=== PATIENT | male | born 1940 | race Caucasian/White ===

== ENCOUNTER → 2016-10-21 | Outpatient (CLI) | payer BC ==
--- NOTE | 2016-10-21 08:42 | DIAGNOSTIC IMAGING REPORT ---
THYROID ULTRASOUND CLINICAL HISTORY: Thyroid nodule. COMPARISON STUDY: Low dose screening chest CT April 16, 2016. TECHNIQUE: Sonography of the thyroid gland was performed. FINDINGS: The right thyroid lobe measures 4.6 x 1.8 x 2 cm and the left lobe measures 3.7 x 1.3 x 1.8 cm. There are multiple small hypoechoic nodules within the thyroid gland that measure up to 0.3 cm. 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 None of these nodules meet criteria for biopsy. 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 Note of these nodules meet criteria for biopsy. Electronically signed by: Ildefonso Ng M.D. 10/21/2016 8:41 AM Dictated Date/Time: 10/21/2016 8:38 AM
== END | disposition home or self-care (01) ==
LOC: C.ULTR 08:12
PROVIDERS: ATTEND Family Medicine
DX: E04.1 Nontoxic single thyroid nodule (principal)

== ENCOUNTER → 2017-02-11 | Outpatient (CLI) | payer BC ==
[2017-02-11 12:16] LABS: BASO % 0.3 %; BASO ABS # 0.03 K/uL (0-0.2); COMPLETE YES; EOS % 2.5 %; HEMATOCRIT 41.4 % (42-52); IG% 0.2 %; LYMPH % 13.2 %; LYMPH ABS # 1.22 K/uL (1.2-3.4); MEAN CELL VOLUME 89.8 fL (80-100); MEAN CORPUSCULAR HEMOGLOBIN 31.7 pg (25-34); MEAN CORPUSCULAR HGB CONC 35.3 g/dl (32-36); MEAN PLATELET VOLUME 9.9 fL (7.4-10.4); MONO % 7.5 %; NEUT % 76.3 %; PLATELET COUNT 266 K/uL (130-400); RED BLOOD COUNT 4.61 M/uL (4.7-6.1); WHITE BLOOD COUNT 9.21 K/uL (4.8-10.8)
[2017-02-11 12:36] LABS: URINE APPEARANCE CLEAR (CLEAR); URINE BILIRUBIN NEG (NEG); URINE COLOR YELLOW; URINE NITRITE NEG (NEG); URINE PH 7.5 (4.5-7.5); URINE SPECIFIC GRAVITY 1.015 (1.000-1.030); UROBILINOGEN NEG (NEG); ZZUR CULT IF INDIC CLEAN CATCH NO
[2017-02-11 12:37] LABS: BLOOD UREA NITROGEN 23 mg/dl (7-18); BUN/CREATININE RATIO 14.6 (10-20); CALCIUM 8.9 mg/dl (8.5-10.1); CARBON DIOXIDE 29 mmol/L (21-32); CHLORIDE 102 mmol/L (98-107); GLUCOSE 126 mg/dl (70-99); MAGNESIUM 2.5 mg/dl (1.8-2.4); POTASSIUM 3.2 mmol/L (3.5-5.1); SODIUM 139 mmol/L (136-145)
[2017-02-11 12:38] LABS: PHOSPHORUS 2.8 mg/dl (2.5-4.9)
[2017-02-11 12:39] LABS: URINE PROTIEN/CREAT RATIO 0.2 (0-0.2); URINE TOTAL PROTEIN 17.1 mg/dl (0-11.9)
[2017-02-11 12:44] LABS: MANUAL MICROSCOPIC REQUIRED? NO; REVIEW REQ? NO
== END | disposition home or self-care (01) ==
LOC: C.LABBFT 09:13
PROVIDERS: ATTEND Internal Medicine Nephrology
DX: N18.3 Chronic kidney disease, stage 3 (moderate) (principal)

== ENCOUNTER → 2017-08-13 | Outpatient (CLI) | payer BC ==
[2017-08-13 12:31] LABS: BASO % 0.2 %; BASO ABS # 0.02 K/uL (0-0.2); COMPLETE YES; EOS % 1.8 %; HEMATOCRIT 41.5 % (42-52); IG% 0.3 %; LYMPH % 10.8 %; LYMPH ABS # 1.39 K/uL (1.2-3.4); MEAN CELL VOLUME 90.2 fL (80-100); MEAN CORPUSCULAR HGB CONC 35.4 g/dl (32-36); MEAN PLATELET VOLUME 10.1 fL (7.4-10.4); MONO % 8.1 %; NEUT % 78.8 %; PLATELET COUNT 249 K/uL (130-400); WHITE BLOOD COUNT 12.88 K/uL (4.8-10.8)
[2017-08-13 12:46] LABS: ALT/SGPT 18 U/L (12-78); BLOOD UREA NITROGEN 18 mg/dl (7-18); BUN/CREATININE RATIO 12.5 (10-20); CARBON DIOXIDE 30 mmol/L (21-32); CHLORIDE 100 mmol/L (98-107); CHOLESTEROL 98 mg/dl (0-200); CREATININE 1.44 mg/dl (0.60-1.40); GLUCOSE 127 mg/dl (70-99); POTASSIUM 2.8 mmol/L (3.5-5.1); SODIUM 137 mmol/L (136-145); TRIGLYCERIDES 86 mg/dl (0-150); VERY LOW DENSITY LIPOPROT CALC 17 mg/dl
[2017-08-13 12:46] LABS: MAGNESIUM 2.1 mg/dl (1.8-2.4); PHOSPHORUS 2.3 mg/dl (2.5-4.9)
[2017-08-13 12:50] LABS: ALKALINE PHOSPHATASE 83 U/L (45-117); AST/SGOT 10 U/L (15-37); CHOLESTEROL/HDL RATIO 2.7; HDL CHOLESTEROL 36 mg/dl; LDL CHOLESTEROL CALCULATED 45 mg/dl
[2017-08-13 13:22] LABS: URINE PROTIEN/CREAT RATIO 0.2 (0-0.2); URINE TOTAL PROTEIN 33.9 mg/dl (0-11.9)
== END | disposition home or self-care (01) ==
LOC: C.LABBFT 08:39
PROVIDERS: ATTEND Internal Medicine Cardiovascular Disease
DX: N18.3 Chronic kidney disease, stage 3 (moderate) (principal); I25.10 Atherosclerotic heart disease of native coronary artery without angina pectoris; I25.2 Old myocardial infarction

== ENCOUNTER 2022-10-27 01:51 | Inpatient (IN) ==
[2022-10-27] MEDS ORDERED: SODIUM CHLORIDE 0.9% 500 ML IV STA (01:54)
[2022-10-27] MEDS ORDERED: dilTIAZem HCl 5 MG/ML 5 ML VIAL IV STA (01:55)
[2022-10-27] MEDS ORDERED: dilTIAZem HCl 5 MG/ML 5 ML VIAL IV ONE (01:55)
[2022-10-27] MEDS ORDERED: STAT IV Infusion **Titration per Protocol STA (01:55)
--- NOTE | 2022-10-27 01:57 | Emergency Department Note ---
Impression & Plan Atrial fibrillation with rapid ventricular response ADMIT ED Provider Note HPI: The patient is an 82-year-old gentleman with history of coronary artery disease, hypertension, presents to the emergency department with a chief complaint of chest discomfort and atrial fibrillation with RVR. Patient states about an hour prior to arrival to the ED he developed a sensation of substernal chest discomfort that radiated somewhat to his left upper extremity. EMS was contac nelda and on their arrival patient was noted to be in what appeared to be atrial fibrillation with RVR with a heart rate of 160. Patient was given a bolus of diltiazem in the field, on arrival here to the ED his heart rate is improved in the 120s, he is hemodynamically stable otherwise, saturating well on room air. Patient states his chest pain from earlier is still present but much improved in severity. ROS: - Per HPI *Outpatient medications and allergy history reviewed. *Pertinent external medical records reviewed. PE: General: Alert HEENT: Normocephalic, trachea midline Eyes: Extraocular eye movement is intact, no scleral erythema Pulmonary: Clear to auscultation bilaterally, no wheezing Cardio: Tachycardic rate with irregular rhythm GI: Abdomen is soft, nontender : No suprapubic tenderness MSK: No evidence of trauma or malformation of the extremities, no edema Skin: No evidence of rash Neuro: Alert, no focal deficits Psychiatric: Cooperative pvc monitor: (As interpreted by myself): - An order was placed for continuous cardiac monitoring - Patient was noted to be in atrial fibrillation with RVR with a heart rate of 126 EKG: (As interpreted by myself): Rate: 113 Rhythm: Atrial fibrillation Intervals: Within normal limits ST changes: No ST elevation Time: 0205 Interventions provided in ED: -IV diltiazem bolus, diltiazem drip, IV fluid bolus, IV metoprolol (patient was given aspirin and a single diltiazem bolus in the field via EMS) Medical Decision Making: Patient presented to the emergency department with chest discomfort and tachycardia. EKG is consistent with atrial fibrillation with RVR. This is new onset for this patient. Patient was given a diltiazem bolus and drip here in the ED as he was initially hypertensive on arrival, this did result in improvement in his heart rate into the low 100s but still with some tachycardia. Patient was therefore ordered a single dose of IV metoprolol as well. High- sensitivity troponin level is mildly elevated at 24, EKG does not show any acute ischemic changes. Blood work shows a mild nonspecific leukocytosis, hemoglobin is stable, potassium is slightly low at 3.2. This was ordered for oral repletion. On my reassessment the patient is resting comfortably in bed, saturating well on room air, chest pain is improved. Given his new onset arrhythmia he will be admitted to the hospitalist service for further management. [facility] hospitalist service was consulted for admission. Patient and his family members at the bedside are in agreement for admission and the patient was placed for admission in improved condition Consultants: Hospitalist service Disposition discussion held by myself with: Patient * CRITICAL CARE TIME: (44) minutes -Stabilization of tachyarrhythmia/atrial fibrillation with RVR requiring IV medications for rate control, time spent at the bedside, interpretation of diagnostic studies and EKG, arrangement of admission Diagnosis: 1. New onset atrial fibrillation with RVR 2. Chest pain, acute 3. Hypokalemia, mild 4. Leukocytosis, nonspecific 5. Elevated high-sensitivity troponin Disposition: Admission Lauri Pulliam DO Emergency Medicine Past Med/Surg History Medical History CKD (chronic kidney disease), stage III Follow[address] Morley Heart valve regurgitation unsure which valve Hypertension Myocardial infarct 1997 - heavy chest, left arm pain - Went to [facility] - flown to [facility] - blockage of "back of heart" - heart cath - no stent placement - Follows Dr. Puente Surgical History History of colonoscopy Hx of cardiac cath 1997 d/t to [place] - no stents placed - Follows Dr. Puente Hx of cataract extraction Rt. Hx of inguinal hernia repair Hx of repair of left rotator cuff x2 Family History Father Family history of diabetes mellitus Mother Family history of diabetes mellitus Social History Smoking Status: Current every day smoker Cigarettes Per Day: 2-3/week; Second Hand Exposure: No; Hx Alcohol Use: Yes Alcohol type: beer Hx Substance Use: No Preferred Language: Chadian Communication Ability: Effective Board Layer Required: No Beliefs That Will Affect Care: None Current Living Situation: Alone current occupational status: employed Feels Safe at Home: Yes Assistive Devices: Glasses Allergies Allergies Allergy/AdvReac Type Severity Reaction Status Date / Time No Known Allergies Allergy Verified 10/27/22 02:17 Home Meds Home Medications Medication Instructions Recorded Confirmed cholecalciferol (vitamin D3) 50 2,000 units PO QPM 04/08/19 10/27/22 mcg (2,000 unit) capsule lisinopril 20 1 tab PO QAM 04/08/19 10/27/22 mg-hydrochlorothiazide 25 mg tablet metoprolol succinate 50 mg 50 mg PO QAM 04/08/19 10/27/22 tablet,extended release 24 hr nitroglycerin 0.4 mg sublingual 0.4 mg sublingual .COMPLEX PRN 04/08/19 10/27/22 tablet Chest Pain omeprazole 40 mg capsule,delayed 40 mg PO QAM 04/08/19 10/27/22 release simvastatin 40 mg tablet 40 mg PO QPM 04/08/19 10/27/22 spironolactone 25 mg tablet 25 mg PO QAM 04/08/19 10/27/22 cilostazol 100 mg tablet 100 mg PO BID 01/25/20 10/27/22 nifedipine 30 mg tablet,extended 30 mg PO BID 01/25/20 10/27/22 release aspirin 325 mg tablet 325 mg PO QPM 02/13/22 10/27/22 fish, borage, flaxseed oils-omega 1 cap PO QAM 02/13/22 10/27/22 3,6,9 comb no.1 1,200 mg capsule ([place] 3-6-9) Previous Rx's Medication Instructions Recorded potassium chloride 20 mEq 40 meq PO BID #360 tabs 06/11/22 tablet,extended release Results & Data (ED) Vital Signs Vital Signs - 24 hr 10/27/22 01:36 10/27/22 01:54 10/27/22 01:55 Temperature 36.4 C L Temperature Source Oral Pulse Rate 130 H 138 H 121 H Pulse Rate from SpO2 Sensor Pulse Rhythm Irregular Respiratory Rate 20 24 Respiratory Effort / Characteristics Non-Labored Spontaneous Respiratory Depth Normal Respiratory Pattern Regular Blood Pressure 144/103 H Blood Pressure Mean 116 Pulse Oximetry 95 94 Oxygen Delivery Method Room Air Room Air Sepsis Recent Fever Within 48 Hours No Sepsis New/Unexplained Change in Mental Status No Sepsis Action Taken by Nursing No Action Required 10/27/22 01:55 10/27/22 02:00 10/27/22 02:08 Temperature Temperature Source Pulse Rate 121 H 135 H 117 H Pulse Rate from SpO2 Sensor 127 H 128 H 91 H Pulse Rhythm Respiratory Rate 26 H 19 26 H Respiratory Effort / Characteristics Respiratory Depth Respiratory Pattern Blood Pressure 136/76 Blood Pressure Mean 96 Pulse Oximetry 96 95 96 Oxygen Delivery Method Sepsis Recent Fever Within 48 Hours Sepsis New/Unexplained Change in Mental Status Sepsis Action Taken by Nursing 10/27/22 02:15 10/27/22 02:30 10/27/22 02:45 Temperature Temperature Source Pulse Rate 114 H 111 H 121 H Pulse Rate from SpO2 Sensor 108 H 103 H 113 H Pulse Rhythm Respiratory Rate 21 20 22 Respiratory Effort / Characteristics Respiratory Depth Respiratory Pattern Blood Pressure 126/86 Blood Pressure Mean 99 Pulse Oximetry 96 94 93 Oxygen Delivery Method Sepsis Recent Fever Within 48 Hours Sepsis New/Unexplained Change in Mental Status Sepsis Action Taken by Nursing 10/27/22 03:00 Temperature Temperature Source Pulse Rate 118 H Pulse Rate from SpO2 Sensor 112 H Pulse Rhythm Respiratory Rate 16 Respiratory Effort / Characteristics Respiratory Depth Respiratory Pattern Blood Pressure 128/81 Blood Pressure Mean 96 Pulse Oximetry 93 Oxygen Delivery Method Sepsis Recent Fever Within 48 Hours Sepsis New/Unexplained Change in Mental Status Sepsis Action Taken by Nursing Laboratory Data 10/27/22 02:02 10/27/22 02:02 Lab Results 10/27/22 10/27/22 10/27/22 Range/Units 02:02 02:02 02:02 WBC 12.63 H (4.8-10.8) K/ul RBC 4.92 (4.70-6.10) M/uL Hgb 15.9 (14.0-18.0) g/dl Hct 44.3 (42.0-52.0) % MCV 90.0 (80.0-100.0) fL MCH 32.3 (25.0-34.0) pg MCHC 35.9 (32.0-36.0) g/dL RDW Std Deviation 43.6 (36.4-46.3) fL RDW Coeff of Jolene 13.3 (11.5-14.5) % Plt Count 276 (130-400) K/uL MPV 9.4 (9.4-12.4) fL Immature Gran % (Auto) 0.6 % Neut % (Auto) 80.5 % Lymph % (Auto) 10.5 % Rogers % (Auto) 6.7 % Eos % (Auto) 1.2 % Baso % (Auto) 0.5 % Neut # (Auto) 10.18 H (1.40-6.50) K/uL Lymph # (Auto) 1.33 (1.2-3.4) K/uL Rogers # (Auto) 0.84 H (0.11-0.59) K/uL Eos # (Auto) 0.15 (0-0.50) K/uL Baso # (Auto) 0.06 (0-0.2) K/uL Immature Gran # (Auto) 0.07 (0.01-0.20) K/uL PT 10.3 (9.0-12.0) Seconds INR 1.0 (0.9-1.1) APTT 30.0 (21.0-31.0) Seconds PTT Ratio 1.1 Sodium 135 L (136-145) mmol/L Potassium 3.2 L (3.5-5.1) mmol/L Chloride 99 (98-107) mmol/L Carbon Dioxide 30 (21-32) mmol/L Anion Gap 6 (3-11) BUN 21 (6-23) mg/dl Creatinine 1.22 (0.6-1.4) mg/dl Est Cr Clr Drug Dosing 47.5 ml/min Est GFR ( Amer) 64.0 ml/min Est GFR (Non-Af Amer) 55.3 ml/min BUN/Creatinine Ratio 17.2 (10-20) Glucose 169 H (70-99(Fasting)) mg/dl Calcium 9.4 (8.5-10.1) mg/dl Magnesium 1.8 (1.7-2.4) mg/dl Total Bilirubin 0.7 (0.2-1.0) mg/dl AST 12 L (13-39) U/L ALT 15 (7-52) U/L Alkaline Phosphatase 84 (34-104) U/L Troponin I High Sens 24.7 H (0-20) pg/ml Total Protein 7.7 (6.0-8.3) gm/dl Albumin 4.6 (3.4-5.0) gm/dl Globulin 3.1 (2.5-4.0) gm/dl Albumin/Globulin Ratio 1.5 (0.9-2) Lipase 35 (11-82) U/L TSH (0.300-4.500) uIu/ml SARS-CoV-2, RNA, NAAT (NEGATIVE) 10/27/22 10/27/22 Range/Units 02:02 02:07 WBC (4.8-10.8) K/ul RBC (4.70-6.10) M/uL Hgb (14.0-18.0) g/dl Hct (42.0-52.0) % MCV (80.0-100.0) fL MCH (25.0-34.0) pg MCHC (32.0-36.0) g/dL RDW Std Deviation (36.4-46.3) fL RDW Coeff of Jolene (11.5-14.5) % Plt Count (130-400) K/uL MPV (9.4-12.4) fL Immature Gran % (Auto) % Neut % (Auto) % Lymph % (Auto) % Rogers % (Auto) % Eos % (Auto) % Baso % (Auto) % Neut # (Auto) (1.40-6.50) K/uL Lymph # (Auto) (1.2-3.4) K/uL Rogers # (Auto) (0.11-0.59) K/uL Eos # (Auto) (0-0.50) K/uL Baso # (Auto) (0-0.2) K/uL Immature Gran # (Auto) (0.01-0.20) K/uL PT (9.0-12.0) Seconds INR (0.9-1.1) APTT (21.0-31.0) Seconds PTT Ratio Sodium (136-145) mmol/L Potassium (3.5-5.1) mmol/L Chloride (98-107) mmol/L Carbon Dioxide (21-32) mmol/L Anion Gap (3-11) BUN (6-23) mg/dl Creatinine (0.6-1.4) mg/dl Est Cr Clr Drug Dosing ml/min Est GFR ( Amer) ml/min Est GFR (Non-Af Amer) ml/min BUN/Creatinine Ratio (10-20) Glucose (70-99(Fasting)) mg/dl Calcium (8.5-10.1) mg/dl Magnesium (1.7-2.4) mg/dl Total Bilirubin (0.2-1.0) mg/dl AST (13-39) U/L ALT (7-52) U/L Alkaline Phosphatase (34-104) U/L Troponin I High Sens (0-20) pg/ml Total Protein (6.0-8.3) gm/dl Albumin (3.4-5.0) gm/dl Globulin (2.5-4.0) gm/dl Albumin/Globulin Ratio (0.9-2) Lipase (11-82) U/L TSH 1.691 (0.300-4.500) uIu/ml SARS-CoV-2, RNA, NAAT NEGATIVE (NEGATIVE) Administered Medications Diltiazem HCl 125 mg/ Dextrose 125 mls @ 5 mls/hr IV .Q24H [facility]; Protocol Stop: 11/26/22 01:59 Last Titration: 10/27/22 02:53 Dose: 10 mg/hr, 10 mls/hr Documented By: KIKO Co-signed By: HILARY Admin: 10/27/22 02:03 Dose: 5 mg/hr, 5 mls/hr Documented By: KIKO Co-signed By: ADOLFO Discontinued Medications Diltiazem HCl (Diltiazem Hcl 5 Mg/Ml 5 Ml Vial) 10 mg IV NOW STA Stop: 10/27/22 01:56 Last Admin: 10/27/22 02:02 Dose: 10 mg Documented By: KIKO Co-signed By: ADOLFO Diltiazem HCl (Diltiazem Hcl 5 Mg/Ml 5 Ml Vial) Confirm Administered Dose 25 mg IV .STK-MED ONE Stop: 10/27/22 01:56 Last Admin: 10/27/22 02:03 Dose: Not Given Documented By: KIKO Sodium Chloride (Nss) 500 mls @ 999 mls/hr IV .Q31M STA Stop: 10/27/22 02:24 Last Infusion: 10/27/22 02:30 Dose: 0 mls/hr Documented By: Admin: 10/27/22 02:05 Dose: 999 mls/hr Documented By: MJJ Miscellaneous (Stat Iv Infusion Titration Per Protocol) 1 each N/A NOW STA Stop: 10/27/22 01:56 Last Admin: 10/27/22 03:13 Dose: 1 each Documented By: KIKO Discharge Plan Visit Data Chief Complaint: Cardiac Assessment ED Provider: Lauri Pulliam Discharge Problem: Atrial fibrillation with rapid ventricular response Patient Disposition: Admitted As Inpatient Forms Stand Alone Forms: [facility] Prescriptions Prescriptions: No Action potassium chloride 20 mEq tablet extended release 40 meq PO BID Qty: 360 3RF simvastatin 40 mg tablet 40 mg PO QPM lisinopril-hydrochlorothiazide 20-25 mg tablet 1 tab PO QAM metoprolol succinate 50 mg tablet extended release 24 hr 50 mg PO QAM nitroglycerin 0.4 mg tablet, sublingual 0.4 mg SL .COMPLEX PRN (Reason: Chest Pain) Patient Comments: 0.[address] 1 tablet under the tongue every 5 minures for up to 3 doses as needed for chest pain call 911 if pain persists PRN; Rx Instructions: 0.[address] 1 tablet under the tongue every 5 minures for up to 3 doses as needed for chest pain call 911 if pain persists PRN; spironolactone 25 mg tablet 25 mg PO QAM cholecalciferol (vitamin D3) 2,000 unit capsule 2,000 units PO QPM omeprazole 40 mg capsule,delayed release(DR/EC) 40 mg PO QAM nifedipine 30 mg tablet extended release 30 mg PO BID cilostazol 100 mg tablet 100 mg PO BID aspirin 325 mg Tablet 325 mg PO QPM [place] 3-6-9 1,200 mg Capsule 1 cap PO QAM Referrals Referrals: Giancarlo Bettencourt DO [Primary Care Provider] -
[2022-10-27] MEDS ORDERED: dilTIAZem HCL 125 MG in DEXTROSE 5% 100 ML IV SCH (02:00)
[2022-10-27 02:34] LABS: Basophils # (auto) 0.06 K/uL (0-0.2); Basophils % (auto) 0.5 %; Eosinophils # (auto) 0.15 K/uL (0-0.50); Eosinophils % (auto) 1.2 %; Hematocrit (blood only) 44.3 % (42.0-52.0); Hemoglobin 15.9 g/dl (14.0-18.0); Immature Granulocytes # (auto) 0.07 K/uL (0.01-0.20); Immature Granulocytes % (auto) 0.6 %; Lymphocytes # (auto) 1.33 K/uL (1.2-3.4); Lymphocytes % (auto) 10.5 %; Mean Corpuscular Hemoglobin 32.3 pg (25.0-34.0); Mean Corpuscular Hgb Conc 35.9 g/dL (32.0-36.0); Mean Platelet Volume 9.4 fL (9.4-12.4); Monocytes # (auto) 0.84 K/uL (0.11-0.59); Monocytes % (auto) 6.7 %; Neutrophils # (auto) 10.18 K/uL (1.40-6.50); Neutrophils % (auto) 80.5 %; Platelet Count 276 K/uL (130-400); RDW Coefficient of Variation 13.3 % (11.5-14.5); RDW Standard Deviation 43.6 fL (36.4-46.3); Red Blood Count 4.92 M/uL (4.70-6.10); White Blood Count 12.63 K/ul (4.8-10.8)
[2022-10-27 02:48] LABS: Albumin Globulin Ratio 1.5 (0.9-2); Albumin Level 4.6 gm/dl (3.4-5.0); BUN Creatinine Ratio 17.2 (10-20); Bilirubin,Total 0.7 mg/dl (0.2-1.0); Calcium 9.4 mg/dl (8.5-10.1); Creatinine Clr Calc Pharmacy 47.5 ml/min; Est GFR (Non-African American) 55.3 ml/min; Globulin 3.1 gm/dl (2.5-4.0); Magnesium 1.8 mg/dl (1.7-2.4); Potassium 3.2 mmol/L (3.5-5.1); Total Protein 7.7 gm/dl (6.0-8.3)
[2022-10-27 02:53] LABS: Partial Thromboplastin Ratio 1.1; Prothrombin Time 10.3 Seconds (9.0-12.0)
[2022-10-27 02:54] LABS: Troponin I High Sensitivity 24.7 pg/ml (0-20)
[2022-10-27] MEDS ORDERED: METOPROLOL TARTRATE 1 MG/ML VIAL IV STA (03:14)
[2022-10-27] MEDS ORDERED: POTASSIUM CHLORIDE CRTAB 20 MEQ TABCR PO STA ×2 (03:17→03:46)
--- NOTE | 2022-10-27 03:40 | History & Physical Report ---
Date of Service October 27, 2022 Assessment & Plan (1) Atrial fibrillation with rapid ventricular response: Plan: 82yo Male with PMH [place] 1997 treated medically, HTN, CAD, CKDIII here for afib RVR. Afib RVR -in ED received metoprolol 5mg, diltiazem 10mg, NSS 500ml bolus, diltiazem drip -CXR wnl -ordered echo TTE -ordered metoprolol succinate 25mg, will stop diltiazem drip in 1 hour to see how patient tolerates -ordered 40meq KCl -ordered Mg 1g -consulted cardiology -started on eliquis 2.5mg BID -continue metoprolol succinate 50mg daily -hold HCTZ, nifedipine while on cardizem drip -recheck BMP, mag HTN -lisinopril HCTZ on hold given hypokalemia, resume once corrected -continue spironolactone -nifedipine on hold given diltiazem drip, may resume once drip discontinued -continue metoprolol succinate 50mg daily Elevated Trop -24.7 -trend Hypokalemia -ordered 40meq KCl -recheck Hypomagnesia -ordered Mg 1g recheck GERD -continue protonix Hx. MS -continue simvastatin PAD -hold cilostozol until stop diltiazem drip FENa: heart healthy Code Status: full DVT PPX: eliquis 2.5mg BID Dispo: PCU/Latosha Pemberton D.O. PGY 2, FCM (2) Hypertension: (3) CKD (chronic kidney disease), stage III: (4) CAD (coronary artery disease): History of Present Illness Chief Complaint: Afib RVR Primary Care Provider: Giancarlo Bettencourt, 82yo Male with PMH [place] 1997 treated medically, HTN, CAD, CKDIII here for afib RVR. Patient states at 12:30 this morning he developed left chest pain pressure with pain radiating down his left arm, was concerned for a heart attack so came to ED. 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 Otherwise patient denies any fever chills nausea vomiting SOB D/C swelling in legs. Patient received diltiazem 10mg started on drip, [id number], NSS 500mls bolus, states his chest pain/pressure has resolved. states he has a chronic productive cough over the last few months that has slowly improved by now. Patient is in charge of his own medication, takes them regularly. He smoked 2-3 packs daily from ages [age] until his heart attack, now smokes 1 pack a month. Patient denies drinking. Allergies Allergy/AdvReac Type Severity Reaction Status Date / Time No Known Allergies Allergy Verified 10/27/22 02:17 Home Medications Medication Instructions Recorded Confirmed Type cholecalciferol (vitamin D3) 50 2,000 units PO QPM 04/08/19 10/27/22 History mcg (2,000 unit) capsule lisinopril 20 1 tab PO QAM 04/08/19 10/27/22 History mg-hydrochlorothiazide 25 mg tablet metoprolol succinate 50 mg 50 mg PO QAM 04/08/19 10/27/22 History tablet,extended release 24 hr nitroglycerin 0.4 mg sublingual 0.4 mg sublingual .COMPLEX PRN 04/08/19 10/27/22 History tablet Chest Pain omeprazole 40 mg capsule,delayed 40 mg PO QAM 04/08/19 10/27/22 History release simvastatin 40 mg tablet 40 mg PO QPM 04/08/19 10/27/22 History spironolactone 25 mg tablet 25 mg PO QAM 04/08/19 10/27/22 History cilostazol 100 mg tablet 100 mg PO BID 01/25/20 10/27/22 History nifedipine 30 mg tablet,extended 30 mg PO BID 01/25/20 10/27/22 History release aspirin 325 mg tablet 325 mg PO QPM 02/13/22 10/27/22 History fish, borage, flaxseed oils-omega 1 cap PO QAM 02/13/22 10/27/22 History 3,6,9 comb no.1 1,200 mg capsule ([place] 3-6-9) potassium chloride 20 mEq 40 meq PO BID #360 tabs 06/11/22 10/27/22 Rx tablet,extended release Past Med/Surg History Medical History CKD (chronic kidney disease), stage [address] Morley Heart valve regurgitation unsure which valve Hypertension Myocardial infarct 1997 - heavy chest, left arm pain - Went to [facility] - flown to [facility] - blockage of "back of heart" - heart cath - no stent placement - Follows Dr. Puente Surgical History History of colonoscopy Hx of cardiac cath 1997 d/t to [place] - no stents placed - Follows Dr. Puente Hx of cataract extraction Rt. Hx of inguinal hernia repair Hx of repair of left rotator cuff x2 Family History Father Family history of diabetes mellitus Mother Family history of diabetes mellitus Social History Smoking Status: Current some day smoker Cigarettes Per Day: 2-3/week; Second Hand Exposure: No; Do You Dip or Chew Tobacco: No; Tobacco Cessation Education Requested by Patient: Yes Hx Alcohol Use: Yes Alcohol type: beer Hx Substance Use: No Preferred Language: Mongolian Communication Ability: Effective Stock Pitcher Required: No Beliefs That Will Affect Care: None Current Living Situation: Spouse Current Living Situation Comment: From home with current occupational status: employed Other Information That Helps Us Care for You: No Feels Safe at Home: Yes Safety Concerns: Feels Safe At This Time Assistive Devices: Glasses Review of Systems Review of Systems: see hpi Physical Exam Constitutional: WD/WN, vitals as above Eyes: PERRL, conjunctivae normal, anicteric sclerae ENMT: external ear and nose normal, oropharynx normal Neck: trachea midline, no thyromegaly Respiratory: normal respiratory effort, lungs clear to auscultation Cardiovascular: Rate/Rhythm: + irregularly irregular Extremities: no edema Gastrointestinal (Abdomen): Inspection/Auscultation: abdomen normal to inspection; abdomen not distended Percussion/Palpation: abdomen soft; abdomen nontender Skin: no rashes, warm and dry Results & Data Results & Data ([facility]) Vital Signs (Past 12 Hours) Vital Signs Temp Pulse Resp BP Pulse Ox O2 Del Method 10/27/22 03:23 128 H 10/27/22 03:00 118 H 16 128/81 93 10/27/22 02:45 121 H 22 93 10/27/22 02:30 111 H 20 126/86 94 10/27/22 02:15 114 H 21 96 10/27/22 02:08 117 H 26 H 136/76 96 10/27/22 02:00 135 H 19 95 10/27/22 01:55 121 H 26 H 96 10/27/22 01:55 121 H 10/27/22 01:54 138 H 24 94 Room Air 10/27/22 01:36 36.4 C L 130 H 20 144/103 H 95 Room Air Supervising Physician Co-Signing Physician Notes Atrial fibrillation with RVR, new onset/CAD/hypertension/history of MR- The patient will be admitted to telemetry for serial cardiac enzymes, serial EKG's, cardiac rhythm monitoring and a 2-D echocardiogram with Dopplers. From the ED the patient received the following: Diltiazem bolus then drip titrated to 10 mg/h We will give Lopressor 5 mg IV now, and metoprolol succinate 25 mg p.o. now, and discontinue diltiazem drip 1 hour later We will hold nifedipine 30 mg p.o. twice daily and lisinopril/HCTZ to allow blood pressure to go up to compensate for need to increase metoprolol Patient would likely need metoprolol succinate 50 mg p.o. twice daily, this can be titrated as symptoms determine Potassium 3.2 and magnesium 1.8. Replace with IV and oral supplementation to maintain potassium 4.0 and magnesium 2.0 Electrolyte abnormalities likely secondary to HCTZ GERD- Continue at omeprazole/pantoprazole 40 mg daily Hyperlipidemia- Continue simvastatin 40 mg daily PAD- Cilostazol Resident Activity Tracking Resident Involvement: Resident Care Provided Care Provided: Adult Hospital Medicine
[2022-10-27] MEDS ORDERED: MAGNESIUM SULFATE / D5W 1 GM/100 ML BAG IV ONE (03:46)
[2022-10-27] MEDS ORDERED: METOPROLOL SUCC 25MG EXT REL TAB PO STA (03:46)
[2022-10-27] MEDS ORDERED: ACETAMINOPHEN 325 MG TAB PO PRN (05:01)
[2022-10-27] MEDS ORDERED: POLYETHYLENE (MIRALAX) 17 GM PACK PO PRN (05:01)
[2022-10-27 06:22] LABS: BUN Creatinine Ratio 17.7 (10-20); Calcium 9.4 mg/dl (8.5-10.1); Creatinine Clr Calc Pharmacy 51.3 ml/min; Est GFR (African American) 70.3 ml/min; Est GFR (Non-African American) 60.6 ml/min; Magnesium 2.3 mg/dl (1.7-2.4); Potassium 3.8 mmol/L (3.5-5.1)
[2022-10-27 06:24] LABS: Hematocrit (blood only) 40.9 % (42.0-52.0); Hemoglobin 14.4 g/dl (14.0-18.0); Mean Corpuscular Hemoglobin 31.7 pg (25.0-34.0); Mean Corpuscular Hgb Conc 35.2 g/dL (32.0-36.0); Mean Corpuscular Volume 90.1 fL (80.0-100.0); Mean Platelet Volume 9.2 fL (9.4-12.4); Platelet Count 254 K/uL (130-400); RDW Coefficient of Variation 13.1 % (11.5-14.5); Red Blood Count 4.54 M/uL (4.70-6.10); White Blood Count 12.86 K/ul (4.8-10.8)
--- NOTE | 2022-10-27 07:33 | XRay Report ---
SINGLE VIEW CHEST CLINICAL HISTORY: Atypical chest pain. FINDINGS: 2 AP, portable, upright chest radiographs are correlated with chest CT dated 04/16/2016. The heart is enlarged noting atherosclerotic calcification of the thoracic aorta. The pulmonary vasculatu re is noncongested. Emphysema and chronic interstitial thickening is similar to previous. There is bi basilar scarring/atelectasis. No airspace consolidation or large pleural effusion is identified. No p neumothorax is seen. The skeletal structures are osteopenic. The bony thorax is grossly intact. IMPRESSION: Cardiomegaly and emphysema with no acute cardiopulmonary abnormality identified. ACT 112: Negative or not required by law. Electronically signed by: Petros Christensen M.D. 10/27/2022 7:32 AM
[2022-10-27] MEDS ORDERED: Heparin IV Adult Wt-Based Standard WITH Bolus Protocol IV SCH (08:00)
[2022-10-27] MEDS: PANTOprazole 40 MG TAB PO SCH (08:24)
[2022-10-27] MEDS: OMEGA-3 (PURIFIED FISH OIL) 1 GM CAP PO SCH (08:25)
[2022-10-27] MEDS ORDERED: HEPARIN SOD (PORCINE) 1000 UNIT/ML IV ONE (08:30)
[2022-10-27] MEDS ORDERED: HEPARIN SODIUM/DEXTROSE 25,000 UNITS/500 ML BAG IV SCH (08:30)
[2022-10-27] MEDS ORDERED: APIXABAN 2.5 MG TAB PO SCH (09:00)
[2022-10-27] MEDS ORDERED: SPIRONOLACTONE 25 MG TAB PO SCH (09:00)
[2022-10-27] MEDS ORDERED: METOPROLOL SUCC 50MG EXT REL TAB PO SCH (09:00)
--- NOTE | 2022-10-27 09:17 | Hospitalist Progress Note ---
Date of Service October 27, 2022 Assessment & Plan (1) NSTEMI (non-ST elevated myocardial infarction): Plan: Presented with chest pain, AFib RVR as described below. No ST elevations on EKG. Troponin 24 -> 858 -> 2347 but now without chest pain, trend q6h. Heparin gtt initiated this morning -> transitioned to 5mg BID. Echo without new wall motion abnormalities. A1c and lipid panel pending. Transitioned from simvastatin to rosuvastatin 20mg daily (high-intensity statin for plaque stabilization). Cardiology consulted and appreciate recommendations, no indication for catheterization at this time given suspect troponin leak was due to demand ischemia from AFib RVR rather than ACS. Continue aspirin. Metoprolol succinate increased to 100mg daily, continue. If BP tolerates into tomorrow, can resume lisinopril (without spironolactone) Resume lisinopril when able (held for hypotension). (2) Atrial fibrillation with rapid ventricular response: Plan: Presented with HR 130s; decreased to 90s on dilt gtt/bolus, as well as extra PO dose metoprolol succinate. Continue metoprolol succinate 100mg daily. Cardiology and Echo as above. (3) CAD (coronary artery disease): Plan: see above (4) Hypertension: Plan: Holding lisinopril, spironolactone, and HCTZ for hypotension, may resume lisinopril when BP allows. Continue increased dose metoprolol succinate 100mg daily. (5) CKD (chronic kidney disease), stage III: Plan: Creatinine 1.22 on admission with GFR 55, near baseline. Avoid nephrotoxins when able, and trend BMP. Admission and Anticipated Discharge Date Admission Date: October 27, 2022 Subjective Overnight troponin increased to 800s, Cardiology consulted and Heparin gtt initiated this morning in the event of ACS. Patient on my interview late this morning denies chest pain, SOB now that HR in 70s. Called to beside for BP in 80s on diltiazem around 11am. Medication stopped and patient given oxygen briefly for O2<92%, since returned to room air. Review of Systems Review of Systems: All systems reviewed & are unremarkable except as noted in Subjective Physical Exam Constitutional: WD/WN, vitals as above Respiratory: normal respiratory effort, lungs clear to auscultation Cardiovascular: HR irregularly irregular, non-tachycardic, no murmurs Gastrointestinal (Abdomen): normal bowel sounds, soft, nontender, no hepatosplenomegaly Skin: no rashes, warm and dry Psychiatric: A+Ox3, euthymic affect Results & Data Results & Data ([facility]) Vital Signs (Past 12 Hours) Vital Signs Temp Pulse Pulse Resp BP BP BP 10/27/22 07:44 36.3 C L 94 H 18 113/66 10/27/22 05:03 36.5 C 112 H 20 142/79 H 10/27/22 05:01 10/27/22 05:03 36.5 C 112 H 20 142/79 H 10/27/22 04:00 97 H 24 118/90 10/27/22 03:45 96 H 19 10/27/22 03:30 107 H 27 H 129/83 10/27/22 03:15 127 H 18 10/27/22 03:23 128 H 10/27/22 03:00 118 H 16 128/81 10/27/22 02:45 121 H 22 10/27/22 02:30 111 H 20 126/86 10/27/22 02:15 114 H 21 10/27/22 02:08 117 H 26 H 136/76 10/27/22 02:00 135 H 19 10/27/22 01:55 121 H 26 H 10/27/22 01:55 121 H 10/27/22 01:54 138 H 24 10/27/22 01:36 36.4 C L 130 H 20 144/103 H Pulse Ox Pulse Ox O2 Del Method O2 Del Method 10/27/22 07:44 94 Room Air 10/27/22 05:03 94 Room Air 10/27/22 05:01 94 Room Air 10/27/22 05:03 94 Room Air 10/27/22 04:00 94 10/27/22 03:45 93 10/27/22 03:30 92 10/27/22 03:15 96 10/27/22 03:23 10/27/22 03:00 93 10/27/22 02:45 93 10/27/22 02:30 94 10/27/22 02:15 96 10/27/22 02:08 96 10/27/22 02:00 95 10/27/22 01:55 96 10/27/22 01:55 10/27/22 01:54 94 Room Air 10/27/22 01:36 95 Room Air PG Care Time/CCT Total # of Minutes Spent Total Time Spent with Patient: Total time spent is greater than 50% in coordination of care (as documented) at patient's floor/unit and/or counseling patient: Coding Level of Care Code None Diagnoses NSTEMI (non-ST elevated myocardial infarction) I21.4 Atrial fibrillation with rapid ventricular response I48.91 CAD (coronary artery disease) I25.10 Hypertension I10 CKD (chronic kidney disease), stage III N18.3
[2022-10-27 10:04] LABS: Chol HDL Ratio 2.5 (0-5)
[2022-10-27 11:25] LABS: Troponin I High Sensitivity 2347.3 pg/ml (0-20)
--- NOTE | 2022-10-27 13:47 | Cardiology Consultation ---
Date of Consultation October 27, 2022 History of Present Illness Reason for Consultation: A-fib with RVR Attending Physician: Padmini Munoz, History of Present Illness Patient came to the hospital with chest pain and chest pressure and arm discomfort that woke him at night he was current concerned he was having a heart attack. He was found to be in atrial fibrillation with rapid ventricular response. His rates have improved and with that his anginal symptoms have resolved. He was unaware of any palpitations or fluttering at home he does note that his symptoms were also similar to his previous reflux symptoms. I do wonder if he was not having A-fib at home and that his reflux might of been related to atrial fibrillation with a rapid ventricular response. The only thing that is different is he notes this episode his his reflux medicine did not relieve his symptoms where in the past episodes it did. He denies any lightheadedness or dizziness. He has had no bleeding or bruising. He denies any need for upcoming surgery or tooth extraction. He is feeling well otherwise. He has had some hypotension and some hypoxemia which was likely related to being on a diltiazem drip. Off the drip he is feeling better and his vitals have normalized. The rest of number systems otherwise negative Allergies Allergy/AdvReac Type Severity Reaction Status Date / Time No Known Allergies Allergy Verified 10/27/22 02:17 Home Medications Medication Instructions Recorded Confirmed Type cholecalciferol (vitamin D3) 50 2,000 units PO QPM 04/08/19 10/27/22 History mcg (2,000 unit) capsule lisinopril 20 1 tab PO QAM 04/08/19 10/27/22 History mg-hydrochlorothiazide 25 mg tablet metoprolol succinate 50 mg 50 mg PO QAM 04/08/19 10/27/22 History tablet,extended release 24 hr nitroglycerin 0.4 mg sublingual 0.4 mg sublingual .COMPLEX PRN 04/08/19 10/27/22 History tablet Chest Pain omeprazole 40 mg capsule,delayed 40 mg PO QAM 04/08/19 10/27/22 History release simvastatin 40 mg tablet 40 mg PO QPM 04/08/19 10/27/22 History spironolactone 25 mg tablet 25 mg PO QAM 04/08/19 10/27/22 History cilostazol 100 mg tablet 100 mg PO BID 01/25/20 10/27/22 History nifedipine 30 mg tablet,extended 30 mg PO BID 01/25/20 10/27/22 History release aspirin 325 mg tablet 325 mg PO QPM 02/13/22 10/27/22 History fish, borage, flaxseed oils-omega 1 cap PO QAM 02/13/22 10/27/22 History 3,6,9 comb no.1 1,200 mg capsule ([place] 3-6-9) potassium chloride 20 mEq 40 meq PO BID #360 tabs 06/11/22 10/27/22 Rx tablet,extended release Patient History Medical History CKD (chronic kidney disease), stage III [address] Morley Heart valve regurgitation unsure which valve Hypertension Myocardial infarct 1997 - heavy chest, left arm pain - Went to [facility] - flown to [facility] - blockage of "back of heart" - heart cath - no stent placement - Follows Dr. Puente Surgical History History of colonoscopy Hx of cardiac cath 1997 d/t to [place] - no stents placed - Follows Dr. Puente Hx of cataract extraction Rt. 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: No Beliefs That Will Affect Care: None Current Living Situation: Spouse Current Living Situation Comment: From home with current occupational status: employed Other Information That Helps Us Care for You: No Feels Safe at Home: Yes Safety Concerns: Feels Safe At This Time Assistive Devices: Glasses Results & Data ([facility]) Vital Signs (Past 12 Hours) Vital Signs Temp Pulse Pulse Resp BP BP BP 10/27/22 11:20 82/48 L 10/27/22 11:19 36.3 C L 69 18 78/47 L 10/27/22 11:54 66 20 107/58 L 10/27/22 11:50 76 28 H 104/63 10/27/22 11:47 10/27/22 11:46 10/27/22 11:43 10/27/22 11:40 70 92/58 L 10/27/22 09:00 72 10/27/22 07:44 36.3 C L 94 H 18 113/66 10/27/22 05:03 36.5 C 112 H 20 142/79 H 10/27/22 05:01 10/27/22 05:03 36.5 C 112 H 20 142/79 H 10/27/22 04:00 97 H 24 118/90 10/27/22 03:45 96 H 19 10/27/22 03:30 107 H 27 H 129/83 10/27/22 03:15 127 H 18 10/27/22 03:23 128 H 10/27/22 03:00 118 H 16 128/81 10/27/22 02:45 121 H 22 10/27/22 02:30 111 H 20 126/86 10/27/22 02:15 114 H 21 10/27/22 02:08 117 H 26 H 136/76 10/27/22 02:00 135 H 19 10/27/22 01:55 121 H 26 H 10/27/22 01:55 121 H 10/27/22 01:54 138 H 24 Pulse Ox Pulse Ox O2 Del Method O2 Del Method O2 Flow Rate 10/27/22 11:20 Room Air 10/27/22 11:19 91 Room Air 10/27/22 11:54 91 Nasal Cannula 3 10/27/22 11:50 92 Nasal Cannula 3 10/27/22 11:47 94 Nasal Cannula 3 10/27/22 11:46 91 Nasal Cannula 3 10/27/22 11:43 90 Nasal Cannula 2 10/27/22 11:40 85 L Room Air 10/27/22 09:00 10/27/22 07:44 94 Room Air 10/27/22 05:03 94 Room Air 10/27/22 05:01 94 Room Air 10/27/22 05:03 94 Room Air 10/27/22 04:00 94 02/19/23 03:45 93 10/27/22 03:30 92 10/27/22 03:15 96 10/27/22 03:23 10/27/22 03:00 93 10/27/22 02:45 93 10/27/22 02:30 94 10/27/22 02:15 96 10/27/22 02:08 96 10/27/22 02:00 95 10/27/22 01:55 96 10/27/22 01:55 10/27/22 01:54 94 Room Air He is awake alert and orient x3 is in no acute distress he does not appear short of breath talking in sentences HEENT: 2+ crepitations or carotid bruits Lungs: Clear to auscultation bilaterally no rales rhonchi or wheezing Heart: Irregular rate and rhythm he has a holosystolic murmur 2 out of 6 at the apex Abdomen: Soft nontender nondistended positive bowel sounds Extremities: No clubbing cyanosis or edema Psychiatric: His affect appeared appropriate IMPRESSIONS: 1 atrial fibrillation with a rapid ventricular response leading to angina 2. Coronary disease status post inferior and inferior lateral myocardial infarction in 1997 3. EKG with chronic ST-T changes in the anterior lateral leads 4. Outpatient echocardiogram and inpatient echocardiogram with basal to mid inferior and basal to mid inferolateral wall hypokinesis 5. 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 Symptoms of claudication on Pletal as an outpatient 7. History of chronic kidney disease 8. Ongoing tobacco use approximately a pack and 1/2/week 9. Hypertension with a history of hypokalemia 10. Hyperlipidemia His rates are well controlled today while in atrial fibrillation and he has had no further chest discomfort and arm discomfort consistent with his angina that brought him to the hospital. He was unaware of any palpitations or fluttering at home. For now we will continue with rate control and anticoagulation. With his renal function normalizing he should be on 5 mg of Eliquis twice a day as he is more than 60 kg and his creatinine now is less than 1.5. We discussed signs and symptoms of bleeding as an outpatient. We discussed avoiding ladders and the roof and juggling chainsaws. If you were to have worsening shortness of breath or worsening anginal symptoms while in A-fib while rate controlled at that point we would need to consider cardioversion and druze of sinus rhythm to improve his symptoms. He did have a small troponin spill which based on the old troponin date is approximately a troponin between 2 and 3 which would make it very small. He has had anterior lateral ST changes on his EKG for a period of time there are no new wall motion abnormalities on his echocardiogram this admission. As discussed with nursing I would walk him in the hallway once he is off oxygen and see how he feels in A-fib to confirm he is not having any angina or worsening dyspnea. His outpatient medical regimen will have to be adjusted. I would continue with the 100 mg of Toprol-XL while holding the rest of his medications. I will stop his spironolactone tomorrow and consider restarting straight lisinopril given his history of cardiovascular disease and wall motion abnormalities. All this was discussed with the family and the patient at the bedside. We also discussed smoking cessation again. He notes he started smoking again due to the stress of his being diagnosed with breast cancer.
--- NOTE | 2022-10-27 14:09 | Electrocardiogram Report ---
Test Reason : Blood Pressure : / mmHG Vent. Rate : 113 BPM Atrial Rate : 125 BPM P-R Int : 000 ms QRS Dur : 088 ms QT Int : 348 ms P-R-T Axes : 000 -25 -01 degrees QTc Int : 477 ms Poor data quality, interpretation may be adversely affected Atrial fibrillation with rapid ventricular response Minimal voltage criteria for LVH, may be normal variant Inferior infarct , age undetermined ST/T changes consider anterolateral ischemia Abnormal ECG When compared with ECG of 29-JAN-2007 09:22, Afib has replaced NSR Confirmed by Byron Puente ([id number] on 10/27/2022 2:08:40 PM Referred By: REFERRED SELF Confirmed By:Byron Puente
[2022-10-27] MEDS: APIXABAN 5 MG TABLET PO SCH ×2 (15:49→23:34)
[2022-10-27] MEDS: CHOLECALCIFEROL 1,000 UNITS 25 MCG TAB PO SCH (20:31)
[2022-10-27] MEDS: ROSUVASTATIN CALCIUM 20 MG TAB PO SCH (20:31)
[2022-10-27] MEDS: ASPIRIN 325 MG ECTAB PO SCH (20:31)
[2022-10-27] MEDS ORDERED: SIMVASTATIN 40 MG TAB PO SCH (21:00)
[2022-10-27] MEDS ORDERED: METOPROLOL TARTRATE 1 MG/ML VIAL IV ONE ×2 (23:03→23:05)
[2022-10-27] MEDS ORDERED: POTASSIUM CHLORIDE CRTAB 20 MEQ TABCR PO ONE (23:19)
[2022-10-28] MEDS: METOPROLOL TARTRATE 1 MG/ML VIAL IV PRN ×2 (01:45→04:16)
--- NOTE | 2022-10-28 04:34 | Billing Data ---
Date of Service October 28, 2022 Coding Level of Care Code 37948 INT INP/OBS CARE
[2022-10-28] MEDS ORDERED: METOPROLOL SUCC 50MG EXT REL TAB PO ONE (04:55)
[2022-10-28] MEDS ORDERED: LACTATED RINGER'S 500 ML IV ONE (06:06)
[2022-10-28 07:28] LABS: Hematocrit (blood only) 45.5 % (42.0-52.0); Hemoglobin 15.6 g/dl (14.0-18.0); Mean Corpuscular Hemoglobin 31.9 pg (25.0-34.0); Mean Corpuscular Hgb Conc 34.3 g/dL (32.0-36.0); Mean Platelet Volume 9.3 fL (9.4-12.4); Platelet Count 268 K/uL (130-400); RDW Coefficient of Variation 13.8 % (11.5-14.5); RDW Standard Deviation 46.6 fL (36.4-46.3); Red Blood Count 4.89 M/uL (4.70-6.10); White Blood Count 10.87 K/ul (4.8-10.8)
[2022-10-28 07:47] LABS: BUN Creatinine Ratio 14.6 (10-20); Calcium 9.3 mg/dl (8.5-10.1); Creatinine Clr Calc Pharmacy 36.7 ml/min; Est GFR (African American) 46.8 ml/min; Est GFR (Non-African American) 40.4 ml/min; Potassium 4.7 mmol/L (3.5-5.1)
[2022-10-28 07:55] LABS: Troponin I High Sensitivity 1831.6 pg/ml (0-20)
[2022-10-28] MEDS: APIXABAN 5 MG TABLET PO SCH (08:02)
[2022-10-28] MEDS: PANTOprazole 40 MG TAB PO SCH (08:02)
[2022-10-28] MEDS: OMEGA-3 (PURIFIED FISH OIL) 1 GM CAP PO SCH (08:02)
[2022-10-28] MEDS: METOPROLOL SUCC 50MG EXT REL TAB PO SCH (08:03)
[2022-10-28 08:09] LABS: Estimated Average Glucose 134 mg/dl; Hemoglobin A1C 6.3 % (4.5-5.6)
[2022-10-28] MEDS ORDERED: METOPROLOL TARTRATE 1 MG/ML VIAL IV STA ×2 (08:22→09:00)
[2022-10-28] MEDS ORDERED: METOPROLOL TARTRATE 1 MG/ML VIAL IV ONE (08:26)
[2022-10-28] MEDS ORDERED: AMIODARONE / D5W 150 MG/100 ML BAG IV STA (08:35)
[2022-10-28] MEDS ORDERED: STAT IV Infusion **Titration per Protocol STA (08:35)
[2022-10-28] MEDS ORDERED: 0.2 MICRON FILTER SET 1 EACH IV STA (08:35)
[2022-10-28] MEDS ORDERED: AMIODARONE IV BOLUS & DRIP IV STA (08:35)
--- NOTE | 2022-10-28 08:36 | Hospitalist Progress Note ---
Date of Service October 28, 2022 Assessment & Plan (1) NSTEMI (non-ST elevated myocardial infarction): Plan: Presented with chest pain, AFib RVR No ST elevations on EKG but did have lateral ST depressions. Troponin peaked at 3174 Heparin gtt initiated and then converted to Eliquis for atrial fibrillation Echo without new wall motion abnormalities. Echo with EF 55-60%, sigmoid septum, basal to mid inferior and inferolateral akinesis, left atrium moderately dilated, mild to moderate AK, moderate MR, mildly reduced RV function, PA pressure 40 mmHg, grade 2 diastolic dysfunction A1c prediabetes range at 6.3%, and lipid panel controlled Transitioned from simvastatin to rosuvastatin 20mg daily (high-intensity statin for plaque stabilization). Cardiology consulted and appreciate recommendations Continue aspirin. Metoprolol succinate increased to 100mg daily Resume lisinopril when able (held for hypotension) and now also with acute kidney injury with creatinine up to 1.58 -Had recurrence of angina with rapid A-fib in the morning of 10/28 that resolved with rate control -We will likely need cardiac catheterization given ongoing angina with rapid A-fib-we will discuss with cardiology (2) Atrial fibrillation with rapid ventricular response: Plan: Presented with HR 130s; decreased to 90s on dilt gtt/bolus, as well as extra PO dose metoprolol succinate. Had recurrence of rapid A-fib in the morning of 10/28-resolved with IV Lopressor and starting bolus and drip with amiodarone -Continue metoprolol succinate 100mg daily. -Continue amiodarone load/drip -Continue telemetry monitoring -Follow BMP and magnesium and replace electrolytes as needed to keep optimized (3) CAD (coronary artery disease): Plan: With a history of previous CO in 1997 -We will likely need repeat cardiac catheterization this admission as discussed with cardiology (4) Hypertension: Plan: Holding lisinopril, spironolactone, and HCTZ for hypotension, may resume lisinopril when BP allows. Continue increased dose metoprolol succinate 100mg daily. (5) CKD (chronic kidney disease), stage III: Plan: Creatinine 1.22 on admission with GFR 55, near baseline. Avoid nephrotoxins when able -Creatinine up slightly 1.5 today -Reduce Eliquis dose back to 2.5 Mg p.o. twice daily (6) Current smoker: Plan: Continue to encourage smoking cessation Can use nicotine replacement therapy as needed Plan DVT prophylaxis-Eliquis Disposition-continued stay in PCU Discussed care with cardiology on 10/28 Admission and Anticipated Discharge Date Admission Date: October 27, 2022 Subjective Patient was having 8/10 in severity substernal chest pain radiating down the left upper extremity this morning with rapid A-fib with heart rates in the 150s through the night. He was given several doses of IV Lopressor through the night without much improvement. I gave him another dose of IV Lopressor and started him on amiodarone bolus and drip. Heart rates improved and chest pain resolved. ECG did not show any ischemic changes. Review of Systems Review of Systems: All systems reviewed & are unremarkable except as noted in HPI & below Physical Exam Constitutional: WD/WN, vitals as above Respiratory: normal respiratory effort, lungs clear to auscultation Cardiovascular: Rate/Rhythm: + tachycardic and + irregularly irregular Gastrointestinal (Abdomen): normal bowel sounds, soft, nontender, no hepatosplenomegaly Skin: no rashes, warm and dry Neurologic: PERRL, EOMI, accommodation nl, no face palsy, no dysarthria Psychiatric: Orientation: alert, oriented x 3 and cooperative Results & Data Results & Data ([facility]) Vital Signs (Past 12 Hours) Vital Signs Temp Pulse Pulse Resp BP BP BP 10/28/22 08:30 147 H 20 139/102 H 10/28/22 07:23 36.3 C L 111 H 18 121/92 10/27/22 22:22 106 H 10/28/22 05:01 10/28/22 04:16 149 H 127/72 10/27/22 23:35 112 H 10/28/22 04:15 36.6 C 149 H 19 127/72 10/28/22 01:45 169 H 126/85 10/27/22 23:05 36.4 C L 155 H 20 132/91 10/27/22 23:05 155 H 132/91 10/27/22 22:00 36.4 C L 114 H 19 119/90 Pulse Ox Pulse Ox O2 Del Method O2 Del Method 10/28/22 08:30 10/28/22 07:23 93 Room Air 10/27/22 22:22 10/28/22 05:01 94 Room Air 10/28/22 04:16 10/27/22 23:35 10/28/22 04:15 95 Room Air 10/28/22 01:45 10/27/22 23:05 92 Room Air 10/27/22 23:05 10/27/22 22:00 93 Room Air Laboratory Results CBC PG Care Time/CCT Total # of Minutes Spent Total Time Spent with Patient: Total time spent is greater than 50% in coordination of care (as documented) at patient's floor/unit and/or counseling patient: Coding Level of Care Code 21421 SUB INP/OBS CARE 3/50MIN Diagnoses NSTEMI (non-ST elevated myocardial infarction) I21.4 Atrial fibrillation with rapid ventricular response I48.91 CAD (coronary artery disease) I25.10 Hypertension I10 CKD (chronic kidney disease), stage III N18.3 Current smoker F17.200
[2022-10-28] MEDS ORDERED: AMIODARONE / D5W 360 MG/200 ML BAG IV ONE (08:45)
--- NOTE | 2022-10-28 08:59 | Cardiology Progress Note ---
Date of Service October 28, 2022 Assessment & Plan (1) Atrial fibrillation with rapid ventricular response: Plan IMPRESSIONS: 1 Atrial fibrillation with a rapid ventricular response leading to angina 2. NSTEMI 3. Coronary disease status post inferior and inferior lateral myocardial infarction in 1997 4. EKG with chronic ST-T changes in the anterior lateral leads 5. Outpatient echocardiogram and inpatient echocardiogram with basal to mid inferior and basal to mid inferolateral wall hypokinesis 6. 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 Symptoms of claudication on Pletal as an outpatient 8. History of chronic kidney disease 9. Ongoing tobacco use approximately a pack and 1/2/week 10. Hypertension with a history of hypokalemia 11. Hyperlipidemia Mr. Perez's rate is not controlled this morning. He will be bolused with amiodarone and then placed on a drip with the hopes of cardioverting him. Fortunately, his vital signs are otherwise staying stable. His creatinine aniyah today and we may need to dial back his apixaban to renal dosing given his age. His troponin peaked at 3174 like due to demand ischemia. He has had anterior lateral ST changes on his EKG for a period of time. There are no new wall motion abnormalities on his echocardiogram this admission. Given his long history of smoking and history of ND, he likely has significant coronary disease. His blood pressure is elevated at present but he is in pain. We may need to adjust his outpatient medical regimen.Continue with the 100 mg of Toprol-XL for now.Spironolactone was stopped. Recommend that he prioritize resuming lisinopril once his rate regimen has been established. Encourage tobacco cessation. His case was discussed with Dr. Puente and Dr. Davis Admission and Anticipated Discharge Date Admission Date: October 27, 2022 Subjective Mr. Perez is having rapid afib this morning with chest pain that radiates into his left arm. No sob or palpitations. His rates are ranging 120s-150s on the monitor. Overnight he required IV metoprolol and received a dose at 0830. Review of Systems Review of Systems: All systems reviewed & are unremarkable except as noted in HPI & below Physical Exam Constitutional: + uncomfortable Respiratory: normal respiratory effort, lungs clear to auscultation Cardiovascular: Rate/Rhythm: + abnormal rate and + abnormal rhythm Heart Sounds: normal S1 and normal S2 Extremities: no edema Musculoskeletal: no cyanosis or clubbing, extremities motor strength 5/5 Skin: no rashes, warm and dry Neurologic: moves all extremities and awake Psychiatric: A+Ox3, euthymic affect Results & Data ([facility]) Vital Signs (Past 12 Hours) Vital Signs Temp Pulse Pulse Resp BP BP BP 10/28/22 08:40 155 H 159/103 H 10/28/22 08:35 144 H 32 H 159/103 H 10/28/22 08:30 147 H 20 139/102 H 10/28/22 07:23 36.3 C L 111 H 18 121/92 10/27/22 22:22 106 H 10/28/22 05:01 10/28/22 04:16 149 H 127/72 10/27/22 23:35 112 H 10/28/22 04:15 36.6 C 149 H 19 127/72 10/28/22 01:45 169 H 126/85 10/27/22 23:05 36.4 C L 155 H 20 132/91 10/27/22 23:05 155 H 132/91 10/27/22 22:00 36.4 C L 114 H 19 119/90 Pulse Ox Pulse Ox O2 Del Method O2 Del Method O2 Flow Rate 10/28/22 08:40 10/28/22 08:35 92 Nasal Cannula 2 10/28/22 08:30 10/28/22 07:23 93 Room Air 10/27/22 22:22 10/28/22 05:01 94 Room Air 10/28/22 04:16 10/27/22 23:35 10/28/22 04:15 95 Room Air 10/28/22 01:45 10/27/22 23:05 92 Room Air 10/27/22 23:05 10/27/22 22:00 93 Room Air
[2022-10-28] MEDS: AMIODARONE / D5W 360 MG/200 ML BAG IV SCH (15:08)
[2022-10-28] MEDS ORDERED: ONDANSETRON INJ 2 MG/ML 2 ML VIAL IV PRN (15:55)
[2022-10-28] MEDS ORDERED: FAMOTIDINE 20 MG in SYRINGE 3 ML IV ONE (15:55)
--- NOTE | 2022-10-28 17:11 | Electrocardiogram Report ---
Test Reason : Blood Pressure : / mmHG Vent. Rate : 131 BPM Atrial Rate : 156 BPM P-R Int : 000 ms QRS Dur : 090 ms QT Int : 332 ms P-R-T Axes : 000 -19 -59 degrees QTc Int : 490 ms Atrial fibrillation with rapid ventricular response Inferior infarct (cited on or before 27-OCT-2022) Abnormal ECG When compared with ECG of 27-OCT-2022 02:05, No significant change was found Confirmed by Robert Jimenez ([id number] on 10/28/2022 5:11:12 PM Referred By: REFERRED SELF Confirmed By:Norm Jimenez
[2022-10-28] MEDS: APIXABAN 2.5 MG TAB PO SCH (20:16)
[2022-10-28] MEDS: ASPIRIN 325 MG ECTAB PO SCH (20:16)
[2022-10-28] MEDS: CHOLECALCIFEROL 1,000 UNITS 25 MCG TAB PO SCH (20:16)
[2022-10-28] MEDS: METOPROLOL SUCC 25MG EXT REL TAB PO SCH (20:17)
[2022-10-28] MEDS: ROSUVASTATIN CALCIUM 20 MG TAB PO SCH (20:17)
[2022-10-29] MEDS: AMIODARONE / D5W 360 MG/200 ML BAG IV SCH ×2 (02:45→14:27)
[2022-10-29 06:54] LABS: BUN Creatinine Ratio 16.2 (10-20); Calcium 8.9 mg/dl (8.5-10.1); Creatinine Clr Calc Pharmacy 29.3 ml/min; Est GFR (African American) 35.7 ml/min; Est GFR (Non-African American) 30.8 ml/min; Magnesium 2.2 mg/dl (1.7-2.4); Potassium 4.3 mmol/L (3.5-5.1)
[2022-10-29] MEDS: OMEGA-3 (PURIFIED FISH OIL) 1 GM CAP PO SCH (08:58)
[2022-10-29] MEDS: PANTOprazole 40 MG TAB PO SCH (08:58)
[2022-10-29] MEDS: METOPROLOL SUCC 50MG EXT REL TAB PO SCH (08:58)
[2022-10-29] MEDS: APIXABAN 2.5 MG TAB PO SCH ×2 (08:59→19:45)
--- NOTE | 2022-10-29 09:00 | Cardiology Progress Note ---
Date of Service October 29, 2022 Assessment & Plan (1) Atrial fibrillation with rapid ventricular response: Plan IMPRESSIONS: 1 Atrial fibrillation with a rapid ventricular response leading to angina 2. NSTEMI 3. Coronary disease status post inferior and inferior lateral myocardial infarction in [address] with chronic [address]-T changes in the anterior lateral leads 5. Outpatient echocardiogram and inpatient echocardiogram with basal to mid inferior and basal to mid inferolateral wall hypokinesis 6. 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 Symptoms of claudication on Pletal as an outpatient 8. History of chronic kidney disease 9. Ongoing tobacco use approximately a pack and 1/2/week 10. Hypertension with a history of hypokalemia 11. Hyperlipidemia 12. Acute kidney injury Mr. Perez's rate continues to be on the fast side. He is ranging 90s-120s. He is on amiodarone and 125 mg of metoprolol daily. At this point, electrical cardioversion is the best next step. I did discuss the risks with him including , stroke, hypotension, hypertension, bradyarrhythmia and tachyarrhythmia. He is agreeable to proceed. Dr. Jimenez will either cardiovert today or . He is NPO for now. Continue amiodarone drip His troponin peaked at 3174 likely due to demand ischemia. He has had anterior lateral ST changes on his EKG for a period of time, now with T wave inversions in his inferior leads. He has a known occluded RCA. There are no new wall motion abnormalities on his echocardiogram this admission. Given his long history of smoking and history of [place], he likely has significant coronary disease. He is angina free at this point so we can treat him medically. His blood pressure is elevated. His lisinopril will need to be held for his acute kidney injury. Spironolactone was stopped. Encourage tobacco cessation. His case was discussed with Dr. Puente and Dr. Davis Admission and Anticipated Discharge Date Admission Date: October 27, 2022 Subjective Mr. Perez is much more comfortable this morning. No chest pain. No sob. No palpitations. His heart rate is ranging 90s-120s on the monitor this morning. Review of Systems Review of Systems: All systems reviewed & are unremarkable except as noted in HPI & below Physical Exam Constitutional: well developed and comfortable Respiratory: normal respiratory effort, lungs clear to auscultation Cardiovascular: Rate/Rhythm: + abnormal rate and + abnormal rhythm Heart Sounds: + murmur (3/6 apex holosystolic murmur) Extremities: no edema Musculoskeletal: no cyanosis or clubbing, extremities motor strength 5/5 Skin: no rashes, warm and dry Neurologic: moves all extremities and awake Psychiatric: A+Ox3, euthymic affect [facility] & [facility] ([facility]) Vital Signs (Past 12 Hours) Vital Signs Temp Pulse Pulse Resp BP BP Pulse Ox 10/29/22 06:21 88 10/29/22 07:37 36.6 C 100 H 20 148/80 H 91 10/29/22 05:00 10/29/22 04:03 37.0 C 96 H 19 122/80 90 10/28/22 22:56 93 H 10/28/22 22:00 36.4 C L 94 H 19 129/80 90 O2 Del Method O2 Del Method 10/29/22 06:21 10/29/22 07:37 Room Air 10/29/22 05:00 Room Air 10/29/22 04:03 Room Air 10/28/22 22:56 10/28/22 22:00 Room Air
[2022-10-29] MEDS ORDERED: SODIUM CHLORIDE 0.9% 1000ML 1,000 ML IV SCH (09:15)
--- NOTE | 2022-10-29 10:38 | Electrocardiogram Report ---
Test Reason : Blood Pressure : / mmHG Vent. Rate : 139 BPM Atrial Rate : 166 BPM P-R Int : 000 ms QRS Dur : 096 ms QT Int : 310 ms P-R-T Axes : 000 -06 -47 degrees QTc Int : 471 ms Atrial fibrillation with rapid ventricular response Inferior infarct (cited on or before 27-OCT-2022) Abnormal ECG When compared with ECG of 27-OCT-2022 23:14, Inverted T waves have replaced nonspecific T wave abnormality in Inferior leads Confirmed by Robert Jimenez ([id number]) on 10/29/2022 10:38:02 AM Referred By: REFERRED SELF Confirmed By:Norm Jimenez
--- NOTE | 2022-10-29 10:41 | Hospitalist Progress Note ---
Date of Service October 29, 2022 Assessment & Plan (1) NSTEMI (non-ST elevated myocardial infarction): Plan: Presented with chest pain, AFib RVR No ST elevations on EKG but did have lateral ST depressions and now with TWI inferior leads, known RCA occlusion Troponin peaked at 3174 Heparin gtt initiated and then converted to Eliquis for atrial fibrillation Echo without new wall motion abnormalities. Echo with EF 55-60%, sigmoid septum, basal to mid inferior and inferolateral akinesis, left atrium moderately dilated, mild to moderate TX, moderate MR, mildly reduced RV function, PA pressure 40 mmHg, grade 2 diastolic dysfunction A1c prediabetes range at 6.3%, and lipid panel controlled Transitioned from simvastatin to rosuvastatin 20mg daily (high-intensity statin for plaque stabilization). Cardiology consulted and appreciate recommendations Continue aspirin. Metoprolol succinate increased to 100mg qAM and 25mg po qPM added on Resume lisinopril when able (held for hypotension) and now also with acute kidney injury -Had recurrence of angina with rapid A-fib in the morning of 10/28 that resolved with rate control -Cardiology now says as long as angina free, no need for cardiac catheterization. Will medically manage, cardiovert Afib (2) Atrial fibrillation with rapid ventricular response: Plan: Presented with HR 130s; decreased to 90s on dilt gtt/bolus, as well as extra PO dose metoprolol succinate. Had recurrence of rapid A-fib in the morning of 10/28-resolved with IV Lopressor and starting bolus and drip with amiodarone Now with ongoing Afib with rates 90-100s at rest -Continue metoprolol succinate 100mg/25mg bid -Continue amiodarone load/drip and then convert to po amiodarone -plan for cardioversion electrically today, keep NPO -Continue telemetry monitoring -Follow BMP and magnesium and replace electrolytes as needed to keep optimized- none needed today (3) CAD (coronary artery disease): Plan: With a history of previous [place] in 1997 and known occluded RCA as above (4) Hypertension: Plan: Holding lisinopril, spironolactone, and HCTZ for hypotension,TILA may resume lisinopril when renal function improves Continue increased dose metoprolol succinate 100/25mg bid (5) CKD (chronic kidney disease), stage III: Plan: WIth TILA on CKD stage 3 Creatinine 1.22 on admission with GFR 55, near baseline. Avoid nephrotoxins when able -Creatinine up again today to 1.9 today -will do PVR bladder scan -could be from previous aldactone and lisinopril plus rapid Afib and previous hypotension -Reduced Eliquis dose back to 2.5 Mg p.o. twice daily -follow BMP (6) Current smoker: Plan: Continue to encourage smoking cessation Can use nicotine replacement therapy as needed Plan DVT prophylaxis-Eliquis Disposition-continued stay in PCU Discussed care with cardiology on 10/28 and agai on 10/29 Admission and Anticipated Discharge Date Admission Date: October 27, 2022 Subjective Pt feeling much better today. No CP, SOB, no palpitations. IV site infiltrated overnight in right arm but no longer causing pain. Tele with Afib, rates 90s-100s Physical Exam Constitutional: WD/WN, vitals as above Respiratory: normal respiratory effort, lungs clear to auscultation Cardiovascular: Rate/Rhythm: regular rate (and borderline tachy) and + irregularly irregular Extremities: no edema Gastrointestinal (Abdomen): normal bowel sounds, soft, nontender, no hepatosplenomegaly Skin: no rashes, warm and dry Neurologic: PERRL, EOMI, accommodation nl, no face palsy, no dysarthria Psychiatric: Orientation: alert, oriented x 3 and cooperative Results & Data Results & Data ([facility]) Vital Signs (Past 12 Hours) Vital Signs Temp Pulse Pulse Resp BP Pulse Ox O2 Del Method 10/29/22 06:21 88 10/29/22 07:37 36.6 C 100 H 20 148/80 H 91 Room Air 10/29/22 05:00 10/29/22 04:03 37.0 C 96 H 19 122/80 90 Room Air 10/28/22 22:56 93 H O2 Del Method 10/29/22 06:21 10/29/22 07:37 10/29/22 05:00 Room Air 10/29/22 04:03 10/28/22 22:56 Laboratory Results BMP and magnesium level reviewed PG Care Time/CCT Total # of Minutes Spent Total Time Spent with Patient: Total time spent is greater than 50% in coordination of care (as documented) at patient's floor/unit and/or counseling patient: Coding Level of Care Code 64860 SUB INP/OBS CARE 3/50MIN Diagnoses NSTEMI (non-ST elevated myocardial infarction) I21.4 Atrial fibrillation with rapid ventricular response I48.91 CAD (coronary artery disease) I25.10 Hypertension I10 CKD (chronic kidney disease), stage III N18.3 Current smoker F17.200
[2022-10-29] MEDS ORDERED: AMIODARONE 200 MG TAB PO SCH (17:00)
[2022-10-29] MEDS: AMIODARONE 200 MG TAB PO SCH (18:10)
[2022-10-29] MEDS: CHOLECALCIFEROL 1,000 UNITS 25 MCG TAB PO SCH (19:45)
[2022-10-29] MEDS: METOPROLOL SUCC 25MG EXT REL TAB PO SCH (19:45)
[2022-10-29] MEDS: ROSUVASTATIN CALCIUM 20 MG TAB PO SCH (19:45)
[2022-10-29] MEDS: ASPIRIN 325 MG ECTAB PO SCH (19:45)
[2022-10-30] MEDS: AMIODARONE / D5W 360 MG/200 ML BAG IV SCH (02:34)
[2022-10-30 07:58] LABS: Basophils # (auto) 0.02 K/uL (0-0.2); Basophils % (auto) 0.1 %; Hematocrit (blood only) 40.4 % (42.0-52.0); Hemoglobin 14.3 g/dl (14.0-18.0); Immature Granulocytes # (auto) 0.09 K/uL (0.01-0.20); Immature Granulocytes % (auto) 0.6 %; Lymphocytes # (auto) 0.83 K/uL (1.2-3.4); Lymphocytes % (auto) 5.2 %; Mean Corpuscular Hemoglobin 32.6 pg (25.0-34.0); Mean Corpuscular Hgb Conc 35.4 g/dL (32.0-36.0); Mean Corpuscular Volume 92.2 fL (80.0-100.0); Mean Platelet Volume 9.6 fL (9.4-12.4); Monocytes # (auto) 1.16 K/uL (0.11-0.59); Monocytes % (auto) 7.3 %; Neutrophils # (auto) 13.89 K/uL (1.40-6.50); Neutrophils % (auto) 86.8 %; Platelet Count 227 K/uL (130-400); RDW Coefficient of Variation 13.5 % (11.5-14.5); RDW Standard Deviation 45.3 fL (36.4-46.3); Red Blood Count 4.38 M/uL (4.70-6.10); White Blood Count 15.99 K/ul (4.8-10.8)
[2022-10-30 08:12] LABS: BUN Creatinine Ratio 19.7 (10-20); Calcium 9.2 mg/dl (8.5-10.1); Creatinine Clr Calc Pharmacy 33.5 ml/min; Est GFR (Non-African American) 36.2 ml/min; Magnesium 2.2 mg/dl (1.7-2.4); Potassium 4.4 mmol/L (3.5-5.1)
[2022-10-30] MEDS: APIXABAN 2.5 MG TAB PO SCH ×2 (08:32→19:34)
[2022-10-30] MEDS: PANTOprazole 40 MG TAB PO SCH (08:33)
[2022-10-30] MEDS: OMEGA-3 (PURIFIED FISH OIL) 1 GM CAP PO SCH (08:33)
[2022-10-30] MEDS: AMIODARONE 200 MG TAB PO SCH ×2 (08:33→16:43)
--- NOTE | 2022-10-30 08:59 | Cardiology Progress Note ---
Date of Service October 30, 2022 Assessment & Plan Admission and Anticipated Discharge Date Admission Date: October 27, 2022 Subjective He is frustrated that he still in the hospital. Unfortunately anesthesia could not provide sedation for him yesterday because he had breakfast. He denies any chest pain chest pressure chest heaviness currently he notes in the middle the night he had some chest discomfort and shortness of breath and felt like his heart rate was faster. He denies any lightheadedness or dizziness. He denies any lower extremity edema. He has not had the very fast heart rates he has had since Friday. Results & Data ([facility]) Vital Signs (Past 12 Hours) Vital Signs Temp Pulse Pulse Resp BP BP Pulse Ox 10/30/22 07:24 110 H 10/30/22 07:10 36.6 C 109 H 19 145/90 H 93 10/30/22 05:00 10/30/22 03:16 36.7 C 112 H 18 130/87 10/30/22 03:05 108 H 24 144/104 H 90 10/29/22 22:53 36.7 C 112 H 20 126/87 90 Pulse Ox O2 Del Method O2 Del Method O2 Flow Rate O2 Flow Rate 10/30/22 07:24 10/30/22 07:10 Nasal Cannula 5 10/30/22 05:00 96 Nasal Cannula 5 10/30/22 03:16 Nasal Cannula 5 10/30/22 03:05 Nasal Cannula 5 10/29/22 22:53 Room Air He is awake alert and orient x3 is in no acute distress he does not appear short of breath talking in sentences HEENT: 2+ carotid upstrokes or carotid bruits Lungs: Clear to auscultation bilaterally no rales rhonchi or wheezing Heart: Irregular rate and rhythm he has a holosystolic murmur 2 out of 6 at the apex Abdomen: Soft nontender nondistended positive bowel sounds Extremities: No clubbing cyanosis or edema Psychiatric: His affect appeared appropriate IMPRESSIONS: 1 atrial fibrillation with a rapid ventricular response leading to angina 1B. NSTEMI secondary to #1 2. Coronary disease status post inferior and inferior lateral myocardial infarction in 1997 3. EKG with chronic ST-T changes in the anterior lateral leads 4. Outpatient echocardiogram and inpatient echocardiogram with basal to mid inferior and basal to mid inferolateral wall hypokinesis 5. 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 Symptoms of claudication on Pletal as an outpatient 7. History of chronic kidney disease 8. Ongoing tobacco use approximately a pack and 1/2/week 9. Hypertension with a history of hypokalemia 10. Hyperlipidemia 11. Acute kidney injury likely secondary to the loss of his atrial kick from A- fib In discussion with Dr. Jimenez this morning, we will plan to cardiovert him this afternoon as he is n.p.o. this a.m. He was on anticoagulation within 24 hours of the onset of atrial fibrillation. His anticoagulation has been reduced to 2 and half milligrams of Eliquis twice a day due to his acute kidney injury. The reason for his acute kidney injury is likely on the basis of the loss of his atrial kick and reduced stroke-volume. Once his creatinine normalizes we will need to increase his Eliquis back to 5 mg twice a day My hope is with confucianism of sinus rhythm and maintenance of sinus rhythm with amiodarone his renal function will improve and he will not have any further angina. At this point I believe his angina has been related to the fact that he has had atrial fibrillation with a rapid ventricular response. As an outpatient when his heart rate is well controlled and slow he is not having any angina. If after the cardioversion and while maintaining sinus rhythm he still having angina then at that point we would need to consider cardiac catheterization. The timing of that would be determined based on the need for anticoagulation post cardioversion. We will have to adjust his antihypertensive regiment as well as his AV brandyn blockers post cardioversion based on his heart rate and blood pressure. He is on IV amiodarone which can be discontinued this morning as he has also been bridged oral amiodarone. He should remain on oral amiodarone 400 mg twice daily for a total of 5 days (today is day 3) and then adjusted to 200 mg twice daily f or a month and then 200 mg thereafter. In addition he is on beta-blockers and Eliquis.
[2022-10-30] MEDS ORDERED: METOPROLOL SUCC 50MG EXT REL TAB PO SCH (09:00)
[2022-10-30] MEDS ORDERED: LIDOCAINE 2% MPF LOCAL 5 ML VIAL INFIL ONE (09:30)
[2022-10-30] MEDS ORDERED: PROPOFOL IV EMULSION 10 MG/ML 20 ML VIAL IV ONE (09:30)
--- NOTE | 2022-10-30 09:33 | Anesthesiology Consultation ---
Date of Service October 30, 2022 Assessment & Plan (1) Encounter for pre-operative examination: Chart Review Chart Review: Acceptable Risk for Surgery History Surgery Operation Date: 10/30/22 09:30 Proposed Procedures p Cardioversion - Robert Jimenez MD Height/Weight Height: 5 ft 9 in Weight: 77.7 kg Allergies Allergy/AdvReac Type Severity Reaction Status Date / Time No Known Allergies Allergy Verified 10/27/22 02:17 Medications Home Medications Medication Instructions Recorded Confirmed Last Taken cholecalciferol (vitamin D3) 50 2,000 units PO QPM 04/08/19 10/27/22 02/25/22 mcg (2,000 unit) capsule lisinopril 20 1 tab PO QAM 04/08/19 10/27/22 03/11/22 mg-hydrochlorothiazide 25 mg tablet metoprolol succinate 50 mg 50 mg PO QAM 04/08/19 10/27/22 03/11/22 tablet,extended release 24 hr nitroglycerin 0.4 mg sublingual 0.4 mg sublingual .COMPLEX PRN 04/08/19 10/27/22 Unknown tablet Chest Pain omeprazole 40 mg capsule,delayed 40 mg PO QAM 04/08/19 10/27/22 03/11/22 release simvastatin 40 mg tablet 40 mg PO QPM 04/08/19 10/27/22 02/25/22 spironolactone 25 mg tablet 25 mg PO QAM 04/08/19 10/27/22 03/11/22 cilostazol 100 mg tablet 100 mg PO BID 01/25/20 10/27/22 03/11/22 nifedipine 30 mg tablet,extended 30 mg PO BID 01/25/20 10/27/22 03/11/22 release aspirin 325 mg tablet 325 mg PO QPM 02/13/22 10/27/22 03/11/22 fish, borage, flaxseed oils-omega 1 cap PO QAM 02/13/22 10/27/22 03/11/22 3,6,9 comb no.1 1,200 mg capsule ([place] 3-6-9) potassium chloride 20 mEq 40 meq PO BID #360 tabs 06/11/22 10/27/22 Unknown tablet,extended release Active Medications Generic Name Dose Route Start Last Admin Trade Name Freq PRN Reason Stop Dose Admin Amiodarone HCl 400 mg 10/29/22 17:45 10/30/22 08:33 Amiodarone 200 Mg Tab PO 11/28/22 17:44 400 mg BIDM AMRIT Administration Apixaban 2.5 mg 10/28/22 21:00 10/30/22 08:32 Apixaban 2.5 Mg Tab PO 11/27/22 20:59 2.5 mg BID AMRIT Administration Aspirin 325 mg 10/27/22 21:00 10/29/22 19:45 Aspirin 325 Mg Ectab PO 11/26/22 20:59 325 mg QPM AMRIT Administration Fish Oil 1 gm 10/27/22 09:00 10/30/22 08:33 [place]-3 (Purified Fish Oil) 1 Gm Cap PO 11/26/22 08:59 1 gm QAM AMRIT Administration Metoprolol Succinate 25 mg 10/28/22 21:00 10/29/22 19:45 Metoprolol Succ 25mg Ext Rel Tab PO 11/27/22 20:59 25 mg HS AMRIT Administration Metoprolol Succinate 50 mg 10/30/22 09:00 10/30/22 08:32 Metoprolol Succ 50mg Ext Rel Tab PO 11/29/22 08:59 50 mg QAM AMRIT Administration Ondansetron HCl 4 mg 10/28/22 15:55 10/28/22 17:01 Ondansetron Inj 2 Mg/Ml 2 Ml Vial IV 11/27/22 15:54 4 mg Q6H PRN Administration Nausea And Vomiting Pantoprazole Sodium 40 mg 10/27/22 09:00 10/30/22 08:33 Pantoprazole 40 Mg Tab PO 11/26/22 08:59 40 mg QAM AMRIT Administration Rosuvastatin Calcium 20 mg 10/27/22 21:00 10/29/22 19:45 Rosuvastatin Calcium 20 Mg Tab PO 11/26/22 20:59 20 mg HS AMRIT Administration Vitamin D 2,000 units 10/27/22 21:00 10/29/22 19:45 Cholecalciferol 1,000 Units 25 Mcg Tab PO 11/26/22 20:59 2,000 units QPM AMRIT Administration Past Medical History Medical History CKD (chronic kidney disease), stage III [address] Morley Current smoker Heart valve regurgitation unsure which valve Hypertension Myocardial infarct 1997 - heavy chest, left arm pain - Went to [facility] - flown to [facility] - blockage of "back of heart" - heart cath - no stent placement - Follows Dr. Puente Past Family History Family History Father Family history of diabetes mellitus Mother Family history of diabetes mellitus Past Surgical History Surgical History History of colonoscopy Hx of cardiac cath 1997 d/t to [place] - no stents placed - Follows Dr. Puente Hx of cataract extraction Rt. Hx of inguinal hernia repair Hx of repair of left rotator cuff x2 Social History Smoking Status: Current some day smoker tobacco type: cigarettes Smoking cigarettes per day: 2-3/week Do You Dip or Chew Tobacco: No Hx Alcohol Use: Yes Alcohol type: beer alcohol intake frequency: holidays/special occasions only Hx Substance Use: No substance use type: does not use Physical Exam Vital Signs Last Vital Signs Temp 36.6 C 10/30/22 07:10 Pulse 110 H 10/30/22 07:24 Resp 19 10/30/22 07:10 BP 145/90 H 10/30/22 07:10 Pulse Ox 93 10/30/22 07:10 O2 Del Method Nasal Cannula 10/30/22 07:10 O2 Flow Rate 5 10/30/22 07:10 Testing Laboratory Results 10/30/22 07:14 10/30/22 07:14 PT 10.3 Seconds (9.0-12.0) 10/27/22 02:02 INR 1.0 (0.9-1.1) 10/27/22 02:02 APTT 30.0 Seconds (21.0-31.0) 10/27/22 02:02 Hemoglobin A1c 6.3 % (4.5-5.6) H 10/27/22 09:35 Electrocardiogram Date: 10/29/22 Findings: + AFIB @ (139) Echocardiogram Date: 10/27/22 EF: 55-60% Valvular Disease: + MR (moderate )
--- NOTE | 2022-10-30 09:59 | Cardioversion ---
Date of Service October 30, 2022 PG Electrical Cardioversion Rp Electrical Cardioversion Report Procedure performed: Cardioversion Indication: Atrial fibrillation Staff supervisor carton and can supply: Robert Jimenez MD Procedure in detail: The patient was informed of the risks benefits and alternatives to the intended procedure. He understood such which proceed. He was taken to the cardiac catheterization suite holding area. A general anesthetic was administered by the Anesthesiology Service. Once appropriately anesthetized, the patient was cardioverted using 200 joules delivered in a biphasic fashion. This returned the patient to sinus rhythm. The patient tolerated procedure well, there were no immediate complications. Patient was neurologically intact subsequent to the procedure. Impression: Successful cardioversion from atrial fibrillation to normal sinus rhythm Coding Level of Care Code Cardioversion, elective Additional Codes Electrical Cardioversion Report ([id number])
--- NOTE | 2022-10-30 10:22 | Electrocardiogram Report ---
Test Reason : Blood Pressure : / mmHG Vent. Rate : 068 BPM Atrial Rate : 068 BPM P-R Int : 178 ms QRS Dur : 100 ms QT Int : 396 ms P-R-T Axes : 093 -12 056 degrees QTc Int : 421 ms Normal sinus rhythm Nonspecific ST abnormality Abnormal ECG When compared with ECG of 28-OCT-2022 08:14, Sinus rhythm has replaced Atrial fibrillation Vent. rate has decreased BY 71 BPM T wave inversion no longer evident in Inferior leads Confirmed by Robert Jimenez ([id number]) on 10/30/2022 10:21:55 AM Referred By: REFERRED SELF Confirmed By:Norm Jimenez
--- NOTE | 2022-10-30 10:33 | Anesthesiology Progress Note ---
Date of Service October 30, 2022 Anesthesia Post Procedure Vital Signs Vital Signs: Temp Pulse Pulse Resp BP BP Pulse Ox 10/30/22 10:13 68 20 134/84 95 10/30/22 09:58 66 20 145/83 H 95 10/30/22 07:24 110 H 10/30/22 07:10 36.6 C 109 H 19 145/90 H 93 10/30/22 05:00 10/30/22 03:16 36.7 C 112 H 18 130/87 10/30/22 03:05 108 H 24 144/104 H 90 10/29/22 22:53 36.7 C 112 H 20 126/87 90 10/29/22 19:57 10/29/22 19:00 37.0 C 20 151/90 H 92 10/29/22 15:57 36.4 C L 111 H 19 144/83 H 90 10/29/22 15:13 101 H 10/29/22 10:57 36.6 C 96 H 20 122/81 91 Pulse Ox O2 Del Method O2 Del Method O2 Flow Rate O2 Flow Rate 10/30/22 10:13 Oxymask 6 10/30/22 09:58 Oxymask 6 10/30/22 07:24 10/30/22 07:10 Nasal Cannula 5 10/30/22 05:00 96 Nasal Cannula 5 10/30/22 03:16 Nasal Cannula 5 10/30/22 03:05 Nasal Cannula 5 10/29/22 22:53 Room Air 10/29/22 19:57 Room Air 10/29/22 19:00 Room Air 10/29/22 15:57 Room Air 10/29/22 15:13 10/29/22 10:57 Room Air Pain Intensity Medial Chest: Pain Intensity: 0 Transfer of Care Handoff Completed per policy Notes Mental Status: alert / awake / arousable Patient Amnestic to Procedure: Yes Nausea / Vomiting: adequately controlled Pain: adequately controlled Airway Patency, RR, SpO2: stable & adequate BP & HR: stable & adequate Hydration State: stable & adequate Anesthetic Complications: no major complications apparent
--- NOTE | 2022-10-30 17:45 | Hospitalist Progress Note ---
Date of Service October 30, 2022 Assessment & Plan (1) NSTEMI (non-ST elevated myocardial infarction): Plan: Presented with chest pain, AFib RVR No ST elevations on EKG but did have lateral ST depressions and now with TWI inferior leads, known RCA occlusion Troponin peaked at 3174 Heparin gtt initiated and then converted to Eliquis for atrial fibrillation Echo without new wall motion abnormalities. Echo with EF 55-60%, sigmoid septum, basal to mid inferior and inferolateral akinesis, left atrium moderately dilated, mild to moderate [place], moderate MR, mildly reduced RV function, PA pressure 40 mmHg, grade 2 diastolic dysfunction A1c prediabetes range at 6.3%, and lipid panel controlled Transitioned from simvastatin to rosuvastatin 20mg daily (high-intensity statin for plaque stabilization). Cardiology consulted and appreciate recommendations Continue aspirin. Metoprolol succinate increased to 100mg qAM and 25mg po qPM added on but then resumed lower dose of 25mg daily after cardioversion to sinus rhythm Resume lisinopril when able (held for hypotension) and now also with acute kidney injury -Had recurrence of angina with rapid A-fib in the morning of 10/28 that resolved with rate control -Cardiology now says as long as angina free, no need for cardiac catheterization. Will medically manage, cardiovert Afib (2) Atrial fibrillation with rapid ventricular response: Plan: Presented with HR 130s; decreased to 90s on dilt gtt/bolus, as well as extra PO dose metoprolol succinate. Had recurrence of rapid A-fib in the morning of 10/28-resolved with IV Lopressor and starting bolus and drip with amiodarone Continued with ongoing Afib with rates 90-100s at rest Now s/p cardioversion on 10/30-remains in NSR with normal rates -Continue metoprolol succinate but lowered dose to 25mg qAM as per Cardiology since cardioversion -Continue amiodarone -loaded with drip and now on po amiodarone 400mg po bid x 5 days total, then 200mg po bid x 1 month then go to 200mg once daily -Continue telemetry monitoring -Follow BMP and magnesium and replace electrolytes as needed to keep optimized- none needed today (3) Acute respiratory failure with hypoxia: Plan: has needed 2LNC O2 since last evening, now with tachypnea Does have a h/o smoking but has not been tachypneic or hypoxic until the last 24 hrs Is quite volume overloaded as per I/Os has been off his spironolactone for hypotension and for TILA -give lasix 20mg IV x 1 now -follow BMP -check CXR -wean O2 as able to (4) CAD (coronary artery disease): Plan: With a history of previous IN in 1997 and known occluded RCA as above (5) Hypertension: Plan: Holding lisinopril, spironolactone, and HCTZ for hypotension,TILA may resume lisinopril when renal function improves Continue metoprolol succinate BPs mildly high -giving IV lasix as above (6) CKD (chronic kidney disease), stage III: Plan: WIth TILA on CKD stage 3 Creatinine 1.22 on admission with GFR 55, near baseline. Avoid nephrotoxins when able -Creatinine up to 1.9 and now improving down to 1.7 -could be from previous aldactone and lisinopril plus rapid Afib and previous hypotension -Reduced Eliquis dose back to 2.5 Mg p.o. twice daily -follow BMP (7) Current smoker: Plan: Continue to encourage smoking cessation Can use nicotine replacement therapy as needed Plan DVT prophylaxis-Eliquis Disposition-continued stay in PCU, possible dc to home tomorrow if hypoxia and TILA improved, and if remains in sinus rhythm Discussed care with cardiology on 10/28 and 10/29 Admission and Anticipated Discharge Date Admission Date: October 27, 2022 Subjective Pt had cardioversion this AM. Was sleeping most of the day but I saw him in the evening and he was quite tachypneic at rest despite being in sinus rhythm. Denied any chest pain. Is also c/o constipation with no BM x 2-3 days. Tele with NSR since cardioversion Physical Exam Constitutional: WD/WN, vitals as above Respiratory: + tachypneic Auscultation: + diminished lung sounds and + rales (mild at left base); no wheezes Cardiovascular: Rate/Rhythm: regular rate and regular rhythm Extremities: + edema (trace ankle edema) Gastrointestinal (Abdomen): normal bowel sounds, soft, nontender, no hepatosplenomegaly Skin: no rashes, warm and dry Neurologic: PERRL, EOMI, accommodation nl, no face palsy, no dysarthria Psychiatric: Orientation: alert, oriented x 3 and cooperative Results & Data Results & Data ([facility]) Vital Signs (Past 12 Hours) Vital Signs Temp Pulse Pulse Resp BP BP Pulse Ox 10/30/22 17:30 62 10/30/22 15:52 36.5 C 71 20 154/84 H 10/30/22 12:16 10/30/22 12:02 36.3 C L 66 20 133/75 91 10/30/22 11:30 71 22 137/87 92 10/30/22 10:13 68 20 134/84 95 10/30/22 09:58 66 20 145/83 H 95 10/30/22 10:32 36.5 C 68 20 132/80 92 10/30/22 07:24 110 H 10/30/22 07:10 36.6 C 109 H 19 145/90 H 93 O2 Del Method O2 Flow Rate 10/30/22 17:30 10/30/22 15:52 10/30/22 12:16 Nasal Cannula 10/30/22 12:02 Room Air 10/30/22 11:30 Nasal Cannula 2 10/30/22 10:13 Oxymask 6 10/30/22 09:58 Oxymask 6 10/30/22 10:32 Nasal Cannula 2 10/30/22 07:24 10/30/22 07:10 Nasal Cannula 5 Laboratory Results CBC and BMP, magnesium level reviewed PG Care Time/CCT Total # of Minutes Spent Total Time Spent with Patient: Total time spent is greater than 50% in coordination of care (as documented) at patient's floor/unit and/or counseling patient: Coding Level of Care Code 55930 SUB INP/OBS CARE 3/50MIN Diagnoses NSTEMI (non-ST elevated myocardial infarction) I21.4 Atrial fibrillation with rapid ventricular response I48.91 Acute respiratory failure with hypoxia J96.01 CAD (coronary artery disease) I25.10 Hypertension I10 CKD (chronic kidney disease), stage III N18.3 Current smoker F17.200
[2022-10-30] MEDS ORDERED: FUROSEMIDE INJ 20 MG/2 ML VIAL IV ONE ×2 (17:50→17:51)
--- NOTE | 2022-10-30 18:29 | XRay Report ---
SINGLE VIEW CHEST CLINICAL HISTORY: Dyspnea. Hypoxia. FINDINGS: 2 AP, portable, upright chest radiographs are compared to study dated 10/27/2022 and correla nelda with chest CT dated 04/16/2016. The examination is degraded by portable technique and apical lordot ic positioning. The heart is enlarged noting atherosclerotic calcification of the thoracic aorta. The re is pulmonary vascular congestion. Emphysema and chronic interstitial thickening is similar to prev ious. There is bibasilar scarring/atelectasis. Airspace consolidation is seen in the right mid to low er lung. No large pleural effusion is identified. No pneumothorax is seen. The skeletal structures ar e osteopenic. The bony thorax is grossly intact. IMPRESSION: 1. Cardiomegaly and emphysema with pulmonary vascular congestion. 2. Airspace consolidation in the right mid to lower lung is new from previous and typical for pneumon ia/aspiration pneumonitis. Clinical correlation will be required and radiographic follow-up to resolu tion is recommended. ACT 112: Negative or not required by law. Electronically signed by: Petros Christensen M.D. 10/30/2022 6:28 PM
[2022-10-30] MEDS: ASPIRIN 325 MG ECTAB PO SCH (19:34)
[2022-10-30] MEDS: CHOLECALCIFEROL 1,000 UNITS 25 MCG TAB PO SCH (19:34)
[2022-10-30] MEDS: ROSUVASTATIN CALCIUM 20 MG TAB PO SCH (19:34)
[2022-10-31 07:28] LABS: Basophils # (auto) 0.03 K/uL (0-0.2); Basophils % (auto) 0.2 %; Eosinophils # (auto) 0.02 K/uL (0-0.50); Eosinophils % (auto) 0.1 %; Hematocrit (blood only) 38.6 % (42.0-52.0); Hemoglobin 13.7 g/dl (14.0-18.0); Immature Granulocytes # (auto) 0.05 K/uL (0.01-0.20); Immature Granulocytes % (auto) 0.3 %; Lymphocytes # (auto) 0.97 K/uL (1.2-3.4); Lymphocytes % (auto) 6.7 %; Mean Corpuscular Hemoglobin 32.1 pg (25.0-34.0); Mean Corpuscular Hgb Conc 35.5 g/dL (32.0-36.0); Mean Corpuscular Volume 90.4 fL (80.0-100.0); Mean Platelet Volume 10.1 fL (9.4-12.4); Monocytes # (auto) 1.33 K/uL (0.11-0.59); Monocytes % (auto) 9.1 %; Neutrophils # (auto) 12.15 K/uL (1.40-6.50); Neutrophils % (auto) 83.6 %; Platelet Count 216 K/uL (130-400); RDW Coefficient of Variation 13.4 % (11.5-14.5); RDW Standard Deviation 44.3 fL (36.4-46.3); Red Blood Count 4.27 M/uL (4.70-6.10); White Blood Count 14.55 K/ul (4.8-10.8)
[2022-10-31 07:46] LABS: BUN Creatinine Ratio 18.7 (10-20); Calcium 8.9 mg/dl (8.5-10.1); Creatinine Clr Calc Pharmacy 33.9 ml/min; Est GFR (African American) 42.6 ml/min; Est GFR (Non-African American) 36.7 ml/min; Magnesium 2.1 mg/dl (1.7-2.4); Potassium 3.6 mmol/L (3.5-5.1)
[2022-10-31] MEDS ORDERED: POTASSIUM CHLORIDE CRTAB 20 MEQ TABCR PO STA (07:53)
[2022-10-31] MEDS ORDERED: FUROSEMIDE 40 MG/4 ML VIAL IV ONE (07:53)
[2022-10-31] MEDS: APIXABAN 2.5 MG TAB PO SCH ×2 (08:25→20:16)
[2022-10-31] MEDS: METOPROLOL SUCC 25MG EXT REL TAB PO SCH (08:26)
[2022-10-31] MEDS: OMEGA-3 (PURIFIED FISH OIL) 1 GM CAP PO SCH (08:26)
[2022-10-31] MEDS: PANTOprazole 40 MG TAB PO SCH (08:26)
[2022-10-31] MEDS: AMIODARONE 200 MG TAB PO SCH ×2 (08:26→16:26)
[2022-10-31] MEDS: cefTRIAXone SODIUM 1,000 MG in DEXTROSE 5% AD-VAN 50 ML IV SCH (09:16)
[2022-10-31] MEDS: DOXYCYCLINE HYCLATE 100 MG in DEXTROSE 5% 100 ML IV SCH ×2 (09:16→20:15)
--- NOTE | 2022-10-31 10:08 | Hospitalist Progress Note ---
Date of Service October 31, 2022 Assessment & Plan (1) NSTEMI (non-ST elevated myocardial infarction): Plan: Presented with chest pain, AFib RVR No ST elevations on EKG but did have lateral ST depressions and now with TWI inferior leads, known RCA occlusion Troponin peaked at 3174 Heparin gtt initiated and then converted to Eliquis for atrial fibrillation Echo without new wall motion abnormalities. Echo with EF 55-60%, sigmoid septum, basal to mid inferior and inferolateral akinesis, left atrium moderately dilated, mild to moderate [place], moderate MR, mildly reduced RV function, PA pressure 40 mmHg, grade 2 diastolic dysfunction A1c prediabetes range at 6.3%, and lipid panel controlled Transitioned from simvastatin to rosuvastatin 20mg daily (high-intensity statin for plaque stabilization). Cardiology consulted and appreciate recommendations Continue aspirin. Metoprolol succinate increased to 100mg qAM and 25mg po qPM added on but then resumed lower dose of 25mg daily after cardioversion to sinus rhythm Resume lisinopril when able (held for hypotension) and now also with acute kidney injury -Had recurrence of angina with rapid A-fib in the morning of 10/28 that resolved with rate control and then cardioversion -Cardiology now says as long as angina free, no need for cardiac catheterization. Medically manage (2) Atrial fibrillation with rapid ventricular response: Plan: Presented with HR 130s; decreased to 90s on dilt gtt/bolus, as well as extra PO dose metoprolol succinate. Had recurrence of rapid A-fib in the morning of 10/28-resolved with IV Lopressor and starting bolus and drip with amiodarone Continued with ongoing Afib with rates 90-100s at rest Now s/p cardioversion on 10/30-remains in NSR with normal rates since that time -Continue metoprolol succinate at a lower dose of 25mg qAM as per Cardiology -Continue amiodarone -loaded with drip and now on po amiodarone 400mg po bid x 5 days total, then 200mg po bid x 1 month starting 11/02, then go to 200mg once daily 1 month from now -Continue telemetry monitoring -Follow BMP and magnesium and replace electrolytes as needed to keep optimized- gave potassium chloride 40 mill equivalents p.o. x1 (3) Chronic diastolic CHF (congestive heart failure): Plan: Acute on chronic HFpEF On 10/30 developed tachypnea and worsening hypoxia-had Rales on examination, leukocytosis but no fever, and chest x-ray with diffuse pulmonary edema as well as development of bilateral likely aspiration pneumonia CHF exacerbation likely secondary to previous rapid atrial fibrillation as well as fluids given and previous spironolactone and lisinopril use Improving but remains on 2 L nasal cannula Repeat chest x-ray 10/31 also shows improvement in pulmonary edema -Diuresing with IV Lasix on 10/30 and give another 40 Mg IV x1 in 10/31 -Follow renal function and potentially give another dose of IV Lasix on the morning of 11/01 if renal function stable -Follow urine output -Plan to restart home spironolactone when renal function improves (4) Pneumonia: Plan: Developed leukocytosis on 10/30 and again on 10/31 Chest x-ray shows pneumonia, possibly aspiration? He did not have any vomiting but may have silent reflux? Had some small amount of hemoptysis on 10/31 likely secondary to pneumonia and CHF with cough-okay to continue Eliquis for now Check sputum cx started ceftriaxone/azithro -Follow CBC -Follow chest x-ray to resolution -Continue supplemental O2 to keep pulse ox greater than 90% (5) CKD (chronic kidney disease), stage III: Plan: WIth TILA on CKD stage 3 Creatinine 1.22 on admission with GFR 55, near baseline. Avoid nephrotoxins when able -Creatinine up to 1.9 and now improving down to 1.7 and stable again today at 1.7 -could be from previous aldactone and lisinopril plus rapid Afib and previous hypotension -Reduced Eliquis dose back to 2.5 Mg p.o. twice daily. If creatinine goes below 1.5, can increase Eliquis back to 5 Mg -follow BMP again in the morning with giving IV Lasix -Continue holding home lisinopril and spironolactone (6) Acute respiratory failure with hypoxia: Plan: Secondary to acute on chronic HFpEF and pneumonia as above Improving with diuresis Continue supplemental O2 as needed (7) CAD (coronary artery disease): Plan: With a history of previous CT in 1997 and known occluded RCA as above (8) Hypertension: Plan: Holding lisinopril, spironolactone, and nifedipine for previous hypotension and TILA may resume lisinopril and spironolactone when renal function improves Continue metoprolol succinate BPs mildly high -giving IV lasix as above (9) Current smoker: Plan: Continue to encourage smoking cessation Can use nicotine replacement therapy as needed Plan DVT prophylaxis-Eliquis Disposition-continued stay in PCU, patient very anxious for discharge. Possible dc to home tomorrow if hypoxia/CHF and TILA improved, and if remains in sinus rhythm. Could go home potentially with home O2 and oral antibiotics Discussed care with patient's at the bedside Admission and Anticipated Discharge Date Admission Date: October 27, 2022 Subjective Patient remains hypoxic and requiring oxygen but does feel less short of breath this morning. He is now coughing up yellow sputum but no fevers. Later in the day he did cough up some bright red blood that covered the bottom of the sputum culture cup. Denies any chest pains. Telemetry with normal sinus rhythm with PACs. He is making plenty of urine with the Lasix and also moved his bowels. Review of Systems Review of Systems: All systems reviewed & are unremarkable except as noted in HPI & below Physical Exam Constitutional: WD/WN, vitals as above Respiratory: normal respiratory effort, lungs clear to auscultation + tachypneic (With speaking full sentences) Auscultation: + diminished lung sounds and + rales (mild at left base); no wheezes Cardiovascular: Rate/Rhythm: regular rate and regular rhythm Extremities: + edema (trace ankle edema) Gastrointestinal (Abdomen): normal bowel sounds, soft, nontender, no hepatosplenomegaly Skin: no rashes, warm and dry Neurologic: PERRL, EOMI, accommodation nl, no face palsy, no dysarthria Psychiatric: Orientation: alert, oriented x 3 and cooperative Results & Data Results & Data ([facility]) Vital Signs (Past 12 Hours) Vital Signs Temp Pulse Resp BP Pulse Ox Pulse Ox O2 Del Method 10/31/22 08:03 93 10/31/22 07:58 Nasal Cannula 10/31/22 06:58 36.8 C 72 19 156/88 H 92 Nasal Cannula 10/31/22 03:38 37.1 C 74 18 154/83 H 90 Nasal Cannula 10/30/22 22:58 36.6 C 70 18 132/69 92 Room Air O2 Del Method O2 Flow Rate O2 Flow Rate 10/31/22 08:03 Nasal Cannula 2 10/31/22 07:58 2 10/31/22 06:58 2 10/31/22 03:38 2 10/30/22 22:58 PG Care Time/CCT Total # of Minutes Spent Total Time Spent with Patient: Total time spent is greater than 50% in coordination of care (as documented) at patient's floor/unit and/or counseling patient: Coding Level of Care Code 22659 SUB INP/OBS CARE 3/50MIN Diagnoses NSTEMI (non-ST elevated myocardial infarction) I21.4 Atrial fibrillation with rapid ventricular response I48.91 Chronic diastolic CHF (congestive heart failure) I50.32 Pneumonia J18.9 CKD (chronic kidney disease), stage III N18.3 Acute respiratory failure with hypoxia J96.01 CAD (coronary artery disease) I25.10 Hypertension I10 Current smoker F17.200
--- NOTE | 2022-10-31 10:51 | Cardiology Progress Note ---
Date of Service October 31, 2022 Assessment & Plan (1) Atrial fibrillation with rapid ventricular response: Plan IMPRESSIONS: 1 Atrial fibrillation with a rapid ventricular response leading to angina 1B. NSTEMI secondary to #1 2. Coronary disease status post inferior and inferior lateral myocardial infarction in 1997 3. EKG with chronic ST-T changes in the anterior lateral leads 4. Outpatient echocardiogram and inpatient echocardiogram with basal to mid inferior and basal to mid inferolateral wall hypokinesis 5. 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 Symptoms of claudication on Pletal as an outpatient 7. History of chronic kidney disease 8. Ongoing tobacco use approximately a pack and 1/2/week 9. Hypertension with a history of hypokalemia 10. Hyperlipidemia 11. Acute kidney injury likely secondary to the loss of his atrial kick from A- fib 12. Diastolic heart failure 13. Pneumonia Mr. Perez has been maintaining an normal sinus rhythm for 24 hours. He does have frequent PACs on the monitor. He should remain on oral amiodarone 400 mg twice daily for a total of 5 days (today is day 4), and then decrease to 200 mg twice daily for a month, and then 200 mg thereafter.He should continue beta-blockers and Eliquis. His acute kidney injury is likely secondary to loss of atrial kick and reduced stroke volume. Eliquis is renally dosed until the TILA resolves. His troponin peaked at 3174 likely due to demand ischemia in the setting of rapid ventricular response. He has had anterior lateral ST changes on his EKG for a period of time, the T wave inversions in his inferior leads have resolved after his cardioversion. He has a known occluded RCA. There are no new wall motion abnormalities on his echocardiogram this admission. Given his long history of smoking and history of AL, he likely has significant coronary disease. He is angina free at this point so we can treat him medically. His blood pressure is elevated. His lisinopril will need to be held for his acute kidney injury. Spironolactone was stopped. These can be resumed when his kidney function improves. Unfortunately, he was found to have pneumonia and is in diastolic heart failure. Hopefully the return of sinus rhythm will help to resolve his fluid overload. He also received IV furosemide yesterday and this morning. Encourage tobacco cessation. Admission and Anticipated Discharge Date Admission Date: October 27, 2022 Subjective Mr. Perez was cardioverted yesterday. He has maintained SR with PACs on the monitor since then. No angina since CV. Unfortunately he was diagnosed with pneumonia and appears fluid overloaded. He is requiring 2L NC Review of Systems Review of Systems: All systems reviewed & are unremarkable except as noted in HPI & below Physical Exam Constitutional: well developed and comfortable Respiratory: normal respiratory effort, lungs clear to auscultation Cardiovascular: Rate/Rhythm: + abnormal rate and + abnormal rhythm Heart Sounds: + murmur (3/6 apex holosystolic murmur) Extremities: + edema (trace LE) Musculoskeletal: no cyanosis or clubbing, extremities motor strength 5/5 Skin: no rashes, warm and dry Neurologic: moves all extremities and awake Psychiatric: A+Ox3, euthymic affect Results & Data ([facility]) Vital Signs (Past 12 Hours) Vital Signs Temp Pulse Resp BP Pulse Ox Pulse Ox O2 Del Method 10/31/22 08:03 93 10/31/22 07:58 Nasal Cannula 10/31/22 06:58 36.8 C 72 19 156/88 H 92 Nasal Cannula 10/31/22 03:38 37.1 C 74 18 154/83 H 90 Nasal Cannula 10/30/22 22:58 36.6 C 70 18 132/69 92 Room Air O2 Del Method O2 Flow Rate O2 Flow Rate 10/31/22 08:03 Nasal Cannula 2 10/31/22 07:58 2 10/31/22 06:58 2 10/31/22 03:38 2 10/30/22 22:58
--- NOTE | 2022-10-31 15:22 | XRay Report ---
XR chest 2V PA/lateral CLINICAL HISTORY: hemoptysis,CHF,pneumonia COMPARISON STUDY: Chest radiograph October 30, 2022. FINDINGS: There is no pneumothorax. Small right pleural effusion is noted. Cardiomediastinal silhouet te is stable. There has been moderate improvement in interstitial thickening and airspace opacities, greater within the right lung. IMPRESSION: 1. Moderate interval improvement in interstitial thickening and airspace opacities, greater within th e right lung. The findings favor improving pulmonary edema however superimposed pneumonia could appea r similar. 2. Small right pleural effusion. ACT 112: Negative or not required by law. Electronically signed by: Ildefonso Ng M.D. 10/31/2022 3:20 PM
[2022-10-31] MEDS: ROSUVASTATIN CALCIUM 20 MG TAB PO SCH (20:15)
[2022-10-31] MEDS: ASPIRIN 325 MG ECTAB PO SCH (20:16)
[2022-10-31] MEDS: CHOLECALCIFEROL 1,000 UNITS 25 MCG TAB PO SCH (20:16)
[2022-11-01 06:03] LABS: Basophils # (auto) 0.04 K/uL (0-0.2); Basophils % (auto) 0.3 %; Eosinophils # (auto) 0.14 K/uL (0-0.50); Eosinophils % (auto) 1.2 %; Hematocrit (blood only) 36.3 % (42.0-52.0); Hemoglobin 12.7 g/dl (14.0-18.0); Immature Granulocytes # (auto) 0.05 K/uL (0.01-0.20); Immature Granulocytes % (auto) 0.4 %; Lymphocytes # (auto) 0.99 K/uL (1.2-3.4); Lymphocytes % (auto) 8.5 %; Mean Corpuscular Hemoglobin 31.8 pg (25.0-34.0); Mean Corpuscular Volume 90.8 fL (80.0-100.0); Mean Platelet Volume 9.8 fL (9.4-12.4); Monocytes # (auto) 1.31 K/uL (0.11-0.59); Monocytes % (auto) 11.2 %; Neutrophils # (auto) 9.16 K/uL (1.40-6.50); Neutrophils % (auto) 78.4 %; Platelet Count 198 K/uL (130-400); RDW Coefficient of Variation 13.2 % (11.5-14.5); White Blood Count 11.69 K/ul (4.8-10.8)
[2022-11-01 06:18] LABS: Calcium 8.4 mg/dl (8.5-10.1); Creatinine Clr Calc Pharmacy 36.2 ml/min; Est GFR (African American) 46.1 ml/min; Est GFR (Non-African American) 39.8 ml/min; Potassium 3.4 mmol/L (3.5-5.1)
[2022-11-01] MEDS: PANTOprazole 40 MG TAB PO SCH (07:56)
[2022-11-01] MEDS: OMEGA-3 (PURIFIED FISH OIL) 1 GM CAP PO SCH (07:56)
[2022-11-01] MEDS: AMIODARONE 200 MG TAB PO SCH ×2 (07:56→16:42)
[2022-11-01] MEDS: METOPROLOL SUCC 25MG EXT REL TAB PO SCH (07:57)
--- NOTE | 2022-11-01 07:57 | Cardiology Progress Note ---
Date of Service November 01, 2022 Assessment & Plan Admission and Anticipated Discharge Date Admission Date: October 27, 2022 Subjective Feeling better. No palpitations or fluttering. He denies any anginal symptoms. Denies any lightheadedness or dizziness. He is frustrated he is still in the hospital. He again this morning had hemoptysis. Denies any fevers or chills. He denies any dark stools or black stools or easy bruising on anticoagulation. Results & Data ([facility]) Vital Signs (Past 12 Hours) Vital Signs Temp Pulse Pulse Resp BP Pulse Ox O2 Del Method 11/01/22 02:47 37.0 C 81 18 140/74 96 Nasal Cannula 10/31/22 22:49 79 10/31/22 22:47 37.0 C 75 19 138/89 93 Nasal Cannula 10/31/22 20:00 Nasal Cannula O2 Flow Rate 11/01/22 02:47 2 10/31/22 22:49 10/31/22 22:47 2 10/31/22 20:00 2 He is awake alert and orient x3 is in no acute distress he does not appear short of breath talking in sentences HEENT: 2+ carotid upstrokes or carotid bruits Lungs: Clear to auscultation bilaterally with coarse BS in the base R>L Heart: Regular rate and rhythm he has a holosystolic murmur 2 out of 6 at the apex Abdomen: Soft nontender nondistended positive bowel sounds Extremities: No clubbing cyanosis or edema Psychiatric: His affect appeared appropriate IMPRESSIONS: 1 atrial fibrillation with a rapid ventricular response leading to angina -- s/p Amio load and CV 10/30 -- maintaining NSR 1B. NSTEMI secondary to #1 2. Coronary disease status post inferior and inferior lateral myocardial infarction in 1997 3. EKG with chronic ST-T changes in the anterior lateral leads 4. Outpatient echocardiogram and inpatient echocardiogram with basal to mid inferior and basal to mid inferolateral wall hypokinesis 5. 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 Symptoms of claudication on Pletal as an outpatient 7. History of chronic kidney disease 8. Ongoing tobacco use approximately a pack and 1/2/week 9. Hypertension with a history of hypokalemia 10. Hyperlipidemia 11. Acute kidney injury likely secondary to the loss of his atrial kick from A- fib, SANTHOSH/ARB 12. Pneumonia/Hemoptysis Tomorrow last day of AMio 400 BID then drop to 200mg BID x 1 month then 200mg daily Stay on low dose apixaban with [employer] > 1.5 and Age > 80 We cannot stop his anticoagulation status post cardioversion for a month unless he is having significant hemoptysis given the risk of stroke off anticoagulation in the first month post cardioversion Toprol 25 Mg BID No further angina Does not examine like he is in CHF On antibiotics for possible aspiration; was sick over the last 6 weeks With longstanding smoking HX and Hemoptysis do we need to consider CT chest to r/o something more sinister
[2022-11-01] MEDS: APIXABAN 2.5 MG TAB PO SCH ×2 (07:58→20:10)
[2022-11-01] MEDS: cefTRIAXone SODIUM 1,000 MG in DEXTROSE 5% AD-VAN 50 ML IV SCH (08:03)
[2022-11-01] MEDS: DOXYCYCLINE HYCLATE 100 MG in DEXTROSE 5% 100 ML IV SCH ×2 (08:05→20:07)
[2022-11-01] MEDS ORDERED: POTASSIUM CHLORIDE CRTAB 20 MEQ TABCR PO STA (13:35)
[2022-11-01] MEDS ORDERED: FUROSEMIDE 40 MG/4 ML VIAL IV ONE (13:45)
--- NOTE | 2022-11-01 15:24 | Hospitalist Progress Note ---
Date of Service November 01, 2022 Assessment & Plan (1) NSTEMI (non-ST elevated myocardial infarction): Plan: Now Prange free. Appreciate cardiology consultation and recommendations. He was treated with a heparin drip initially and now is on Eliquis. Cardiac echo r eveals preserved ejection fraction with no regional wall motion abnormalities. Simvastatin switch to rosuvastatin. Medically manage (2) Atrial fibrillation with rapid ventricular response: Plan: He was cardioverted normal sinus rhythm on October 30. He remains in normal sinus rhythm. Continue current medical management. Telemetry. (3) Chronic diastolic CHF (congestive heart failure): Plan: Acute on chronic HFpEF. Lasix diuresis ordered. Monitor intake and output. Repeat portable chest x-ray tomorrow, November 02. Wean oxygen off as tolerated. He apparently takes spironolactone for persistent hypokalemia. This will be restarted. (4) Pneumonia: Plan: Developed leukocytosis on 10/30 and again on 10/31. Chest x-ray findings may be due to CHF alone. No sputum for culture. Continue antibiotic therapy for now. Transient small amount of hemoptysis probably due to anticoagulation and infection. (5) CKD (chronic kidney disease), stage III: Plan: TILA on CKD stage 3. Monitor intake and output. Serial labs. Continue reduced dose of Eliquis for now. Lisinopril on hold. Spironolactone has been restarted (6) Acute respiratory failure with hypoxia: Plan: Secondary to acute on chronic HFpEF and possible underlying infection. Continue Lasix diuresis. Wean oxygen off as tolerated. Repeat chest x-ray tomorrowNovember 02 (7) CAD (coronary artery disease): Plan: With a history of previous NV in 1997 and known occluded RCA. Medical management (8) Hypertension: Plan: Holding lisinopril, spironolactone, and nifedipine for previous hypotension and TILA. Spironolactone will be restarted today, November 01. (9) Current smoker: Plan: encouraged smoking cessation. Can use nicotine replacement therapy as needed Plan DVT prophylaxis-Eliquis Disposition-hopeful discharge to home on room air tomorrowNovember 02 Admission and Anticipated Discharge Date Admission Date: October 27, 2022 Subjective Alert and oriented. Asymptomatic except for exertional dyspnea. He remains on low-flow oxygen probably due to underlying congestive heart failure from fluid overload. Ejection fraction is normal with no regional wall motion abnormalit ies. He has no recurrent chest discomfort. Parenteral Lasix ordered along with oral potassium supplementation. We will repeat chest x-ray tomorrow. Hopefully he can be weaned off his oxygen quickly. Anticipate discharge to home tomorrow, November 02 Review of Systems Review of Systems: Constitutional-no fever or chills ENT-no blurred vision, no double vision, no epistaxis, no sore throat Respiratory-dyspnea on exertion . No cough, no wheezing Cardiac-no palpitations, no chest pain, no syncope GI-no nausea, vomiting, diarrhea, melena, hematochezia -no urinary retention, no urinary incontinence, no dysuria, no hematuria Musculoskeletal-no joint pain, no muscle tenderness Skin-no bruising, no rashes, no pruritus Neuro-no isolated weakness, no paresthesia, no weakness Psych-no depression, no anxiety Physical Exam Physical Exam: General-alert and oriented x3, no fevers, no chills HEENT-head atraumatic and normocephalic, pupils equal and reactive to light, extraocular muscles intact Neck-no lymphadenopathy or thyromegaly, trachea midline Chest-bibasilar inspiratory rales. No wheezing. No dullness i Cardiac-regular rate and rhythm, normal S1 and S2 Abdomen-normal bowel sounds, nontender, no hepatosplenomegaly Extremities-no cyanosis, clubbing, or edema Neuro-cranial nerves II through XII intact, motor and sensory function within normal limits, strength symmetrical , no focal deficits Psych-normal affect, normal mood Results & Data Results & Data ([facility]) Vital Signs (Past 12 Hours) Vital Signs Temp Pulse Pulse Resp BP Pulse Ox O2 Del Method 11/01/22 14:22 72 11/01/22 12:02 36.4 C L 81 20 167/99 H 96 Nasal Cannula 11/01/22 09:03 Nasal Cannula 11/01/22 08:59 Nasal Cannula 11/01/22 07:52 36.7 C 74 16 169/95 H 93 Nasal Cannula O2 Flow Rate 11/01/22 14:22 11/01/22 12:02 2.0 11/01/22 09:03 2 11/01/22 08:59 2 11/01/22 07:52 2 Laboratory Results 11/01/22 05:31 11/01/22 05:31 PG Care Time/CCT Total # of Minutes Spent Total Time Spent with Patient: Total time spent is greater than 50% in coordination of care (as documented) at patient's floor/unit and/or counseling patient: Coding Level of Care Code 46442 SUB INP/OBS CARE 3/50MIN Diagnoses NSTEMI (non-ST elevated myocardial infarction) I21.4 Atrial fibrillation with rapid ventricular response I48.91 Chronic diastolic CHF (congestive heart failure) I50.32 Pneumonia J18.9 CKD (chronic kidney disease), stage III N18.3 Acute respiratory failure with hypoxia J96.01 CAD (coronary artery disease) I25.10 Hypertension I10 Current smoker F17.200
[2022-11-01] MEDS: SPIRONOLACTONE 25 MG TAB PO SCH (16:42)
[2022-11-01] MEDS: ASPIRIN 325 MG ECTAB PO SCH (20:10)
[2022-11-01] MEDS: CHOLECALCIFEROL 1,000 UNITS 25 MCG TAB PO SCH (20:10)
[2022-11-01] MEDS: ROSUVASTATIN CALCIUM 20 MG TAB PO SCH (20:10)
[2022-11-01] MEDS: FUROSEMIDE 40 MG/4 ML VIAL IV SCH (20:11)
[2022-11-01] MEDS: POTASSIUM CHLORIDE CRTAB 20 MEQ TABCR PO SCH (20:11)
--- NOTE | 2022-11-02 07:45 | XRay Report ---
XR chest 1V portable CLINICAL HISTORY: CHF COMPARISON STUDY: Chest radiograph October 31, 2022. FINDINGS: There is no pneumothorax. There is a trace left pleural effusion. Mild left basilar opacity has increased. Interstitial thickening and right lung airspace opacities have improved. Cardiomedias tinal silhouette is stable. IMPRESSION: 1. Mild pulmonary edema, improved since prior examination. 2. Increase in patchy left basilar opacity. ACT 112: Negative or not required by law. Electronically signed by: Ildefonso Ng M.D. 11/02/2022 7:44 AM
[2022-11-02] MEDS: cefTRIAXone SODIUM 1,000 MG in DEXTROSE 5% AD-VAN 50 ML IV SCH (08:23)
[2022-11-02] MEDS: POTASSIUM CHLORIDE CRTAB 20 MEQ TABCR PO SCH (08:24)
[2022-11-02] MEDS: PANTOprazole 40 MG TAB PO SCH (08:24)
[2022-11-02] MEDS: APIXABAN 2.5 MG TAB PO SCH (08:24)
[2022-11-02] MEDS: AMIODARONE 200 MG TAB PO SCH (08:24)
[2022-11-02] MEDS: OMEGA-3 (PURIFIED FISH OIL) 1 GM CAP PO SCH (08:24)
[2022-11-02] MEDS: FUROSEMIDE 40 MG/4 ML VIAL IV SCH (08:24)
[2022-11-02] MEDS: SPIRONOLACTONE 25 MG TAB PO SCH (08:24)
[2022-11-02] MEDS: METOPROLOL SUCC 25MG EXT REL TAB PO SCH (08:25)
[2022-11-02] MEDS: DOXYCYCLINE HYCLATE 100 MG in DEXTROSE 5% 100 ML IV SCH (08:27)
--- NOTE | 2022-11-02 11:36 | Discharge Summary ---
Date of Service November 02, 2022 Admission HPI Per Admitting Provider 82yo Male with PMH FL 1997 treated medically, HTN, CAD, CKDIII here for afib RVR. Patient states at 12:30 this morning he developed left chest pain pressure with pain radiating down his left arm, was concerned for a heart attack so came to ED. Patient states he had a heart attack in 1997 was treated medically only, has a staff physician Dr. 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 Otherwise patient denies any fever chills nausea vomiting SOB D/C swelling in legs. Patient received diltiazem 10mg started on drip, [id number], NSS 500mls bolus, states his chest pain/pressure has resolved. states he has a chronic productive cough over the last few months that has slowly improved by now. Patient is in charge of his own medication, takes them regularly. He smoked 2-3 packs daily from ages [age] until his heart attack, now smokes 1 pack a month. Patient denies drinking. Principal Diagnosis Non-ST elevation FL, acute on chronic diastolic CHF, acute hypoxic respiratory failure, atrial fibrillation with rapid ventricular rate, hypokalemia Discharge Exam General-alert and oriented x3, no fevers, no chills HEENT-head atraumatic and normocephalic, pupils equal and reactive to light, extraocular muscles intact Neck-no lymphadenopathy or thyromegaly, trachea midline Chest-bibasilar inspiratory rales. No wheezing. No dullness i Cardiac-regular rate and rhythm, normal S1 and S2 Abdomen-normal bowel sounds, nontender, no hepatosplenomegaly Extremities-no cyanosis, clubbing, or edema Neuro-cranial nerves II through XII intact, motor and sensory function within normal limits, strength symmetrical , no focal deficits Psych-normal affect, normal mood Discharge Data Allergies Allergy/AdvReac Type Severity Reaction Status Date / Time No Known Allergies Allergy Verified 10/27/22 02:17 Consultations 10/27/22 03:15 ED Decision to Admit Stat 10/27/22 04:08 Consult Cardiology Routine 10/29/22 09:32 Consult Cardiology Routine Procedures Performed Operation Date: 10/30/22 09:30 Actual Procedures p Cardioversion - Robert Jimenez MD Hospital Course (1) NSTEMI (non-ST elevated myocardial infarction): Now pain free. Appreciate cardiology consultation and recommendations. He was treated with a heparin drip initially and now is on Eliquis. Cardiac echo reveals preserved ejection fraction with no regional wall motion abnormalities. Simvastatin switched to rosuvastatin. Medically manage (2) Atrial fibrillation with rapid ventricular response: He was cardioverted normal sinus rhythm on October 30. He remains in normal s inus rhythm. Continue current medical management. Telemetry. He is now on Eliquis (3) Chronic diastolic CHF (congestive heart failure): Acute on chronic HFpEF. Lasix diuresis has helped. Brisk diuresis ensued with IV Lasix. Monitor intake and output. Repeat portable chest x-ray done today November 02, looks better. He is now off supplemental oxygen. He apparently takes spironolactone for persistent hypokalemia. This has been restarted. (4) Pneumonia: Left lower lobe infiltrate seen on x-ray. We will continue azithromycin orally at discharge. Transient small amount of hemoptysis probably due to anticoagulation and infection. Resolved (5) CKD (chronic kidney disease), stage III: TILA on CKD stage 3. Monitor intake and output. Serial labs. Lisinopril held and will be restarted at discharge. Spironolactone has been restarted (6) Acute respiratory failure with hypoxia: Secondary to acute on chronic HFpEF and possible underlying infection. Treated with Lasix diuresis. Oxygen has been weaned off. Repeat chest x-ray done today, November 02, looks better (7) CAD (coronary artery disease): With a history of previous [place] in 1997 and known occluded RCA. Medical management (8) Hypertension: Stable with current medication management. (9) Current smoker: encouraged smoking cessation. Can use nicotine replacement therapy as needed Plan DVT prophylaxis-Eliquis Disposition-Home todayNovember 02 Total Time Total Time Spent Total Time Spent (In Minutes): 40 minutes Discharge Plan Discharge Items Patient Disposition: Home - Self-Care Reason For Visit: AFIB RVR Discharge Diagnosis: Non-ST elevation FL, acute on chronic diastolic CHF, acute hypoxic respiratory failure, atrial fibrillation with rapid ventricular rate, hypokalemia Activity: Resume your previous activity Non-emergency contact: Primary Care Provider Call non-emergency contact if: you have any medication questions Follow-up/Referrals: Giancarlo Bettencourt DO [Primary Care Provider] - Diet: Heart Healthy Addtl Attending Provider Instructions: Eliquis is a new blood thinner. Aspirin dosage decreased to 81 mg daily. Amiodarone is new. Simvastatin has been changed to rosuvastatin. Metoprolol dosage has been decreased Pending Studies at Discharge: No Stand-Alone Forms: My [facility], Smoking Cessation Medications and DC Order Prescriptions: New amiodarone 200 mg Tablet 400 mg PO BIDM Qty: 60 0RF metoprolol succinate 25 mg Tablet Extended Release 24 Hr 25 mg PO QAM Qty: 30 0RF rosuvastatin [Crestor] 20 mg Tablet 20 mg PO HS Qty: 30 0RF Eliquis 5 mg Tablet 5 mg PO BID Qty: 60 0RF aspirin 81 mg Tablet,Delayed Release (Dr/Ec) 81 mg PO QPM Qty: 0 0RF Continued potassium chloride 20 mEq tablet extended release 40 meq PO BID Qty: 360 3RF lisinopril-hydrochlorothiazide 20-25 mg tablet 1 tab PO QAM nitroglycerin 0.4 mg tablet, sublingual 0.4 mg SL .COMPLEX PRN (Reason: Chest Pain) Patient Comments: 0.[address] 1 tablet under the tongue every 5 minures for up to 3 doses as needed for chest pain call 911 if pain persists PRN; Rx Instructions: 0.[address] 1 tablet under the tongue every 5 minures for up to 3 doses as needed for chest pain call 911 if pain persists PRN; spironolactone 25 mg tablet 25 mg PO QAM cholecalciferol (vitamin D3) 2,000 unit capsule 2,000 units PO QPM omeprazole 40 mg capsule,delayed release(DR/EC) 40 mg PO QAM nifedipine 30 mg tablet extended release 30 mg PO BID cilostazol 100 mg tablet 100 mg PO BID [place] 3-6-9 1,200 mg Capsule 1 cap PO QAM Discontinued simvastatin 40 mg tablet 40 mg PO QPM metoprolol succinate 50 mg tablet extended release 24 hr 50 mg PO QAM aspirin 325 mg Tablet 325 mg PO QPM Discharge Orders: Discharge Order (Routine); Ordered 11/02/22 Ordered By: Serge Burt/Other Patient Handouts: Prediabetes Admission Data Admit Date/Time: 10/27/22 03:46 Attending Provider: Serge Velasquez Admit Provider: Latosha Veloz Primary Care Provider: Giancarlo Bettencourt. Other Providers: Corona Hurt ; Byron Puente ; Robert Jimenez Coding Level of Care Code HOSP INP/OBS DISCH >30 MIN Diagnoses NSTEMI (non-ST elevated myocardial infarction) I21.4 Atrial fibrillation with rapid ventricular response I48.91 Chronic diastolic CHF (congestive heart failure) I50.32 Pneumonia J18.9 CKD (chronic kidney disease), stage III N18.3 Acute respiratory failure with hypoxia J96.01 CAD (coronary artery disease) I25.10 Hypertension I10 Current smoker F17.200
[2022-11-02] MEDS ORDERED: APIXABAN 5 MG TABLET PO SCH (21:00)
[2022-11-02] MEDS ORDERED: ASPIRIN 81 MG ECTAB PO SCH (21:00)
== END 2022-11-02 14:02 | disposition home or self-care (01) | DRG 280 ==
LOC: ED 01:51 → SUATTDRO 03:46 → 2S 03:46

== ENCOUNTER 2023-04-24 07:19 | Inpatient (IN) ==
[2023-04-24] MEDS ORDERED: ALBUT/IPRATROP 3MG/0.5MG NEB 3 ML VIAL NEB STA (07:45)
[2023-04-24 08:03] LABS: Basophils # (auto) 0.03 K/uL (0-0.2); Basophils % (auto) 0.2 %; Eosinophils # (auto) 0.08 K/uL (0-0.50); Eosinophils % (auto) 0.6 %; Hematocrit (blood only) 36.1 % (42.0-52.0); Hemoglobin 11.8 g/dl (14.0-18.0); Immature Granulocytes # (auto) 0.07 K/uL (0.01-0.20); Immature Granulocytes % (auto) 0.5 %; Lymphocytes # (auto) 1.05 K/uL (1.2-3.4); Lymphocytes % (auto) 7.6 %; Mean Corpuscular Hemoglobin 30.5 pg (25.0-34.0); Mean Corpuscular Hgb Conc 32.7 g/dL (32.0-36.0); Mean Corpuscular Volume 93.3 fL (80.0-100.0); Mean Platelet Volume 9.3 fL (9.4-12.4); Monocytes # (auto) 0.91 K/uL (0.11-0.59); Monocytes % (auto) 6.6 %; Neutrophils % (auto) 84.5 %; Platelet Count 244 K/uL (130-400); RDW Coefficient of Variation 15.9 % (11.5-14.5); RDW Standard Deviation 54.2 fL (36.4-46.3); Red Blood Count 3.87 M/uL (4.70-6.10); White Blood Count 13.84 K/ul (4.8-10.8)
[2023-04-24] MEDS ORDERED: methylPREDNISolone 125 MG/2 ML VIAL IV STA (08:07)
--- NOTE | 2023-04-24 08:21 | XRay Report ---
XR chest 1V portable CLINICAL HISTORY: Dyspnea TECHNIQUE: Single frontal radiograph of the chest was obtained. Comparison: Comparison is made to chest radiograph 04/15/2023 FINDINGS: Median sternotomy wires are unchanged. Loop recorder is seen. Cardiomegaly is noted. The aortic arch is calcified. Left retrocardiac opacity and right perihilar airspace opacities are seen. Left pleural effusion is slightly increased in size from prior. IMPRESSION: 1. Bilateral airspace opacities are increased from prior exam and may represent atelectasis, pneumon ia, and/or aspiration. 2. Cardiomegaly and mild pulmonary edema. 3. Small left pleural effusion, increased in size from prior. ACT 112: Negative or not required by law. Electronically signed by: Jerry Nicolas M.D. 04/24/2023 8:18 AM
[2023-04-24 08:23] LABS: Albumin Globulin Ratio 1.2 (0.9-2); Albumin Level 3.8 gm/dl (3.4-5.0); BUN Creatinine Ratio 13.5 (10-20); Bilirubin,Total 1.7 mg/dl (0.2-1.0); Calcium 9.2 mg/dl (8.6-10.3); Creatinine Clr Calc Pharmacy 38.5 ml/min; Est GFR (African American) 50.3 ml/min; Est GFR (Non-African American) 43.4 ml/min; Globulin 3.3 gm/dl (2.5-4.0); Magnesium 2.2 mg/dl (1.7-2.4); Potassium 3.1 mmol/L (3.5-5.1); Total Protein 7.1 gm/dl (6.0-8.3)
[2023-04-24 08:30] LABS: Troponin I High Sensitivity 64.1 pg/ml (0-20)
[2023-04-24] MEDS ORDERED: FUROSEMIDE 40 MG/4 ML VIAL IV ONE (08:32)
[2023-04-24] MEDS ORDERED: ASPIRIN CHEW 324 MG PO STA (08:32)
[2023-04-24] MEDS ORDERED: NITROGLYCERIN 2% OINTMENT 30GM TUBE EXT STA (08:32)
[2023-04-24 08:46] LABS: Influenza A virus by PCR Negative (Neg); Influenza B virus by PCR Negative (Neg); RSV by PCR Negative (Neg); SARS CoV2 RNA(COVID-19) Ceph NEGATIVE (Negative)
[2023-04-24] MEDS ORDERED: POTASSIUM CHLORIDE CRTAB 20 MEQ TABCR PO STA (09:21)
[2023-04-24] MEDS ORDERED: METOPROLOL TARTRATE 50 MG TAB PO STA (09:34)
--- NOTE | 2023-04-24 09:36 | History & Physical Report ---
Date of Service April 24, 2023 Assessment & Plan (1) Acute respiratory failure with hypoxia: Plan: Multifactorial - acute/chronic CHF, possible pneumonia, and COPD exacerbation. Diurese. Add antibiotics. IV steroids, nebs, etc. NC O2 as needed to maintain sats >90%. (2) Right heart failure with reduced right ventricular function: Plan: On 04/11/23 he underwent outpatient echo by Dr Puente's office - [facility] - with the following findings: * EF 55% * RCA territory akinesis * grade 2 diastolic dysfunction * dilated RV with reduced RV function * dilated aortic root (4.3cm) * moderate MR, moderate TR * severe pulmonary HTN He appears to have some element of decompensated CHF today despite his daily weights having been stable over the last 7-10 days. He received 40mg of IV lasix in the ER. Will follow response to such. Needs better BP control. (3) Pneumonia: Plan: CXR with possible pneumonia. Check sed rate, crp, and procalcitonin. Check CTA chest - r/o PE; confirm presence of pneumonia; etc. If indeed there is pneumonia he would need gram negative coverage as well as atypical coverage. Check MRSA screen. (4) Acute exacerbation of chronic obstructive pulmonary disease: Plan: s/p nebs + IV steroids in the ER. Will continue both. Plan - solumedrol 40mg IV BID. Pulmonary toilet. Some of his wheezing could be from pulmonary edema. (5) S/P CABG (coronary artery bypass graft): Plan: 3-vessel at [facility] 02/2023. CHEEK-LAD, SVG-PDA, SVG-OM. Cont metoprolol, asa, plavix, crestor, Entresto. HS troponin at presentation is in the 60s - this is most c/w myocardial demand ischemia rather than ACS. (6) PAF (paroxysmal atrial fibrillation): Plan: History of PAF 10/2022. Was on eliquis earlier this year - now stopped. Remains on amiodarone + metoprolol. s/p MAZE procedure [facility] 02/2023. Place on telemetry. (7) Ex-smoker: Plan: 100+ pack years by report. Now quit. (8) Pleural effusion: Plan: Left-sided - small on x-ray. CT chest will provide more information. (9) CAD (coronary artery disease): Plan: Triple-Vessel disease. S/p CABG 02/2023 at [facility]. (10) CKD (chronic kidney disease), stage III: Plan: Baseline Creatinine is about 1.4 to 1.5. Stable creatinine at presentation today. Repeat BMP am. (11) Weakness: Plan: Multifactorial, but suspect severe deconditioning in the context of his CABG two months ago. (12) DVT prophylaxis: Plan: lovenox 40mg once daily (13) Hypertension: Plan: Uncontrolled. Metoprolol, entresto, amlodipine, etc. (14) Pulmonary hypertension: Plan: As seen on echo earlier this month via the [facility] office. severe. O2. Plan Edema of legs - check dopplers, r/o DVT Pt's family updated at bedside today History of Present Illness Chief Complaint: shortness of breath Primary Care Provider: DO Ashlyn Max 83yo male with history of 3-vessel CABG at [facility] on 02/24/23 with post-op course complicated by shock requiring pressors (severe CAD as confirmed by heart cath at [facility] earlier this year), PAF s/p MAZE procedure on 02/24/23, COPD, chronic systolic CHF, HTN, and CKD stage 3 who presents from home due to worsening shortness of breath. The patient reports the dyspnea came on rather suddenly yesterday afternoon and overnight he had significant PND and orthopnea. [facility] and during that office visit he was asked to take lasix on a daily basis for 1 week due to evidence of volume overload. Despite doing such his weight has been 165 pounds on his home scale for well over 10 days (+/- 1-2 pounds). His personal flowsheets from home do show elevated SBPs in the 150s and 160s since late March. He has had off/on edema of both legs since his open heart surgery. He has noted that his clothes are tighter fitting around his waist. Upon ER presentation O2 was applied due to O2 sats in the upper 80s along with tachypnea. He was administered IV lasix 40mg x 1, solumedrol 60mg IV x 1, and a duoneb. With these measures he has felt better with less distress. Oddly he has yet to void despite the lasix IV. Since his CABG he has had considerable fatigue and weakness. He never attended any form of rehab post-discharge from [place]. The patient has a history of a.fib in 10/2022 and at that time was placed on amiodarone & Eliquis. He is still taking amiodarone but is no longer on anticoagulation. Patient denies any sick contacts, fevers or chills. He has had a cough for a couple of days with some yellow sputum production. Allergies Allergy/AdvReac Type Severity Reaction Status Date / Time No Known Allergies Allergy Verified 04/15/23 13:19 Home Medications Medication Instructions Recorded Confirmed Type cholecalciferol (vitamin D3) 50 2,000 units PO QPM 04/08/19 04/24/23 History mcg (2,000 unit) capsule fish, borage, flaxseed oils-omega 1 cap PO QAM 02/13/22 04/24/23 History 3,6,9 comb no.1 1,200 mg capsule ([place] 3-6-9) aspirin 81 mg tablet,delayed 81 mg PO QPM #0 tabs 11/02/22 04/24/23 Rx release clopidogrel 75 mg tablet 75 mg PO DAILY 03/09/23 04/24/23 History acetaminophen 500 mg capsule 1,000 mg PO Q8 PRN Pain 03/20/23 04/24/23 History rosuvastatin 20 mg tablet 20 mg PO DAILY 03/20/23 04/24/23 History amiodarone 200 mg tablet 100 mg PO DAILY 04/15/23 04/24/23 History furosemide 20 mg tablet (Lasix) 20 mg PO Q OTHER DAY 04/15/23 04/24/23 History tiotropium bromide 2.5 2 puff inhalation DAILY #4 grams 04/16/23 04/24/23 Rx mcg/actuation mist for inhalation (Spiriva Respimat) metoprolol succinate 50 mg 50 mg PO DAILY 04/24/23 04/24/23 History tablet,extended release 24 hr potassium chloride 20 mEq See Rx Instructions .Route .COMPLEX 04/24/23 04/24/23 History tablet,extended release(part/cryst) (Klor-Con M) sacubitril 97 mg-valsartan 103 mg 1 tab PO BID 08/17/23 08/17/23 History tablet (Entresto) Past Med/Surg History Medical History (Updated 04/24/23 @ 23:57 by Khanh Elizondo MD) Atrial fibrillation with rapid ventricular response 10/2022 CAD (coronary artery disease) Chronic diastolic CHF (congestive heart failure) CKD (chronic kidney disease), stage III Follow[address] Dr[address] Morley COPD with emphysema Current smoker Hypertension Myocardial infarct 1997 - heavy chest, left arm pain - Went to [facility] - flown to [facility] - blockage of "back of heart" - heart cath - no stent placement - Follows Dr. Puente Pulmonary hypertension Right heart failure with reduced right ventricular function Surgical History History of colonoscopy Hx of cardiac cath 1997 d/t to [place] - no stents placed - Follows Dr. Puente Hx of cataract extraction Rt. Hx of inguinal hernia repair Hx of repair of left rotator cuff x2 S/P CABG (coronary artery bypass graft) 3 vessel - [facility], 02/2023. S/P Maze operation for atrial fibrillation [facility] - 02/2023. Family History Father Family history of diabetes mellitus CHF (congestive heart failure) Black lung disease Mother , had CABG Family history of diabetes mellitus Coronary heart disease Myocardial infarction Dementia Social History Smoking Status: Former smoker Smoking End Date: 10/2022; 100+ pack years; Second Hand Exposure: No; Do You Dip or Chew Tobacco: No; Hx Alcohol Use: No Hx Substance Use: No Preferred Language: Vietnamese Communication Ability: Effective Cane Cutter Required: No Beliefs That Will Affect Care: None marital status: Current Living Situation: Spouse Current Living Situation Comment: From home with current occupational status: retired How many Children do You have: 2 Other Information That Helps Us Care for You: No other: 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; 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 Feels Safe at Home: Yes Safety Concerns: Feels Safe At This Time Assistive Devices: Cane, Glasses and Hearing Aid - Bilateral Review of Systems Review of Systems: gen - no fevers or chills; appetite has been fair; no weight change; fatigue/weakness eyes - no change in vision HENT - no sore throat or nasal congestion CV - no chest pain; +orthopnea, PND, and peripheral edema pulm - cough/congestion/wheezing/dyspnea/dyspnea on exertion all present GI - no nausea/emesis or BRBPR or abd pain - no LUTS musculo - denies joint swelling skin - no rash neuro - no headache, but weakness of legs since his open heart surgery endo - no diabetes psych - no depression Physical Exam Physical Exam: gen - sitting upright on gurney due to orthopnea; tachypnea noted but able to speak in full sentences; awake/alert eyes - PERRL HENT - TMs clear b/l, mouth severely dry MM neck - JVD present; no lymphadenopathy; no thyroid mass heart - RRR, s1 s2, 2/6 systolic murmur LSB lungs - diffuse wheezes b/l, tachypnea, mild retractions, decreased BS left base, mild crackles b/l abd - soft, NT, ND, BS+, no HSM ext - 2+ edema b/l ankles/feet; pulses 2+ b/l neuro - strength 5/5 x 4 exts; DTRs 2+ b/l skin - no rash lymph - no cervical lymph nodes b/l psych - a/o x 3 Results & Data Results & Data Vital Signs (Past 12 Hours) Vital Signs Temp Pulse Resp BP Pulse Ox O2 Del Method O2 Flow Rate 04/24/23 09:01 77 30 H 161/79 H 95 Oxymask 4 04/24/23 09:00 77 26 H 161/79 H 94 Oxymask 3 04/24/23 08:30 75 22 161/79 H 99 Nebulizer 8 04/24/23 08:00 79 26 H 171/119 H 94 Oxymask 3 04/24/23 07:35 83 26 H 180/98 H 95 Oxymask 5 04/24/23 07:30 83 30 H 184/106 H 95 Oxymask 5 04/24/23 07:50 79 04/24/23 07:38 82 30 H 95 Oxymask 5 04/24/23 07:24 85 L Oxymask 0 04/24/23 07:24 36.9 C 81 30 H 184/106 H 85 L Room Air 04/24/23 07:24 Room Air Laboratory Results Laboratory Results - last 24 hr 04/24/23 04/24/23 04/24/23 07:39 07:39 07:39 WBC 13.84 H RBC 3.87 L Hgb 11.8 L Hct 36.1 L MCV 93.3 MCH 30.5 MCHC 32.7 RDW Std Deviation 54.2 H RDW Coeff of Jolene 15.9 H Plt Count 244 MPV 9.3 L Immature Gran % (Auto) 0.5 Neut % (Auto) 84.5 Lymph % (Auto) 7.6 [place] % (Auto) 6.6 Eos % (Auto) 0.6 Baso % (Auto) 0.2 Neut # (Auto) 11.70 H Lymph # (Auto) 1.05 L [place] # (Auto) 0.91 H Eos # (Auto) 0.08 Baso # (Auto) 0.03 Immature Gran # (Auto) 0.07 Sodium 139 Potassium 3.1 L Chloride 98 Carbon Dioxide 36 H Anion Gap 5 BUN 20 Creatinine 1.48 H Est Cr Clr Drug Dosing 38.5 Est GFR ( Amer) 50.3 Est GFR (Non-Af Amer) 43.4 BUN/Creatinine Ratio 13.5 Glucose 144 H Calcium 9.2 Magnesium 2.2 Total Bilirubin 1.7 H AST 15 ALT 19 Alkaline Phosphatase 89 Troponin I High Sens 64.1 H* Total Protein 7.1 Albumin 3.8 Globulin 3.3 Albumin/Globulin Ratio 1.2 SARS-CoV-2 (PCR) NEGATIVE Influenza Type A (PCR) Negative Influenza Type B (PCR) Negative RSV (RT-PCR) Negative Diagnostic Findings Chest X-Ray 04/24/23 07:31 XR chest 1V portable CLINICAL HISTORY: Dyspnea TECHNIQUE: Single frontal radiograph of the chest was obtained. Comparison: Comparison is made to chest radiograph 04/15/2023 FINDINGS: Median sternotomy wires are unchanged. Loop recorder is seen. Cardiomegaly is noted. The aortic arch is calcified. Left retrocardiac opacity and right perihilar airspace opacities are seen. Left pleural effusion is slightly increased in size from prior. IMPRESSION: 1. Bilateral airspace opacities are increased from prior exam and may represent atelectasis, pneumonia, and/or aspiration. 2. Cardiomegaly and mild pulmonary edema. 3. Small left pleural effusion, increased in size from prior. ACT 112: Negative or not required by law. Electronically signed by: Jerry Nicolas M.D. 04/24/2023 8:18 AM Code Status & VTE Plan Code Status full PG Care Time/CCT Total # of Minutes Spent Total Time Spent with Patient: Total time spent is greater than 50% in coordination of care (as documented) at patient's floor/unit and/or counseling patient: Coding Level of Care Code 74327 INT INP/OBS CARE 3/75MIN Diagnoses Acute respiratory failure with hypoxia J96.01 Right heart failure with reduced right ventricular function I50.810 Pneumonia J18.9 Acute exacerbation of chronic obstructive pulmonary disease J44.1 S/P CABG (coronary artery bypass graft) Z95.1 PAF (paroxysmal atrial fibrillation) I48.0 Ex-smoker Z87.891 Pleural effusion J90 CAD (coronary artery disease) I25.10 CKD (chronic kidney disease), stage III N18.3 Weakness R53.1 DVT prophylaxis Z29.9 Hypertension I10 Pulmonary hypertension I27.20
[2023-04-24 11:32] LABS: C Reactive Protein 2.73 mg/dl (0-0.5)
[2023-04-24 11:42] LABS: Troponin I High Sensitivity 61.7 pg/ml (0-20)
[2023-04-24] MEDS ORDERED: ONDANSETRON INJ 2 MG/ML 2 ML VIAL IV PRN (11:47)
[2023-04-24] MEDS ORDERED: MoRPHine SULFATE 2 MG/ML CARP IV PRN (11:47)
[2023-04-24] MEDS ORDERED: NITROGLYCERIN SL 0.4 MG/TAB TAB SL PRN (11:47)
[2023-04-24 11:50] LABS: D Dimer 1040 ug/L FEU (0-500)
--- NOTE | 2023-04-24 11:58 | Ultrasound Report ---
US venous doppler LE BI CLINICAL HISTORY: edema, recent CABG/immobility; eval DVT TECHNIQUE: Bilateral lower extremity real-time compression venous ultrasound with Color Doppler imagi ng. Utilizing real-time ultrasonic imaging multiple real time high-resolution ultrasonic images with compression and noncompression maneuvers of the deep venous system in addition to color doppler imagi ng were performed from the common femoral vein through the proximal calf veins. COMPARISON: None available at the time of this dictation. FINDINGS/IMPRESSION: Currently there is normal compressibility of the deep venous system from the common femoral vein thro ugh the proximal calf veins. Soft tissue edema is seen, left greater than right. ACT 112: Negative or not required by law. Electronically signed by: Jerry Nicolas M.D. 04/24/2023 11:56 AM
[2023-04-24] MEDS ORDERED: ACETAMINOPHEN 500 MG TAB PO PRN (12:01)
[2023-04-24 12:11] LABS: Appearance Urine Clear (Clear); Bacteria Urine Automated Negative (Negative); Bilirubin Urine Negative (Negative); Blood Urine Negative (Negative); Color Urine Yellow; Glucose Urine UA Negative (Negative); Ketones Urine Negative (Negative); Leukocyte Esterase Urine Negative (Negative); Nitrite Urine Negative (Negative); Protein Urine Trace (Negative); RBC Urine Automated 0-4 /hpf (0-4); Urobilinogen Urine Negative (Negative)
[2023-04-24] MEDS: ALBUT/IPRATROP 3MG/0.5MG NEB 3 ML VIAL NEB SCH ×3 (12:15→19:28)
[2023-04-24] MEDS: guaiFENesin 600 MG TABCR PO SCH ×2 (13:01→21:09)
[2023-04-24] MEDS: ENOXAPARIN INJ 40 MG/0.4 ML SYR SQ SCH (13:02)
[2023-04-24 13:03] LABS: Prothrombin Time 11.4 Seconds (9.0-12.0)
[2023-04-24] MEDS ORDERED: IOVERSOL 350 MG 125mL Prefilled Syringe IV ONE (13:38)
--- NOTE | 2023-04-24 13:46 | Emergency Department Note ---
Impression & Plan Acute respiratory failure with hypoxia, Acute exacerbation of chronic obstructive pulmonary disease, Bronchitis, NSTEMI (non-ST elevated myocardial infarction) ED Provider Note CHIEF COMPLAINT: Shortness of breath HISTORY OF PRESENT ILLNESS: This 83-year-old male patient with past medical hi story of COPD, coronary artery disease status post CABG, paroxysmal atrial fibrillation, chronic pleural effusion, chronic kidney disease presents to the emergency department with complaints of worsening shortness of breath. The patient has been symptomatic since last evening. He denies any fevers but does have a slightly productive cough of yellow sputum. He states it is difficult for him to lie flat. He does take Lasix 20 mg daily and states he has been compliant. He denies any known fevers. He was recently seen by his PCP and started on Spiriva. No sick contacts at home. REVIEW OF SYSTEMS: A review of systems was performed with positives and pertinent negatives listed in the history of present illness. 10 systems were reviewed and are otherwise negative. ALLERGIES: see below MEDICATIONS: see below PMH: see below SOCIAL HISTORY: see below DDx: COPD exacerbation, CHF, pneumonia, bronchitis, viral etiology, metabolic abnormality, worsening pleural effusion among others. PHYSICAL EXAM: Vital signs reviewed. General: Chronically ill-appearing 83-year-old male, no significant distress. HEENT: No scleral icterus, PERRLA, neck supple. Atraumatic. Cardiovascular: Regular rate and rhythm, no extra sounds. Pulmonary: Coarse breath sounds with moist cough to auscultation bilaterally, slightly increased work of breathing on oxy mask. Abdomen: Soft, nontender, nondistended, positive bowel sounds. Musculoskeletal: Atraumatic, no peripheral edema. Neurologic: Patient awake alert and oriented x 3, speech is clear Skin: Warm, dry, no rash EMERGENCY DEPARTMENT COURSE/MDM: This patient was evaluated and appeared to be in no significant distress. IV access was obtained and laboratory work was drawn. The patient was placed on a hospital monitor and noted to be in a normal sinus rhythm. Chest x-ray was performed and is concerning for findings of congestion, underlying COPD and possibly pneumonia. Blood cultures were obtained. Patient did receive a DuoNeb treatment and IV Solu-Medrol. Respiratory swab is negative for RSV, COVID and influenza. On my reevaluation the patient, he is resting comfortably and thought that the nebulizer and Solu- Medrol may have been helpful. He did not want to take off the oxy mask however. He did desaturate to 85% during his stay in the ED on room air. Patient's laboratory work is notable for an elevated high-sensitivity troponin at 62. Given his multiple medical problems and continued hypoxia, the patient's case w as discussed with the hospitalist service for inpatient management. He is aware of the plan and agrees. MONITORING: An order for cardiac monitoring was placed and the patient is noted to be in a normal sinus rhythm 64 beats per minute. RADIOLOGY: Chest x-ray to my interpretation reveals evidence of a left pleural effusion, pulmonary vascular congestion, cardiomegaly. Interstitial change with concern for bronchitis, pneumonia. Otherwise defer to radiology. EKG: To my interpretation reveals a normal sinus rhythm, at 84 bpm. Left axis deviation right bundle branch block. Previous inferior infarct, prolonged QTc at 522. When compared to previous dated 03/09/2023, QTc is slightly longer. DISPOSITION: Admission I have personally spent 32 minutes of critical care time in the direct manag ement of this patient. This was a life/limb threatening event. This 32 minutes is in excess of all separately billable procedures. Past Med/Surg History Medical History Atrial fibrillation with rapid ventricular response 10/2022 CAD (coronary artery disease) Chronic diastolic CHF (congestive heart failure) CKD (chronic kidney disease), stage III Follow[address] Morley COPD with emphysema Current smoker Heart valve regurgitation unsure which valve Hypertension Myocardial infarct 1997 - heavy chest, left arm pain - Went to [facility] - flown to [facility] - blockage of "back of heart" - heart cath - no stent placement - Follows Dr. Puente Surgical History History of colonoscopy Hx of cardiac cath 1997 d/t to [place] - no stents placed - Follows Dr. Puente Hx of cataract extraction Rt. Hx of inguinal hernia repair Hx of repair of left rotator cuff x2 S/P CABG (coronary artery bypass graft) 3 vessel - [facility], 02/2023. S/P Maze operation for atrial fibrillation [facility] - 02/2023. Family History Father Family history of diabetes mellitus CHF (congestive heart failure) Black lung disease Mother , had CABG Family history of diabetes mellitus Coronary heart disease Myocardial infarction Dementia Social History Smoking Status: Former smoker Smoking End Date: 10/2022; 100+ pack years; Second Hand Exposure: No; Do You Dip or Chew Tobacco: No; Hx Alcohol Use: No Hx Substance Use: No Preferred Language: Croatian Communication Ability: Effective Application Developer Required: No Beliefs That Will Affect Care: None marital status: Current Living Situation: Spouse Current Living Situation Comment: From home with current occupational status: retired How many Children do You have: 2 Other Information That Helps Us Care for You: No other: 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; 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 Feels Safe at Home: Yes Safety Concerns: Feels Safe At This Time Assistive Devices: Cane, Glasses and Hearing Aid - Bilateral Allergies Allergies Allergy/AdvReac Type Severity Reaction Status Date / Time No Known Allergies Allergy Verified 04/15/23 13:19 Home Meds Home Medications Medication Instructions Recorded Confirmed cholecalciferol (vitamin D3) 50 2,000 units PO QPM 04/08/19 04/24/23 mcg (2,000 unit) capsule fish, borage, flaxseed oils-omega 1 cap PO QAM 02/13/22 04/24/23 3,6,9 comb no.1 1,200 mg capsule ([place]isman 3-6-9) clopidogrel 75 mg tablet 75 mg PO DAILY 03/09/23 04/24/23 acetaminophen 500 mg capsule 1,000 mg PO Q8 PRN Pain 03/20/23 04/24/23 rosuvastatin 20 mg tablet 20 mg PO DAILY 03/20/23 04/24/23 amiodarone 200 mg tablet 100 mg PO DAILY 04/15/23 04/24/23 furosemide 20 mg tablet (Lasix) 20 mg PO Q OTHER DAY 04/15/23 04/24/23 metoprolol succinate 50 mg 50 mg PO DAILY 04/24/23 04/24/23 tablet,extended release 24 hr potassium chloride 20 mEq See Rx Instructions .Route .COMPLEX 04/24/23 04/24/23 tablet,extended release(part/cryst) (Klor-Con M) sacubitril 97 mg-valsartan 103 mg 1 tab PO BID 04/24/23 04/24/23 tablet (Entresto) Previous Rx's Medication Instructions Recorded aspirin 81 mg tablet,delayed 81 mg PO QPM #0 tabs 11/02/22 release tiotropium bromide 2.5 2 puff inhalation DAILY #4 grams 04/16/23 mcg/actuation mist for inhalation (Spiriva Respimat) Results & Data (ED) Vital Signs Vital Signs - 24 hr 04/24/23 07:24 04/24/23 07:24 04/24/23 07:24 Temperature 36.9 C Temperature Source Oral Pulse Rate 81 Pulse Rate from SpO2 Sensor Pulse Rhythm Regular Pulse Strength Normal Respiratory Rate 30 H Respiratory Effort / Characteristics Non-Labored Spontaneous Short of Breath SOB on Exertion Non-Labored Spontaneous Short of Breath SOB on Exertion Respiratory Depth Normal Normal Respiratory Pattern Tachypnea Regular Tachypnea Blood Pressure 184/106 H Blood Pressure Mean 132 Blood Pressure Position Sitting Pulse Oximetry 85 L 85 L Oxygen Delivery Method Room Air Room Air Oxymask Oxygen Flow Rate 0 Sepsis Recent Fever Within 48 Hours No Sepsis New/Unexplained Change in Mental Status No Sepsis Action Taken by Nursing No Action Required Oxygen Flow Rate - Titration 5 Pulse Oximetry Post Tiitration 95 04/24/23 07:38 04/24/23 07:50 04/24/23 07:30 Temperature Temperature Source Pulse Rate 82 79 83 Pulse Rate from SpO2 Sensor 83 Pulse Rhythm Regular Pulse Strength Respiratory Rate 30 H 30 H Respiratory Effort / Characteristics Respiratory Depth Respiratory Pattern Blood Pressure 184/106 H Blood Pressure Mean 132 Blood Pressure Position Pulse Oximetry 95 95 Oxygen Delivery Method Oxymask Oxymask Oxygen Flow Rate 5 5 Sepsis Recent Fever Within 48 Hours Sepsis New/Unexplained Change in Mental Status Sepsis Action Taken by Nursing Oxygen Flow Rate - Titration Pulse Oximetry Post Tiitration 04/24/23 07:35 04/24/23 08:00 04/24/23 08:30 Temperature Temperature Source Pulse Rate 83 79 75 Pulse Rate from SpO2 Sensor 81 79 75 Pulse Rhythm Pulse Strength Respiratory Rate 26 H 26 H 22 Respiratory Effort / Characteristics Respiratory Depth Respiratory Pattern Blood Pressure 180/98 H 171/119 H 161/79 H Blood Pressure Mean 125 136 106 Blood Pressure Position Pulse Oximetry 95 94 99 Oxygen Delivery Method Oxymask Oxymask Nebulizer Oxygen Flow Rate 5 3 8 Sepsis Recent Fever Within 48 Hours Sepsis New/Unexplained Change in Mental Status Sepsis Action Taken by Nursing Oxygen Flow Rate - Titration Pulse Oximetry Post Tiitration 04/24/23 09:00 04/24/23 09:01 04/24/23 09:31 Temperature Temperature Source Pulse Rate 77 77 Pulse Rate from SpO2 Sensor 77 78 Pulse Rhythm Pulse Strength Respiratory Rate 26 H 30 H Respiratory Effort / Characteristics Respiratory Depth Respiratory Pattern Blood Pressure 161/79 H 161/79 H 175/76 H Blood Pressure Mean 106 106 129 Blood Pressure Position Pulse Oximetry 94 95 Oxygen Delivery Method Oxymask Oxymask Oxygen Flow Rate 3 4 Sepsis Recent Fever Within 48 Hours Sepsis New/Unexplained Change in Mental Status Sepsis Action Taken by Nursing Oxygen Flow Rate - Titration Pulse Oximetry Post Tiitration 04/24/23 09:31 04/24/23 09:40 04/24/23 09:40 Temperature Temperature Source Pulse Rate 79 74 Pulse Rate from SpO2 Sensor 79 74 Pulse Rhythm Pulse Strength Respiratory Rate 32 H 23 Respiratory Effort / Characteristics Respiratory Depth Respiratory Pattern Blood Pressure 149/81 H Blood Pressure Mean 108 Blood Pressure Position Pulse Oximetry 95 94 Oxygen Delivery Method Oxygen Flow Rate Sepsis Recent Fever Within 48 Hours Sepsis New/Unexplained Change in Mental Status Sepsis Action Taken by Nursing Oxygen Flow Rate - Titration Pulse Oximetry Post Tiitration 04/24/23 09:45 04/24/23 09:45 04/24/23 10:00 Temperature Temperature Source Pulse Rate 75 75 Pulse Rate from SpO2 Sensor 74 76 Pulse Rhythm Pulse Strength Respiratory Rate 21 22 Respiratory Effort / Characteristics Respiratory Depth Respiratory Pattern Blood Pressure 157/81 H Blood Pressure Mean 123 Blood Pressure Position Pulse Oximetry 95 95 Oxygen Delivery Method Oxygen Flow Rate Sepsis Recent Fever Within 48 Hours Sepsis New/Unexplained Change in Mental Status Sepsis Action Taken by Nursing Oxygen Flow Rate - Titration Pulse Oximetry Post Tiitration Home Medications Current Medication List: was personally reviewed by me Laboratory Data Attestation: I reviewed the patient's lab results. 04/24/23 07:39 04/24/23 07:39 Lab Results 04/24/23 04/24/23 04/24/23 Range/Units 07:39 07:39 07:39 WBC 13.84 H (4.8-10.8) K/ul RBC 3.87 L (4.70-6.10) M/uL Hgb 11.8 L (14.0-18.0) g/dl Hct 36.1 L (42.0-52.0) % MCV 93.3 (80.0-100.0) fL MCH 30.5 (25.0-34.0) pg MCHC 32.7 (32.0-36.0) g/dL RDW Std Deviation 54.2 H (36.4-46.3) fL RDW Coeff of Jolene 15.9 H (11.5-14.5) % Plt Count 244 (130-400) K/uL MPV 9.3 L (9.4-12.4) fL Immature Gran % (Auto) 0.5 % Neut % (Auto) 84.5 % Lymph % (Auto) 7.6 % [place] % (Auto) 6.6 % Eos % (Auto) 0.6 % Baso % (Auto) 0.2 % Neut # (Auto) 11.70 H (1.40-6.50) K/uL Lymph # (Auto) 1.05 L (1.2-3.4) K/uL [place] # (Auto) 0.91 H (0.11-0.59) K/uL Eos # (Auto) 0.08 (0-0.50) K/uL Baso # (Auto) 0.03 (0-0.2) K/uL Immature Gran # (Auto) 0.07 (0.01-0.20) K/uL Sodium 139 (136-145) mmol/L Potassium 3.1 L (3.5-5.1) mmol/L Chloride 98 (98-107) mmol/L Carbon Dioxide 36 H (21-32) mmol/L Anion Gap 5 (3-11) BUN 20 (6-23) mg/dl Creatinine 1.48 H (0.6-1.4) mg/dl Est Cr Clr Drug Dosing 38.5 ml/min Est GFR ( Amer) 50.3 ml/min Est GFR (Non-Af Amer) 43.4 ml/min BUN/Creatinine Ratio 13.5 (10-20) Glucose 144 H (70-99(Fasting)) mg/dl Calcium 9.2 (8.6-10.3) mg/dl Magnesium 2.2 (1.7-2.4) mg/dl Total Bilirubin 1.7 H (0.2-1.0) mg/dl AST 15 (13-39) U/L ALT 19 (7-52) U/L Alkaline Phosphatase 89 (34-104) U/L Troponin I High Sens 64.1 H* (0-20) pg/ml Total Protein 7.1 (6.0-8.3) gm/dl Albumin 3.8 (3.4-5.0) gm/dl Globulin 3.3 (2.5-4.0) gm/dl Albumin/Globulin Ratio 1.2 (0.9-2) SARS-CoV-2 (PCR) NEGATIVE (Negative) Influenza Type A (PCR) Negative (Neg) Influenza Type B (PCR) Negative (Neg) RSV (RT-PCR) Negative (Neg) Administered Medications Albuterol (Albut/Ipratrop 3mg/0.5mg Neb 3 Ml Vial) 3 ml NEB QIDR AMRIT; Protocol Stop: 05/24/23 11:46 Last Admin: 04/24/23 12:15 Dose: 3 ml Documented By: CONTRERAS Enoxaparin Sodium (Enoxaparin Inj 40 Mg/0.4 Ml Syr) 40 mg SQ Q24H AMRIT Stop: 05/24/23 12:14 Last Admin: 04/24/23 13:02 Dose: 40 mg Documented By: LUCIA Guaifenesin (Guaifenesin 600 Mg Tabcr) 600 mg PO Q12 AMRIT Stop: 05/24/23 11:46 Last Admin: 04/24/23 13:01 Dose: 600 mg Documented By: LUCIA Discontinued Medications Albuterol (Albut/Ipratrop 3mg/0.5mg Neb 3 Ml Vial) 3 ml NEB NOW STA; Protocol Stop: 04/24/23 07:46 Last Admin: 04/24/23 08:19 Dose: 3 ml Documented By: SHYANNE Aspirin (Aspirin Chew 324 Mg) 324 mg PO NOW STA Stop: 04/24/23 08:33 Last Admin: 04/24/23 09:03 Dose: 324 mg Documented By: SHYANNE Furosemide (Furosemide 40 Mg/4 Ml Vial) 40 mg IV ONE ONE Stop: 04/24/23 08:33 Last Admin: 04/24/23 09:03 Dose: 40 mg Documented By: SHYANNE Ioversol (Ioversol 350 Mg 125ml Prefilled Syringe) 120 ml IV ONCE ONE Stop: 04/24/23 13:39 Last Admin: 04/24/23 13:39 Dose: 120 ml Documented By: SEJ Methylprednisolone (Methylprednisolone 125 Mg/2 Ml Vial) 60 mg IV NOW STA Stop: 04/24/23 08:08 Last Admin: 04/24/23 08:19 Dose: 60 mg Documented By: SHYANNE Metoprolol Tartrate (Metoprolol Tartrate 50 Mg Tab) 50 mg PO NOW STA Stop: 04/24/23 09:35 Last Admin: 04/24/23 10:18 Dose: 50 mg Documented By: SHYANNE Nitroglycerin (Nitroglycerin 2% Ointment 30gm Tube) 1 inch EXT NOW STA Stop: 04/24/23 08:33 Last Admin: 04/24/23 09:03 Dose: 1 inch Documented By: SHYANNE Potassium Chloride (Potassium Chloride Crtab 20 Meq Tabcr) 40 meq PO NOW STA Stop: 04/24/23 09:22 Last Admin: 04/24/23 10:18 Dose: 40 meq Documented By: SHYANNE Imaging Data Radiologist's Impression: Chest X-Ray 04/24/23 07:31 XR chest 1V portable CLINICAL HISTORY: Dyspnea TECHNIQUE: Single frontal radiograph of the chest was obtained. Comparison: Comparison is made to chest radiograph 04/15/2023 FINDINGS: Median sternotomy wires are unchanged. Loop recorder is seen. Cardiomegaly is noted. The aortic arch is calcified. Left retrocardiac opacity and right perihilar airspace opacities are seen. Left pleural effusion is slightly increased in size from prior. IMPRESSION: 1. Bilateral airspace opacities are increased from prior exam and may represent atelectasis, pneumonia, and/or aspiration. 2. Cardiomegaly and mild pulmonary edema. 3. Small left pleural effusion, increased in size from prior. ACT 112: Negative or not required by law. Electronically signed by: Jerry Nicolas M.D. 04/24/2023 8:18 AM Venous Doppler Study 04/24/23 10:25 US venous doppler LE BI CLINICAL HISTORY: edema, recent CABG/immobility; eval DVT TECHNIQUE: Bilateral lower extremity real-time compression venous ultrasound with Color Doppler imaging. Utilizing real-time ultrasonic imaging multiple real time high-resolution ultrasonic images with compression and noncompression maneuvers of the deep venous system in addition to color doppler imaging were performed from the common femoral vein through the proximal calf veins. COMPARISON: None available at the time of this dictation. FINDINGS/IMPRESSION: Currently there is normal compressibility of the deep venous system from the common femoral vein through the proximal calf veins. Soft tissue edema is seen, left greater than right. ACT 112: Negative or not required by law. Electronically signed by: Jerry Nicolas M.D. 04/24/2023 11:56 AM Discharge Plan Visit Data Chief Complaint: Shortness of Breath/Dyspnea Stated Complaint: SHORTNESS OF BREATH ED Provider: Sarah Adame Discharge Problem: Acute respiratory failure with hypoxia, Acute exacerbation of chronic obstructive pulmonary disease, Bronchitis, NSTEMI (non-ST elevated myocardial infarction) Patient Disposition: Admitted As Inpatient Discharge Instructions Interventions: ED Discharge Assessment Last Done: 04/24/23 11:26
--- NOTE | 2023-04-24 14:25 | CT Scan Report ---
CHEST CTA for PULMONARY ARTERIES CT DOSE: 605.15 mGy.cm HISTORY: acute resp failure, elevated dimer, CHF, effusions TECHNIQUE: Multiaxial CT images of the chest were performed following the intravenous administration of contrast to evaluate the pulmonary arteries. 3D/Maximal intensity projection images were also obta ined. Sagittal and coronal reformations were also reviewed. A dose lowering technique was utilized a dhering to the principles of ALARA. COMPARISON STUDY: Chest CT 04/16/2016. FINDINGS: Calcified plaque within the normal caliber thoracic aorta. No evidence for an aortic dissec tion. The heart is enlarged. No pericardial effusion. There is a small left pleural effusion. Motion artifact results in suboptimal evaluation of the subsegmental pulmonary arteries. However, no definit e filling defects within the pulmonary arteries to suggest a pulmonary embolus. Mildly dilated main p ulmonary artery measures up to 3.2 cm in diameter. This is consistent with pulmonary arterial hyperte nsion. Limited views of the upper abdomen demonstrate a normal liver and spleen. There is a small hia tus hernia. Normal caliber esophagus. There is mild bilateral edema. There is borderline mediastinal and bilateral hilar lymphadenopathy which has slightly progressed. A dominant precarinal lymph node m easures 16 x 9 mm. This is nonspecific but could be reactive. Poststernotomy changes are noted. Mild healing of the sternal and is suggestive of the recent postoperative change. No pneumothorax. Emphyse ma. Small amount of mucoid, 2 within the trachea. Partial opacities in the bilateral lower lobe bronc hi. Mild interlobular septal thickening suggestive of mild pulmonary edema. There are patchy and irre gular airspace opacities within the right upper and right middle lobes. Additional areas of consolida tion within the base of the bilateral lower lobes. IMPRESSION: 1. No evidence for a pulmonary embolus. 2. Cardiomegaly with mild interstitial pulmonary edema and a small left pleural effusion. 3. Patchy airspace opacities within the right upper lobe and right middle lobe. This could be due to a pneumonia or a component of the pulmonary edema. 4. Consolidation within the bilateral lower lobes with associated partial opacification of the lower lobe bronchi. This could be due to an aspiration pneumonia. 5. Additional findings as described above. ACT 112: Negative or not required by law. Electronically signed by: James Cordova M.D. 04/24/2023 2:23 PM
[2023-04-24] MEDS ORDERED: DOXYCYCLINE HYCLATE 100 MG CAP PO STA (14:42)
[2023-04-24] MEDS ORDERED: PIPERACILLIN/TAZOBACTAM 4.5 GM/120 ML BAG IV STA (14:45)
[2023-04-24] MEDS: POTASSIUM CHLORIDE CRTAB 20 MEQ TABCR PO SCH ×2 (15:09→21:09)
--- NOTE | 2023-04-24 15:49 | Electrocardiogram Report ---
Test Reason : Blood Pressure : / mmHG Vent. Rate : 084 BPM Atrial Rate : 084 BPM P-R Int : 194 ms QRS Dur : 152 ms QT Int : 442 ms P-R-T Axes : 054 -44 019 degrees QTc Int : 522 ms Normal sinus rhythm Left axis deviation Right bundle branch block Inferior infarct (cited on or before 09-MAR-2023) Abnormal ECG When compared with ECG of 09-MAR-2023 10:01, Questionable change in QRS duration Confirmed by Giancarlo Lisa ([id number]) on 04/24/2023 3:49:36 PM Referred By: REFERRED SELF Confirmed By:Giancarlo Lisa
[2023-04-24] MEDS: PIPERACILLIN/TAZOBACTAM 4.5 GM in DEXTROSE 5% 100 ML IV SCH (21:07)
[2023-04-24] MEDS: VALSARTAN/SACUBITRIL 103/97MG TAB PO SCH (21:08)
[2023-04-24] MEDS: ASPIRIN 81 MG ECTAB PO SCH (21:08)
[2023-04-24] MEDS: DOXYCYCLINE HYCLATE 100 MG CAP PO SCH (21:08)
[2023-04-24] MEDS: CHOLECALCIFEROL 1,000 UNITS 25 MCG TAB PO SCH (21:09)
[2023-04-24] MEDS: methylPREDNISolone 40 MG in SYRINGE 0 ML IV SCH (21:42)
[2023-04-25] MEDS: PIPERACILLIN/TAZOBACTAM 4.5 GM in DEXTROSE 5% 100 ML IV SCH ×3 (04:36→19:41)
[2023-04-25] MEDS: ALBUT/IPRATROP 3MG/0.5MG NEB 3 ML VIAL NEB SCH ×4 (07:10→19:07)
[2023-04-25 07:21] LABS: Hematocrit (blood only) 34.9 % (42.0-52.0); Hemoglobin 11.5 g/dl (14.0-18.0); Mean Corpuscular Hemoglobin 31.1 pg (25.0-34.0); Mean Corpuscular Volume 94.3 fL (80.0-100.0); Mean Platelet Volume 9.2 fL (9.4-12.4); Platelet Count 224 K/uL (130-400); RDW Coefficient of Variation 15.9 % (11.5-14.5); RDW Standard Deviation 55.6 fL (36.4-46.3); White Blood Count 11.05 K/ul (4.8-10.8)
[2023-04-25 08:23] LABS: BUN Creatinine Ratio 17.4 (10-20); Calcium 9.5 mg/dl (8.6-10.3); Creatinine Clr Calc Pharmacy 35.1 ml/min; Est GFR (African American) 40.3 ml/min; Est GFR (Non-African American) 34.8 ml/min; Potassium 3.7 mmol/L (3.5-5.1)
[2023-04-25] MEDS: methylPREDNISolone 40 MG in SYRINGE 0 ML IV SCH ×2 (08:26→20:01)
[2023-04-25] MEDS: CLOPIDOGREL BISULFATE 75 MG TAB PO SCH (08:27)
[2023-04-25] MEDS: VALSARTAN/SACUBITRIL 103/97MG TAB PO SCH ×2 (08:27→20:00)
[2023-04-25] MEDS: UMECLIDINIUM BROMIDE 62.5MCG/BLISTER 7 PUFFS/INHALER INH SCH (08:27)
[2023-04-25] MEDS: guaiFENesin 600 MG TABCR PO SCH ×2 (08:27→20:00)
[2023-04-25] MEDS: DOXYCYCLINE HYCLATE 100 MG CAP PO SCH ×2 (08:27→20:00)
[2023-04-25] MEDS: METOPROLOL SUCC 25MG EXT REL TAB PO SCH (08:28)
[2023-04-25] MEDS: ROSUVASTATIN CALCIUM 20 MG TAB PO SCH (08:28)
[2023-04-25] MEDS: AMIODARONE 200 MG TAB PO SCH (08:28)
[2023-04-25] MEDS: PANTOprazole 40 MG TAB PO SCH (08:28)
[2023-04-25] MEDS: OMEGA-3 (PURIFIED FISH OIL) 1 GM CAP PO SCH (08:28)
[2023-04-25] MEDS: POTASSIUM CHLORIDE CRTAB 20 MEQ TABCR PO SCH ×3 (08:28→20:00)
[2023-04-25] MEDS ORDERED: METOPROLOL SUCC 50MG EXT REL TAB PO SCH (09:00)
[2023-04-25] MEDS: ENOXAPARIN INJ 40 MG/0.4 ML SYR SQ SCH (14:03)
[2023-04-25] MEDS ORDERED: FUROSEMIDE 40 MG/4 ML VIAL IV ONE (16:01)
[2023-04-25] MEDS: NYSTATIN SUSP 500,000 U/5 ML UDC PO SCH ×2 (17:13→20:01)
[2023-04-25] MEDS: CHOLECALCIFEROL 1,000 UNITS 25 MCG TAB PO SCH (20:00)
[2023-04-25] MEDS: ASPIRIN 81 MG ECTAB PO SCH (20:01)
[2023-04-25] MEDS ORDERED: MELATONIN 3 MG TAB PO PRN (20:09)
--- NOTE | 2023-04-25 20:25 | Hospitalist Progress Note ---
Date of Service April 25, 2023 Assessment & Plan (1) Acute respiratory failure with hypoxia: Plan: Multifactorial - acute/chronic CHF, possible pneumonia, and COPD exacerbation. MUCH improved. Treating each component. o2 sats normal in room air at rest; but per PT/OT sats dropped to upper 80s with walking. (2) Right heart failure with reduced right ventricular function: Plan: On 04/11/23 he underwent outpatient echo by Dr Byron Puente's office - [facility] - with the following findings: * EF 55% * RCA territory akinesis * grade 2 diastolic dysfunction * dilated RV with reduced RV function * dilated aortic root (4.3cm) * moderate MR, moderate TR * severe pulmonary HTN Decompensation improved. Dry weight 165 #. Weight today standing scale >170#. Give lasix 40mg IV x 1 and re-eval tomorrow. BMP am. RV failure - due to COPD? mitral valve disease? RCA territory akinesis? combo? (3) Pneumonia: Plan: CTA chest with b/l pneumonia. Due to recent hospital admissions started zosyn yesterday along with doxy 100mg BID. Day #2 of abx. He looks very good today Can likely change to PO abx tomorrow. Blood cx's negative. Speech eval to r/o dysphagia/aspiration. (4) Acute exacerbation of chronic obstructive pulmonary disease: Plan: MUCH improved with IV steroids. Stop IV, change to PO prednisone 40mg daily starting tomorrow. Cont nebs/inhalers. (5) S/P CABG (coronary artery bypass graft): Plan: 3-vessel at [facility] 02/2023. CHEEK-LAD, SVG-PDA, SVG-OM. Cont metoprolol, asa, plavix, crestor, Entresto. HS troponin at presentation is in the 60s - this was most c/w myocardial demand ischemia rather than ACS. (6) PAF (paroxysmal atrial fibrillation): Plan: History of PAF 10/2022. Was on eliquis earlier this year - now stopped. Remains on amiodarone + metoprolol. s/p MAZE procedure [facility] 02/2023. Cont tele. cont amiodarone. Metoprolol succ increased to 75mg daily due to uncontrolled HTN. (7) Ex-smoker: Plan: 100+ pack years by report. Now quit. (8) Pleural effusion: Plan: Left-sided - small on x-ray. Small on CT chest. No Rx needed. Effusion likely due to CABG. (9) CAD (coronary artery disease): Plan: Triple-Vessel disease. S/p CABG 02/2023 at [facility]. (10) CKD (chronic kidney disease), stage III: Plan: Baseline Creatinine is about 1.4 to 1.5. Cr modestly higher today likely due to diuresis. BMP am. (11) Weakness: Plan: Multifactorial, but suspect severe deconditioning in the context of his CABG two months ago. PT, OT evals appreciated. He actually did VERY WELL with evals and no rehab needed. (12) DVT prophylaxis: Plan: lovenox 40mg once daily (13) Hypertension: Plan: Uncontrolled. Increase Metoprolol succ to 75mg daily. Cont Entresto, amlodipine, etc. (14) Pulmonary hypertension: Plan: As seen on echo earlier this month via the [facility] office. severe. 2-step O2 test at d/c. (15) Insomnia: Plan: appears he was given mirtazapine earlier this summer he states it "didn't help my sleep" may need trazodone or similar (16) Dysphagia: Plan: dry mouth makes this worse but he also describes what sounds like esophageal dysmotility he also has a hiatal hernia change diet to mince/moist obtain formal speech eval CT chest with findings that could suggest aspiration again will consult speech Plan updated progressing nicely Admission and Anticipated Discharge Date Admission Date: April 24, 2023 Subjective tele overnight wnl pt sitting in chair during the visit o2 has been weaned off at bedside patient stated "I feel great today" only complaints are - 1. insomnia - only slept 2 hours, woke up, then could not fall asleep for remainder of night 2. swallowing - food gets stuck upper esophagus 3. ongoing dryness of mouth with poor taste to foods dyspnea and cough MUCH IMPROVED Review of Systems Review of Systems: gen - no fevers or chills cv - no chest pain, no orthopnea, no PND pulm - no dyspnea or BLANC musculo - patient states "my legs feel strong today"; worked with PT Physical Exam Physical Exam: gen - sitting in chair, looks much better today HENT - mouth severely dry MM; ? slight thrush buccal mucosa? neck - JVD present heart - RRR, s1 s2, 2/6 systolic murmur LSB lungs - wheezes resolved; tachypnea, mild retractions resolved; decreased BS both bases worse on left; mild crackles b/l abd - soft, NT, ND, BS+, no HSM ext - <1+ edema b/l ankles/feet; pulses 2+ b/l psych - a/o x 3 Results & Data Results & Data Vital Signs (Past 12 Hours) Vital Signs Temp Pulse Pulse Resp BP Pulse Ox Pulse Ox 04/25/23 19:00 36.5 C 76 17 160/73 H 95 04/25/23 17:00 76 04/25/23 15:32 36.4 C L 79 18 147/79 H 93 04/25/23 15:18 80 15 92 04/25/23 12:00 04/25/23 14:09 95 04/25/23 13:56 91 04/25/23 10:57 80 16 95 04/25/23 10:38 37 C 78 20 157/83 H 94 04/25/23 09:00 Pulse Ox Pulse Ox O2 Del Method O2 Del Method O2 Flow Rate O2 Flow Rate O2 Flow Rate 04/25/23 19:00 Room Air 04/25/23 17:00 04/25/23 15:32 Room Air 04/25/23 15:18 Room Air 04/25/23 12:00 94 Room Air 04/25/23 14:09 04/25/23 13:56 88 L 0 0 04/25/23 10:57 Nasal Cannula 2 04/25/23 10:38 Nasal Cannula 1 04/25/23 09:00 Nasal Cannula 2 Laboratory Results Laboratory Results - last 24 hr 04/25/23 04/25/23 07:02 07:02 WBC 11.05 H RBC 3.70 L Hgb 11.5 L Hct 34.9 L MCV 94.3 MCH 31.1 MCHC 33.0 RDW Std Deviation 55.6 H RDW Coeff of Jolene 15.9 H Plt Count 224 MPV 9.2 L Sodium 136 Potassium 3.7 Chloride 96 L Carbon Dioxide 31 Anion Gap 9 BUN 31 H Creatinine 1.78 H D Est Cr Clr Drug Dosing 35.1 Est GFR ( Amer) 40.3 Est GFR (Non-Af Amer) 34.8 BUN/Creatinine Ratio 17.4 Glucose 217 H Calcium 9.5 PG Care Time/CCT Total # of Minutes Spent Total Time Spent with Patient: Total time spent is greater than 50% in coordination of care (as documented) at patient's floor/unit and/or counseling patient: Coding Level of Care Code 30326 SUB INP/OBS CARE 3/50MIN Diagnoses Acute respiratory failure with hypoxia J96.01 Right heart failure with reduced right ventricular function I50.810 Pneumonia J18.9 Acute exacerbation of chronic obstructive pulmonary disease J44.1 S/P CABG (coronary artery bypass graft) Z95.1 PAF (paroxysmal atrial fibrillation) I48.0 Ex-smoker Z87.891 Pleural effusion J90 CAD (coronary artery disease) I25.10 CKD (chronic kidney disease), stage III N18.3 Weakness R53.1 DVT prophylaxis Z29.9 Hypertension I10 Pulmonary hypertension I27.20 Insomnia G47.00 Dysphagia R13.10
[2023-04-25] MEDS ORDERED: guaiFENesin SUGAR FREE 100 MG/5 ML UDC PO STA (20:41)
[2023-04-26] MEDS: PIPERACILLIN/TAZOBACTAM 4.5 GM in DEXTROSE 5% 100 ML IV SCH ×2 (04:27→12:25)
[2023-04-26] MEDS: ALBUT/IPRATROP 3MG/0.5MG NEB 3 ML VIAL NEB SCH ×4 (07:27→21:04)
[2023-04-26 07:53] LABS: BUN Creatinine Ratio 19.3 (10-20); Calcium 9.3 mg/dl (8.6-10.3); Creatinine Clr Calc Pharmacy 27.5 ml/min; Est GFR (African American) 33.6 ml/min; Potassium 4.3 mmol/L (3.5-5.1)
[2023-04-26] MEDS ORDERED: predniSONE 20 MG TAB PO SCH (09:00)
[2023-04-26] MEDS: DOXYCYCLINE HYCLATE 100 MG CAP PO SCH ×2 (09:08→20:02)
[2023-04-26] MEDS: guaiFENesin 600 MG TABCR PO SCH ×2 (09:08→20:01)
[2023-04-26] MEDS: CLOPIDOGREL BISULFATE 75 MG TAB PO SCH (09:08)
[2023-04-26] MEDS: OMEGA-3 (PURIFIED FISH OIL) 1 GM CAP PO SCH (09:08)
[2023-04-26] MEDS: ROSUVASTATIN CALCIUM 20 MG TAB PO SCH (09:08)
[2023-04-26] MEDS: PANTOprazole 40 MG TAB PO SCH (09:08)
[2023-04-26] MEDS: NYSTATIN SUSP 500,000 U/5 ML UDC PO SCH ×4 (09:08→20:01)
[2023-04-26] MEDS: AMIODARONE 200 MG TAB PO SCH (09:09)
[2023-04-26] MEDS: METOPROLOL SUCC 25MG EXT REL TAB PO SCH (09:09)
[2023-04-26] MEDS: UMECLIDINIUM BROMIDE 62.5MCG/BLISTER 7 PUFFS/INHALER INH SCH (09:09)
[2023-04-26] MEDS ORDERED: GLUCOSE 10 TAB/TUBE PO PRN (12:15)
[2023-04-26] MEDS ORDERED: GLUCOSE 40% GEL 15 GM TUBE PO PRN (12:15)
[2023-04-26] MEDS ORDERED: DEXTROSE 50% 50 ML SYRINGE IV PRN (12:15)
[2023-04-26] MEDS ORDERED: GLUCAGON FOR INJ 1 MG VIAL IM PRN (12:15)
[2023-04-26] MEDS ORDERED: CARBOHYDRATES FOR HYPOGLYCEMIA PO PRN (12:15)
[2023-04-26] MEDS ORDERED: ENOXAPARIN INJ 30 MG/0.3 ML SYR SQ SCH (13:00)
[2023-04-26] MEDS: ENOXAPARIN INJ 40 MG/0.4 ML SYR SQ SCH (13:58)
--- NOTE | 2023-04-26 16:23 | Hospitalist Progress Note ---
Date of Service April 26, 2023 Assessment & Plan (1) Acute respiratory failure with hypoxia: Plan: Multifactorial - acute/chronic CHF, pneumonia, and COPD exacerbation. Resolved. O2 sats wnl today at rest. yesterday with walking with PT - 88%. will need possible 2-step at d/c. (2) Right heart failure with reduced right ventricular function: Plan: On 04/11/23 he underwent outpatient echo by Dr Byron Puente's office - [facility] - with the following findings: * EF 55% * RCA territory akinesis * grade 2 diastolic dysfunction * dilated RV with reduced RV function * dilated aortic root (4.3cm) * moderate MR, moderate TR * severe pulmonary HTN Decompensation resolved. Dry weight 165 # but this is at home. Weight today standing scale >170#. Patient reports that every time he is hospitalized the weights here are always 8-10 pounds higher. His creatinine aniyah overnight -- this argues he is now compensated or slightly over-diuresed. No diuretics today. Repeat BMP am. RV failure - due to COPD? mitral valve disease? RCA territory akinesis? combo? f/u with Dr Puente [facility] post-discharge. (3) Pneumonia: Plan: CTA chest with b/l pneumonia. Day #3 of abx (zosyn, doxy). Stable, improved/resolving. Blood cx's negative. STOP IV zosyn. Change to po augmentin tomorrow. Finish course of doxy for atypical coverage. Speech eval appreciated; no concerns for aspiration. (4) Acute exacerbation of chronic obstructive pulmonary disease: Plan: MUCH improved. Wean prednisone again to 30mg in am. Cont nebs/inhalers. (5) S/P CABG (coronary artery bypass graft): Plan: 3-vessel at [facility] 02/2023. CHEEK-LAD, SVG-PDA, SVG-OM. Cont metoprolol, asa, plavix, crestor, Entresto. HS troponin at presentation is in the 60s - this was most c/w myocardial demand ischemia rather than ACS. (6) PAF (paroxysmal atrial fibrillation): Plan: History of PAF 10/2022. Was on eliquis earlier this year - now stopped. Remains on amiodarone + metoprolol. s/p MAZE procedure [facility] 02/2023. Cont tele. cont amiodarone. Metoprolol succ increased to 75mg daily due to uncontrolled HTN earlier in the stay. (7) Ex-smoker: Plan: 100+ pack years by report. Now quit. (8) Pleural effusion: Plan: Left-sided - small on x-ray. Small on CT chest. No Rx needed. Effusion likely due to CABG. (9) CAD (coronary artery disease): Plan: Triple-Vessel disease. S/p CABG 02/2023 at [facility]. (10) CKD (chronic kidney disease), stage III: Plan: Baseline Creatinine is about 1.4 to 1.5. Cr worse today suggesting over-diuresis. No diuretics today. Hold Entresto. BMP am. (11) Weakness: Plan: Multifactorial, but suspect severe deconditioning in the context of his CABG two months ago. PT, OT evals appreciated. He actually did VERY WELL with evals and no rehab needed. Achy legs - statin induced myopathy?? Check CPK in am. (12) DVT prophylaxis: Plan: lovenox 30mg once daily (13) Hypertension: Plan: Uncontrolled but after increasing Metoprolol succ to 75mg daily BPs now improved. Cont amlodipine. HOLD entresto due to TILA. No diuretics today. (14) Pulmonary hypertension: Plan: As seen on echo earlier this month via the [facility] office. severe. 2-step O2 test at d/c. (15) Insomnia: Plan: appears he was given mirtazapine earlier this summer he states it "didn't help my sleep" melatonin did not help last pm trazodone 25mg HS + 25mg HS prn for refractory insomania re-eval tomorrow (16) Dysphagia: Plan: dry mouth makes this worse but he also describes what sounds like esophageal dysmotility he also has a hiatal hernia CT chest with findings that could suggest aspiration speech therapy saw - no concern for aspiration or dysphagia (17) TILA (acute kidney injury): Plan: baseline Cr mid 1's now >2 2nd to over-diuresis can't rule out due to IV contrast hold diuretics today hold Entresto BMP am (18) Myalgia, lower leg: Plan: check B12 check CPK check Fe studies 25-OH vit D level a few months ago was normal no weakness despite the myalgias Plan updated progressing nicely home tomorrow IF renal function is stable Admission and Anticipated Discharge Date Admission Date: April 24, 2023 Subjective pt "Feels great" sitting in chair by window; at bedside minimal cough no dyspnea at rest no BLANC legs feel stronger and no longer achy (states ever since his CABG his legs were sore/achy, tired feeling, etc) eating well saw speech - cleared from their standpoint tele overnight - NSR Review of Systems Review of Systems: gen - no fevers or chills; good energy cv - no cp, no orthopnea pulm - all pulmonary symptoms resolved psych - could not sleep again last pm Physical Exam Physical Exam: gen - sitting in chair, looks great HENT - MM slightly more moist today neck - JVD present sitting upright heart - RRR, s1 s2, 2/6 systolic murmur LSB lungs - CTA b/l, no rales, no wheezes, no increased work of breathing abd - soft, NT, ND, BS+, no HSM ext - trace edema b/l ankles/feet; pulses 2+ b/l psych - a/o x 3 Results & Data Results & Data Vital Signs (Past 12 Hours) Vital Signs Temp Pulse Pulse Resp BP Pulse Ox Pulse Ox 04/26/23 15:40 73 04/26/23 15:30 36.7 C 60 18 125/74 94 04/26/23 14:03 75 16 96 04/26/23 12:00 97 04/26/23 11:58 36.6 C 77 18 133/85 97 04/26/23 10:39 75 16 91 04/26/23 07:00 72 04/26/23 07:27 68 18 91 04/26/23 07:15 36.5 C 80 18 164/84 H 94 O2 Del Method O2 Del Method 04/26/23 15:40 04/26/23 15:30 Room Air 04/26/23 14:03 Room Air 04/26/23 12:00 Room Air 04/26/23 11:58 Room Air 04/26/23 10:39 Room Air 04/26/23 07:00 04/26/23 07:27 04/26/23 07:15 Room Air Laboratory Results Laboratory Results - last 24 hr 08/19/23 08/19/23 08/19/23 06:55 11:28 16:11 Sodium 135 L Potassium 4.3 Chloride 97 L Carbon Dioxide 31 Anion Gap 7 BUN 40 H Creatinine 2.07 H Est Cr Clr Drug Dosing 27.5 Est GFR ( Amer) 33.6 Est GFR (Non-Af Amer) 29.0 BUN/Creatinine Ratio 19.3 Glucose 206 H POC Glucose 222 H 336 H* Calcium 9.3 04/26/23 16:12 Sodium Potassium Chloride Carbon Dioxide Anion Gap BUN Creatinine Est Cr Clr Drug Dosing Est GFR ( Amer) Est GFR (Non-Af Amer) BUN/Creatinine Ratio Glucose POC Glucose 267 H Calcium PG Care Time/CCT Total # of Minutes Spent Total Time Spent with Patient: Total time spent is greater than 50% in coordination of care (as documented) at patient's floor/unit and/or counseling patient: Coding Level of Care Code 72179 SUB INP/OBS CARE 3/50MIN Diagnoses Acute respiratory failure with hypoxia J96.01 Right heart failure with reduced right ventricular function I50.810 Pneumonia J18.9 Acute exacerbation of chronic obstructive pulmonary disease J44.1 S/P CABG (coronary artery bypass graft) Z95.1 PAF (paroxysmal atrial fibrillation) I48.0 Ex-smoker Z87.891 Pleural effusion J90 CAD (coronary artery disease) I25.10 CKD (chronic kidney disease), stage III N18.3 Weakness R53.1 DVT prophylaxis Z29.9 Hypertension I10 Pulmonary hypertension I27.20 Insomnia G47.00 Dysphagia R13.10 TILA (acute kidney injury) N17.9 Myalgia, lower leg M79.18
[2023-04-26] MEDS: INSULIN ASPART PER UNIT CHARGE SC SCH ×2 (17:09→21:17)
[2023-04-26] MEDS ORDERED: traZODone HCL 50 MG TAB PO PRN (19:58)
[2023-04-26] MEDS: CHOLECALCIFEROL 1,000 UNITS 25 MCG TAB PO SCH (20:02)
[2023-04-26] MEDS: ASPIRIN 81 MG ECTAB PO SCH (20:02)
[2023-04-26] MEDS ORDERED: LANTUS PER UNIT CHARGE SQ SCH (21:00)
[2023-04-26] MEDS ORDERED: traZODone HCL 50 MG TAB PO SCH (21:00)
[2023-04-26] MEDS ORDERED: ALBUT/IPRATROP 3MG/0.5MG NEB 3 ML VIAL NEB PRN (21:11)
[2023-04-27 07:58] LABS: BUN Creatinine Ratio 21.1 (10-20); Calcium 9.1 mg/dl (8.6-10.3); Creatinine Clr Calc Pharmacy 26.7 ml/min; Est GFR (African American) 32.4 ml/min; Potassium 4.2 mmol/L (3.5-5.1)
[2023-04-27] MEDS ORDERED: AMOXICILLIN/CLAVULANATE 500 MG TAB PO SCH (08:00)
[2023-04-27 08:15] LABS: Ferritin 179.9 ng/ml (8-388)
[2023-04-27] MEDS: INSULIN ASPART PER UNIT CHARGE SC SCH ×2 (08:24→11:38)
[2023-04-27] MEDS: guaiFENesin 600 MG TABCR PO SCH (08:25)
[2023-04-27] MEDS: UMECLIDINIUM BROMIDE 62.5MCG/BLISTER 7 PUFFS/INHALER INH SCH (08:25)
[2023-04-27] MEDS: DOXYCYCLINE HYCLATE 100 MG CAP PO SCH (08:25)
[2023-04-27] MEDS: CLOPIDOGREL BISULFATE 75 MG TAB PO SCH (08:26)
[2023-04-27] MEDS: METOPROLOL SUCC 25MG EXT REL TAB PO SCH (08:26)
[2023-04-27] MEDS: ROSUVASTATIN CALCIUM 20 MG TAB PO SCH (08:26)
[2023-04-27] MEDS: PANTOprazole 40 MG TAB PO SCH (08:26)
[2023-04-27] MEDS: AMIODARONE 200 MG TAB PO SCH (08:26)
[2023-04-27] MEDS: OMEGA-3 (PURIFIED FISH OIL) 1 GM CAP PO SCH (08:26)
[2023-04-27] MEDS: NYSTATIN SUSP 500,000 U/5 ML UDC PO SCH (08:26)
[2023-04-27] MEDS ORDERED: predniSONE 10 MG TABLET PO SCH (09:00)
--- NOTE | 2023-04-27 12:23 | Discharge Summary ---
Date of Service April 27, 2023 Admission HPI Per Admitting Provider Pleasant 83yo male with history of 3-vessel CABG at [facility] on 02/24/23 with post-op course complicated by shock requiring pressors (severe CAD as confirmed by heart cath at [facility] earlier this year), PAF s/p MAZE procedure on 02/24/23, COPD, chronic systolic CHF, HTN, and CKD stage 3 who presents from home due to worsening shortness of breath. The patient reports the dyspnea came on rather suddenly yesterday afternoon and overnight he had significant PND and orthopnea. He was seen by [facility] on 04/16/23 and during that office visit he was asked to take lasix on a daily basis for 1 week due to evidence of volume overload. Despite doing such his weight has been 165 pounds on his home scale for well over 10 days (+/- 1-2 pounds). His personal flowsheets from home do show elevated SBPs in the 150s and 160s since late March. He has had off/on edema of both legs since his open heart surgery. He has noted that his clothes are tighter fitting around his waist. Upon ER presentation O2 was applied due to O2 sats in the upper 80s along with tachypnea. He was administered IV lasix 40mg x 1, solumedrol 60mg IV x 1, and a duoneb. With these measures he has felt better with less distress. Oddly he has yet to void despite the lasix IV. Since his CABG he has had considerable fatigue and weakness. He never attended any form of rehab post-discharge from [place]. The patient has a history of a.fib in 10/2022 and at that time was placed on amiodarone & Eliquis. He is still taking amiodarone but is no longer on anticoagulation. Patient denies any sick contacts, fevers or chills. He has had a cough for a couple of days with some yellow sputum production. Discharge Exam gen - sitting in chair, looks great HENT - MM slightly more moist today neck - JVD present sitting upright heart - RRR, s1 s2, 2/6 systolic murmur LSB lungs - CTA b/l, no rales, no wheezes, no increased work of breathing abd - soft, NT, ND, BS+, no HSM ext - trace edema b/l ankles/feet; pulses 2+ b/l psych - a/o x 3 Discharge Data Allergies Allergy/AdvReac Type Severity Reaction Status Date / Time No Known Allergies Allergy Verified 04/15/23 13:19 Consultations 04/24/23 09:15 ED Decision to Admit Stat Ordered Studies 04/24/23 10:25 US venous doppler LE BI Stat 04/24/23 12:47 CT angio chest PE protocol Stat Hospital Course (1) Acute respiratory failure with hypoxia: Multifactorial - acute/chronic CHF, pneumonia, and COPD exacerbation. Resolved. O2 sats wnl today at rest. yesterday with walking with PT - 88%. will need possible 2-step at d/c. (2) Right heart failure with reduced right ventricular function: On 04/11/23 he underwent outpatient echo by Dr Byron Puente's office - [facility] - with the following findings: * EF 55% * RCA territory akinesis * grade 2 diastolic dysfunction * dilated RV with reduced RV function * dilated aortic root (4.3cm) * moderate MR, moderate TR * severe pulmonary HTN Decompensation resolved. Dry weight 165 # but this is at home. Weight today standing scale >170#. Patient reports that every time he is hospitalized the weights here are always 8-10 pounds higher. His creatinine aniyah overnight -- this argues he is now compensated or slightly over-diuresed. No diuretics today. Repeat BMP am. RV failure - due to COPD? mitral valve disease? RCA territory akinesis? combo? f/u with Dr Puente [facility] post-discharge. (3) Pneumonia: CTA chest with b/l pneumonia. Day #3 of abx (zosyn, doxy). Stable, improved/resolving. Blood cx's negative. STOP IV zosyn. Change to po augmentin tomorrow. Finish course of doxy for atypical coverage. Speech eval appreciated; no concerns for aspiration. (4) Acute exacerbation of chronic obstructive pulmonary disease: MUCH improved. Wean prednisone again to 30mg in am. Cont nebs/inhalers. (5) S/P CABG (coronary artery bypass graft): 3-vessel at [facility] 02/2023. CHEEK-LAD, SVG-PDA, SVG-OM. Cont metoprolol, asa, plavix, crestor, Entresto. HS troponin at presentation is in the 60s - this was most c/w myocardial demand ischemia rather than ACS. (6) PAF (paroxysmal atrial fibrillation): History of PAF 10/2022. Was on eliquis earlier this year - now stopped. Remains on amiodarone + metoprolol. s/p MAZE procedure [facility] 02/2023. Cont tele. cont amiodarone. Metoprolol succ increased to 75mg daily due to uncontrolled HTN earlier in the stay. (7) Ex-smoker: 100+ pack years by report. Now quit. (8) Pleural effusion: Left-sided - small on x-ray. Small on CT chest. No Rx needed. Effusion likely due to CABG. (9) CAD (coronary artery disease): Triple-Vessel disease. S/p CABG 02/2023 at [facility]. (10) CKD (chronic kidney disease), stage III: Baseline Creatinine is about 1.4 to 1.5. Cr worse today suggesting over-diuresis. No diuretics today. Hold Entresto. BMP am. (11) Weakness: Multifactorial, but suspect severe deconditioning in the context of his CABG two months ago. PT, OT evals appreciated. He actually did VERY WELL with evals and no rehab needed. Achy legs - statin induced myopathy?? Check CPK in am. (12) DVT prophylaxis: lovenox 30mg once daily (13) Hypertension: Uncontrolled but after increasing Metoprolol succ to 75mg daily BPs now improved. Cont amlodipine. HOLD entresto due to TILA. No diuretics today. (14) Pulmonary hypertension: As seen on echo earlier this month via the [facility] office. severe. 2-step O2 test at d/c. (15) Insomnia: appears he was given mirtazapine earlier this summer he states it "didn't help my sleep" melatonin did not help last pm trazodone 25mg HS + 25mg HS prn for refractory insomania re-eval tomorrow (16) Dysphagia: dry mouth makes this worse but he also describes what sounds like esophageal dysmotility he also has a hiatal hernia CT chest with findings that could suggest aspiration speech therapy saw - no concern for aspiration or dysphagia (17) TILA (acute kidney injury): baseline Cr mid 1's now >2 2nd to over-diuresis can't rule out due to IV contrast hold diuretics today hold Entresto BMP am (18) Myalgia, lower leg: check B12 check CPK check Fe studies 25-OH vit D level a few months ago was normal no weakness despite the myalgias Plan updated progressing nicely home tomorrow IF renal function is stable Discharge Plan Discharge Items Patient Disposition: Home - Self-Care Reason For Visit: ACUTE HYPOXIC RESPIRATORY FAILURE Discharge Diagnosis: 1. acute respiratory failure due to pneumonia, congestive heart failure and COPD exacerbation 2. bilateral pneumonia - improved 3. congestive heart failure - fluid retention improved 4. COPD exacerbation - resolved 5. recent open heart surgery (CABG) 6. small left-sided pleural effusion - nothing to do at this time 7. chronic kidney disease 8. insomnia 9. high blood pressure 10. pre-diabetes - last hemoglobin a1c was 6.3% 11. swallowing difficulty - seen by speech therapy - no changes recommended in diet/liquids Activity: As commented below Activity Comment: gradually increase activities over the next week as tolerated Non-emergency contact: Primary Care Provider, [employer] Technician and Substitute School Nurse Call non-emergency contact if: you have any medication questions, your symptoms worsen and you have a fever Follow-up/Referrals: Pj Morley DO [Physician] - 05/21/23 Byron Puente DO [Physician] - (5-[address] Puente or his nurse practitioner, Tamera Vieira ) Jess Montgomery DO [Primary Care Provider] - (1-2 weeks) Diet: Carb Consistent or DM2 and Low Sodium (2gm) Fluids: 1500ml (6 cups) Ambulatory Orders: Basic Metabolic Panel (Routine) Timeframe: [id number] Location: Determined by Patient Ordered By: Khanh Ansari Attending Provider Instructions: Mr Perez, Oumar presented to [facility] with difficulty breathing. CT scan of the chest showed that this was due to water build-up in the lungs (congestive heart failure), bilateral pneumonia, and COPD exacerbation. We did NOT see blood clots in the lungs. We did NOT find blood clots in your legs. You had no evidence of heart attack. She small fluid collection in the left lung that you had seen the lung doctor for did not require any treatment. You improved with steroids, antibiotics, breathing treatments, and diuretics. You did well with PT/OT while here. You passed your swallow evaluation by speech therapy. Of note - respiratory therapy did a walking test to see if you need oxygen at home. At this time you do not need to use any oxygen outside the hospital. In addition, there is suspicion that you have a form of sleep apnea. Recommendations - 1. HOLD your Entresto. 2. HOLD your potassium supplement for now. 3. RESUME your furosemide water pill on Friday, 04/28. 4. INCREASE your metoprolol succinate to 75mg (1.5 tablets) once daily starting 04/28/23. You were previously on 50mg/day (1 tablet daily). 5. For your pneumonia - * amoxicillin-clavulanate 500mg twice daily x 3 1/2 days, first dose tonight with your event meal. prescription for 7 tablets sent to [facility] for you. * doxycycline 100mg twice daily x 3 1/2 days, first dose tonight. prescription for 7 tablets sent to [facility] for you. * on occasion doxycycline can cause heartburn/reflux * rarely doxycycyline can cause a rash if you spend time in the sun while taking the medication; thus, over the next few days, if you go outside please cover up and use sunscreen 6. For your COPD - * prednisone x 2 days; start tomorrow, 04/28 * albuterol via spacer device - 2 puffs every 6 hours as needed for cough, wheeze or shortness of breath * [id number] mucinex up to 1200mg twice daily as needed for cough/chest congestion 7. Nystatin liquid - 5cc four times daily x 5 days, swish and spit. 8. As you were previously doing please check your weight every morning after using the toilet. Keep writing them down as previous. If you gain more than 2- 3 pounds over 1-[address] Puente know. 9. Unfortunately the sleep aid we used last night can affect your EKG. Although the risk is very low, given your recent heart history, I would recommend against a prescription of that medication (trazodone) for now. If after seeing Dr Puente your EKG is stable perhaps the trazodone medication can be restarted in the future. For now please use 5mg of melatonin at bedtime. Melatonin is found [id number]. 10. Have a blood draw on 04/30/23, at any [facility] lab. Return to [facility] if - * you are having worsening shortness of breath * you are having chest pains * you develop severe diarrhea * you have fever over 100 degrees * any other concerns It was our pleasure to care for you! -Dr Mikhail Ansari Vice President Of Customer Service Provider Instructions: Congestive Heart Failure Instructions - Call 911 and go to the Emergency Room if: * You have tightness or pain in your chest that does not go away with rest or Nitroglycerin * You are very short of breath even with rest Call your doctor if any of the following symptoms or problems start or get worse: * Shortness of breath or difficulty breathing * Wake up at night short of breath * Chest pain * Cough * Swelling of your hands, fee, or legs * More fatigued or tired with your normal activity * Palpitations - sudden fast heart beats WEIGHT * Weigh yourself every morning after using the bathroom. * Use the same scale. * Wear the same amount of clothing. * Write your weight down on your chart. * Call your doctor if you gain more than 2-3 pounds in 1-2 days. MEDICATIONS * Use this discharge instruction sheet for instructions. * Take your medications at the time your doctor ordered. * Do not skip a dose of your medicines. * If you miss a dose of medicine, take as soon as possible, but DO NOT DOUBLE A DOSE. * Read your medicine information when you get home. * Know all of the side effects of your medicine. * Call your doctor's office if you have any side effects. * Be sure all of your doctors know what medicine and herbs you take (including cold, flu, and herbal medicine). * Pain Medicine: If you do not get relief from your pain, please call your doctor for help. Take the following with you to your follow-up doctor appointments: * Weight Chart * Medication List * List of questions Do not drink excessive alcohol, beer or wine. Pending Studies at Discharge: No Stand-Alone Forms: My [facility] FlyData, Smoking Cessation Medications and DC Order Prescriptions: New nystatin 100,000 unit/mL Suspension 5 ml PO QID 5 Days Qty: 100 0RF Rx Instructions: swish/spit doxycycline hyclate 100 mg Capsule 100 mg PO BID Qty: 7 0RF Rx Instructions: first dose PM of 04/27/23. amoxicillin-pot clavulanate 500-125 mg Tablet 1 tab PO BIDM Qty: 7 0RF Rx Instructions: first dose with evening meal on 04/27/23 albuterol sulfate [Ventolin HFA] 90 mcg/actuation HFA aerosol inhaler 2 inh inhalation Q6H PRN (Reason: shortness of breath or wheezing or cough) Qty: 8.5 0RF Rx Instructions: use with spacer device prednisone 10 mg tablet 10 mg PO DIRECTED Qty: 3 0RF Rx Instructions: 2 tabs PO x 1 on 04/28; 1 tab PO x 1 on 04/29. Take with food. Continued cholecalciferol (vitamin D3) 2,000 unit capsule 2,000 units PO QPM acetaminophen 500 mg capsule 1,000 mg PO Q8 PRN (Reason: Pain) rosuvastatin 20 mg tablet 20 mg PO DAILY Spiriva Respimat 2.5 mcg/actuation mist 2 puff inhalation DAILY Qty: 4 6RF [place] 3-6-9 1,200 mg Capsule 1 cap PO QAM aspirin 81 mg Tablet,Delayed Release (Dr/Ec) 81 mg PO QPM Qty: 0 0RF amiodarone 200 mg tablet 100 mg PO DAILY clopidogrel 75 mg tablet 75 mg PO DAILY furosemide [Lasix] 20 mg tablet 20 mg PO Q OTHER DAY Qty: 30 0RF Rx Instructions: Friday, Friday, and Friday Changed metoprolol succinate 50 mg tablet extended release 24 hr 75 mg PO DAILY Qty: 45 0RF Rx Instructions: note the increased dose Held potassium chloride [Klor-Con M20] 20 mEq tablet,ER particles/crystals See Rx Instructions .ROUTE .COMPLEX Hold Instructions: Hold unless Dr Puente asks you to resume Rx Instructions: Not on current list that pt has with them, but shows filled for April 23, 2023 Entresto 97-103 mg tablet 1 tab PO BID Hold Instructions: hold unless Dr Puente or Tamera Vieira ask you to resume it Discharge Orders: Discharge Order (Routine); Ordered 04/27/23 Ordered By: Khanh Burt/Other Patient Handouts: Using an Inhaler with a Spacer Admission Data Admit Date/Time: 04/24/23 10:37 Attending Provider: Khanh Elizondo Admit Provider: Khanh Elizondo Primary Care Provider: Jess Montgomery Other Providers: Khanh Elizondo Coding Diagnoses Acute respiratory failure with hypoxia J96.01 Right heart failure with reduced right ventricular function I50.810 Pneumonia J18.9 Acute exacerbation of chronic obstructive pulmonary disease J44.1 S/P CABG (coronary artery bypass graft) Z95.1 PAF (paroxysmal atrial fibrillation) I48.0 Ex-smoker Z87.891 Pleural effusion J90 CAD (coronary artery disease) I25.10 CKD (chronic kidney disease), stage III N18.3 Weakness R53.1 DVT prophylaxis Z29.9 Hypertension I10 Pulmonary hypertension I27.20 Insomnia G47.00 Dysphagia R13.10 TILA (acute kidney injury) N17.9 Myalgia, lower leg M79.18
--- NOTE | 2023-04-28 10:01 | Electrocardiogram Report ---
Test Reason : Blood Pressure : / mmHG Vent. Rate : 077 BPM Atrial Rate : 077 BPM P-R Int : 212 ms QRS Dur : 150 ms QT Int : 478 ms P-R-T Axes : 076 -56 072 degrees QTc Int : 540 ms Sinus rhythm with 1st degree A-V block Left axis deviation Right bundle branch block Inferior infarct (cited on or before 09-MAR-2023) Abnormal ECG When compared with ECG of 24-APR-2023 07:27, Nonspecific T wave abnormality no longer evident in Inferior leads T wave inversion less evident in Anterior leads Confirmed by Angel May ([id number]) on 04/28/2023 10:01:00 AM Referred By: REFERRED SELF Confirmed By:Angel May
== END 2023-04-27 13:11 | disposition home or self-care (01) | DRG 291 ==
LOC: ED 07:19 → EDINP 10:37 → 2S 11:26

== ENCOUNTER 2023-10-30 14:52 | Inpatient (IN) ==
[2023-10-30 16:01] LABS: Basophils # (auto) 0.02 K/uL (0.00-0.20); Basophils % (auto) 0.2 %; Eosinophils # (auto) 0.09 K/uL (0.00-0.50); Eosinophils % (auto) 1.1 %; Hematocrit (blood only) 31.8 % (42.0-52.0); Hemoglobin 10.1 g/dl (14.0-18.0); Immature Granulocytes # (auto) 0.03 K/uL (0.01-0.20); Immature Granulocytes % (auto) 0.4 %; Lymphocytes # (auto) 0.72 K/uL (1.20-3.40); Lymphocytes % (auto) 8.8 %; Mean Corpuscular Hemoglobin 31.9 pg (25.0-34.0); Mean Corpuscular Hgb Conc 31.8 g/dL (32.0-36.0); Mean Corpuscular Volume 100.3 fL (80.0-100.0); Mean Platelet Volume 10.2 fL (9.4-12.4); Monocytes # (auto) 0.51 K/uL (0.11-0.59); Monocytes % (auto) 6.3 %; Neutrophils # (auto) 6.77 K/uL (1.40-6.50); Neutrophils % (auto) 83.2 %; Platelet Count 267 K/uL (130-400); RDW Coefficient of Variation 16.6 % (11.5-14.5); RDW Standard Deviation 61.1 fL (36.4-46.3); Red Blood Count 3.17 M/uL (4.70-6.10); White Blood Count 8.14 K/ul (4.8-10.8)
--- NOTE | 2023-10-30 16:11 | XRay Report ---
XR chest 1V not portable CLINICAL HISTORY: Chest pain, nonspecific COMPARISON STUDY: Chest radiograph October 16, 2023. Chest CT April 24, 2023. FINDINGS: There are median sternotomy wires and a left atrial appendage occluder device. There is no pneumothorax. A small left pleural effusion with left basilar opacity similar to prior exam. Right mi dlung densities have slightly decreased. Cardiomegaly is unchanged. There is no evidence for pulmonar y edema. Trace right pleural effusion. IMPRESSION: 1. No significant change in a small left pleural effusion with left basilar opacity which could refle ct pneumonia or atelectasis. 2. Slight decrease in right midlung opacities. The findings favor a resolving infectious process otero samantha continued imaging follow up to ensure complete resolution is recommended. ACT 112: Negative or not required by law. Electronically signed by: Ildefonso Ng M.D. 10/30/2023 4:09 PM
[2023-10-30 16:17] LABS: Alanine Aminotransferase 19 U/L (7-52); Albumin Globulin Ratio 1.1 (0.9-2); Albumin Level 3.7 gm/dl (3.4-5.0); Alkaline Phosphatase 96 U/L (34-104); Anion Gap 6 (3-11); BUN Creatinine Ratio 13.6 (10-20); Bilirubin,Total 1.4 mg/dl (0.2-1.0); Blood Urea Nitrogen 26 mg/dl (6-23); Calcium 9.1 mg/dl (8.6-10.3); Carbon Dioxide 30 mmol/L (21-32); Chloride 104 mmol/L (98-107); Creatinine Clr Calc Pharmacy 29.8 ml/min; Est GFR (Non-African American) 31.9 ml/min; Globulin 3.4 gm/dl (2.5-4.0); Glucose 131 mg/dl (70-99(Fasting)); Sodium 140 mmol/L (136-145); Total Protein 7.1 gm/dl (6.0-8.3)
[2023-10-30 16:20] LABS: Troponin I High Sensitivity 26.1 pg/ml (0-20)
[2023-10-30 16:28] LABS: INR 1.1 (0.9-1.1); Partial Thromboplastin Ratio 1.1; Partial Thromboplastin Time 31 Seconds (21-31); Prothrombin Time 12.1 Seconds (9.0-12.0)
--- NOTE | 2023-10-30 17:02 | Electrocardiogram Report ---
Test Reason : Blood Pressure : / mmHG Vent. Rate : 065 BPM Atrial Rate : 065 BPM P-R Int : 196 ms QRS Dur : 150 ms QT Int : 494 ms P-R-T Axes : 082 -32 074 degrees QTc Int : 513 ms Normal sinus rhythm Left axis deviation Right bundle branch block T wave abnormality, consider lateral ischemia Abnormal ECG When compared with ECG of 27-APR-2023 05:02, T wave inversion more evident in Anterolateral leads Confirmed by Robert Jimenez ([id number]) on 10/30/2023 5:02:38 PM Referred By: Confirmed By:Norm Jimenez
[2023-10-30 18:14] LABS: Potassium 3.9 mmol/L (3.5-5.1)
[2023-10-30 18:17] LABS: Troponin I High Sensitivity 21.9 pg/ml (0-20)
--- NOTE | 2023-10-30 18:30 | Emergency Department Note ---
Impression & Plan Hypoxia, SOB (shortness of breath), Pedal edema, CHF (congestive heart failure), Anemia, Elevated troponin ED Provider Note NAME: JOEL FONSECA AGE: 83 SEX: M : 1940 ARRIVES VIA: Walk-In INFORMANT: [Patient][family] ED PROVIDER(S): [Petros Morel MD] CHIEF COMPLAINT: Dr. Referred HISTORY OF PRESENT ILLNESS: The patient is an 83-year-old male who presents to the ER with increasing dyspnea and increasing pedal edema for a week. He has had a cough but that is more of a chronic issue. His doctors office ordered outpatient testing and he was told to report to the ED because of a high BNP. He was thought to be fluid overloaded. As per the nursing staff, patient's saturation did drop to the mid 80s while here in the ED. He does not typically wear oxygen. His O2 saturation increased with O2 supplementation. Patient did have recent COVID with pneumonia. He is no longer on antibiotics. He is on diuretics daily and has been using the medication as prescribed. There has been no no fever, no complaints of chest pain. His dyspnea is mostly noticed with any type of exertion, he does not feel too bad at rest. PMHx/PSHx/Social Hx: See Below PHYSICAL EXAM: GENERAL: Patient is in no acute distress. HEENT: No acute trauma, normocephalic atraumatic, mucous membranes moist, no nasal congestion. NECK: No stridor, no adenopathy, no meningismus, trachea is midline. LUNGS: Crackles bilaterally at the bases, worse on the left. Moist cough noted. No respiratory distress. HEART: Without murmurs gallops or rubs, regular rate and rhythm. ABDOMEN: Soft, nontender, no peritonitis. EXTREMITIES: No cyanosis, full range of motion of all the joints without pain or difficulty. Moderate bilateral pedal edema. NEUROLOGIC: Oriented x 3, no acute motor or sensory deficits, no focal weakness. SKIN: No jaundice, no diaphoresis. DIFFERENTIAL DIAGNOSIS: Fluid overload, CHF, electrolyte imbalance, renal failure, pneumonia, bronchitis, among others. EMERGENCY DEPARTMENT PROCEDURES: MEDICAL DECISION MAKING: There is no leukocytosis. The patient is anemic. The patient has a history of anemia but his hemoglobin is somewhat lower than recent testing. There was a normal platelet count. No concerning coagulopathy. Creatinine was elevated but relatively at his typical baseline. No electrolyte abnormality in need of emergent correction. No concerning liver enzyme elevation. ECG showed a sinus rhythm, no obvious acute ischemia. Cardiac enzyme testing x 1 was slightly elevated. This troponin elevation could be secondary to cardiac injury or potentially just mismatch given his dyspnea. BNP was quite elevated at over 4000. Chest x-ray does appear to show some pleural effusions and mild CHF. Chest CT shows pleural effusions and potential basilar pneumonia versus atelectasis. On exam, the patient did have crackles at his lower lung bases consistent with fluid overload. He did have moderate bilateral pedal edema. He was found to be hypoxic here in the ED and required O2 supplementation. The patient was maintained on nasal cannula O2. He was given IV Bumex, 1 mg. The patient presents with dyspnea, hypoxia. He was found to be fluid overloaded. He did have a troponin elevation. His BNP was quite high. I do think he requires a hospital stay. I did speak with the patient and case management, the on-call hospitalist was consulted. Prior/Outside records/notes reviewed: None ECG per my interpretation: Indication was shortness of breath. The ECG shows a normal sinus rhythm with a rate of 65. There is a right bundle branch block. There are inverted T waves in the anterior and lateral leads. There is a potential old inferior infarct. There is no acute ST elevation. No PVCs. The QTc is 413. Continuous Cardiac Monitoring per my interpretation: An order was placed for continuous cardiac monitoring. The monitor shows a rate of 60 with normal sinus rhythm. Imaging/x-ray results per my interpretation: Chest x-ray does show some pulmonary edema with a left lung effusion and a left lower lobe consolidation. Chronic Medical/Social conditions affecting care: Advanced age. Care/Management discussed with: Advanced age. Level of care consideration(s): After review of the information above and other included data: --I believe the patient requires escalation of care to admission Critical Care Note: I have personally spent 39 minutes of critical care time in the direct management of this patient. This includes bedside care, interpretation of diagnostic studies, and testing, discussion with consultants, patient, and family members, and other required patient management activities. This 39 minutes is in excess of all separately billable procedures. DISPOSITION: Admission Past Med/Surg History Medical History CKD (chronic kidney disease), stage III Follow[address]. Morley Hyperlipidemia Hypertension TILA (acute kidney injury) Dysphagia Insomnia Right heart failure with reduced right ventricular function Pulmonary hypertension Acute exacerbation of chronic obstructive pulmonary disease PAF (paroxysmal atrial fibrillation) Acute respiratory failure with hypoxia Ex-smoker COPD with emphysema Pleural effusion Pneumonia Chronic diastolic CHF (congestive heart failure) Current smoker CAD (coronary artery disease) Atrial fibrillation with rapid ventricular response 10/2022 Myocardial infarct 1997 - heavy chest, left arm pain - Went to [facility] - flown to [facility] - blockage of "back of heart" - heart cath - no stent placement - Follows Dr. Puente Hypertension Surgical History History of coronary artery bypass graft S/P Maze operation for atrial fibrillation [facility] - 02/2023. S/P CABG (coronary artery bypass graft) 3 vessel - [facility], 02/2023. Hx of cataract extraction Rt. Hx of cardiac cath 1997 d/t to [place] - no stents placed - Follows Dr. Puente History of colonoscopy Hx of inguinal hernia repair Hx of repair of left rotator cuff x2 Family History Father Family history of diabetes mellitus CHF (congestive heart failure) Black lung disease Mother Family history of diabetes mellitus Coronary heart disease Myocardial infarction Dementia Social History Smoking Status: Former smoker Cigarettes Per Day: 2 packs; Second Hand Exposure: No; Do You Dip or Chew Tobacco: No; Hx Alcohol Use: No Hx Substance Use: No Preferred Language: Yakut Communication Ability: Effective Visual Impairment: Limited Hearing Ability: Use of Hearing Aid Patient Services Rep Required: No Beliefs That Will Affect Care: None marital status: Current Living Situation: Spouse Current Living Situation Comment: From home with current occupational status: retired current occupation: Retired How many Children do You have: 2 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; 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 Feels Safe at Home: Yes Diet: regular caffeine: Yes (1 soda daily) Physical Activity Frequency: Does not Exercise Do you think of yourself as: straight/heterosexual Gender Identity: Male Assistive Devices: Cane, Glasses and Hearing Aid - Bilateral Allergies Allergies Allergy/AdvReac Type Severity Reaction Status Date / Time No Known Allergies Allergy Verified 09/29/23 13:50 Home Meds Home Medications Medication Instructions Recorded Confirmed acetaminophen 500 mg capsule 1,000 mg PO Q8 PRN Pain 03/20/23 10/30/23 rosuvastatin 20 mg tablet 20 mg PO DAILY 03/20/23 10/30/23 amiodarone 200 mg tablet 100 mg PO Q OTHER DAY 04/15/23 10/30/23 vitamin B complex (B 1 tab PO QAM 05/13/23 10/30/23 Complex-Vitamin B12 tablet) cholecalciferol (vitamin D3) 25 25 mcg PO DAILY 06/23/23 10/30/23 mcg (1,000 unit) capsule amlodipine 5 mg tablet 2.5 mg PO DAILY 09/29/23 10/30/23 apixaban 2.5 mg tablet (Eliquis) 2.5 mg PO AMPM 09/29/23 10/30/23 bumetanide 1 mg tablet 1 mg PO .COMPLEX 09/29/23 10/30/23 metoprolol succinate 100 mg 100 mg PO QAM 09/29/23 10/30/23 tablet,extended release 24 hr omeprazole 40 mg capsule,delayed 40 mg PO DAILY 09/29/23 10/30/23 release potassium chloride 20 mEq 20 meq PO AMPM 09/29/23 10/30/23 tablet,extended release(part/cryst) (Klor-Con M) sacubitril 24 mg-valsartan 26 mg 1 tab PO BID 09/29/23 10/30/23 tablet albuterol sulfate 2.5 mg/3 mL 2.5 mg continuous nebulization UD 10/30/23 10/30/23 (0.083 %) solution for nebulization PRN Shortness Of Breath Or Wheezing guaifenesin 600 mg tablet, 600 mg PO DAILY 10/30/23 10/30/23 extended release 12 hr (Mucinex) hydralazine 25 mg tablet 25 mg PO BID 10/30/23 10/30/23 Previous Rx's Medication Instructions Recorded aspirin 81 mg tablet,delayed 81 mg PO QPM #0 tabs 11/02/22 release tiotropium bromide 2.5 2 puff inhalation DAILY #4 grams 04/16/23 mcg/actuation mist for inhalation (Spiriva Respimat) albuterol sulfate 90 mcg/actuation 2 inh inhalation Q6H PRN shortness 04/27/23 aerosol inhaler (Ventolin HFA) of breath or wheezing or cough #8.5 grams Results & Data (ED) Vital Signs Vital Signs - 24 hr 10/30/23 15:15 10/30/23 18:00 10/30/23 18:01 Temperature 36.9 C Temperature Source Temporal Artery Scan Pulse Rate 64 60 Pulse Rate [Apical] Pulse Rhythm Regular Pulse Strength Normal Respiratory Rate 20 Respiratory Effort / Characteristics Non-Labored Spontaneous Respiratory Depth Normal Respiratory Pattern Blood Pressure 132/66 Blood Pressure [Right Arm] Blood Pressure Mean 88 Blood Pressure Mean [Right Arm] Blood Pressure Position [Right Arm] Pulse Oximetry 94 82 L Oxygen Delivery Method Room Air Room Air Oxygen Flow Rate Sepsis Recent Fever Within 48 Hours No Sepsis New/Unexplained Change in Mental Status N/A Sepsis Action Taken by Nursing No Action Required Oxygen Flow Rate - Titration Pulse Oximetry Post Tiitration 10/30/23 18:01 10/30/23 19:00 10/30/23 19:08 Temperature Temperature Source Pulse Rate Pulse Rate [Apical] 60 Pulse Rhythm Pulse Strength Respiratory Rate 29 H Respiratory Effort / Characteristics Non-Labored Spontaneous Respiratory Depth Normal Respiratory Pattern Regular Blood Pressure Blood Pressure [Right Arm] 155/79 H Blood Pressure Mean Blood Pressure Mean [Right Arm] 104 Blood Pressure Position [Right Arm] Semi-fowlers Pulse Oximetry 95 95 Oxygen Delivery Method Nasal Cannula Oxymask Nasal Cannula Oxygen Flow Rate 4 4 Sepsis Recent Fever Within 48 Hours Sepsis New/Unexplained Change in Mental Status Sepsis Action Taken by Nursing Oxygen Flow Rate - Titration 4 Pulse Oximetry Post Tiitration 95 Home Medications Current Medication List: was personally reviewed by me Laboratory Data Attestation: I reviewed the patient's lab results. 10/30/23 15:30 10/30/23 17:43 Lab Results 10/30/23 10/30/23 10/30/23 Range/Units 15:30 17:43 18:19 WBC 8.14 (4.8-10.8) K/ul RBC 3.17 L (4.70-6.10) M/uL Hgb 10.1 L (14.0-18.0) g/dl Hct 31.8 L (42.0-52.0) % MCV 100.3 H (80.0-100.0) fL MCH 31.9 (25.0-34.0) pg MCHC 31.8 L (32.0-36.0) g/dL RDW Std Deviation 61.1 H (36.4-46.3) fL RDW Coeff of Jolene 16.6 H (11.5-14.5) % Plt Count 267 (130-400) K/uL MPV 10.2 (9.4-12.4) fL Immature Gran % (Auto) 0.4 % Neut % (Auto) 83.2 % Lymph % (Auto) 8.8 % [place] % (Auto) 6.3 % Eos % (Auto) 1.1 % Baso % (Auto) 0.2 % Neut # (Auto) 6.77 H (1.40-6.50) K/uL Lymph # (Auto) 0.72 L (1.20-3.40) K/uL [place] # (Auto) 0.51 (0.11-0.59) K/uL Eos # (Auto) 0.09 (0.00-0.50) K/uL Baso # (Auto) 0.02 (0.00-0.20) K/uL Immature Gran # (Auto) 0.03 (0.01-0.20) K/uL PT 12.1 H (9.0-12.0) Seconds INR 1.1 (0.9-1.1) APTT 31 (21-31) Seconds PTT Ratio 1.1 Sodium 140 (136-145) mmol/L Potassium TNP 3.9 Chloride 104 (98-107) mmol/L Carbon Dioxide 30 (21-32) mmol/L Anion Gap 6 (3-11) BUN 26 H (6-23) mg/dl Creatinine 1.91 H (0.6-1.4) mg/dl Est Cr Clr Drug Dosing 29.8 ml/min Est GFR ( Amer) 37.0 ml/min Est GFR (Non-Af Amer) 31.9 ml/min BUN/Creatinine Ratio 13.6 (10-20) Glucose 131 H (70-99(Fasting)) mg/dl Calcium 9.1 (8.6-10.3) mg/dl Magnesium 2.2 (1.7-2.4) mg/dl Total Bilirubin 1.4 H (0.2-1.0) mg/dl AST TNP 13 ALT 19 (7-52) U/L Alkaline Phosphatase 96 (34-104) U/L Troponin I High Sens 26.1 H 21.9 H (0-20) pg/ml B-Natriuretic Peptide > 4700 H (0-100) pg/ml Total Protein 7.1 (6.0-8.3) gm/dl Albumin 3.7 (3.4-5.0) gm/dl Globulin 3.4 (2.5-4.0) gm/dl Albumin/Globulin Ratio 1.1 (0.9-2) Adenovirus (PCR) (NotDetected) B. pertussis DNA (PCR) (NotDetected) B.parapertussis DNA PCR (NotDetected) C. pneumoniae DNA (PCR) (NotDetected) Coronavirus OC43 (PCR) (NotDetected) Coronavirus HKU1 (PCR) (NotDetected) Coronavirus 229E (PCR) (NotDetected) SARS-CoV-2 (PCR) (NotDetected) Coronavirus NL63 (PCR) (NotDetected) Human Metapneumovir PCR (NotDetected) Influenza Type A (PCR) (NotDetected) Influenza Type B (PCR) (NotDetected) M. pneumoniae (PCR) (NotDetected) Parainfluenza 1 (PCR) (NotDetected) Parainfluenza 2 (PCR) (NotDetected) Parainfluenza 3 (PCR) (NotDetected) Parainfluenza 4 (PCR) (NotDetected) RSV (PCR) (NotDetected) Entero/Rhino (PCR) (NotDetected) 10/30/23 Range/Units 19:10 WBC (4.8-10.8) K/ul RBC (4.70-6.10) M/uL Hgb (14.0-18.0) g/dl Hct (42.0-52.0) % MCV (80.0-100.0) fL MCH (25.0-34.0) pg MCHC (32.0-36.0) g/dL RDW Std Deviation (36.4-46.3) fL RDW Coeff of Jolene (11.5-14.5) % Plt Count (130-400) K/uL MPV (9.4-12.4) fL Immature Gran % (Auto) % Neut % (Auto) % Lymph % (Auto) % [place] % (Auto) % Eos % (Auto) % Baso % (Auto) % Neut # (Auto) (1.40-6.50) K/uL Lymph # (Auto) (1.20-3.40) K/uL [place] # (Auto) (0.11-0.59) K/uL Eos # (Auto) (0.00-0.50) K/uL Baso # (Auto) (0.00-0.20) K/uL Immature Gran # (Auto) (0.01-0.20) K/uL PT (9.0-12.0) Seconds INR (0.9-1.1) APTT (21-31) Seconds PTT Ratio Sodium (136-145) mmol/L Potassium Chloride (98-107) mmol/L Carbon Dioxide (21-32) mmol/L Anion Gap (3-11) BUN (6-23) mg/dl Creatinine (0.6-1.4) mg/dl Est Cr Clr Drug Dosing ml/min Est GFR ( Amer) ml/min Est GFR (Non-Af Amer) ml/min BUN/Creatinine Ratio (10-20) Glucose (70-99(Fasting)) mg/dl Calcium (8.6-10.3) mg/dl Magnesium (1.7-2.4) mg/dl Total Bilirubin (0.2-1.0) mg/dl AST ALT (7-52) U/L Alkaline Phosphatase (34-104) U/L Troponin I High Sens (0-20) pg/ml B-Natriuretic Peptide (0-100) pg/ml Total Protein (6.0-8.3) gm/dl Albumin (3.4-5.0) gm/dl Globulin (2.5-4.0) gm/dl Albumin/Globulin Ratio (0.9-2) Adenovirus (PCR) Not Detected (NotDetected) B. pertussis DNA (PCR) Not Detected (NotDetected) B.parapertussis DNA PCR Not Detected (NotDetected) C. pneumoniae DNA (PCR) Not Detected (NotDetected) Coronavirus OC43 (PCR) Not Detected (NotDetected) Coronavirus HKU1 (PCR) Not Detected (NotDetected) Coronavirus 229E (PCR) Not Detected (NotDetected) SARS-CoV-2 (PCR) Not Detected (NotDetected) Coronavirus NL63 (PCR) Not Detected (NotDetected) Human Metapneumovir PCR Not Detected (NotDetected) Influenza Type A (PCR) Not Detected (NotDetected) Influenza Type B (PCR) Not Detected (NotDetected) M. pneumoniae (PCR) Not Detected (NotDetected) Parainfluenza 1 (PCR) Not Detected (NotDetected) Parainfluenza 2 (PCR) Not Detected (NotDetected) Parainfluenza 3 (PCR) Not Detected (NotDetected) Parainfluenza 4 (PCR) Not Detected (NotDetected) RSV (PCR) Not Detected (NotDetected) Entero/Rhino (PCR) Not Detected (NotDetected) Administered Medications Apixaban (Apixaban 2.5 Mg Tab) 2.5 mg PO BID [facility] Stop: 11/29/23 21:22 Last Admin: 10/30/23 23:06 Dose: 2.5 mg Documented By: NICHOLAS Aspirin (Aspirin 81 Mg Ectab) 81 mg PO QPM [facility] Stop: 11/29/23 21:22 Last Admin: 10/30/23 23:07 Dose: 81 mg Documented By: NICHOLAS Sacubitril/Valsartan (Valsartan/Sacubitril 26/24mg Tab) 1 tab PO BID [facility] Stop: 11/29/23 21:22 Last Admin: 10/30/23 23:07 Dose: 1 tab Documented By: NICHOLAS Discontinued Medications Bumetanide 1 mg/ Syringe 4 mls @ 4 mls/min IV NOW STA Stop: 10/30/23 18:19 Last Admin: 10/30/23 19:06 Dose: 4 mls/min Documented By: ANAI Bumetanide 1 mg/ Syringe 4 mls @ 4 mls/min IV ONE ONE Stop: 10/31/23 01:01 Last Admin: 10/31/23 00:50 Dose: 4 mls/min Documented By: NICHOLAS Imaging Data Radiologist's Impression: Chest X-Ray 10/30/23 15:18 XR chest 1V not portable CLINICAL HISTORY: Chest pain, nonspecific COMPARISON STUDY: Chest radiograph October 16, 2023. Chest CT April 24, 2023. FINDINGS: There are median sternotomy wires and a left atrial appendage occluder device. There is no pneumothorax. A small left pleural effusion with left basilar opacity similar to prior exam. Right midlung densities have slightly decreased. Cardiomegaly is unchanged. There is no evidence for pulmonary edema. Trace right pleural effusion. IMPRESSION: 1. No significant change in a small left pleural effusion with left basilar opacity which could reflect pneumonia or atelectasis. 2. Slight decrease in right midlung opacities. The findings favor a resolving infectious process however continued imaging follow up to ensure complete resolution is recommended. ACT 112: Negative or not required by law. Electronically signed by: Ildefonso Ng M.D. 10/30/2023 4:[address] 10/30/23 18:18 Exam(s): CT CHEST Without Contrast EXAM: CT Chest Without Intravenous Contrast CLINICAL HISTORY: Reason for exam: sob. TECHNIQUE: Axial computed tomography images of the chest without intravenous contrast. CTDI is 9.79 mGy and DLP is 316.01 mGy-cm. Automated exposure control was utilized for the study. A dose lowering technique was utilized adhering to the principles of ALARA. COMPARISON: No relevant prior studies available. FINDINGS: Lungs: Mild dependent airspace consolidations, correlate for mild pneumonia. Aspiration not excluded. No mass. Pleural space: Moderate bilateral pleural effusions. No pneumothorax. Heart: Cardiomegaly. Atrial appendage clip. No significant pericardial effusion. No significant coronary artery calcifications. Bones/joints: Sternotomy wires. No acute fracture. No dislocation. Soft tissues: Unremarkable. Vasculature: Unremarkable. No thoracic aortic aneurysm. Lymph nodes: Unremarkable. No enlarged lymph nodes. IMPRESSION: Mild dependent airspace consolidations, correlate for mild pneumonia. Aspiration not excluded. Moderate bilateral pleural effusions. Electronically signed by: Flash Carroll MD 10/30/23 20:31 PM Discharge Plan Visit Data Chief Complaint: Referred by Doctor Stated Complaint: FLUID ON HEART ED Provider: Petros Morel Discharge Problem: Hypoxia, SOB (shortness of breath), Pedal edema, CHF (congestive heart failure), Anemia, Elevated troponin Patient Disposition: Admitted As Inpatient Condition: Fair Discharge Instructions Interventions: ED Discharge Assessment Last Done: 10/30/23 20:26 Discharge Problem: CHF (congestive heart failure) Qualifiers: Heart failure type: unspecified Heart failure chronicity: acute Qualified Code(s): I50.9 - Heart failure, unspecified Anemia Qualifiers: Anemia type: unspecified type Qualified Code(s): D64.9 - Anemia, unspecified
[2023-10-30 18:44] LABS: Magnesium 2.2 mg/dl (1.7-2.4)
[2023-10-30] MEDS: BUMETANIDE 1 MG in SYRINGE 0 ML IV STA (19:06)
[2023-10-30 20:17] LABS: Adenovirus PCR Not Detected (NotDetected); Bordetella parapertussis PCR Not Detected (NotDetected); Bordetella pertussis PCR Not Detected (NotDetected); Chlamydia pneumoniae PCR Not Detected (NotDetected); Coronavirus 229E PCR Not Detected (NotDetected); Coronavirus CoV-2 (COVID19)PCR Not Detected (NotDetected); Coronavirus HKU1 PCR Not Detected (NotDetected); Coronavirus NL63 PCR Not Detected (NotDetected); Coronavirus OC43PCR Not Detected (NotDetected); Human Metapneumovirus PCR Not Detected (NotDetected); Influenza A PCR Not Detected (NotDetected); Influenza B PCR Not Detected (NotDetected); Mycoplasma pneumoniae PCR Not Detected (NotDetected); Parainfluenza Virus 1 PCR Not Detected (NotDetected); Parainfluenza Virus 2 PCR Not Detected (NotDetected); Parainfluenza Virus 3 PCR Not Detected (NotDetected); Parainfluenza Virus 4 PCR Not Detected (NotDetected); Respiratory Syncytial VirusPCR Not Detected (NotDetected); Rhinovirus/Enterovirus PCR Not Detected (NotDetected)
--- NOTE | 2023-10-30 20:28 | History & Physical Report ---
Date of Service October 30, 2023 Assessment & Plan (1) Acute respiratory failure with hypoxia: (2) S/P Maze operation for atrial fibrillation: (3) Atrial fibrillation with rapid ventricular response: (4) COPD with emphysema: Plan Congestive Heart Failure Exacerbation -Follows with [facility]/Dr. Puente -BNP >4700 on admission, known HFmEF -Last echo (11/2022): EF 60%, mild LVH, moderate mitral regurg, mild tricuspid regurg -Failed outpatient increase in diuretics after increase lower extremity edema over past two weeks -Received Bumex 1g IV in ED, additional 1g IV ordered for overnight -Will schedule BID Bumex 1g IV to begin tomorrow morning -Monitor BMP with response to diuresis, Cr elevated above baseline on admission -Monitor I's&O's, daily weights. Fluid restriction and heart healthy/low sodium diet ordered Acute Respiratory Failure with Hypoxia | COPD -O2 saturation dropped to 85% on room air while in ED -Currently on 4L NC, O2 saturation at 95% -BioFire pending, recent COVID infection 4 weeks ago -Patient denies any current shortness of breath at rest, does endorse frequent non-productive cough -Chest XR: no significant change in a small left pleural effusion with left basilar opacity which could reflect pneumonia or atelectasis -S/P left thoracentesis of 700cc (05/2023) -CT chest ordered, results pending -Continue home inhalers CKD Stage III -Baseline Cr 1.75, on admission Cr 1.91 -Will monitor BMP daily to assess response to increased diuretics Elevated Troponin | CAD | CABG x3 (02/2023) -Mild troponin elevation to 26.1 -> 21.9 on arrival, likely secondary to demand ischemia -EKG completed in ED: normal sinus rhythm, left axis deviation, right BBB, t wave abnormality could consider lateral ischemia -Continue statin, aspirin Anemia -Hgb 10.1 on arrival, last Hgb 12.5 (06/24/23) -No signs of active bleed, hemodynamically stable -Will order Hemoccult stool, monitor daily CBC Atrial Fibrillation | S/P Maze Procedure | Hypertension -Currently in sinus rhythm -Continue amiodarone, metoprolol succinate, Entresto, hydralazine -Anticoagulated with Eliquis -Monitor on telemetry Admit to telemetry VTE prophylaxis: Eliquis Diet: Fluid restriction, heart healthy and low sodium diet Code Status: DNR/DNI History of Present Illness Primary Care Provider: Jess Montgomery DO Serge Perez is a 83 year-old male with past medical history of COPD, atrial fibrillation (s/p Maze operation), CABG x3 (02/2023), CKD, HFmEF who presented to the hospital due to concern of fluid overload. He notes that he had COVID about 4 weeks ago and then developed pneumonia (completed course of Augmentin and doxycycline), states he has had ongoing cough with some shortness of breath ever since. He notes that for the past 2 weeks he has had increased leg swelling- he called his PCP last week and was instructed to increase his Bumex from three days per week to 4 days, however when this did not improve his symptoms he was then instructed to take the Bumex daily but still did not notice any improvements. He then called his ship propeller finisher yesterday and was ordered outpatient blood work which he completed today- he was then called by the office and told to come to the ER for diuresis. He denies any chest pain or productive cough, no fever, denies any changes in urine or bowel movements. He states that he lives with his who cooks all of his meals, although states they do eat out frequently. He states that he does try to avoid salt in his diet, but since his cardiac surgery last year he has not had a sense of taste and has subsequently had poor intake and lost weight. Allergies Allergy/AdvReac Type Severity Reaction Status Date / Time No Known Allergies Allergy Verified 09/29/23 13:50 Home Medications Medication Instructions Recorded Confirmed Type aspirin 81 mg tablet,delayed 81 mg PO QPM #0 tabs 11/02/22 10/30/23 Rx release acetaminophen 500 mg capsule 1,000 mg PO Q8 PRN Pain 03/20/23 10/30/23 History rosuvastatin 20 mg tablet 20 mg PO DAILY 03/20/23 10/30/23 History amiodarone 200 mg tablet 100 mg PO Q OTHER DAY 04/15/23 10/30/23 History tiotropium bromide 2.5 2 puff inhalation DAILY #4 grams 04/16/23 10/30/23 Rx mcg/actuation mist for inhalation (Spiriva Respimat) albuterol sulfate 90 mcg/actuation 2 inh inhalation Q6H PRN shortness 04/27/23 10/30/23 Rx aerosol inhaler (Ventolin HFA) of breath or wheezing or cough #8.5 grams vitamin B complex (B 1 tab PO QAM 05/13/23 10/30/23 History Complex-Vitamin B12 tablet) cholecalciferol (vitamin D3) 25 25 mcg PO DAILY 06/23/23 10/30/23 History mcg (1,000 unit) capsule amlodipine 5 mg tablet 2.5 mg PO DAILY 09/29/23 10/30/23 History apixaban 2.5 mg tablet (Eliquis) 2.5 mg PO AMPM 09/29/23 10/30/23 History bumetanide 1 mg tablet 1 mg PO .COMPLEX 09/29/23 10/30/23 History metoprolol succinate 100 mg 100 mg PO QAM 09/29/23 10/30/23 History tablet,extended release 24 hr omeprazole 40 mg capsule,delayed 40 mg PO DAILY 09/29/23 10/30/23 History release potassium chloride 20 mEq 20 meq PO AMPM 09/29/23 10/30/23 History tablet,extended release(part/cryst) (Klor-Con M) sacubitril 24 mg-valsartan 26 mg 1 tab PO BID 09/29/23 10/30/23 History tablet albuterol sulfate 2.5 mg/3 mL 2.5 mg continuous nebulization UD 10/30/23 10/30/23 History (0.083 %) solution for nebulization PRN Shortness Of Breath Or Wheezing guaifenesin 600 mg tablet, 600 mg PO DAILY 10/30/23 10/30/23 History extended release 12 hr (Mucinex) hydralazine 25 mg tablet 25 mg PO BID 10/30/23 10/30/23 History Past Med/Surg History Medical History (Updated 10/30/23 @ 19:58 by Mikayla Chaney DO) CKD (chronic kidney disease), stage III [address] Morley Hyperlipidemia Hypertension TILA (acute kidney injury) Dysphagia Insomnia Right heart failure with reduced right ventricular function Pulmonary hypertension Acute exacerbation of chronic obstructive pulmonary disease PAF (paroxysmal atrial fibrillation) Acute respiratory failure with hypoxia Ex-smoker COPD with emphysema Pleural effusion Pneumonia Chronic diastolic CHF (congestive heart failure) Current smoker CAD (coronary artery disease) Atrial fibrillation with rapid ventricular response 10/2022 Myocardial infarct 1997 - heavy chest, left arm pain - Went to [facility] - flown to [facility] - blockage of "back of heart" - heart cath - no stent placement - Follows Dr. Puente Hypertension Surgical History History of coronary artery bypass graft S/P Maze operation for atrial fibrillation [facility] - 02/2023. S/P CABG (coronary artery bypass graft) 3 vessel - [facility], 02/2023. Hx of cataract extraction Rt. Hx of cardiac cath 1997 d/t to [place] - no stents placed - Follows Dr. Puente History of colonoscopy Hx of inguinal hernia repair Hx of repair of left rotator cuff x2 Family History Father Family history of diabetes mellitus CHF (congestive heart failure) Black lung disease Mother Family history of diabetes mellitus Coronary heart disease Myocardial infarction Dementia Social History Smoking Status: Former smoker Cigarettes Per Day: 2 packs; Second Hand Exposure: No; Do You Dip or Chew Tobacco: No; Hx Alcohol Use: No Hx Substance Use: No Preferred Language: Mohawk Communication Ability: Effective Visual Impairment: Limited Hearing Ability: Use of Hearing Aid Import Manager Required: No Beliefs That Will Affect Care: None marital status: Current Living Situation: Spouse Current Living Situation Comment: From home with current occupational status: retired current occupation: Retired How many Children do You have: 2 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; 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 Feels Safe at Home: Yes Diet: regular caffeine: Yes (1 soda daily) Physical Activity Frequency: Does not Exercise Do you think of yourself as: straight/heterosexual Gender Identity: Male Assistive Devices: Cane, Glasses and Hearing Aid - Bilateral Review of Systems Review of Systems: As per above Physical Exam Constitutional: well developed and well nourished; no acute distress Eyes: + anicteric sclerae; no conjunctival abn ormality ENMT: Ears: no external ear abnormality Nose: no external nose abnormality Moist mucous membranes Respiratory: normal respiratory effort and + cough; no respiratory distress and does not use accessory muscles Auscultation: + crackles Cardiovascular: Rate/Rhythm: regular rate and regular rhythm +2 pitting edema of bilateral lower extr emities Gastrointestinal (Abdomen): Inspection/Auscultation: abdomen normal to inspection and normal bowel sounds Percussion/Palpation: abdomen soft; abdomen nontender Musculoskeletal: Moves all limbs independently Skin: no rashes, warm and dry Neurologic: no focal motor deficits Psychiatric: A+Ox3, euthymic affect Results & Data Results & Data Vital Signs (Past 12 Hours) Vital Signs Temp Pulse Pulse Resp BP BP Pulse Ox 10/30/23 19:08 10/30/23 19:00 60 29 H 155/79 H 95 10/30/23 18:01 95 10/30/23 18:01 82 L 10/30/23 18:00 60 10/30/23 15:15 36.9 C 64 20 132/66 94 O2 Del Method O2 Flow Rate 10/30/23 19:08 Nasal Cannula 10/30/23 19:00 Oxymask 4 10/30/23 18:01 Nasal Cannula 4 10/30/23 18:01 Room Air 10/30/23 18:00 10/30/23 15:15 Room Air Diagnostic Findings Chest X-Ray 10/30/23 15:18 XR chest 1V not portable CLINICAL HISTORY: Chest pain, nonspecific COMPARISON STUDY: Chest radiograph October 16, 2023. Chest CT April 24, 2023. FINDINGS: There are median sternotomy wires and a left atrial appendage occluder device. There is no pneumothorax. A small left pleural effusion with left basilar opacity similar to prior exam. Right midlung densities have slightly decreased. Cardiomegaly is unchanged. There is no evidence for pulmonary edema. Trace right pleural effusion. IMPRESSION: 1. No significant change in a small left pleural effusion with left basilar opacity which could reflect pneumonia or atelectasis. 2. Slight decrease in right midlung opacities. The findings favor a resolving infectious process however continued imaging follow up to ensure complete resolution is recommended. ACT 112: Negative or not required by law. Electronically signed by: Ildefonso Ng M.D. 10/30/2023 4:09 PM Supervising Physician Co-Signing Physician Notes I have personally seen, evaluated and examined the patient. I have also pers onally discussed the management of the patient with the resident physician and I agree with the exam findings documented in the history and physical examination and the documented assessment and plan unless otherwise stated below. Brief Exam: In general very pleasant 83-year-old white male who is alert and oriented x 3 at time my exam he interacts appropriately and pleasantly. He does not for some mildly increased shortness of breath over the last week but larger complaint is the significant increase in his lower extremity edema. He denies any PND. Or orthopnea. He does admit to worsening shortness of breath with exertion. HEENT is normocephalic atraumatic. Neck no rigidity no lymphadenopathy it is positive for JVD. Heart is regular rate and rhythm there is a no joel murmur or ectopy or rub Lungs are coarse with bilateral crackles. Extremities are intact there is no peripheral cyanosis or clubbing there is some changes of mild chronic venous stasis but there is 3+ pitting edema lower extremities bilaterally pretibial. Neurologically patient is alert and oriented x 3. Assessment/plan: As described above. Will recheck another troponin. Since the above dictation by the resident physician the CT scan has been resulted as bilateral pleural effusions with possible lower lobe infiltrates question aspiration. Will place him on aspiration precautions and have speech therapy evaluate him he was just treated for pneumonia here within the last several weeks. As well as recently treated for COVID in the same time period. IV diuresis the patient fluid restrict him I do anticipate at least a 2-day diuresis given the amount of edema he has. Resident Activity Tracking Resident Involvement: Resident Care Provided Care Provided: [facility]
--- NOTE | 2023-10-30 20:32 | CT Scan Report ---
Exam(s): CT CHEST Without Contrast EXAM: CT Chest Without Intravenous Contrast CLINICAL HISTORY: Reason for exam: sob. TECHNIQUE: Axial computed tomography images of the chest without intravenous contrast. CTDI is 9.79 mGy and DLP is 316.01 mGy-cm. Automated exposure control was utilized for the study. A dose lowering technique was utilized adhering to the principles of ALARA. COMPARISON: No relevant prior studies available. FINDINGS: Lungs: Mild dependent airspace consolidations, correlate for mild pneumonia. Aspiration not excluded. No mass. Pleural space: Moderate bilateral pleural effusions. No pneumothorax. Heart: Cardiomegaly. Atrial appendage clip. No significant pericardial effusion. No significant coronary artery calcifications. Bones/joints: Sternotomy wires. No acute fracture. No dislocation. Soft tissues: Unremarkable. Vasculature: Unremarkable. No thoracic aortic aneurysm. Lymph nodes: Unremarkable. No enlarged lymph nodes. IMPRESSION: Mild dependent airspace consolidations, correlate for mild pneumonia. Aspiration not excluded. Moderate bilateral pleural effusions. Electronically signed by: Flash Carroll MD 10/30/23 20:31 PM
--- NOTE | 2023-10-30 20:46 | Billing Data ---
Date of Service October 30, 2023 Coding Level of Care Code 44121 INT INP/OBS CARE
[2023-10-30] MEDS ORDERED: ALBUTEROL HFA 8 GM INHALER INH PRN (21:23)
[2023-10-30] MEDS ORDERED: ACETAMINOPHEN 500 MG TAB PO PRN (21:40)
[2023-10-30] MEDS: APIXABAN 2.5 MG TAB PO SCH (23:06)
[2023-10-30] MEDS: VALSARTAN/SACUBITRIL 26/24MG TAB PO SCH (23:07)
[2023-10-30] MEDS: ASPIRIN 81 MG ECTAB PO SCH (23:07)
[2023-10-31] MEDS: BUMETANIDE 1 MG in SYRINGE 0 ML IV ONE (00:50)
[2023-10-31 07:48] LABS: Basophils # (auto) 0.03 K/uL (0.00-0.20); Basophils % (auto) 0.3 %; Eosinophils # (auto) 0.13 K/uL (0.00-0.50); Eosinophils % (auto) 1.3 %; Hematocrit (blood only) 28.6 % (42.0-52.0); Hemoglobin 9.3 g/dl (14.0-18.0); Immature Granulocytes # (auto) 0.04 K/uL (0.01-0.20); Immature Granulocytes % (auto) 0.4 %; Lymphocytes # (auto) 0.51 K/uL (1.20-3.40); Lymphocytes % (auto) 5.2 %; Mean Corpuscular Hgb Conc 32.5 g/dL (32.0-36.0); Mean Corpuscular Volume 98.3 fL (80.0-100.0); Mean Platelet Volume 9.5 fL (9.4-12.4); Monocytes # (auto) 0.74 K/uL (0.11-0.59); Monocytes % (auto) 7.6 %; Neutrophils # (auto) 8.28 K/uL (1.40-6.50); Neutrophils % (auto) 85.2 %; Platelet Count 212 K/uL (130-400); RDW Coefficient of Variation 16.4 % (11.5-14.5); RDW Standard Deviation 59.4 fL (36.4-46.3); Red Blood Count 2.91 M/uL (4.70-6.10); White Blood Count 9.73 K/ul (4.8-10.8)
[2023-10-31 08:08] LABS: Albumin Globulin Ratio 1.2 (0.9-2); Albumin Level 3.4 gm/dl (3.4-5.0); BUN Creatinine Ratio 14.7 (10-20); Bilirubin,Total 1.9 mg/dl (0.2-1.0); Calcium 8.4 mg/dl (8.6-10.3); Creatinine Clr Calc Pharmacy 32.4 ml/min; Est GFR (African American) 42.6 ml/min; Est GFR (Non-African American) 36.7 ml/min; Globulin 2.8 gm/dl (2.5-4.0); Potassium 3.2 mmol/L (3.5-5.1); Total Protein 6.2 gm/dl (6.0-8.3)
[2023-10-31] MEDS ORDERED: AZITHROMYCIN 500 MG in DEXTROSE 5% 250 ML IV SCH (09:00)
[2023-10-31] MEDS: amLODIPine BESYLATE 5 MG TAB PO SCH (09:07)
[2023-10-31] MEDS: PANTOprazole 40 MG TAB PO SCH (09:08)
[2023-10-31] MEDS: ROSUVASTATIN CALCIUM 20 MG TAB PO SCH (09:08)
[2023-10-31] MEDS: AMIODARONE 200 MG TAB PO SCH (09:08)
[2023-10-31] MEDS: METOPROLOL SUCC 50MG EXT REL TAB PO SCH (09:10)
[2023-10-31] MEDS: BUMETANIDE 1 MG in SYRINGE 0 ML IV SCH (09:10)
[2023-10-31] MEDS: guaiFENesin 600 MG TABCR PO SCH (09:16)
[2023-10-31] MEDS: methylPREDNISolone 40 MG in SYRINGE 0 ML IV SCH (09:17)
[2023-10-31] MEDS: UMECLIDINIUM BROMIDE 62.5MCG/BLISTER 7 PUFFS/INHALER INH SCH (09:18)
[2023-10-31] MEDS: DOXYCYCLINE HYCLATE 100 MG in D5W MINI-B 100 ML (Q12H) IV SCH (09:29)
[2023-10-31] MEDS: POTASSIUM CHLORIDE CRTAB 20 MEQ TABCR PO STA (09:29)
[2023-10-31] MEDS: ALBUT/IPRATROP 3MG/0.5MG NEB 3 ML VIAL NEB SCH (11:49)
--- NOTE | 2023-10-31 14:14 | XCELERA ---
[id number]
--- NOTE | 2023-10-31 15:15 | Hospitalist Progress Note ---
"Date of Service October 31, 2023 Assessment & Plan (1) Acute respiratory failure with hypoxia: (2) S/P Maze operation for atrial fibrillation: (3) Atrial fibrillation with rapid ventricular response: (4) COPD with emphysema: Plan Acute Respiratory Failure with Hypoxia | COPD -O2 saturation dropped to 85% on room air while in ED -Suspect acute respiratory failure secondary more so to COPD exacerbation -Started doxycycline twice daily, daily methylprednisone 40 mg, DuoNebs every 4 hours scheduled with 2-hour as needed dosing -After first dose, patient did experience symptomatic improvement at the time of writing this note oxygen supplementation went from 4 L to 3 L nasal cannula -Oxygen goal between 88 to 92% -BioFire negative, recent COVID infection 4 weeks ago -Chest XR: no significant change in a small left pleural effusion with left basilar opacity which could reflect pneumonia or atelectasis -S/P left thoracentesis of 700cc (05/2023) -CT chest redemonstrating bilateral pleural effusions -Continue home inhalers Congestive Heart Failure -Follows with [facility]iology/Dr. Puente -BNP >4700 on admission, known HFmEF, but without pulmonary edema noted on imaging -Last echo (11/2022): EF 60%, mild LVH, moderate mitral regurg, mild tricuspid regurg -Echo on 10/31/23: normal EF, flattened septum consistent with RV volume overload, left atrium moderately dilated, aortic valvular sclerosis without valvular stenosis, moderate to severe mitral regurgitation. -Failed outpatient increase in diuretics after increase lower extremity edema over past two weeks -Received Bumex 1g IV in ED, additional 1g IV ordered for overnight -Continue BID bumex give b/l pleural effusions -Monitor BMP with response to diuresis, Cr elevated above baseline on admission -Monitor I's&O's, daily weights. Fluid restriction and heart healthy/low sodium diet ordered CKD Stage III -Baseline Cr 1.75, on admission Cr 1.91 -Will monitor BMP daily to assess response to increased diuretics Elevated Troponin | CAD | CABG x3 (02/2023) -Mild troponin elevation to 26.1 -> 21.9 on arrival, likely secondary to demand ischemia -EKG completed in ED: normal sinus rhythm, left axis deviation, right BBB, t wave abnormality could consider lateral ischemia -Continue statin, aspirin Anemia -Hgb 10.1 on arrival, last Hgb 12.5 (06/24/23) -No signs of active bleed, hemodynamically stable -Will order Hemoccult stool, monitor daily CBC Atrial Fibrillation | S/P Maze Procedure | Hypertension -Currently in sinus rhythm -Continue amiodarone, metoprolol succinate, Entresto, hydralazine -Anticoagulated with Eliquis -Monitor on telemetry Admit to telemetry VTE prophylaxis: Eliquis Diet: Fluid restriction, heart healthy and low sodium diet Code Status: DNR/DNI Admission and Anticipated Discharge Date Admission Date: October 30, 2023 Supervising Physician Co-Signing Physician Notes Attending attestation Pt seen and examined in concert with Dr. Levine. In agreement with the documented findings as noted in the resident documentation with any exceptions or additions as noted here. Gradual improvement of SOB. On examination, S1/S2 nl RRR no MCG. CTAB. Abd NT/ND BS+ve AHRF on O2 per protocol COPD with acute exacerbation - continue doxycycline, solu-medrol and duonebs HFpEF with acute exacerbation - continue bumetanide and monitor i/o/weight Else see resident documentation as noted. Subjective Patient seen at bedside this morning. No acute events reported overnight. Patient diuresed well overnight, however, he does not feel any improvement in his shortness of breath/dyspnea. He is still requiring 4 L nasal cannula with desaturations with decreases in oxygen. He denies any chest pain, nausea, heada ches. He has noticed improvement in the lower extremity swelling which she is appreciated above. No other complaints at this time. Review of Systems Review of Systems: As per above Physical Exam Constitutional: WD/WN, vitals as above Eyes: + anicteric sclerae Neck: trachea midline, no thyromegaly Respiratory: normal respiratory effort; no respiratory distress Auscultation: + wheezes Cardiovascular: Rate/Rhythm: regular rate and regular rhythm Vessels: no JVD Extremities: + edema (1+ b/l) Gastrointestinal (Abdomen): normal bowel sounds, soft, nontender, no hepatosplenomegaly Musculoskeletal: Head/Neck/Chest: normocephalic and head atraumatic Skin: no rashes, warm and dry Psychiatric: A+Ox3, euthymic affect Results & Data Results & Data Vital Signs (Past 12 Hours) Vital Signs Temp Pulse Pulse Resp BP Pulse Ox O2 Del Method 10/31/23 14:54 36.4 C L 59 L 17 119/67 95 Nasal Cannula 10/31/23 10:35 68 10/31/23 08:32 Nasal Cannula 10/31/23 07:38 36.4 C L 75 17 166/72 H 93 Nasal Cannula O2 Flow Rate 10/31/23 14:54 10/31/23 10:35 10/31/23 08:32 4 10/31/23 07:38"
--- OUTSIDE RECORDS SUMMARY | 2023-10-31 20:35 | External Medical Summary | Continuity of Care Document ---
Author Name Unknown Organization [facility] [address] [facility] Address [address] [place], [place] [id number] Care Team Providers Care Ironer Hand Name Role Phone Jess Montgomery Primary Care Physicia n [phone] Encounter [facility] FINNBR [id number] Date(s): 10/17/23 - 10/17/23 [facility] [address], [address] [place] [address] [phone] Encounter Diagnosis Afib(Discharge Diagnosis) - 10/17/23 Unspecified atrial fibrillation(Final) - Hypotension(Discharge Diagnosis) - 10/17/23 Edema(Discharge Diagnosis) - 10/17/23 HTN (hypertension)(Discharge Diagnosis) - 10/17/23 Discharge Disposition: Home or Self Care Attending Physician: SRINIVAS Vieira Sarah A Allergies, Adverse Reactions, Alerts No Known Allergies Assessment and Plan Extracted from: Title:Cardiology Office Visit Note Author:SRINIVAS Worrell rd, Sarah A Date:10/17/23 Afib Impression: 1A. CAD s/pCABG x 3 CHEEK-LAD, SVG-OM, PDA, [facility] MAZE procedure and LAAL 02/2023 1B. 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 PREOP CATH: 100% FINANCIAL RESERVE CLERK Prox RCA with L to R collaterals from the CX; 95% heavily calcified mid LAD; 70% Prox Cx 1D.. Hypertension 2. Prior myocardial infarction in 1997 involving the basal and mid- inferolateral wall and basal inferior wall. 2a. NSTEMI 10/2022 Secondary to atrial fibrillation with a rapid ventricular response; 3.Echocardiogram 11/2022 with preserved left ventricular systolic function, inferolateral and inferior HK, with moderate ischemic essential mitral regurgitation. 3B. Echo 02/2023 LVEF 50%, RV dysfunction 4. Hypercholesterolemia. 5. 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 History of hypokalemia, likely secondary to HCTZ. 7. Longstanding tobacco abuse. 8. Admission for pneumonia October 2022 leading to atrial fibrillation 9. History of claudication, resolved with Pletal. 10. 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 11. S/P Left thoracentesis 05/2023 of 700 cc This is lackof ability to taste is affecting hisoral intake and he continues to lose weight. This started before COVIDso could be associated with his amiodarone. He can try going to every other day on his amiodaroneto see if this helps at all. If there is no improvement over the next few weeks, we could consider Multaq but this will likely be an expensive medication for him. He does havelower extremityedemawhich may bemore associated with his lack of protein intake than heart failure. Encouraged him to try and addhigh-protein source to each meal such as boost,chicken, egg whites -what everis most palatable. If he does get a protein drinkhe should make sure that is low sodium source. He had an EKG in the office todaywhich does show a long QTc at 549but thisappears to bestable for him looking back atpast EKGs. He has not had [facility] orliver function testin more than 6 months so I will have him get one on his way out today. Beyond the episode of tachycardia that resulted inhypotension, his blood pressures are labile on his home [id number] to 150s systolically. He will return to the clinic in3 months Immunizations Given and Recorded Vaccine Date Status Refusal Reason influenza virus vaccine, inactivated 1, 2 06/26/22 Given influenza virus vaccine, inactivated 06/06/21 Kaiden rded influenza virus vaccine, inactivated 06/08/20 Kaiden rded influenza virus vaccine, inactivated 06/07/15 Give n influenza virus vaccine, inactivated 08/09/13 Give n SARS-CoV-2 (COVID-19) mRNA-1273 vaccine 3 07/21/21 Recorded SARS-CoV-2 (COVID-19) mRNA-1273 vaccine 4 10/29/20 Recorded SARS-CoV-2 (COVID-19) mRNA-1273 vaccine 5 10/01/20 Recorded tetanus/diphtheria/pertuss, acel (Tdap) 6 06/20/21 Given pneumococcal 23-valent vaccine 06/15/18 Given pneumococcal 23-valent vaccine 04/10/99 Recorded zoster vaccine live 04/12/15 Recorded pneumococcal 13-valent vaccine 04/10/15 Given tetanus toxoids-diphtheria, Td (Adult) 04/08/08 Re corded 1Early/Late Reason: Early/Late Reason: Accommodate D/C 2Result Comment: nora fall cma 3Result Comment: 2021-12-26: Historical information-source unspecified 4Result Comment: 2021-12-26: Historical information-source unspecified 5Result Comment: 2021-12-26: Historical information-source unspecified 6Result Comment: alex jensen. rn Medications albuterol 0.083% for nebulization Start: 10/03/23 8:55:00 EST, 3 mL, inhaled, q6h, Disp# 30 each, Refills: 3, PRN: shortness of breath, Pharmacy: [id number] Start Date: 10/03/23 Status: Ordered amiodarone 200 mg oral tablet Start: 06/17/23 10:24:00 EDT, See Instructions, Disp# 45 tab, Refills: 3, 1/2 tab PO Daily, Pharmacy: [id number] Start Date: 06/17/23 Status: Ordered amLODIPine 5 mg oral tablet Start: 08/29/23 16:40:00 EST, 0.5 tab, PO, Daily, Disp# 30 tab, Refills: 6, Pharmacy: [id number] Start Date: 08/29/23 Status: Ordered aspirin 81 mg oral delayed release tablet Start: 03/04/23 13:13:00 EDT, 1 tab, PO, Daily, Disp# 30 tab, Refills: 3, Pharmacy: [facility] [place] Start Date: 03/04/23 Stop Date: 07/02/23 Status: Ordered Augmentin 875 mg-125 mg oral tablet Start: 10/17/23 14:34:00 EST, amoxicillin 1 tab, PO, q12h, Disp# 10, Refills: 0, Pharmacy: [id number] Start Date: 10/17/23 Stop Date: 10/22/23 Status: Ordered Bumex 1 mg oral tablet Start: 06/19/23 15:37:00 EDT, 1 tab, PO, qMonWedFri, Disp# 90 tab, Refills: 3, Pharmacy: [id number] Start Date: 06/19/23 Status: Ordered doxycycline hyclate 100 mg oral capsule Start: 10/17/23 14:34:00 EST, 1 cap, PO, bid, Disp# 10 cap, Refills: 0, Pharmacy: [id number] Start Date: 10/17/23 Stop Date: 10/22/23 Status: Ordered Eliquis 2.5 mg oral tablet Start: 08/14/23 13:55:00 EST, 1 tab, PO, bid, Disp# 60 tab, Refills: 6, Pharmacy: [id number] Start Date: 08/14/23 Status: Ordered [place]-3 oral capsule Start: 06/15/18 13:21:00 EDT, 1 cap, PO, Daily Start Date: 06/15/18 Status: Ordered omeprazole Start: 08/20/23 16:26:00 EST, 40 mg =, PO, Daily Start Date: 08/20/23 Status: Ordered omeprazole 40 mg oral delayed release capsule Start: 10/17/23 13:26:00 EST, 1 cap, PO, Daily Start Date: 10/17/23 Status: Ordered Potassium Chloride (Log-Uiyo-Cyk M20) 20 mEq oral tablet, extended release Start: 09/15/23 11:29:00 EST, 1 tab, PO, bid, Disp# 180 tab, Refills: 3, Pharmacy: [id number] Start Date: 09/15/23 Status: Ordered rosuvastatin 20 mg oral tablet Start: 09/12/23 11:44:00 EST, 1 tab, PO, Daily, Disp# 90 tab, Refills: 3, Pharmacy: [id number] Start Date: 09/12/23 Status: Ordered sacubitril-valsartan 24 mg-26 mg oral tablet Start: 05/05/23 15:26:00 EDT, 1 tab, PO, bid, Disp# 60 tab, Refills: 3, Pharmacy: [id number] Start Date: 05/05/23 Status: Ordered Spiriva 18 mcg inhalation capsule Start: 05/05/23 14:49:00 EDT, 1 each, inhaled, Daily Start Date: 05/05/23 Status: Ordered Tessalon 200 mg oral capsule Start: 10/03/23 8:53:00 EST, 1 cap, PO, q8h, Disp# 15 cap, Pharmacy: [id number] Start Date: 10/03/23 Status: Ordered Toprol-XL 50 mg oral tablet, extended release Start: 08/14/23 13:57:00 EST, 2 tab, PO, Daily, Disp# 180 tab, Refills: 3, Pharmacy: [id number] Start Date: 08/14/23 Status: Ordered Vitamin B12 Start: 05/05/23 14:47:00 EDT Start Date: 05/05/23 Status: Ordered Vitamin D3 1000 intl units oral capsule Start: 02/16/18 10:09:00 EDT, 1 cap, PO, Daily Start Date: 02/16/18 Status: Ordered Mental Status 10/17/23 Barriers to Learning one year None evide nt Mandatory Health Literacy Documentation Yes Health Literacy Communication Barriers N ever Primary Language Swedish Problem List Condition Confirmation Course Effective Dates Status H ealth Status Informant Acute respiratory failure Confirmed Active Weakness Confirmed Active Atrial fibrillation Confirmed Active Atrial fibrillation with rapid ventricular response Confirmed Active Type AB blood, Rh negative Confirmed Active Cat scratch Confirmed Active Stage 3b chronic kidney disease (CKD) Confirmed Active Chronic obstructive pulmonary disease, unspecified Confirmed Active Chronic renal insufficiency Confirmed Active Cigarette smoker Confirmed Active Coronary artery disease Confirmed Active Coronary artery disease involving grindstone heart Confirmed Active Hypertension with heart disease Confirmed Active 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) Confirmed Active S/P CABG x 3 Confirmed Active S/P CABG (coronary artery bypass graft) Confirmed Active H/O maze procedure Confirmed Active H/O maze procedure Confirmed Active Hypertensive disorder Confirmed Active Hypokalemia Confirmed Active Impaired fasting glucose Confirmed Active Mitral valve regurgitation Confirmed Active Mixed hyperlipidemia Confirmed Active Myocardial infarction 1 Confirmed Active Lower extremity pain Confirmed Active Peripheral vascular disease Confirmed Active Pleural effusion Confirmed Active Pneumonia Confirmed Active Mild emphysema Confirmed Active Kidney mass 2, 3 Confirmed Active Thyroid nodule 4, 5 Confirmed Active Tobacco user Confirmed Active Weight disorder Confirmed Active 82656 2renal US on 04/23/2016: bilateral renal cysts, largest in right 16mm, largest in left 32mm. 3chest CT in 04/2016: A 1.7 cm exophytic hypodense lesion within the upper pole of the left kidney This is incompletely characterized on this noncontrast study. 4thyroid US in 10/2016: Impression: multiple tiny hypoechoic thyroid nodules up to 0.3cm which may refelct colloid cysts. Note of these nodules meet criteria for biopsy. 5chest CT in 04/2016: 6mm nodule in left thyroid Diagnosis Diagnosis Type Effective Dates Health Status Clinical Service Informant Afib Discharge Diagnosis 10/17/23 Non-Specified Hypotension Discharge Diagnosis 10/17/23 Non-Specified Edema Discharge Diagnosis 10/17/23 Non-Specified HTN (hypertension) Discharge Diagnosis 10/17/23 Non-Specified Procedures Procedure Date Related Diagnosis Body Site Status Chest X-ray 1 03/09/23 Completed Doppler ultrasonography of v enous structure of limb 2 03/09/23 Completed Surgery 3 02/24/23 Completed Cataract 4 03/12/22 Completed Cataract 02/25/22 Completed Mohs' micrographic surgery 04/09/21 Completed Shave biopsy of skin 03/20/21 Comp leted Shave biopsy of skin 01/10/21 Comp leted Shave biopsy 06/08/19 Completed Ultrasound Thyroid 5 10/21/16 Comp leted Ultrasound scan renal 6 04/23/16 C ompleted Low does CT lung screening 7 04/16/16 Completed Bilateral inguinal hernia repair 8 Completed Cardiac catheter Complete d Colonoscopy Completed Eye surgery 9 Completed Rotator cuff repair 10 Co mpleted 1IMPRESSION: 1. Cardiomegaly with mild pulmonary vascular congestion. 2. Left larger than right pleural effusions with dependent atelectasis. 2IMPRESSION: 1. There is no sonographic evidence of deep venous thrombosis identified in the left lower extremity. 2. There is abnormality along the course of the greater saphenous veins extending to the proximal plate of the calf. This could represent thrombosis of the vessel versus postsurgical change from harvesting of the vessel. Clinical correlation will be essential. 3Triple bypass 4left cataract 5Impression: multiple tiny hypoechoic thyroid nodules which may refelct colloid cysts. Note of thesenodules meet criteria for biopsy. 61. Bilateral renal cysts 2. No solid renal masses identified 3. Renal cortical thinning 4. No evidence of hydronephrosis. 7Impression: no suspicious pulmonary nodules A 1.7 cm exophytic hypodense lesion within the upper pole of the left kidney This is incompletely characterized on this noncontrast study. Mild emphysema A 6 mm hypodense nodule within the left thyroid lobe. 03197 9Both, 2013 102-Both 2004, 2006 Results Laboratory List Name Date Comprehensive Metabolic Panel (COMP META B PANEL) 10/17/23 T4, Free (T4, FREE) 10/17/23 Thyroid Stimulating Hormone (TSH) 10/17/23 Most recent to oldest [Reference Range]: 1 eGFR CKD-EPI [>60 mL/min/1.73 m2] 37 mL/ min/1.73 m2 1 *LOW* (10/17/23 2:11 PM) Estimated CrCl 31.05 mL/min (10/17/23 2:39 PM) Anion Gap [5-14 mmol/L] 6 mmol/L (10/17/23 2:11 PM) Alb [3.5-5.0 g/dL] 3.8 g/dL (10/17/23 2:11 PM) Alk Phos [38-126 unit/L] 85 unit/L (10/17/23 2:11 PM) ALT [<50 unit/L] 16 unit/L (10/17/23 2:11 PM) AST [15-46 unit/L] 18 unit/L (10/17/23 2:11 PM) BUN [7-20 mg/dL] 24 mg/dL *HI* (10/17/23 2:11 PM) Ca [8.4-10.2 mg/dL] 9.1 mg/dL (10/17/23 2:11 PM) Cl- [96-107 mmol/L] 102 mmol/L (10/17/23 2:11 PM) HCO3 [22-30 mmol/L] 30 mmol/L (10/17/23 2:11 PM) Cret [0.70-1.30 mg/dL] 1.80 mg/dL *HI* (10/17/23 2:11 PM) Glu [74-106 mg/dL] 108 mg/dL *HI* (10/17/23 2:11 PM) K [3.5-5.1 mmol/L] 4.2 mmol/L (10/17/23 2:11 PM) Na [137-145 mmol/L] 138 mmol/L (10/17/23 2:11 PM) Free T4 [0.70-1.48 ng/dL] 1.36 ng/dL 2 (10/17/23 2:11 PM) T Bili [0.2-1.3 mg/dL] 1.2 mg/dL (10/17/23 2:11 PM) Prot [6.3-8.2 g/dL] 7.2 g/dL (10/17/23 2:11 PM) TSH [0.47-4.68 uIU/mL] 3.07 uIU/mL 3 (10/17/23 2:11 PM) 1Result Comment: Testing Performed [facility], [address] [place] [address], [place] [address] 2Result Comment: Testing Performed By: Dept of Pathology [facility], [address] [facility], [place] [address] 3Result Comment: Testing Performed By: Dept of Pathology [facility], [address] [place] [address], [place] [address] Vital Signs Most recent to oldest [Reference Range]: 1 Patient Weight 74.5 kg (10/17/23 1:30 PM) Heart Rate 67 bpm (10/17/23 1:30 PM) Respiratory Rate 18 br/min (10/17/23 1:30 PM) Blood Pressure 142/68mmHg (10/17/23 1:30 PM) BP Location # 1 Left Arm (10/17/23 1:30 PM) Social History Social History Type Response Tobacco Current every day sm oker, Cigarettes Smoking Status Former Smoker, quit within 31 days - 2 yr Sex Male Cardiology Outpatient Note * SRINIVAS Vieira Sarah A: PERFORM Event Display: Cardiology Outpt Note Authored Date: Primary Care Provider DO Montgomery Gretchen Elizabeth Chief Complaint edema , SOB , cough History of Present Illness Mr. Perez presents for follow up of recent COVID pneumonia as well as his history of CAD and afib. He is still losing weight. The only thing that tastes good is fresh fruit. Everything else tastes salty or flat. This has been ongoing since his bypass surgery, it didn't really change with COVID. He is more sob since having COVID, but it is improving as he gets farther out. He gets He brings a list of blood pressures. He did have another episode of tachycardia and hypotension which did not last long. No falls Review of Systems All other systems reviewed and negative except as discussed in the HPI Physical Exam Vitals & Measurements HR:67(Monitored) RR:18 BP:142/68 SpO2:95% WT:74.500kg(Dosing) WT:74.5kg Physical Examination General: Alert and oriented, No acute distress. Respiratory: Lungs are clear to auscultation, Respirations are non-labored. Cardiovascular: Normal rate, Regular rhythm, No murmur,mild LE pittingedema, no carotid bruits to auscultation bilaterally. Integumentary: Warm, Dry, Hayes Neurologic: Alert, Oriented. Cognition and Speech: Speech clear and coherent. Psychiatric: Cooperative, Appropriate mood & affect. Assessment/Plan Afib Impression: 1A. CAD s/pCABG x 3 CHEEK-LAD, SVG-OM, PDA, [facility] MAZE procedure and LAAL 02/2023 1B. 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 PREOP CATH: 100% FINANCIAL RESERVE CLERK Prox RCA with L to R collaterals from the CX; 95% heavily calcified mid LAD; 70% Prox Cx 1D.. Hypertension 2. Prior myocardial infarction in 1997 involving the basal and mid- inferolateral wall and basal inferior wall. 2a. NSTEMI 10/2022 Secondary to atrial fibrillation with a rapid ventricular response; 3.Echocardiogram 11/2022 with preserved left ventricular systolic function, inferolateral and inferior HK, with moderate ischemic essential mitral regurgitation. 3B. Echo 02/2023 LVEF 50%, RV dysfunction 4. Hypercholesterolemia. 5. 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 History of hypokalemia, likely secondary to HCTZ. 7. Longstanding tobacco abuse. 8. Admission for pneumonia October 2022 leading to atrial fibrillation 9. History of claudication, resolved with Pletal. 10. 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 11. S/P Left thoracentesis 05/2023 of 700 cc This is lackof ability to taste is affecting hisoral intake and he continues to lose weight. This started before COVIDso could be associated with his amiodarone. He can try going to every other day on his amiodaroneto see if this helps at all. If there is no improvement over the next few weeks, we could consider Multaq but this will likely be an expensive medication for him. He does havelower extremityedemawhich may bemore associated with his lack of protein intakethan heart failure. Encouraged him to try and addhigh- protein source to each meal such as boost,chicken, egg whites -what everis most palatable. If he does get a protein drinkhe should make sure that is low sodium source. He had an EKG in the office todaywhich does show a long QTc at 549but thisappears to bestable for him looking back atpast EKGs. He has not had [facility] orliver function testin more than 6 months so I will have him get one on his way out today. Beyond the episode of tachycardia that resulted inhypotension, his blood pressures are labile on his home [id number] to 150s systolically. He will return to the clinic in3 months Problem List/Past Medical History Ongoing Acute respiratory failure Atrial fibrillation Atrial fibrillation with rapid ventricular response Cat scratch Chronic obstructive pulmonary disease, unspecified Chronic renal insufficiency Cigarette smoker Coronary artery disease Coronary artery disease involving grindstone heart H/O maze procedure H/O maze procedure 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) Hypertension with heart disease Hypertensive disorder Hypokalemia Impaired fasting glucose Kidney mass Lower extremity pain Mild emphysema Mitral valve regurgitation Mixed hyperlipidemia Myocardial infarction Peripheral vascular disease Pleural effusion Pneumonia S/P CABG (coronary artery bypass graft) S/P CABG x 3 Stage 3b chronic kidney disease (CKD) Thyroid nodule Tobacco user Type AB blood, Rh negative Weakness Weight disorder Procedure/Surgical History Doppler ultrasonography of venous structure of limb (03/09/2023)Chest X- ray (03/09/2023)Surgery (02/24/2023)Cataract (03/12/2022)Cataract (02/25/2022)Mohs' micrographic surgery (04/09/2021)Shave biopsy of skin (03/20/2021)Shave biopsy of skin (01/10/2021)Shave biopsy (09/2018)Ultrasound Thyroid (10/21/2016)Ultrasound scan renal (04/23/2016)Low does CT lung screening (04/16/2016)Bilateral inguinal hernia repairRotator cuff repairEye surgeryColonoscopyCardiac catheter Medications albuterol(albuterol 0.083% for nebulization), 2.5 mg= 3 mL, inhaled, q6h, PRN, 3 refills amiodarone(amiodarone 200 mg oral tablet), See Instructions, 3 refills amLODIPine(amLODIPine 5 mg oral tablet), 2.5 mg= 0.5 tab, PO, Daily, 6 refills amoxicillin-clavulanate(Augmentin 875 mg-125 mg oral tablet), 1 tab, PO, q12h apixaban(Eliquis 2.5 mg oral tablet), 2.5 mg= 1 tab, PO, bid, 6 refills aspirin(aspirin 81 mg oral delayed release tablet), 81 mg= 1 tab, PO, Daily, 3 refills benzonatate(Tessalon 200 mg oral capsule), 200 mg= 1 cap, PO, q8h bumetanide(Bumex 1 mg oral tablet), 1 mg= 1 tab, PO, qMonWedFri, 3 refills cholecalciferol(Vitamin D3 1000 intl units oral capsule), 1000 Int_Unit= 1 cap, PO, Daily cyanocobalamin(Vitamin B12) doxycycline(doxycycline hyclate 100 mg oral capsule), 100 mg= 1 cap, PO, bid metoprolol(Toprol-XL 50 mg oral tablet, extended release), 100 mg= 2 tab, PO, Daily, 3 refills omega-3 polyunsaturated fatty acids([place]-3 oral capsule), 1 cap, PO, Daily omeprazole, 40 mg, PO, Daily omeprazole(omeprazole 40 mg oral delayed release capsule), 40 mg= 1 cap, PO, Daily potassium chloride(Potassium Chloride (Peh-Bsjq-Udt M20) 20 mEq oral tablet, extended release), 20 mEq= 1 tab, PO, bid, 3 refills rosuvastatin(rosuvastatin 20 mg oral tablet), 20 mg= 1 tab, PO, Daily, 3 refills sacubitril-valsartan(sacubitril-valsartan 24 mg-26 mg oral tablet), 1 tab, PO, bid, 3 refills tiotropium(Spiriva 18 mcg inhalation capsule), 18 mcg= 1 each, inhaled, Daily Allergies NKA No Known Medication Allergies Social History Smoking Status Former Smoker, quit within 31 days - 1 yr Tobacco Use:Current every day smoker Type:Cigarettes Family History Heart attack: Mother. Hypertension: Mother and Father. Health Status Family Member(s) Electronic Signature on File CC: Jess Montgomery D.O. [address] [place] [address] Electronically Reviewed/Signed by: SRINIVAS Bhatia Author Signature Dt/Tm:10/17/2023 03:18 PM [facility] [place] [facility] Patient Care team information Care Team Personnel Name: DO Montgomery Gretchen Elizabeth Position: Physician - Family Med Member Role: Primary Care Provider Address: Address: [address] [place] [address], [place] [address] [place] Care Team Related Persons Name: RICHY PEREZ Address: home [address] [place] [address] NITA NUNEZ [phone]
[2023-11-01] MEDS: ALBUT/IPRATROP 3MG/0.5MG NEB 3 ML VIAL NEB STA (01:33)
[2023-11-01 07:45] LABS: Hematocrit (blood only) 25.9 % (42.0-52.0); Hemoglobin 8.5 g/dl (14.0-18.0); Mean Corpuscular Hemoglobin 31.5 pg (25.0-34.0); Mean Corpuscular Hgb Conc 32.8 g/dL (32.0-36.0); Mean Corpuscular Volume 95.9 fL (80.0-100.0); Mean Platelet Volume 9.6 fL (9.4-12.4); Platelet Count 200 K/uL (130-400); RDW Coefficient of Variation 15.9 % (11.5-14.5); RDW Standard Deviation 56.5 fL (36.4-46.3); White Blood Count 8.28 K/ul (4.8-10.8)
[2023-11-01 08:05] LABS: Albumin Globulin Ratio 1.1 (0.9-2); Albumin Level 3.1 gm/dl (3.4-5.0); BUN Creatinine Ratio 16.4 (10-20); Bilirubin,Total 1.5 mg/dl (0.2-1.0); Calcium 8.5 mg/dl (8.6-10.3); Creatinine Clr Calc Pharmacy 33.4 ml/min; Est GFR (African American) 44.1 ml/min; Est GFR (Non-African American) 38.1 ml/min; Globulin 2.7 gm/dl (2.5-4.0); Potassium 3.2 mmol/L (3.5-5.1); Total Protein 5.8 gm/dl (6.0-8.3)
[2023-11-01 08:25] LABS: Immature Granulocytes # (auto) 0.03 K/uL (0.01-0.20); Immature Granulocytes % (auto) 0.4 %; Lymphocytes # (auto) 0.39 K/uL (1.20-3.40); Lymphocytes % (auto) 4.7 %; Monocytes # (auto) 0.38 K/uL (0.11-0.59); Monocytes % (auto) 4.6 %; Neutrophils # (auto) 7.48 K/uL (1.40-6.50); Neutrophils % (auto) 90.3 %; Ovalocytes 1+; Polychromasia 1+; Tear Drop Cells 1+
[2023-11-01] MEDS: POTASSIUM CHLORIDE CRTAB 20 MEQ TABCR PO STA (10:10)
[2023-11-01 12:05] LABS: Hematocrit (blood only) 28.6 % (42.0-52.0)
--- NOTE | 2023-11-01 12:51 | Discharge Summary ---
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 He notes that he had COVID about 4 weeks ago and then developed pneumonia (completed course of Augmentin and doxycycline), states he has had ongoing cough with some shortness of breath ever since. He notes that for the past 2 weeks he has had increased leg swelling- he called his PCP last week and was instructed to increase his Bumex from three days per week to 4 days, however when this did not improve his symptoms he was then instructed to take the Bumex daily but still did not notice any improvements. He then called his quality control projectionist yesterday and was ordered outpatient blood work which he completed today- he was then called by the office and told to come to the ER for diuresis. He denies any chest pain or productive cough, no fever, denies any changes in urine or bowel movements. He states that he lives with his who cooks all of his meals, although states they do eat out frequently. He states that he does try to avoid salt in his diet, but since his cardiac surgery last year he has not had a sense of taste and has subsequently had poor intake and lost weight. Admission Exam Per Admitting Provider Constitutional: well developed and well nourished; no acute distress Eyes: + anicteric sclerae; no conjunctival abn ormality ENMT: Ears: no external ear abnormality Nose: no external nose abnormality Moist mucous membranes Respiratory: normal respiratory effort and + cough; no respiratory distress and does not use accessory muscles Auscultation: + crackles Cardiovascular: Rate/Rhythm: regular rate and regular rhythm +2 pitting edema of bilateral lower extr emities Gastrointestinal (Abdomen): Inspection/Auscultation: abdomen normal to inspection and normal bowel sounds Percussion/Palpation: abdomen soft; abdomen nontender Musculoskeletal: Moves all limbs independently Skin: no rashes, warm and dry Neurologic: no focal motor deficits Psychiatric: A+Ox3, euthymic affect Principal Diagnosis COPD exacerbation Discharge Exam Constitutional: WD/WN, vitals as above Eyes: + anicteric sclerae Neck: trachea midline, no thyromegaly Respiratory: normal respiratory effort; no respiratory distress Auscultation: + faint expiratory wheezes b/l Cardiovascular: Rate/Rhythm: regular rate and regular rhythm Vessels: no JVD Extremities: + edema (trace LE edema b/l) Gastrointestinal (Abdomen): normal bowel sounds, soft, nontender, no hepatosplenomegaly Musculoskeletal: Head/Neck/Chest: normocephalic and head atraumatic Skin: no rashes, warm and dry Psychiatric: A+Ox3, euthymic affect Discharge Data Allergies Allergy/AdvReac Type Severity Reaction Status Date / Time No Known Allergies Allergy Verified 09/29/23 13:50 Consultations 10/30/23 18:32 ED Decision to Admit Stat Ordered Studies 10/30/23 18:18 CT chest diagnostic wo con Stat Hospital Course (1) Acute respiratory failure with hypoxia: (2) S/P Maze operation for atrial fibrillation: (3) Atrial fibrillation with rapid ventricular response: (4) COPD with emphysema: Plan Acute respiratory failure with hypoxia secondary to acute COPD exacerbation -O2 saturation dropped to 85% on room air while in ED -RVP negative, recent COVID infection 4 weeks prior -CXR: no significant change in a small left pleural effusion with left basilar opacity which could reflect pneumonia or atelectasis -S/P left thoracentesis of 700cc (05/2023) -CT chest redemonstrating bilateral pleural effusions -Suspect acute respiratory failure secondary more so to COPD exacerbation with contribution from HFpEF exacerbation -Treated with doxycycline, Solumedrol 40 mg, Duonebs q4 acutely in hospital -Oxygen requirement has improved to 2L at time of discharge -2 step completed- discharged with home O2 with 2L at rest, 3L with ambulation -Discharged with doxycycline to complete 5 days total of therapy and prednisone taper Acute HFpEF exacerbation -Follows with [facility]/Dr. Puente -BNP >4700 on admission, known HFmEF, but without pulmonary edema noted on imaging -Failed outpatient increase in diuretics after increase in lower extremity edema over past two weeks -Last echo (11/2022): EF 60%, mild LVH, moderate mitral regurgitation, mild tricuspid regurgitation -Echo on 10/31/23: EF 55-60%, flattened septum consistent with RV volume overload, left atrium moderately dilated, aortic valvular sclerosis without valvular stenosis, moderate to severe mitral regurgitation -Diuresed with Bumex 1 mg IV BID in hospital, discharged on home Bumex regimen 1 mg daily on MWFSat Mild renal insufficiency in background of CKD3 -Baseline Cr 1.75, on admission Cr 1.91 -Likely due to renal hypoperfusion from poor forward flow 2/2 CHF -Has improved to Cr 1.7 today with diuresis, back at baseline Elevated Troponin | CAD | CABG x3 (02/2023) -Mild troponin elevation to 26.1 -> 21.9 on arrival, likely secondary to demand ischemia -EKG completed in ED: normal sinus rhythm, left axis deviation, right BBB -Continued statin and aspirin Anemia -Hgb 10.1 on arrival, last Hgb 12.5 (06/24/23) -No signs of active bleed, hemodynamically stable Atrial Fibrillation | S/P Maze Procedure | Hypertension -Sinus rhythm at time of discharge -Continued amiodarone, metoprolol succinate, Entresto, hydralazine -Anticoagulated with Eliquis Total Time Total Time Spent Total Time Spent (In Minutes): 40 Discharge Plan Discharge Items Patient Disposition: Home - Self-Care Reason For Visit: FLUID OVERLOAD Discharge Diagnosis: COPD exacerbation Condition on Discharge: Fair Activity: Resume your previous activity Non-emergency contact: Primary Care Provider Call non-emergency contact if: your symptoms worsen Follow-up/Referrals: Jess Montgomery, [Primary Care Provider] - Diet: Regular Addtl Attending Provider Instructions: You were admitted to the hospital for COPD exacerbation. You were treated with nebulizers, antibiotics and steroids. We are discharging you with home oxygen to use due to shortness of breath. Continue to use home oxygen until you see your PCP for a follow up. A discharge summary will be sent to your primary care physician to ensure continuity of care. Please bring this discharge summary with you to your next office appointment so that your provider can review it at that time. Follow-up appointments: - Make a follow-up appointment with your PCP within the next week. It is very important that you follow up with them shortly after discharge from the hospital. - Keep all your follow-up appointments as already scheduled. If you cannot make an appointment, notify your provider. Medications: Your medication list has been reviewed and reconciled upon discharge to ensure accuracy and continuity of care. An updated list of all your medications is included with your hospital discharge paperwork. Please review this list closely, and make note of any changes. -Do the albuterol nebulizer every 6 hours for tomorrow. if you are feeling well, then change the frequency to every 8 hours and eventually only if you feel short of breath. -Please resume taking your Bumex with the regular schedule you had before. -We sent doxycycline to the pharmacy. This is an antibiotic that will help treat your COPD inflammation. Please take doxycycline 100 mg tonight and then twice a day for the next 3 days -We sent prednisone to the pharmacy. Please take it per the following schedule -40 mg on 11/02 (four tablets) -30 mg on 11/03 (three tablets) -30 mg on 11/04 (three tablets) -20 mg on 11/05 (two tablets) -20 mg on (two tablets) -10 mg on 11/06 (one tablet) -10 mg on 11/07 (one tablet) -5 mg on 11/08 (half tablet) -5 mg on 11/09 (half tablet) Take your medications as instructed; do not skip a dose of your medicines. Make sure all of your doctors know every medicine you are taking (including vyzd-put-mobault medicines, vitamins, and supplements). Call your primary care provider before taking any new medicines (including [id number] medicines, vitamins, and supplements), because some of these may interact with your current medications, or may make your symptoms worse. Tell your primary care provider if you cannot afford your medications. CONTACT YOUR PRIMARY CARE PROVIDER if you experience any of the following: -Shortness of breath -Rapid weight gain -Leg swelling -Cough with phlegm - Difficulty following your treatment plan, or difficulty taking medications CALL 911 OR GO TO THE EMERGENCY DEPARTMENT if you experience any of the following: - Sudden, severe abdominal pain or nausea/vomiting - Severe chest pain, or chest pain that radiates (moves) to your jaw or arm - Sudden, severe shortness of breath or difficulty breathing Thank you for allowing us to participate in your care Pending Studies at Discharge: No Stand-Alone Forms: My [facility] Medications and DC Order Prescriptions: New doxycycline hyclate 100 mg capsule 100 mg PO BID 3 Days Qty: 7 0RF Rx Instructions: Take first dose tonight, then twice daily for 3 days prednisone 10 mg tablet 10 mg PO DAILY Qty: 17 0RF Rx Instructions: 4 tabs on day 1 (tomorrow), 3 tabs on day 2, 3 tabs on day 3, 2 tabs on day 4, 2 tabs on day 5, 1 tab on day 6, 1 tab on day 7, half tab on day 8, half tab on day 9 Continued cholecalciferol (vitamin D3) 25 mcg (1,000 unit) capsule 25 mcg PO DAILY amlodipine 5 mg tablet 2.5 mg PO DAILY bumetanide 1 mg tablet 1 mg PO .COMPLEX Rx Instructions: 1 mg orally every Mon, Wed, Fri, Sat; potassium chloride [Klor-Con M20] 20 mEq tablet,ER particles/crystals 20 meq PO AMPM Hold Instructions: Hold unless Dr Puente asks you to resume metoprolol succinate 100 mg tablet extended release 24 hr 100 mg PO QAM omeprazole 40 mg capsule,delayed release(DR/EC) 40 mg PO DAILY Eliquis 2.5 mg tablet 2.5 mg PO AMPM sacubitril-valsartan 24-26 mg tablet 1 tab PO BID acetaminophen 500 mg capsule 1,000 mg PO Q8 PRN (Reason: Pain) rosuvastatin 20 mg tablet 20 mg PO DAILY Spiriva Respimat 2.5 mcg/actuation mist 2 puff inhalation DAILY Qty: 4 6RF vitamin B complex [B Complex-Vitamin B12] Tablet 1 tab PO QAM aspirin 81 mg Tablet,Delayed Release (Dr/Ec) 81 mg PO QPM Qty: 0 0RF amiodarone 200 mg tablet 100 mg PO Q OTHER DAY albuterol sulfate [Ventolin HFA] 90 mcg/actuation HFA aerosol inhaler 2 inh inhalation Q6H PRN (Reason: shortness of breath or wheezing or cough) Qty: 8.5 0RF Rx Instructions: use with spacer device hydralazine 25 mg tablet 25 mg PO BID albuterol sulfate 2.5 mg /3 mL (0.083 %) solution for nebulization 2.5 mg continuous nebulization UD PRN (Reason: Shortness Of Breath Or Wheezing) guaifenesin [Mucinex] 600 mg Tablet Extended Release 12hr 600 mg PO DAILY Discharge Orders: Discharge Order (Routine); Ordered 11/01/23 Ordered By: Attila Carlton Admission Data Admit Date/Time: 10/30/23 19:40 Attending Provider: Robert Mckenna Provider: Mikayla Chaney Primary Care Provider: Jess Montgomery Other Providers: Rufino Dejesus Resident Activity Tracking Resident Involvement: Resident Care Provided Care Provided: Adult [facility]"
== END 2023-11-01 16:06 | disposition home or self-care (01) | DRG 291 ==
LOC: ED 14:52 → 2S 19:40 → SUATTDRO 19:40 → 2S 20:26

== ENCOUNTER 2024-03-25 21:59 | Observation (INO) ==
--- NOTE | 2024-03-25 22:07 | Emergency Department Note ---
Impression & Plan Acute hypotension, Dizziness, Elevated troponin I level, TILA (acute kidney injury) ED Provider Note NAME: JOEL FONSECA AGE: 83 SEX: M : 1940 ARRIVES VIA: Ambulance INFORMANT: Patient, ED PROVIDER(S): Giancarlo Sethi DO CHIEF COMPLAINT: Dizziness HPI: The patient is an 83-year-old male who presented to the emergency department by ambulance for evaluation of dizziness upon standing. The patient started having symptoms over the last 24 hours. He has noticed some swelling in his legs. He is also noticed some difficulty with dizziness upon standing. He feels that he may pass out. He thought he was volume overloaded so he took an extra Lasix. He called his family doctor who advised him not to do that. When his symptoms became worse this evening his significant other called 911. I did receive a prehospital notification about the patient. The patient was hypotensive. He received IV fluids prior to arrival with some improvement of his symptoms. The patient himself at this time denies having any chest pain or difficulty breathing. He denies having any abdominal pain. He denies having any dark or tarry stools. He has had no changes to his medications. ROS: See above HPI for pertinent positives & negatives. A total of 10 systems reviewed and were otherwise negative. PAST MEDICAL HISTORY: See Below PAST SURGICAL HISTORY: See Below FAMILY HISTORY: See Below SOCIAL HISTORY: See Below HOME MEDICATIONS: See Below ALLERGIES: See Below VITALS: See Below PHYSICAL EXAMINATION: GENERAL: Patient is awake alert in no acute distress patient is resting comfortably and showing no signs of anxiety EYES: The conjunctivae are clear. The pupils are round and reactive. EARS, NOSE, MOUTH AND THROAT: The nose is without any evidence of any deformity. NECK: The neck is nontender and supple. RESPIRATORY: Normal respiratory effort is noted there is no evidence of wheezing rhonchi or rales CARDIOVASCULAR: Regular rate and rhythm noted there no murmurs rubs or gallops normal S1 normal S2. GASTROINTESTINAL: The abdomen is soft. Abdomen is nontender. MUSCULOSKELETAL/EXTREMITIES: There is no evidence of gross deformity full range of motion is noted in the hips and shoulders. SKIN: Trace pedal edema was noted bilaterally. Skin was warm and dry. NEUROLOGIC: Patient is awake alert and oriented x3. Strength is symmetric. Voice was clear. MEDICAL DECISION MAKING: The patient is an 83-year-old male who presented to the emergency department because of dizziness upon standing. The patient was describing near syncope. The patient did not have any physical exam findings that were lateralizing. He had no abdominal pain. He denied having any chest pain although the original ambulance call was for chest pain. The patient does have a history of a right bundle branch block as well as renal insufficiency. He decided to take extra Lasix because he thought his legs were swollen. He does have some pedal edema but it is not severe. He was found to have an elevation in his creatinine compared to his baseline. He was treated with IV fluids prior to arrival. He is also treated with IV fluids by myself. No definite infectious source can be found but the patient did have a recent pleural effusion drainage. CT abdomen and pelvis was obtained to evaluate abnormality on chest x-ray. I do feel this more represents a left-sided pleural effusion. Because the patient had such severe hypotension I will discuss this case with the on-call [facility] hospitalist. Triage Nursing notes reviewed. Prior medical records reviewed Vital Signs: reviewed and remarkable for initial potential. Differential diagnosis: Dental caries, dental abscess, Ludwigs angina, Vincent angina, dental fracture, facial cellulitis, parotitis, osteomyelitis, sinus infection, peritonsillar abscess. ER treatment provided: See below Diagnostics interpreted by me: ECG: EKG was obtained in the emergency department. My interpretation is normal sinus rhythm at 84 bpm. There is no PVCs noted. Right bundle Rentrop pattern was noted. This was compared to a tracing from October 30, 2023. No changes were noted. Prehospital notification was made and a twelve-lead was sent. My interpretation is sinus tachycardia at 125 bpm. Right bundle branch block pattern was noted. No PVCs were definitely identified. This compares similar to the tracing obtained in the emergency department with the exception of an increased heart rate. Cardiac Monitoring: An order was placed for continuous cardiac monitoring. The monitor shows a rate of 81 bpm with sinus rhythm. Laboratory studies: As stated above and show below. Imaging studies: See below. Radiographic imaging was reviewed by myself Consultation(s): I discussed this case with Dr. Woodruff. Past Med/Surg History Problem List (Updated 03/25/24 @ 23:27 by Giancarlo Sethi DO) TILA (acute kidney injury) (Acute) Elevated troponin I level (Acute) Dizziness (Acute) Acute hypotension (Acute) Enlarged prostate Elevated troponin (Acute) Anemia (Acute) Pedal edema (Acute) SOB (shortness of breath) (Acute) Hypoxia (Acute) CKD (chronic kidney disease), stage III Follow[address] Morley Exertional shortness of breath Acute respiratory failure with hypoxia NSTEMI (non-ST elevated myocardial infarction) (Acute) Pulmonary hypertension S/P Maze operation for atrial fibrillation [facility] - 02/2023. Atrial fibrillation with rapid ventricular response (Acute) 10/2022 COPD with emphysema Medical History CHF (congestive heart failure) Hyperlipidemia Hypertension TILA (acute kidney injury) Dysphagia Insomnia Right heart failure with reduced right ventricular function Acute exacerbation of chronic obstructive pulmonary disease PAF (paroxysmal atrial fibrillation) Acute respiratory failure with hypoxia Ex-smoker Pleural effusion Pneumonia Chronic diastolic CHF (congestive heart failure) Current smoker CAD (coronary artery disease) Myocardial infarct 1997 - heavy chest, left arm pain - Went to [facility] - flown to [facility] - blockage of "back of heart" - heart cath - no stent placement - Follows Dr. Puente Hypertension Surgical History History of coronary artery bypass graft S/P CABG (coronary artery bypass graft) 3 vessel - [facility], 02/2023. Hx of cataract extraction Rt. Hx of cardiac cath 1997 d/t to [place] - no stents placed - Follows Dr. Puente History of colonoscopy Hx of inguinal hernia repair Hx of repair of left rotator cuff x2 Family History Father Family history of diabetes mellitus CHF (congestive heart failure) Black lung disease Mother , had CABG Family history of diabetes mellitus Coronary heart disease Myocardial infarction Dementia Social History Smoking Status: Former smoker Tobacco Type: Cigarettes Cigarettes Per Day: 2 packs; Second Hand Exposure: No; Do You Dip or Chew Tobacco: No; Hx Alcohol Use: No Hx Substance Use: No Preferred Language: Vietnamese Communication Ability: Effective Visual Impairment: Limited Hearing Ability: Use of Hearing Aid Freezer Worker Required: No Beliefs That Will Affect Care: None marital status: Current Living Situation: Spouse Current Living Situation Comment: From home with current occupational status: retired current occupation: Retired How many Children do You have: 2 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; 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 Feels Safe at Home: Yes Diet: regular caffeine: Yes (1 soda daily) Physical Activity Frequency: Does not Exercise Do you think of yourself as: straight/heterosexual Gender Identity: Male Assistive Devices: Cane Allergies Allergies Allergy/AdvReac Type Severity Reaction Status Date / Time No Known Allergies Allergy Verified 03/18/24 14:25 Home Meds Home Medications Medication Instructions Recorded Confirmed acetaminophen 500 mg capsule 1,000 mg PO Q8 PRN Pain 03/20/23 03/18/24 rosuvastatin 20 mg tablet 20 mg PO DAILY 03/20/23 03/18/24 omeprazole 40 mg capsule,delayed 40 mg PO DAILY 09/29/23 03/18/24 release albuterol sulfate 2.5 mg/3 mL 2.5 mg continuous nebulization Q6H 10/30/23 03/25/24 (0.083 %) solution for nebulization PRN Shortness Of Breath Or Wheezing guaifenesin 600 mg tablet, 600 mg PO DAILY 10/30/23 03/18/24 extended release 12 hr (Mucinex) aspirin 81 mg tablet,delayed 81 mg PO DAILY 02/03/24 03/18/24 release (Adult Low Dose Aspirin) sacubitril 97 mg-valsartan 103 mg 1 tab PO BID 02/03/24 03/18/24 tablet (Entresto) ascorbic acid (vitamin C) 500 mg 500 mg PO DAILY 02/09/24 03/18/24 capsule bumetanide 1 mg tablet 2 mg PO BID 02/09/24 03/25/24 cholecalciferol (vitamin D3) 25 25 mcg PO DAILY 02/09/24 03/18/24 mcg (1,000 unit) capsule fluticasone furoate 27.5 1 spray intranasal DAILY 02/09/24 03/18/24 mcg/actuation nasal spray,suspension (Flonase Sensimist) metoprolol succinate 100 mg 100 mg PO QAM 02/09/24 03/18/24 tablet,extended release 24 hr vitamin B complex 1 tab PO DAILY 03/06/24 03/18/24 amiodarone 200 mg tablet 200 mg PO DAILY 03/18/24 03/25/24 ferrous sulfate 325 mg (65 mg 325 mg PO DAILY 03/18/24 03/18/24 iron) tablet potassium chloride 20 mEq 20 meq PO BID 03/18/24 03/25/24 tablet,extended release(part/cryst) (Klor-Con M) Previous Rx's Medication Instructions Recorded Flutter Valve #1 ea 01/05/24 albuterol sulfate 90 mcg/actuation 2 inh inhalation Q6H PRN shortness 01/05/24 aerosol inhaler (Ventolin HFA) of breath or wheezing or cough #8.5 grams tamsulosin 0.4 mg capsule (Flomax) 0.4 mg PO DAILY #90 caps 02/03/24 Flutter Valve #1 ea 02/09/24 tiotropium 2.5 mcg-olodaterol 2.5 2 puff inhalation DAILY #4 grams 02/09/24 mcg/actuation mist for inhalation (Stiolto Respimat) Results & Data (ED) Vital Signs Vital Signs - 24 hr 03/25/24 22:06 03/25/24 22:07 03/25/24 23:02 Temperature 36.6 C Temperature Source Oral Pulse Rate 85 88 81 Respiratory Rate 16 20 Blood Pressure 101/66 121/76 Blood Pressure Mean 77 95 Pulse Oximetry 95 99 Oxygen Delivery Method Room Air Sepsis Recent Fever Within 48 Hours No Sepsis New/Unexplained Change in Mental Status No Sepsis Action Taken by Nursing No Action Required Home Medications Current Medication List: was personally reviewed by me Laboratory Data Attestation: I reviewed the patient's lab results. 03/25/24 22:06 03/25/24 22:06 Lab Results 03/25/24 03/25/24 03/25/24 Range/Units 22:06 22:13 22:14 WBC 8.86 (4.8-10.8) K/ul RBC 3.52 L (4.70-6.10) M/uL Hgb 10.8 L (14.0-18.0) g/dl POC Hgb 10.9 L (14.0-18.0) g/dl Hct 32.7 L (42.0-52.0) % POC Hct 32 L (42-52) % MCV 92.9 (80.0-100.0) fL MCH 30.7 (25.0-34.0) pg MCHC 33.0 (32.0-36.0) g/dL RDW Std Deviation 56.6 H (36.4-46.3) fL RDW Coeff of Jolene 16.5 H (11.5-14.5) % Plt Count 271 (130-400) K/uL MPV 9.0 L (9.4-12.4) fL Immature Gran % (Auto) 0.3 % Neut % (Auto) 77.8 % Lymph % (Auto) 11.1 % Mckenzie % (Auto) 8.6 % Eos % (Auto) 2.0 % Baso % (Auto) 0.2 % Neut # (Auto) 6.89 H (1.40-6.50) K/uL Lymph # (Auto) 0.98 L (1.20-3.40) K/uL Mckenzie # (Auto) 0.76 H (0.11-0.59) K/uL Eos # (Auto) 0.18 (0.00-0.50) K/uL Baso # (Auto) 0.02 (0.00-0.20) K/uL Immature Gran # (Auto) 0.03 (0.01-0.20) K/uL PT 11.3 (9.0-12.0) Seconds INR 1.0 (0.9-1.1) APTT 28 (21-31) Seconds PTT Ratio 1.0 VBG pH (7.36-7.41) VBG pCO2 (38-50) mmHg VBG pO2 mmHg VBG HCO3 mmol/L VBG O2 Saturation % VBG Base Excess mEq/L POC Sodium 133 L (135-144) mmol/L Sodium 134 L (136-145) mmol/L POC Potassium 3.0 L (3.3-5.0) mmol/L Potassium 3.0 L (3.5-5.1) mmol/L POC Chloride 90 L (101-112) mmol/L Chloride 93 L (98-107) mmol/L Carbon Dioxide 33 H (21-32) mmol/L POC Total CO2 30 (24-31) mmol/L Anion Gap 8 (3-11) POC Anion Gap 17.0 (16-25) mmol/L POC BUN 29 H (7-18) mg/dl BUN 32 H (6-23) mg/dl Creatinine 2.84 H (0.6-1.4) mg/dl POC Creatinine 3.2 H (0.6-1.3) mg/dl Est Cr Clr Drug Dosing 19.4 ml/min Est GFR ( Amer) 22.9 ml/min Est GFR (Non-Af Amer) 19.8 ml/min BUN/Creatinine Ratio 11.3 (10-20) Glucose 140 H (70-99(Fasting)) mg/dl POC Glucose (other) 142 H (70-99) mg/dl Lactate (0.4-2.0) mmol/L Calcium 8.4 L (8.6-10.3) mg/dl POC Ioniz Calcium Mariam 0.99 L (1.12-1.32) mmol/l Magnesium 2.1 (1.7-2.4) mg/dl Total Bilirubin 0.9 (0.2-1.0) mg/dl Direct Bilirubin 0.2 (0-0.2) mg/dl AST 29 (13-39) U/L ALT 24 (7-52) U/L Alkaline Phosphatase 99 (34-104) U/L Troponin I High Sens 32.9 H (0-20) pg/ml Total Protein 6.2 (6.0-8.3) gm/dl Albumin 3.3 L (3.4-5.0) gm/dl Procalcitonin 0.09 (0-0.5) ng/ml SARS-CoV-2 (PCR) NEGATIVE (Negative) Influenza Type A (PCR) Negative (Neg) Influenza Type B (PCR) Negative (Neg) RSV (RT-PCR) Negative (Neg) 03/25/24 03/25/24 Range/Units 22:20 22:30 WBC (4.8-10.8) K/ul RBC (4.70-6.10) M/uL Hgb (14.0-18.0) g/dl POC Hgb (14.0-18.0) g/dl Hct (42.0-52.0) % POC Hct (42-52) % MCV (80.0-100.0) fL MCH (25.0-34.0) pg MCHC (32.0-36.0) g/dL RDW Std Deviation (36.4-46.3) fL RDW Coeff of Jolene (11.5-14.5) % Plt Count (130-400) K/uL MPV (9.4-12.4) fL Immature Gran % (Auto) % Neut % (Auto) % Lymph % (Auto) % Mckenzie % (Auto) % Eos % (Auto) % Baso % (Auto) % Neut # (Auto) (1.40-6.50) K/uL Lymph # (Auto) (1.20-3.40) K/uL Mckenzie # (Auto) (0.11-0.59) K/uL Eos # (Auto) (0.00-0.50) K/uL Baso # (Auto) (0.00-0.20) K/uL Immature Gran # (Auto) (0.01-0.20) K/uL PT (9.0-12.0) Seconds INR (0.9-1.1) APTT (21-31) Seconds PTT Ratio VBG pH 7.42 H (7.36-7.41) VBG pCO2 55 H (38-50) mmHg VBG pO2 < 20 mmHg VBG HCO3 36 mmol/L VBG O2 Saturation < 60.0 % VBG Base Excess 9.3 mEq/L POC Sodium (135-144) mmol/L Sodium (136-145) mmol/L POC Potassium (3.3-5.0) mmol/L Potassium (3.5-5.1) mmol/L POC Chloride (101-112) mmol/L Chloride (98-107) mmol/L Carbon Dioxide (21-32) mmol/L POC Total CO2 (24-31) mmol/L Anion Gap (3-11) POC Anion Gap (16-25) mmol/L POC BUN (7-18) mg/dl BUN (6-23) mg/dl Creatinine (0.6-1.4) mg/dl POC Creatinine (0.6-1.3) mg/dl Est Cr Clr Drug Dosing ml/min Est GFR ( Amer) ml/min Est GFR (Non-Af Amer) ml/min BUN/Creatinine Ratio (10-20) Glucose (70-99(Fasting)) mg/dl POC Glucose (other) (70-99) mg/dl Lactate 1.7 (0.4-2.0) mmol/L Calcium (8.6-10.3) mg/dl POC Ioniz Calcium Mariam (1.12-1.32) mmol/l Magnesium (1.7-2.4) mg/dl Total Bilirubin (0.2-1.0) mg/dl Direct Bilirubin (0-0.2) mg/dl AST (13-39) U/L ALT (7-52) U/L Alkaline Phosphatase (34-104) U/L Troponin I High Sens (0-20) pg/ml Total Protein (6.0-8.3) gm/dl Albumin (3.4-5.0) gm/dl Procalcitonin (0-0.5) ng/ml SARS-CoV-2 (PCR) (Negative) Influenza Type A (PCR) (Neg) Influenza Type B (PCR) (Neg) RSV (RT-PCR) (Neg) Administered Medications Discontinued Medications Sodium Chloride (Nss) 500 mls @ 999 mls/hr IV .Q31M ONE Stop: 03/25/24 22:50 Last Infusion: 03/25/24 22:54 Dose: Infused Documented By: Admin: 03/25/24 22:21 Dose: 999 mls/hr Documented By: RADHA Sodium Chloride (Nss) 500 mls @ 999 mls/hr IV .Q31M ONE Stop: 03/25/24 23:44 Last Admin: 03/25/24 23:39 Dose: 999 mls/hr Documented By: MIRYAM Imaging Data Attestation: I personally reviewed and interpreted this imaging study as follows: My Impression: 1 view chest x-ray was obtained in the emergency department. My interpretation is cardiomegaly with atelectasis bilaterally. There could be a loop of bowel underneath the right hemidiaphragm or possibly free air, final report pending. CT scan of the abdomen and pelvis was obtained in the emergency department. My interpretation is left-sided pleural effusion, distended bladder, final report pending Discharge Plan Visit Data Chief Complaint: Hypotension Stated Complaint: HYPOTENSTION, DIZZINESS WHEN STANDING ED Provider: Giancarlo Sethi Discharge Problem: Acute hypotension, Dizziness, Elevated troponin I level, TILA (acute kidney injury) Patient Disposition: Being Evaluated by Hospitalist Forms Stand Alone Forms: My [facility] Prescriptions Prescriptions: No Action potassium chloride [Klor-Con M20] 20 mEq tablet,ER particles/crystals 20 meq PO BID Hold Instructions: Hold unless Dr Puente asks you to resume omeprazole 40 mg capsule,delayed release(DR/EC) 40 mg PO DAILY metoprolol succinate 100 mg tablet extended release 24 hr 100 mg PO QAM acetaminophen 500 mg capsule 1,000 mg PO Q8 PRN (Reason: Pain) rosuvastatin 20 mg tablet 20 mg PO DAILY albuterol sulfate [Ventolin HFA] 90 mcg/actuation HFA aerosol inhaler 2 inh inhalation Q6H PRN (Reason: shortness of breath or wheezing or cough) Qty: 8.5 4RF Rx Instructions: use with spacer device (DME) Flutter Valve Device See Rx Instructions .MEDSUPPLY Qty: 1 0RF Rx Instructions: Use it every 6 hours when awake. aspirin [Adult Low Dose Aspirin] 81 mg tablet,delayed release (DR/EC) 81 mg PO DAILY Entresto 97-103 mg tablet 1 tab PO BID tamsulosin [Flomax] 0.4 mg capsule 0.4 mg PO DAILY Qty: 90 3RF Stiolto Respimat 2.5-2.5 mcg/actuation mist 2 puff inhalation DAILY Qty: 4 5RF bumetanide 1 mg tablet 2 mg PO BID cholecalciferol (vitamin D3) 25 mcg (1,000 unit) capsule 25 mcg PO DAILY ascorbic acid (vitamin C) 500 mg capsule 500 mg PO DAILY Flonase Sensimist 27.5 mcg/actuation spray,suspension 1 spray intranasal DAILY Rx Instructions: into each nostril (DME) Flutter Valve Device See Rx Instructions .MEDSUPPLY Qty: 1 0RF Rx Instructions: Use it every 6 hours when awake. amiodarone 200 mg tablet 200 mg PO DAILY ferrous sulfate 325 mg (65 mg iron) tablet 325 mg PO DAILY albuterol sulfate 2.5 mg /3 mL (0.083 %) solution for nebulization 2.5 mg continuous nebulization Q6H PRN (Reason: Shortness Of Breath Or Wheezing) guaifenesin [Mucinex] 600 mg Tablet Extended Release 12hr 600 mg PO DAILY vitamin B complex Tablet 1 tab PO DAILY Referrals Referrals: Jess Montgomery DO [Primary Care Provider] -
[2024-03-25 22:19] LABS: Basophils # (auto) 0.02 K/uL (0.00-0.20); Basophils % (auto) 0.2 %; Eosinophils # (auto) 0.18 K/uL (0.00-0.50); Hematocrit (blood only) 32.7 % (42.0-52.0); Hemoglobin 10.8 g/dl (14.0-18.0); Immature Granulocytes # (auto) 0.03 K/uL (0.01-0.20); Immature Granulocytes % (auto) 0.3 %; Lymphocytes # (auto) 0.98 K/uL (1.20-3.40); Lymphocytes % (auto) 11.1 %; Mean Corpuscular Hemoglobin 30.7 pg (25.0-34.0); Mean Corpuscular Volume 92.9 fL (80.0-100.0); Monocytes # (auto) 0.76 K/uL (0.11-0.59); Monocytes % (auto) 8.6 %; Neutrophils # (auto) 6.89 K/uL (1.40-6.50); Neutrophils % (auto) 77.8 %; Platelet Count 271 K/uL (130-400); RDW Coefficient of Variation 16.5 % (11.5-14.5); RDW Standard Deviation 56.6 fL (36.4-46.3); Red Blood Count 3.52 M/uL (4.70-6.10); White Blood Count 8.86 K/ul (4.8-10.8)
[2024-03-25] MEDS: SODIUM CHLORIDE 0.9% 500 ML IV ONE ×2 (22:21→23:39)
[2024-03-25 22:26] LABS: iSTAT Creatinine 3.2 mg/dl (0.6-1.3); iSTAT Hemoglobin 10.9 g/dl (14.0-18.0); iSTAT Ionized Calcium 0.99 mmol/l (1.12-1.32)
[2024-03-25 22:40] LABS: Albumin Level 3.3 gm/dl (3.4-5.0); BUN Creatinine Ratio 11.3 (10-20); Bilirubin Direct 0.2 mg/dl (0-0.2); Bilirubin,Total 0.9 mg/dl (0.2-1.0); Calcium 8.4 mg/dl (8.6-10.3); Creatinine Clr Calc Pharmacy 19.4 ml/min; Est GFR (African American) 22.9 ml/min; Est GFR (Non-African American) 19.8 ml/min; Magnesium 2.1 mg/dl (1.7-2.4); Total Protein 6.2 gm/dl (6.0-8.3)
[2024-03-25 22:41] LABS: Base Excess VBG 9.3 mEq/L; HCO3 VBG 36 mmol/L; Oxygen Saturation VBG < 60.0 %; PCO2 VBG 55 mmHg (38-50); PO2 VBG < 20 mmHg; pH VBG 7.42 (7.36-7.41)
[2024-03-25 22:46] LABS: Troponin I High Sensitivity 32.9 pg/ml (0-20)
[2024-03-25 23:00] LABS: Partial Thromboplastin Time 28 Seconds (21-31); Prothrombin Time 11.3 Seconds (9.0-12.0)
[2024-03-25 23:21] LABS: Influenza A virus by PCR Negative (Neg); Influenza B virus by PCR Negative (Neg); RSV by PCR Negative (Neg); SARS CoV2 RNA(COVID-19) Ceph NEGATIVE (Negative)
--- NOTE | 2024-03-25 23:58 | History & Physical Report ---
Date of Service March 25, 2024 Assessment & Plan (1) TILA (acute kidney injury): (2) CKD (chronic kidney disease), stage III: Bettie Serge is an 83M w/ PMH of COPD w/ emphysema, A Fib w/ RVR s/p MAZE procedure, pulmonary HTN, CAD, CKD3, anemia, and BPH who presented for evaluation of hypotension. Hypotension TILA on CKD3 - Patient presenting w/ episodes of hypotension at home following 3-4 days of increased diuretic dosing Patient reported 80/40s w/ associated lightheadedness prior to presentation - Creatinine elevated on presentation to 2.84 (baseline ~1.9) - Patient received 1L NSS in ED - Hold home Bumex dosing inpatient Will continue w/o additional fluids given CHF history - Hold nephrotoxic agents given TILA - Follow BMP in AM Hypokalemia - K 3, Mg 2.1 on arrival - Repletion ordered in ED and on admission - Continue to follow Elevated Troponin AFib RVR s/p MAZE Hx of CAD - Admitted for serial Troponin and EKGs - Potentially demand in a/w hypovolemia & TILA, but given history continue to follow - Continue home medications - Complete Echocardiogram/Doppler inpatient Chronic Conditions - Continue home medications Diuretic hold Nephrotoxic medication hold CODE; DNR/DNI Diet: HH Dispo: Telemetry IVF: None History of Present Illness Chief Complaint: Hypotensive Primary Care Provider: Jess Montgomery DO Serge is an 83M w/ PMH of COPD w/ emphysema, A Fib w/ RVR s/p MAZE procedure, pulmonary HTN, CAD, CKD3, anemia, and BPH who presented for evaluation of hypotension. HPI - Patient presented to ED due to hypotension (80/40s) and lightheadedness at home - He denies any chest pain, new dyspnea, abdominal pain, headaches, or bowel/bladder changes - He notes that over the last weeks his legs have been more edematous than basel ine - He subsequently increased his Bumex from 2 mg PO daily to 4 mg PO daily and has been taking this for 4 days - While the patinet's lower extremity swelling has improved significantly, he has been feeling more lightheaded and fatigued over the last 24-48 hours - Patient has not experienced similar symptoms before, but does note that he has been admitted for CHF exacerbations in the past - Patient notes a history of pleural effusions which required drainage 3 months ago, but since the procedure his baseline dyspnea is much improved - Patient denies fevers, chills, rashes, or URI symptoms - He is accompanied at bedside by his and daughter - He is independent of his ADLs at home and has no home O2 requirement - Other than increasing diuretic dosage, no other recent medication changes Allergies Allergy/AdvReac Type Severity Reaction Status Date / Time No Known Allergies Allergy Verified 03/26/24 00:05 Home Medications Medication Instructions Recorded Confirmed Type acetaminophen 500 mg capsule 1,000 mg PO Q6H PRN Pain 03/20/23 03/26/24 History rosuvastatin 20 mg tablet 20 mg PO DAILY 03/20/23 03/26/24 History omeprazole 40 mg capsule,delayed 40 mg PO DAILY 09/29/23 03/26/24 History release albuterol sulfate 2.5 mg/3 mL 2.5 mg continuous nebulization Q6H 10/30/23 03/25/24 History (0.083 %) solution for nebulization PRN Shortness Of Breath Or Wheezing guaifenesin 600 mg tablet, 600 mg PO BID 10/30/23 03/26/24 History extended release 12 hr (Mucinex) Flutter Valve #1 ea 01/05/24 03/18/24 Rx albuterol sulfate 90 mcg/actuation 2 inh inhalation Q6H PRN shortness 01/05/24 03/18/24 Rx aerosol inhaler (Ventolin HFA) of breath or wheezing or cough #8.5 grams aspirin 81 mg tablet,delayed 81 mg PO DAILY 02/03/24 03/26/24 History release (Adult Low Dose Aspirin) sacubitril 97 mg-valsartan 103 mg 1 tab PO BID 02/03/24 03/26/24 History tablet (Entresto) tamsulosin 0.4 mg capsule (Flomax) 0.4 mg PO DAILY #90 caps 02/03/24 03/26/24 Rx Flutter Valve #1 ea 02/09/24 03/18/24 Rx ascorbic acid (vitamin C) 500 mg 500 mg PO DAILY 02/09/24 03/26/24 History capsule bumetanide 1 mg tablet 2 mg PO BID 02/09/24 03/25/24 History cholecalciferol (vitamin D3) 25 25 mcg PO QAM 02/09/24 03/26/24 History mcg (1,000 unit) capsule fluticasone furoate 27.5 1 spray intranasal DAILY 02/09/24 03/26/24 History mcg/actuation nasal spray,suspension (Flonase Sensimist) metoprolol succinate 100 mg 100 mg PO QAM 02/09/24 03/26/24 History tablet,extended release 24 hr tiotropium 2.5 mcg-olodaterol 2.5 2 puff inhalation DAILY #4 grams 02/09/24 03/18/24 Rx mcg/actuation mist for inhalation (Stiolto Respimat) vitamin B complex 1 tab PO DAILY 03/06/24 03/18/24 History amiodarone 200 mg tablet 200 mg PO DAILY 03/18/24 03/25/24 History ferrous sulfate 325 mg (65 mg 325 mg PO DAILY 03/18/24 03/26/24 History iron) tablet potassium chloride 20 mEq 20 meq PO BID 03/18/24 03/25/24 History tablet,extended release(part/cryst) (Klmarina-Foster M) Past Med/Surg History Problem List (Updated 03/25/24 @ 23:27 by Giancarlo Sethi DO) TILA (acute kidney injury) (Acute) Elevated troponin I level (Acute) Dizziness (Acute) Acute hypotension (Acute) Enlarged prostate Elevated troponin (Acute) Anemia (Acute) Pedal edema (Acute) SOB (shortness of breath) (Acute) Hypoxia (Acute) CKD (chronic kidney disease), stage III Follows Dr[address] Morley Exertional shortness of breath Acute respiratory failure with hypoxia NSTEMI (non-ST elevated myocardial infarction) (Acute) Pulmonary hypertension S/P Maze operation for atrial fibrillation [facility] - 02/2023. Atrial fibrillation with rapid ventricular response (Acute) 10/2022 COPD with emphysema Medical History CHF (congestive heart failure) Hyperlipidemia Hypertension TILA (acute kidney injury) Dysphagia Insomnia Right heart failure with reduced right ventricular function Acute exacerbation of chronic obstructive pulmonary disease PAF (paroxysmal atrial fibrillation) Acute respiratory failure with hypoxia Ex-smoker Pleural effusion Pneumonia Chronic diastolic CHF (congestive heart failure) Current smoker CAD (coronary artery disease) Myocardial infarct 1997 - heavy chest, left arm pain - Went to [facility] - flown to [facility] - blockage of "back of heart" - heart cath - no stent placement - Follows Dr. Puente Hypertension Surgical History History of coronary artery bypass graft S/P CABG (coronary artery bypass graft) 3 vessel - [facility], 02/2023. Hx of cataract extraction Rt. Hx of cardiac cath 1997 d/t to [facility] - no stents placed - Follows Dr. Puente History of colonoscopy Hx of inguinal hernia repair Hx of repair of left rotator cuff x2 Family History Father Family history of diabetes mellitus CHF (congestive heart failure) Black lung disease Mother , had CABG Family history of diabetes mellitus Coronary heart disease Myocardial infarction Dementia Social History Smoking Status: Never smoker Tobacco Type: Cigarettes Cigarettes Per Day: 2 packs; Smoking End Date: 09/09; Second Hand Exposure: No; Do You Dip or Chew Tobacco: No; Hx Alcohol Use: No Hx Substance Use: No Preferred Language: Ethiopian Communication Ability: Effective Visual Impairment: Limited Hearing Ability: Use of Hearing Aid Wire Welder Required: No Beliefs That Will Affect Care: None marital status: Current Living Situation: Spouse Current Living Situation Comment: From home with current occupational status: retired current occupation: Retired How many Children do You have: 2 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; 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 Feels Safe at Home: Yes Safety Concerns: Feels Safe At This Time Diet: regular caffeine: Yes (1 soda daily) Physical Activity Frequency: Does not Exercise Do you think of yourself as: straight/heterosexual Gender Identity: Male Assistive Devices: Cane Physical Exam Physical Exam: Gen: NAD, alert, interactive HEENT: Supple, no LAD, no thyromegaly, no JVD Resp:Non-labored, no wheezing/rhonchi/rales, diminished bases, otherwise CTAB CV:RRR, normal S1/S2, no M/R/G Abd: Soft, non-distended, no TTP, normoactive bowels, no masses Extr: 2+ dp bilaterally, 1+ pitting lower extremity edema bilaterally Skin: No rashes lesions or erythema Results & Data Results & Data Vital Signs (Past 12 Hours) Vital Signs Temp Pulse Resp BP Pulse Ox O2 Del Method 03/25/24 23:02 81 20 121/76 99 03/25/24 22:07 36.6 C 88 16 101/66 95 Room Air 03/25/24 22:06 85 Supervising Physician Co-Signing Physician Notes Attending addendum: I have physically seen this patient, have supervised the medical residents activities, and agree with the H&P unless as otherwise noted. Assessment and Plan: Hypotension/acute kidney injury superimposed on CKD- Blood pressure reported to be 80/40s and feeling lightheaded at home Likely secondary to increased Bumex dosing as noted Hold Bumex, Entresto and metoprolol until blood pressure improved Continue amiodarone Given NSS 500 mL x 2 from the ED Continue IV fluid supplementation as noted Creatinine 2.84, with base 1.93 Repeat laboratories in a.m. Elevated troponin/atrial fibrillation with RVR/status post maze operation for A- fib/history of NSTEMI- The patient will be admitted to telemetry for serial cardiac enzymes, serial EKG's, cardiac rhythm monitoring and a 2-D echocardiogram with Dopplers. Hypokalemia- Potassium 3.0, and magnesium 2.1 Oral potassium supplementation as noted, recheck laboratories in a.m. Remaining orders and notations as noted Resident Activity Tracking Resident Involvement: Resident Care Provided Care Provided: Adult [facility] Medicine
--- NOTE | 2024-03-26 00:45 | CT Scan Report ---
Exam(s): CT ABDOMEN + PELVIS Without Contrast EXAM: CT Abdomen and Pelvis Without Intravenous Contrast CLINICAL HISTORY: Possible free air. TECHNIQUE: Axial computed tomography images of the abdomen and pelvis without intravenous contrast. CTDI is 15.41 mGy and DLP is 767.53 mGy-cm. Automated exposure control was utilized for the study. A dose lowering technique was utilized adhering to the principles of ALARA. COMPARISON: No relevant prior studies available. FINDINGS: Lung bases: Airspace opacities of the lower lobes, greater on the right. Pleural space: Small left pleural effusion. Mediastinum: Small hiatal hernia. ABDOMEN: Liver: Unremarkable. Gallbladder and bile ducts: Cholelithiasis. No ductal dilation. Pancreas: Unremarkable. No ductal dilation. Spleen: Unremarkable. No splenomegaly. Adrenals: Unremarkable. No mass. Kidneys and ureters: Simple appearing bilateral renal cysts are present, no follow up is needed. The kidneys are otherwise unremarkable. No hydronephrosis. Stomach and bowel: Diverticulosis. No obstruction. No mucosal thickening. PELVIS: Appendix: Normal appendix. Bladder: Unremarkable. No stones. Reproductive: Prostate gland enlargement with the prostate gland measuring 5.8 x 3.2 x 4.2 cm, with a volume of 39 cc. ABDOMEN and PELVIS: Intraperitoneal space: Unremarkable. No significant fluid collection. No free air. Bones/joints: There are degenerative changes of the spine. No acute fracture. No dislocation. Soft tissues: There is a moderate left fat-containing inguinal hernia. Vasculature: Mild atherosclerosis. Moderate atherosclerosis. No abdominal aortic aneurysm. Lymph nodes: Unremarkable. No enlarged lymph nodes. IMPRESSION: 1. No free air. A portion of transverse colon resides above the liver, if the free air was noted on the right side this could account for that finding. 2. Airspace opacities of the lower lobes, greater on the right. This is concerning for atypical infection and/or aspiration. Small left pleural effusion. 3. Prostate gland enlargement with the prostate gland measuring 5.8 x 3. 2 x 4.2 cm, with a volume of 39 cc. 4. Diverticulosis. 5. Cholelithiasis. Electronically signed by: Trudi Montenegro MD 03/26/24 00:44 AM
--- NOTE | 2024-03-26 12:01 | XRay Report ---
XR chest 1V portable CLINICAL HISTORY: Sepsis. COMPARISON STUDY: Chest CT October 30, 2023. Chest radiograph February 13, 2024. FINDINGS: There is no pneumothorax. Small left pleural effusion is present. There are median sternoto my wires and a left atrial appendage occluder device. Cardiomegaly is unchanged. Pulmonary vascular c ongestion. Bibasilar opacities are present. IMPRESSION: 1. Bibasilar opacities which could reflect atelectasis or pneumonia. Radiographic follow-up to ensure resolution is recommended. 2. Small left pleural effusion. 3. Cardiomegaly with pulmonary vascular congestion. ACT 112: Negative or not required by law. Electronically signed by: Ildefonso Ng M.D. 03/26/2024 9:37 AM
[2024-03-26] MEDS ORDERED: ACETAMINOPHEN 325 MG TAB PO PRN (15:09)
[2024-03-26] MEDS ORDERED: ONDANSETRON INJ 2 MG/ML 2 ML VIAL IV PRN (15:09)
--- NOTE | 2024-03-26 16:09 | Electrocardiogram Report ---
Test Reason : Blood Pressure : / mmHG Vent. Rate : 084 BPM Atrial Rate : 084 BPM P-R Int : 208 ms QRS Dur : 162 ms QT Int : 488 ms P-R-T Axes : 074 -60 025 degrees QTc Int : 576 ms Normal sinus rhythm with sinus arrhythmia Left axis deviation Right bundle branch block Inferior infarct (cited on or before 25-MAR-2024) Abnormal ECG When compared with ECG of 30-OCT-2023 15:24, Questionable change in initial forces of Inferior leads T wave inversion no longer evident in Lateral leads QT has lengthened Confirmed by Giancarlo Lisa ([id number]) on 03/26/2024 4:09:27 PM Referred By: REFERRED SELF Confirmed By:Giancarlo Lisa
[2024-03-26 17:06] LABS: Appearance Urine Clear (Clear); Bacteria Urine Automated 4+ (None Seen); Bilirubin Urine Negative (Negative); Blood Urine Negative (Negative); Color Urine Yellow; Epithelial Cell Urine Auto 0-2 /hpf (0-2); Glucose Urine UA Negative (Negative); Ketones Urine Negative (Negative); Leukocyte Esterase Urine Negative (Negative); Nitrite Urine Negative (Negative); Protein Urine 1+ (Negative); RBC Urine Automated 0-2 /hpf (0-2); Urobilinogen Urine Negative (Negative); WBC Urine Automated 0-5 /hpf (0-5)
[2024-03-26 17:37] LABS: Albumin Globulin Ratio 1.1 (0.9-2); Albumin Level 3.2 gm/dl (3.4-5.0); BUN Creatinine Ratio 12.1 (10-20); Bilirubin,Total 0.9 mg/dl (0.2-1.0); Calcium 8.2 mg/dl (8.6-10.3); Creatinine Clr Calc Pharmacy 20.8 ml/min; Est GFR (African American) 24.9 ml/min; Est GFR (Non-African American) 21.5 ml/min; Globulin 2.8 gm/dl (2.5-4.0); Magnesium 2.1 mg/dl (1.7-2.4); Potassium 2.9 mmol/L (3.5-5.1)
[2024-03-26] MEDS ORDERED: ALBUTEROL HFA 8 GM INHALER INH PRN (18:54)
[2024-03-26] MEDS ORDERED: ACETAMINOPHEN 500 MG TAB PO PRN (19:08)
[2024-03-26] MEDS: guaiFENesin 600 MG TABCR PO SCH (20:48)
[2024-03-26 21:49] LABS: Hematocrit (blood only) 29.8 % (42.0-52.0); Mean Corpuscular Hemoglobin 31.3 pg (25.0-34.0); Mean Corpuscular Hgb Conc 33.6 g/dL (32.0-36.0); Mean Corpuscular Volume 93.1 fL (80.0-100.0); Mean Platelet Volume 8.8 fL (9.4-12.4); Platelet Count 246 K/uL (130-400); RDW Coefficient of Variation 16.7 % (11.5-14.5); RDW Standard Deviation 57.2 fL (36.4-46.3); White Blood Count 7.42 K/ul (4.8-10.8)
--- NOTE | 2024-03-27 06:57 | Hospitalist Progress Note ---
Date of Service March 27, 2024 Assessment & Plan (1) TILA (acute kidney injury): (2) CHF (congestive heart failure): (3) CKD (chronic kidney disease), stage III: Plan #TILA on CKD3 Cr. is improving. Hypotension resolved. Pt not on any diuretic. U/O better, pedal edema improved. monitor I/O and daily weights and daily BMP. #AF s/p On tele Pt had an episode of 45mins of tachy HR@ 130s at 8:30 AM but pt was asymptomatic, resolved spontaneously reverted to normal. Pt not on any anticoagulation. #COPD with emphysema #NSTEMI hypotension on admission. Pt denies any CP/sob.No acute ST/T chnages, Trops trending down. likely demand ischemia. #Anaemia known hx of low Hb on oral meds, HB 10.0, likely due to CKD. no episodes of GI bleeds #Urine Cx+ for Gr negative baci. pt does not have UTI sx, so Abx indicated at this time. #Hypokalemia In the setting of diuretic use. K repleted. repeat AM labs F/u Mag. Admission and Anticipated Discharge Date Admission Date: March 26, 2024 Subjective Pt is a 83 yo M with a past medical history of CHF, AF s/p Mitral clip (not on anticoags), CAD s/p CABG, HTN, HLD, CKD III, COPD who presents to the hospital on 03/25/24 for dizziness and hypotension. This morning pt is AOX3, comfortable ,lying in bed comfortable, denies any dizziness, SoB, chest pain, palpitations. Pt says he walked around independently this morning on the [place]. Nurse reports that pt was tachycardic 130s at about 8:30 this AM pt was lying in the bed at that time , pt denied any related symptoms(Sob/palps/CP/dizziness, as per tele it reverted back to normal - it reverted back to normal after 45mins, now HR is about 68 regular. He denies any dysuria and passing urine normal. Denies any abdominal pain, bowels opened yes terday -normal, no dark stools. No other overnight events per nurse. Review of Systems Review of Systems: Constitutional: denies fever, chills, HEENT: denies congestion, sore throat Cardio: denies chest pain, palpitations Resp: denies shortness of breath, cough GI: denies abdominal pain, nausea, vomiting, constipation, diarrhea : denies pain with urination, change in urinary frequency Neuro: denies new numbness, tingling, weakness Physical Exam Physical Exam: General:Alert and oriented, no acute distress. HEENT: Normocephalic, moist oral mucosa, Cardio: Regular rate and rhythm, no murmur,no pedal edema. JVD+, Resp:Lungs on auscultation mild bibasal crepts+, no wheezes or rhonchi, GI: Soft and nontender, nondistended, bowel sounds active, no suprapubic tenderness. Skin: Warm, pink, dry, Psych: Mood-affect congruence. Results & Data Results & Data Vital Signs (Past 12 Hours) Vital Signs Temp Pulse Pulse Resp BP Pulse Ox O2 Del Method 03/27/24 04:50 36.8 C 81 20 153/74 H 93 Room Air 03/27/24 00:00 74 03/26/24 23:11 36.8 C 80 20 136/74 92 Room Air 03/26/24 19:26 36.6 C 77 20 157/75 H 95 Room Air (2) CHF (congestive heart failure) Heart failure chronicity: acute Heart failure type: unspecified Qualified Code(s): I50.9 - Heart failure, unspecified
[2024-03-27 08:07] LABS: BUN Creatinine Ratio 13.4 (10-20); Calcium 8.3 mg/dl (8.6-10.3); Creatinine Clr Calc Pharmacy 23.2 ml/min; Est GFR (African American) 28.3 ml/min; Est GFR (Non-African American) 24.5 ml/min; Potassium 3.2 mmol/L (3.5-5.1)
[2024-03-27] MEDS: UMECLIDINIUM/VILANTEROL 62.5/25MCG 7 PUFFS/INHALER INH SCH (08:48)
[2024-03-27] MEDS: FLUTICASONE PROPIONATE NA SPR 16 GM BTL SCH (08:48)
[2024-03-27] MEDS: AMIODARONE 200 MG TAB PO SCH (08:48)
[2024-03-27] MEDS: CHOLECALCIFEROL 25 MCG (1000 UNITS) TAB PO SCH (08:48)
[2024-03-27] MEDS: FERROUS SULFATE 325 MG TAB PO SCH (08:48)
[2024-03-27] MEDS: ASPIRIN 81 MG ECTAB PO SCH (08:48)
[2024-03-27] MEDS: TAMSULOSIN HCL 0.4 MG CAP PO SCH (08:49)
[2024-03-27] MEDS: METOPROLOL SUCC 50MG EXT REL TAB PO SCH (08:49)
[2024-03-27] MEDS: ROSUVASTATIN CALCIUM 20 MG TAB PO SCH (08:49)
[2024-03-27] MEDS: PANTOprazole 40 MG TAB PO SCH (08:49)
[2024-03-27 08:58] LABS: Magnesium 2.2 mg/dl (1.7-2.4)
[2024-03-27] MEDS: POTASSIUM CHLORIDE 20 MEQ/15 ML UDC PO STA (09:45)
[2024-03-27] MEDS: POTASSIUM CHLORIDE 20 MEQ/15 ML UDC PO ONE (15:13)
--- NOTE | 2024-03-27 17:51 | Discharge Summary ---
Date of Service March 27, 2024 Admission HPI Per Admitting Provider Serge is an 83M w/ PMH of COPD w/ emphysema, A Fib w/ RVR s/p MAZE procedure, pulmonary HTN, CAD, CKD3, anemia, and BPH who presented for evaluation of hypotension. HPI - Patient presented to ED due to hypotension (80/40s) and lightheadedness at home - He denies any chest pain, new dyspnea, abdominal pain, headaches, or bowel/bladder changes - He notes that over the last weeks his legs have been more edematous than baseline - He subsequently increased his Bumex from 2 mg PO daily to 4 mg PO daily and has been taking this for 4 days - While the patinet's lower extremity swelling has improved significantly, he has been feeling more lightheaded and fatigued over the last 24-48 hours - Patient has not experienced similar symptoms before, but does note that he has been admitted for CHF exacerbations in the past - Patient notes a history of pleural effusions which required drainage 3 months ago, but since the procedure his baseline dyspnea is much improved - Patient denies fevers, chills, rashes, or URI symptoms - He is accompanied at bedside by his and daughter - He is independent of his ADLs at home and has no home O2 requirement - Other than increasing diuretic dosage, no other recent medication changes Admission Exam Per Admitting Provider Gen: NAD, alert, interactive HEENT: Supple, no LAD, no thyromegaly, no JVD Resp:Non-labored, no wheezing/rhonchi/rales, diminished bases, otherwise CTAB CV:RRR, normal S1/S2, no M/R/G Abd: Soft, non-distended, no TTP, normoactive bowels, no masses Extr: 2+ dp bilaterally, 1+ pitting lower extremity edema bilaterally Skin: No rashes lesions or erythema Principal Diagnosis Hypotension and TILA in the setting of diuretic use. Discharge Exam General:Alert and oriented, no acute distress. HEENT: Normocephalic, moist oral mucosa, Cardio: Regular rate and rhythm, no murmur,no pedal edema. Resp:Lungs on auscultation mild bibasal crepts+, no wheezes or rhonchi, GI: Soft and nontender, nondistended, bowel sounds active, no suprapubic tenderness. Skin: Warm, pink, dry, Psych: Mood-affect congruence. Discharge Data Allergies Allergy/AdvReac Type Severity Reaction Status Date / Time No Known Allergies Allergy Verified 03/26/24 00:05 Consultations 03/25/24 23:31 ED Decision to Admit Stat Ordered Studies 03/25/24 22:37 CT abd pelvis wo con Stat Hospital Course (1) TILA (acute kidney injury): (2) CHF (congestive heart failure): (3) CKD (chronic kidney disease), stage III: Plan #TILA on CKD3, improved. - baseline Cr appears to be 1.6 -1.7, Cr peak 2.8 on admission and it improved to 2.38 prior to d/c. - TILA was in the setting of hypotension due to iver use of diuretics. Hypotension resolved and TILA is improving and advised to f/u with PCP. #Urine Cx+ for Gr negative baci. pt does not have UTI sx, so Abx not indicated at this time. #Elevated Trops in the setting of hypotension - Most likely elevation due to hypotension Vs demand ischemia Vs TILA or mixed. Peak was 40. #Anaemia known hx of low Hb on oral meds, HB 10.0, likely due to CKD. no episodes of GI bleeds -recommend f/u with PCP. . Total Time Total Time Spent Total Time Spent (In Minutes): <30 Discharge Plan Discharge Items Patient Disposition: Home - Self-Care Reason For Visit: HYPOTENSTION, DIZZINESS WHEN STANDING Discharge Diagnosis: Dehydration due to diuetics Activity: Resume your previous activity Non-emergency contact: Primary Care Provider and Automation Control Technician Call non-emergency contact if: you have any medication questions Follow-up/Referrals: Jess Montgomery DO [Primary Care Provider] - Diet: Low Sodium (2gm) Addtl Attending Provider Instructions: Go back to 2mg of bumax as you were before and dont take any additional before speaking to PCP/ cardiology team. Pending Studies at Discharge: No Stand-Alone Forms: My [facility] InboxQ Medications and DC Order Prescriptions: Continued potassium chloride [Klor-Con M20] 20 mEq tablet,ER particles/crystals 20 meq PO BID Hold Instructions: Hold unless Dr Puente asks you to resume omeprazole 40 mg capsule,delayed release(DR/EC) 40 mg PO DAILY metoprolol succinate 100 mg tablet extended release 24 hr 100 mg PO QAM acetaminophen 500 mg capsule 1,000 mg PO Q6H PRN (Reason: Pain) rosuvastatin 20 mg tablet 20 mg PO DAILY albuterol sulfate [Ventolin HFA] 90 mcg/actuation HFA aerosol inhaler 2 inh inhalation Q6H PRN (Reason: shortness of breath or wheezing or cough) Qty: 8.5 4RF Rx Instructions: use with spacer device (DME) Flutter Valve Device See Rx Instructions .MEDSUPPLY Qty: 1 0RF Rx Instructions: Use it every 6 hours when awake. aspirin [Adult Low Dose Aspirin] 81 mg tablet,delayed release (DR/EC) 81 mg PO DAILY Entresto 97-103 mg tablet 1 tab PO BID tamsulosin [Flomax] 0.4 mg capsule 0.4 mg PO DAILY Qty: 90 3RF Stiolto Respimat 2.5-2.5 mcg/actuation mist 2 puff inhalation DAILY Qty: 4 5RF bumetanide 1 mg tablet 2 mg PO BID cholecalciferol (vitamin D3) 25 mcg (1,000 unit) capsule 25 mcg PO QAM ascorbic acid (vitamin C) 500 mg capsule 500 mg PO DAILY Flonase Sensimist 27.5 mcg/actuation spray,suspension 1 spray intranasal DAILY Rx Instructions: into each nostril (DME) Flutter Valve Device See Rx Instructions .MEDSUPPLY Qty: 1 0RF Rx Instructions: Use it every 6 hours when awake. amiodarone 200 mg tablet 200 mg PO DAILY ferrous sulfate 325 mg (65 mg iron) tablet 325 mg PO DAILY albuterol sulfate 2.5 mg /3 mL (0.083 %) solution for nebulization 2.5 mg continuous nebulization Q6H PRN (Reason: Shortness Of Breath Or Wheezing) guaifenesin [Mucinex] 600 mg Tablet Extended Release 12hr 600 mg PO BID vitamin B complex Tablet 1 tab PO DAILY Discharge Orders: Discharge Order (Routine); Ordered 03/27/24 Ordered By: Gibson Linn Admission Data Admit Date/Time: 03/26/24 01:30 Attending Provider: Arcadio Arevalo Admit Provider: Todd Shannon Primary Care Provider: Jess Montgomery Other Providers: Corona Hurt Other Interventions: Discharge Summary Assessment (RN) Last Done: 03/27/24 15:24 Supervising Physician Co-Signing Physician Notes I personally examined the patient and verified all jacob points of history and exam, discussed case, and agree with decision making with Dr Gonzalo Linn Continues to feel better. Notes that he had leg swelling but no shortness of breath whenever he doubled his Bumex. Feels up to going home. Vitals noted, in general he is awake and alert pleasant no distress. HEENT normocephalic atraumatic mucous membranes moist. Breathing unlabored no accessory muscle use good effort. Skin shows no rashes no pallor or icterus. Neuro without focal deficits. Hypotension/TILA on CKDappears to have been due to overdiuresisthis in turn appears to have been because he self increased his Bumex for what sounds to been venous stasis edema. Extensive discussion on the difference between venous stasis and CHF, as well as discussion on how diuretics for venous stasis will often affect a significant degree of dehydration for often very little improvement in the venous stasis swelling. Discussed that movement/muscle contraction, elevation, compression are far better venous stasis management. Discussed that CHF exacerbations will generally come with some degree of dyspnea. Home on prior home dosing of Bumex, close PCP and cardiology follow- up, encouraged to call PCP or cardiology with any concern about fluid retention/any concern about breathing, any concern about change in Lasix dosing. Resident Activity Tracking Resident Involvement: Resident Care Provided Care Provided: Adult Hospital Medicine
--- NOTE | 2024-03-27 19:04 | Billing Data ---
Date of Service March 27, 2024 Coding Level of Care Code 23747 IN/OBS DISCH 30 MIN/LESS
--- NOTE | 2024-03-28 23:47 | Billing Data ---
Date of Service March 28, 2024 Coding Level of Care Code 76134 INT INP/OBS CARE
== END 2024-03-27 16:07 | disposition home or self-care (01) ==
LOC: 2N 21:59 → ED 21:59 → 2N 23:00

== ENCOUNTER 2024-06-11 09:03 | Inpatient (IN) ==
--- NOTE | 2024-06-11 09:51 | Emergency Department Note ---
History of Present Illness General Chief complaint: Abnormal Labs/Diagnostic Testing Stated complaint: SEEN AT [facility], LOW HEMOGLOBIN Time Seen by Provider: 06/11/24 09:37 Source: patient, family ( was at the bedside), RN notes reviewed and old records reviewed (05/25/24-outpatient family practice visit for weakness) Mode of arrival: ambulatory Limitations: no limitations History of Present Illness This patient 84-year-old male, sent over after he had outpatient labs done on Friday which apparently showed a hemoglobin of 7.5 he says he normally runs about 10. He says he feels asymptomatic and feels fine. He is on chronic iron and he is not sure if his stool has been dark or not as it is always dark. No visible blood or maroon stool. He does not have any chest pain or shortness of breath. No fall or trauma no abdominal pain. He is on Eliquis and last took his dose this morning before arrival. He did have cardiac surgery for a heart valve as well as CABG in the last year. No fever or chills. No focal numbness or weakness. No nausea or vomiting or GI symptoms. Home Medications Medication Instructions Recorded Confirmed Type acetaminophen 500 mg capsule 1,000 mg PO Q6H PRN Pain 03/20/23 06/11/24 History rosuvastatin 20 mg tablet 20 mg PO DAILY 03/20/23 06/11/24 History omeprazole 40 mg capsule,delayed 40 mg PO DAILY 09/29/23 06/11/24 History release albuterol sulfate 2.5 mg/3 mL 2.5 mg continuous nebulization Q6H 10/30/23 06/11/24 History (0.083 %) solution for nebulization PRN Shortness Of Breath Or Wheezing guaifenesin 600 mg tablet, 600 mg PO BID PRN Congestion 10/30/23 06/11/24 History extended release 12 hr (Mucinex) Flutter Valve #1 ea 01/05/24 06/03/24 Rx albuterol sulfate 90 mcg/actuation 2 inh inhalation Q6H PRN shortness 01/05/24 06/11/24 Rx aerosol inhaler (Ventolin HFA) of breath or wheezing or cough #8.5 grams aspirin 81 mg tablet,delayed 81 mg PO DAILY 02/03/24 06/11/24 History release (Adult Low Dose Aspirin) sacubitril 97 mg-valsartan 103 mg 1 tab PO BID 02/03/24 06/11/24 History tablet (Entresto) tamsulosin 0.4 mg capsule (Flomax) 0.4 mg PO DAILY #90 caps 02/03/24 06/11/24 Rx Flutter Valve #1 ea 02/09/24 06/03/24 Rx ascorbic acid (vitamin C) 500 mg 500 mg PO DAILY 02/09/24 06/11/24 History capsule cholecalciferol (vitamin D3) 25 25 mcg PO QAM 02/09/24 06/11/24 History mcg (1,000 unit) capsule fluticasone furoate 27.5 1 spray intranasal DAILY PRN 02/09/24 06/11/24 History mcg/actuation nasal ALLERGIES spray,suspension (Flonase Sensimist) tiotropium 2.5 mcg-olodaterol 2.5 2 puff inhalation DAILY #4 grams 02/09/24 06/11/24 Rx mcg/actuation mist for inhalation (Stiolto Respimat) ferrous sulfate 325 mg (65 mg 325 mg PO DAILY 03/18/24 06/11/24 History iron) tablet apixaban 2.5 mg tablet (Eliquis) 2.5 mg PO BID 05/26/24 06/11/24 History bumetanide 1 mg tablet 2 mg PO DAILY 05/26/24 06/11/24 History calcitriol 0.25 mcg capsule 0.25 mcg PO .COMPLEX #36 caps 05/26/24 06/11/24 Rx amiodarone 100 mg tablet 100 mg PO DAILY 06/11/24 06/11/24 History cilostazol 50 mg tablet 50 mg PO BID 06/11/24 06/11/24 History metoprolol succinate 50 mg 50 mg PO BID 06/11/24 06/11/24 History tablet,extended release 24 hr potassium chloride 20 mEq/15 mL 20 meq PO BID 06/11/24 06/11/24 History oral liquid trazodone 50 mg tablet 50 mg PO DAILY 06/11/24 06/11/24 History Allergies Allergy/AdvReac Type Severity Reaction Status Date / Time No Known Allergies Allergy Verified 03/26/24 00:05 Past Med/Surg History Problem List (Updated 06/14/24 @ 11:16 by Marlo Whitfield MD) Chronic renal insufficiency (Acute) CHF (congestive heart failure) (Acute) History of atrial fibrillation (Acute) Current use of correction anticoagulation (Acute) Anemia (Acute) Acute GI bleeding (Acute) Acute renal failure superimposed on stage 3 chronic kidney disease Blood loss anemia Gastrointestinal bleed Osteoporosis Dizziness (Acute) Enlarged prostate Elevated troponin (Acute) Anemia (Acute) Pedal edema (Acute) SOB (shortness of breath) (Acute) Hypoxia (Acute) CKD (chronic kidney disease), stage III Follow[address] Morley Exertional shortness of breath Acute respiratory failure with hypoxia Pulmonary hypertension S/P Maze operation for atrial fibrillation [facility] [address] - 02/2023. Atrial fibrillation with rapid ventricular response (Acute) 10/2022 COPD with emphysema Medical History NSTEMI (non-ST elevated myocardial infarction) Hyperlipidemia Hypertension TILA (acute kidney injury) Dysphagia Insomnia Right heart failure with reduced right ventricular function Acute exacerbation of chronic obstructive pulmonary disease PAF (paroxysmal atrial fibrillation) Acute respiratory failure with hypoxia Ex-smoker Pleural effusion Pneumonia Chronic diastolic CHF (congestive heart failure) Current smoker CAD (coronary artery disease) Myocardial infarct 1997 - heavy chest, left arm pain - Went to [facility] - flown to [facility] - blockage of "back of heart" - heart cath - no stent placement - Follows Dr. Puente Hypertension Surgical History History of coronary artery bypass graft S/P CABG (coronary artery bypass graft) 3 vessel - [facility] [address], 02/2023. Hx of cataract extraction Rt. Hx of cardiac cath 1997 d/t to [place] - no stents placed - Follows Dr. Puente History of colonoscopy Hx of inguinal hernia repair Hx of repair of left rotator cuff x2 Family History Father Family history of diabetes mellitus CHF (congestive heart failure) Black lung disease Mother , had CABG Family history of diabetes mellitus Coronary heart disease Myocardial infarction Dementia Social History Smoking Status: Former smoker Tobacco Type: Cigarettes Age Started Using Tobacco: 22; Age Quit Using Tobacco: 83; packs per day: 2; Cigarettes Per Day: 2 packs; Second Hand Exposure: No; Do You Dip or Chew Tobacco: No; Tobacco Cessation Education Requested by Patient: No Hx Alcohol Use: Yes Alcohol type: beer Hx Substance Use: No Preferred Language: Luxembourgish Communication Ability: Effective Visual Impairment: Limited Hearing Ability: Use of Hearing Aid Gasket Maker Required: No Beliefs That Will Affect Care: None marital status: Current Living Situation: Spouse Current Living Situation Comment: From home with current occupational status: retired current occupation: Retired How many Children do You have: 2 Other Information That Helps Us Care for You: No 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; 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 Feels Safe at Home: Yes Safety Concerns: Feels Safe At This Time Diet: regular caffeine: Yes (1 soda daily) Physical Activity Frequency: Does not Exercise Do you think of yourself as: straight/heterosexual Gender Identity: Male Assistive Devices: Cane, Glasses and Hearing Aid - Bilateral Assistive Devices Comment: cane and glasses with patient Review of Systems A total of 10 systems reviewed and were otherwise negative Physical Exam Vital Signs Vital Signs - 24 hr 06/11/24 09:18 06/11/24 10:05 06/11/24 10:05 Temperature 36.3 C L Temperature Source Oral Pulse Rate 63 Pulse Rate [Apical] 60 Pulse Rhythm Regular Pulse Strength Normal Respiratory Rate 20 13 Respiratory Effort / Characteristics Non-Labored Spontaneous Non-Labored Respiratory Depth Normal Normal Respiratory Pattern Regular Blood Pressure 135/74 Blood Pressure [Left Arm] 132/71 Blood Pressure Mean 94 Blood Pressure Mean [Left Arm] 91 Pulse Oximetry 98 98 98 Oxygen Delivery Method Room Air Room Air Room Air Sepsis Recent Fever Within 48 Hours No Sepsis New/Unexplained Change in Mental Status N/A Sepsis Action Taken by Nursing No Action Required 06/11/24 10:27 06/11/24 11:06 06/11/24 12:03 Temperature Temperature Source Pulse Rate 58 L Pulse Rate [Apical] 68 60 Pulse Rhythm Pulse Strength Respiratory Rate 15 20 Respiratory Effort / Characteristics Non-Labored Non-Labored Respiratory Depth Normal Normal Respiratory Pattern Regular Regular Blood Pressure Blood Pressure [Left Arm] 143/61 H 138/63 Blood Pressure Mean Blood Pressure Mean [Left Arm] 88 88 Pulse Oximetry 98 95 Oxygen Delivery Method Room Air Room Air Sepsis Recent Fever Within 48 Hours Sepsis New/Unexplained Change in Mental Status Sepsis Action Taken by Nursing General: Well developed well nourished [id number] older male who is asymptomatic and in no acute distress, breathing comfortably on room air. Normal speech HEENT: Normal cephalic atraumatic. Pupils are equal round and reactive to light. Extraocular movements are intact. Oropharynx is pink with moist mucous membranes. No swelling of the mouth lips or tongue. Neck: Supple with a midline trachea. No meningeal signs or stiffness, no JVD or bruits. No Stridor. Chest: Clear to auscultation bilaterally. No wheezes or rhonchi. No increased work of breathing. Heart: Regular rate and rhythm without murmurs or gallops. Abdomen: Soft nontender, nondistended without rebound guarding or rigidity. Rectal: Black stool which was guaiac positive Extremities: No cyanosis clubbing. Trace to 1+ bilateral lower extremity edema which the patient says is baseline no calf tenderness or assymetry Spine/Back. Non tender to palpation. No CVA tenderness Skin: Good turgor without rashes. Neurologic exam: Cranial nerves two through 12 are intact. Motor and sensation are intact and symmetrical throughout. Course Administered Medications Amiodarone HCl (Amiodarone 200 Mg Tab) 100 mg PO DAILY [facility] Stop: 07/12/24 08:59 Last Admin: 06/14/24 08:33 Dose: 100 mg Documented By: Admin: 06/13/24 09:02 Dose: 100 mg Documented By: Admin: 06/12/24 08:16 Dose: 100 mg Documented By: RRR Bumetanide (Bumetanide 1 Mg Tab) 2 mg PO DAILY [facility]RIT Stop: 07/12/24 08:59 Last Admin: 06/14/24 08:34 Dose: 2 mg Documented By: Admin: 06/13/24 09:02 Dose: 2 mg Documented By: Admin: 06/12/24 08:16 Dose: 2 mg Documented By: RRR Metoprolol Succinate (Metoprolol Succ 50mg Ext Rel Tab) 50 mg PO BID AMRIT Stop: 07/11/24 20:59 Last Admin: 06/14/24 08:35 Dose: 50 mg Documented By: Admin: 06/13/24 21:08 Dose: Not Given Documented By: Admin: 06/13/24 09:02 Dose: 50 mg Documented By: Admin: 06/12/24 20:28 Dose: 50 mg Documented By: Admin: 06/12/24 08:17 Dose: 50 mg Documented By: Admin: 06/11/24 20:37 Dose: Not Given Documented By: VERITO Potassium Chloride (Potassium Chloride Crtab 20 Meq Tabcr) 20 meq PO BID AMRIT Stop: 07/11/24 20:59 Last Admin: 06/14/24 08:32 Dose: 20 meq Documented By: Admin: 06/13/24 21:06 Dose: 20 meq Documented By: Admin: 06/13/24 09:11 Dose: 20 meq Documented By: Admin: 06/12/24 20:28 Dose: 20 meq Documented By: Admin: 06/12/24 08:17 Dose: 20 meq Documented By: Admin: 06/11/24 20:39 Dose: 20 meq Documented By: VERITO Sacubitril/Valsartan (Valsartan/Sacubitril 103/97mg Tab) 1 tab PO BID MARIT Stop: 07/11/24 20:59 Last Admin: 06/14/24 08:33 Dose: 1 tab Documented By: Admin: 06/13/24 21:07 Dose: 1 tab Documented By: Admin: 06/13/24 09:03 Dose: 1 tab Documented By: Admin: 06/12/24 20:28 Dose: 1 tab Documented By: Admin: 06/12/24 08:18 Dose: 1 tab Documented By: Admin: 06/11/24 20:37 Dose: 1 tab Documented By: VERITO Discontinued Medications Bisacodyl (Bisacodyl 5 Mg Tabec) 5 mg PO NOW ONE Stop: 06/14/24 06:39 Last Admin: 06/14/24 08:33 Dose: 5 mg Documented By: CATHY Bisacodyl (Bisacodyl 5 Mg Tabec) 15 mg PO ONCE ONE Stop: 06/14/24 09:07 Last Admin: 06/14/24 10:33 Dose: 15 mg Documented By: CATHY Pantoprazole Sodium 80 mg/ (Dextrose) 120 mls @ 480 mls/hr IV ONE STA Stop: 06/11/24 11:18 Last Infusion: 06/11/24 12:42 Dose: Infused Documented By: Admin: 06/11/24 12:02 Dose: 480 mls/hr Documented By: BONY Pantoprazole Sodium 40 mg/ (Syringe) 10 mls @ 5 mls/min IV BID AMRIT Stop: 07/11/24 20:59 Last Admin: 06/14/24 08:33 Dose: 5 mls/min Documented By: Admin: 06/13/24 21:08 Dose: 5 mls/min Documented By: Admin: 06/13/24 09:02 Dose: 5 mls/min Documented By: Admin: 06/12/24 20:29 Dose: 5 mls/min Documented By: Admin: 06/12/24 08:17 Dose: 5 mls/min Documented By: Admin: 06/11/24 21:38 Dose: 5 mls/min Documented By: VERITO Potassium Chloride (Potassium Chloride Crtab 20 Meq Tabcr) 40 meq PO NOW STA Stop: 06/11/24 17:11 Last Admin: 06/11/24 17:37 Dose: 40 meq Documented By: SHANNA Psyllium Hydrophilic Mucilloid (Psyllium Or Guar Gum Fiber 4gm Packet) 4 gm PO BID AMRIT Stop: 07/12/24 20:59 Last Admin: 06/14/24 08:33 Dose: 4 gm Documented By: Admin: 06/13/24 21:06 Dose: 4 gm Documented By: Admin: 06/13/24 09:03 Dose: 4 gm Documented By: Admin: 06/12/24 20:29 Dose: 4 gm Documented By: VERITO Medical Decision Making Differential Diagnosis Anemia, GI bleed, acute coronary syndrome, CHF, electrolyte or metabolic abnormality Medical Records Attestation: I reviewed the patient's medical records. Home Medications Current Medication List: was personally reviewed by me Laboratory Data Attestation: I reviewed the patient's lab results. 06/14/24 06:06 06/14/24 06:06 Lab Results 06/11/24 06/11/24 Range/Units 09:52 11:55 WBC 7.03 (4.8-10.8) K/ul RBC 2.26 L (4.70-6.10) M/uL Hgb 7.3 L (14.0-18.0) g/dl Hct 22.9 L (42.0-52.0) % MCV 101.3 H (80.0-100.0) fL MCH 32.3 (25.0-34.0) pg MCHC 31.9 L (32.0-36.0) g/dL RDW Std Deviation 59.7 H (36.4-46.3) fL RDW Coeff of Jolene 16.3 H (11.5-14.5) % Plt Count 254 (130-400) K/uL MPV 8.4 L (9.4-12.4) fL Immature Gran % (Auto) 0.4 % Neut % (Auto) 82.6 % Lymph % (Auto) 8.7 % [place] % (Auto) 6.0 % Eos % (Auto) 2.0 % Baso % (Auto) 0.3 % Reticulocyte % (Auto) 3.68 H (0.50-2.00) % Neut # (Auto) 5.81 (1.40-6.50) K/uL Lymph # (Auto) 0.61 L (1.20-3.40) K/uL [place] # (Auto) 0.42 (0.11-0.59) K/uL Eos # (Auto) 0.14 (0.00-0.50) K/uL Baso # (Auto) 0.02 (0.00-0.20) K/uL Reticulocyte # 0.080 (0.020-0.100) 10^6/uL Immature Gran # (Auto) 0.03 (0.01-0.20) K/uL Polychromasia 1+ Ovalocytes 1+ Acanthocytes (Spur) 1+ PT 12.1 H (9.0-12.0) Seconds INR 1.1 (0.9-1.1) APTT 30 (21-31) Seconds PTT Ratio 1.1 Sodium 139 (136-145) mmol/L Potassium 3.2 L (3.5-5.1) mmol/L Chloride 103 (98-107) mmol/L Carbon Dioxide 30 (21-32) mmol/L Anion Gap 6 (3-11) BUN 35 H (6-23) mg/dl Creatinine 1.91 H (0.6-1.4) mg/dl Est Cr Clr Drug Dosing 29.0 ml/min eGFR 34.35 BUN/Creatinine Ratio 18.3 (10-20) Glucose 128 H (70-99(Fasting)) mg/dl Calcium 8.5 L (8.6-10.3) mg/dl Iron 86 (35-175) mcg/dl TIBC 247 L (250-450) mcg/dl Unsaturated IBC 161 (155-355) mcg/dl Transferrin % Sat 35 (20-50) % Ferritin 72.5 (8-388) ng/ml Total Bilirubin 0.7 (0.2-1.0) mg/dl AST 12 L (13-39) U/L ALT 15 (7-52) U/L Alkaline Phosphatase 135 H (34-104) U/L Lactate Dehydrogenase 157 (86-244) U/L Troponin I High Sens 17.1 (0-20) pg/ml B-Natriuretic Peptide 1321 H (0-100) pg/ml Total Protein 6.0 (6.0-8.3) gm/dl Albumin 3.3 L (3.4-5.0) gm/dl Globulin 2.7 (2.5-4.0) gm/dl Albumin/Globulin Ratio 1.2 (0.9-2) Lipase 21 (11-82) U/L Vitamin B12 1255 H (180-914) pg/ml Folate 10.25 (>5.38) ng/ml Blood Type AB Negative Blood Type Recheck AB Negative Antibody Screen NEGATIVE Crossmatch See Detail Imaging Data Attestation: I personally reviewed and interpreted this imaging study as follows: My Impression: Chest x-raycardiomegaly and there may be some congestive heart failure component as well. Radiologist's Impression: Chest X-Ray 06/11/24 09:45 XR chest 1V portable CLINICAL HISTORY: Chest pain, nonspecific COMPARISON STUDY: Chest radiograph March 25, 2024. Chest CT October 30, 2023. FINDINGS: Lucency under the right hemidiaphragm was shown on prior exam and likely reflects gas within bowel loops. There are median sternotomy wires, mediastinal surgical clips and a left atrial appendage occluder device. Radiodensities projecting of the mitral valve are unchanged. Mild interstitial thickening persists. There are persistent patchy bibasilar opacities. No pneumothorax or pleural effusion. IMPRESSION: 1. Cardiomegaly with mild interstitial pulmonary edema. 2. Patchy bibasilar opacities which favor atelectasis. Pneumonia could appear similar. ACT 112: Negative or not required by law. Electronically signed by: Ildefonso Ng M.D. 06/11/2024 10:18 AM ECG Data Attestation: I personally reviewed and interpreted this ECG as follows: Indication: + weakness Rate (beats per minute): 61 Rhythm: + normal sinus ECG Intervals/blocks: + Left anterior fascicular block and + Right Bundle branch block ECG [place]: + Normal ECG ST segments: + Normal ST segments ECG Findings: no PACs or no PVCs Comparison ECG Date: from (02/24/24) Change: no significant change MDM Narrative This patient comes in as described above. He was seen on room B9. He was placed on a end finder twisting department. IV access established and multiple blood testing was obtained. He apparently had outpatient labs done 2 days ago with a low hemoglobin 7.5, he is asymptomatic with this. He was typed and screened EKG was obtained as well as chest x-ray and labs. His blood work did come back with a hemoglobin in the 7 range as well. I did do a rectal exam and it does show guaiac positive stool. Given these 2 findings I do suspect that he has a subacute GI bleed his hemoglobin is down very low and given his cardiac history will likely need to be transfused. I did order an 80 mg IV Protonix bolus he has been typed and crossed for blood and I have discussed the case with the [facility] hospitalist Dr. Polk who will see the patient in consultation for admission/observation. 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 ED Provider: Marlo Whitfield Discharge Problem: Acute GI bleeding, Anemia, Current use of correction anticoagulation, History of atrial fibrillation, CHF (congestive heart failure), Chronic renal insufficiency Patient Disposition: Admitted As Inpatient Discharge Instructions Interventions: ED Discharge Assessment Last Done: 06/11/24 12:58 Discharge Problem: Anemia Qualifiers: Anemia type: iron deficiency Iron deficiency anemia type: unspecified iron deficiency Qualified Code(s): D50.9 - Iron deficiency anemia, unspecified CHF (congestive heart failure) Qualifiers: Heart failure type: unspecified Heart failure chronicity: unspecified Qualified Code(s): I50.9 - Heart failure, unspecified Chronic renal insufficiency Qualifiers: Chronic kidney disease stage: unspecified stage Qualified Code(s): N18.9 - Chronic kidney disease, unspecified
[2024-06-11 10:08] LABS: Basophils # (auto) 0.02 K/uL (0.00-0.20); Basophils % (auto) 0.3 %; Eosinophils # (auto) 0.14 K/uL (0.00-0.50); Hematocrit (blood only) 22.9 % (42.0-52.0); Hemoglobin 7.3 g/dl (14.0-18.0); Immature Granulocytes # (auto) 0.03 K/uL (0.01-0.20); Immature Granulocytes % (auto) 0.4 %; Lymphocytes # (auto) 0.61 K/uL (1.20-3.40); Lymphocytes % (auto) 8.7 %; Mean Corpuscular Hemoglobin 32.3 pg (25.0-34.0); Mean Corpuscular Hgb Conc 31.9 g/dL (32.0-36.0); Mean Corpuscular Volume 101.3 fL (80.0-100.0); Mean Platelet Volume 8.4 fL (9.4-12.4); Monocytes # (auto) 0.42 K/uL (0.11-0.59); Neutrophils # (auto) 5.81 K/uL (1.40-6.50); Neutrophils % (auto) 82.6 %; Platelet Count 254 K/uL (130-400); RDW Coefficient of Variation 16.3 % (11.5-14.5); RDW Standard Deviation 59.7 fL (36.4-46.3); Red Blood Count 2.26 M/uL (4.70-6.10); White Blood Count 7.03 K/ul (4.8-10.8)
--- NOTE | 2024-06-11 10:21 | XRay Report ---
XR chest 1V portable CLINICAL HISTORY: Chest pain, nonspecific COMPARISON STUDY: Chest radiograph March 25, 2024. Chest CT October 30, 2023. FINDINGS: Lucency under the right hemidiaphragm was shown on prior exam and likely reflects gas withi n bowel loops. There are median sternotomy wires, mediastinal surgical clips and a left atrial append age occluder device. Radiodensities projecting of the mitral valve are unchanged. Mild interstitial t hickening persists. There are persistent patchy bibasilar opacities. No pneumothorax or pleural effus ion. IMPRESSION: 1. Cardiomegaly with mild interstitial pulmonary edema. 2. Patchy bibasilar opacities which favor atelectasis. Pneumonia could appear similar. ACT 112: Negative or not required by law. Electronically signed by: Ildefonso Ng M.D. 06/11/2024 10:18 AM
[2024-06-11 10:26] LABS: Albumin Globulin Ratio 1.2 (0.9-2); Albumin Level 3.3 gm/dl (3.4-5.0); BUN Creatinine Ratio 18.3 (10-20); Bilirubin,Total 0.7 mg/dl (0.2-1.0); Calcium 8.5 mg/dl (8.6-10.3); Globulin 2.7 gm/dl (2.5-4.0); Potassium 3.2 mmol/L (3.5-5.1)
[2024-06-11 10:27] LABS: Acanthocytes 1+; Ovalocytes 1+; Polychromasia 1+
[2024-06-11 10:33] LABS: Troponin I High Sensitivity 17.1 pg/ml (0-20)
[2024-06-11 10:38] LABS: INR 1.1 (0.9-1.1); Partial Thromboplastin Ratio 1.1; Partial Thromboplastin Time 30 Seconds (21-31); Prothrombin Time 12.1 Seconds (9.0-12.0)
[2024-06-11] MEDS ORDERED: SODIUM CHLORIDE 0.9% 250 ML IV PRN ×2 (11:04→17:09)
--- NOTE | 2024-06-11 11:28 | History & Physical Report ---
Date of Service June 11, 2024 Assessment & Plan (1) Gastrointestinal bleed: Plan: Suspected upper GI bleed. Possibly acute with recently starting cilostazol. Will discontinue this. Holding Eliquis and aspirin in addition pending serial Hgb measurements. NPO pending serial Hgb measurements, avoiding IV fluids due to CHF Hx Consult gastroenterology (2) Blood loss anemia: Plan: Asymptomatic therefore transfuse < 7, 2 units on hold on admission and blood consent signed. Ferritin, iron studies, B12, folate, reticulocyte count, LDH for workup of alternative cause (3) PAF (paroxysmal atrial fibrillation): Plan: Currently normal sinus rhythm, holding Eliquis, continue amiodarone and metoprolol succinate (4) S/P Maze operation for atrial fibrillation: Plan Congestive heart failure - chronic with preserved ejection fraction, continue Entresto, metoprolol succinate, Bumex 2 mg p.o. VTE prophylaxis - SCDs Diet - NPO until serial Hgb measurements Disposition - admit to med/tele Admission and Anticipated Discharge Date Admission Date: June 11, 2024 History of Present Illness Chief Complaint: Anemia on outpatient labs Primary Care Provider: Jess Montgomery DO Serge Perez is an 84 year old male how presents to the ER due to low hemogl obin on outpatient labs. The patient reports feeling his normal self with no chest pain, dizziness, shortness of breath. His stools are black but no different than usual on his iron supplementation. He was noted to have heme positive stools in the emergency room. He denies any NSAID use but does notes he was recently started on cilostazol for pains in his legs over the last 2 days. He denies current reflux but reports a history of this which is under control on omeprazole daily which she has taken for the last 7 to 8 months. He has never had an endoscopy. He thinks he had a colonoscopy 20 years ago with unknown results at that time. Allergies Allergy/AdvReac Type Severity Reaction Status Date / Time No Known Allergies Allergy Verified 03/26/24 00:05 Home Medications Medication Instructions Recorded Confirmed Type acetaminophen 500 mg capsule 1,000 mg PO Q6H PRN Pain 03/20/23 06/11/24 History rosuvastatin 20 mg tablet 20 mg PO DAILY 03/20/23 06/11/24 History omeprazole 40 mg capsule,delayed 40 mg PO DAILY 09/29/23 06/11/24 History release albuterol sulfate 2.5 mg/3 mL 2.5 mg continuous nebulization Q6H 10/30/23 06/11/24 History (0.083 %) solution for nebulization PRN Shortness Of Breath Or Wheezing guaifenesin 600 mg tablet, 600 mg PO BID PRN Congestion 10/30/23 06/11/24 History extended release 12 hr (Mucinex) Flutter Valve #1 ea 01/05/24 06/03/24 Rx albuterol sulfate 90 mcg/actuation 2 inh inhalation Q6H PRN shortness 01/05/24 06/11/24 Rx aerosol inhaler (Ventolin HFA) of breath or wheezing or cough #8.5 grams aspirin 81 mg tablet,delayed 81 mg PO DAILY 02/03/24 06/11/24 History release (Adult Low Dose Aspirin) sacubitril 97 mg-valsartan 103 mg 1 tab PO BID 02/03/24 06/11/24 History tablet (Entresto) tamsulosin 0.4 mg capsule (Flomax) 0.4 mg PO DAILY #90 caps 02/03/24 06/11/24 Rx Flutter Valve #1 ea 02/09/24 06/03/24 Rx ascorbic acid (vitamin C) 500 mg 500 mg PO DAILY 02/09/24 06/11/24 History capsule cholecalciferol (vitamin D3) 25 25 mcg PO QAM 02/09/24 06/11/24 History mcg (1,000 unit) capsule fluticasone furoate 27.5 1 spray intranasal DAILY PRN 02/09/24 06/11/24 History mcg/actuation nasal ALLERGIES spray,suspension (Flonase Sensimist) tiotropium 2.5 mcg-olodaterol 2.5 2 puff inhalation DAILY #4 grams 02/09/24 06/11/24 Rx mcg/actuation mist for inhalation (Stiolto Respimat) ferrous sulfate 325 mg (65 mg 325 mg PO DAILY 03/18/24 06/11/24 History iron) tablet apixaban 2.5 mg tablet (Eliquis) 2.5 mg PO BID 05/26/24 06/11/24 History bumetanide 1 mg tablet 2 mg PO DAILY 05/26/24 06/11/24 History calcitriol 0.25 mcg capsule 0.25 mcg PO .COMPLEX #36 caps 05/26/24 06/11/24 Rx amiodarone 100 mg tablet 100 mg PO DAILY 06/11/24 06/11/24 History cilostazol 50 mg tablet 50 mg PO BID 06/11/24 06/11/24 History metoprolol succinate 50 mg 50 mg PO BID 06/11/24 06/11/24 History tablet,extended release 24 hr potassium chloride 20 mEq/15 mL 20 meq PO BID 06/11/24 06/11/24 History oral liquid trazodone 50 mg tablet 50 mg PO DAILY 06/11/24 06/11/24 History Past Med/Surg History Problem List (Updated 06/11/24 @ 23:06 by Khanh Polk MD) Blood loss anemia Gastrointestinal bleed Osteoporosis Dizziness (Acute) Enlarged prostate Elevated troponin (Acute) Anemia (Acute) Pedal edema (Acute) SOB (shortness of breath) (Acute) Hypoxia (Acute) CKD (chronic kidney disease), stage III Follow[address] Morley Exertional shortness of breath Acute respiratory failure with hypoxia Pulmonary hypertension S/P Maze operation for atrial fibrillation [facility] - 02/2023. Atrial fibrillation with rapid ventricular response (Acute) 10/2022 COPD with emphysema Medical History (Updated 06/11/24 @ 23:06 by Khanh Polk MD) NSTEMI (non-ST elevated myocardial infarction) Hyperlipidemia Hypertension TILA (acute kidney injury) Dysphagia Insomnia Right heart failure with reduced right ventricular function Acute exacerbation of chronic obstructive pulmonary disease PAF (paroxysmal atrial fibrillation) Acute respiratory failure with hypoxia Ex-smoker Pleural effusion Pneumonia Chronic diastolic CHF (congestive heart failure) Current smoker CAD (coronary artery disease) Myocardial infarct 1997 - heavy chest, left arm pain - Went to [facility] - flown to [facility] - blockage of "back of heart" - heart cath - no stent placement - Follows Dr. Puente Hypertension Surgical History History of coronary artery bypass graft S/P CABG (coronary artery bypass graft) 3 vessel - [facility], 02/2023. Hx of cataract extraction Rt. Hx of cardiac cath 1997 d/t to [place] - no stents placed - Follows Dr. Puente History of colonoscopy Hx of inguinal hernia repair Hx of repair of left rotator cuff x2 Family History Father Family history of diabetes mellitus CHF (congestive heart failure) Black lung disease Mother , had CABG Family history of diabetes mellitus Coronary heart disease Myocardial infarction Dementia Social History Smoking Status: Former smoker Tobacco Type: Cigarettes Age Started Using Tobacco: 22; Age Quit Using Tobacco: 83; packs per day: 2; Cigarettes Per Day: 2 packs; Second Hand Exposure: No; Do You Dip or Chew Tobacco: No; Tobacco Cessation Education Requested by Patient: No Hx Alcohol Use: Yes Alcohol type: beer Hx Substance Use: No Preferred Language: Kazakh Communication Ability: Effective Visual Impairment: Limited Hearing Ability: Use of Hearing Aid Russian [employer] Required: No Beliefs That Will Affect Care: None marital status: Current Living Situation: Spouse Current Living Situation Comment: From home with current occupational status: retired current occupation: Retired How many Children do You have: 2 Other Information That Helps Us Care for You: No other: 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; 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 Feels Safe at Home: Yes Safety Concerns: Feels Safe At This Time Diet: regular caffeine: Yes (1 soda daily) Physical Activity Frequency: Does not Exercise Do you think of yourself as: straight/heterosexual Gender Identity: Male Assistive Devices: Cane, Glasses and Hearing Aid - Bilateral Assistive Devices Comment: cane and glasses with patient Review of Systems Review of Systems: All systems reviewed & are unremarkable except as noted in HPI & below Physical Exam Constitutional: WD/WN, vitals as above Eyes: + anicteric sclerae; no conjunctival abn ormality and normal pupil size ENMT: external ear and nose normal, oropharynx normal Respiratory: normal respiratory effort, lungs clear to auscultation Cardiovascular: RRR, no murmur, no edema Gastrointestinal (Abdomen): normal bowel sounds, soft, nontender, no hepatosplenomegaly Musculoskeletal: no cyanosis or clubbing, extremities motor strength 5/5 Skin: no rashes, warm and dry Neurologic: awake; not confused Psychiatric: A+Ox3, euthymic affect Results & Data Results & Data Vital Signs (Past 12 Hours) Vital Signs Temp Pulse Pulse Resp BP BP Pulse Ox 06/11/24 11:06 68 15 143/61 H 98 06/11/24 10:27 58 L 06/11/24 10:05 98 06/11/24 10:05 60 13 132/71 98 06/11/24 09:18 36.3 C L 63 20 135/74 98 O2 Del Method 06/11/24 11:06 Room Air 06/11/24 10:27 06/11/24 10:05 Room Air 06/11/24 10:05 Room Air 06/11/24 09:18 Room Air Laboratory Results Abnormal lab results 06/11/24 Range/Units 09:52 RBC 2.26 L (4.70-6.10) M/uL Hgb 7.3 L (14.0-18.0) g/dl Hct 22.9 L (42.0-52.0) % MCV 101.3 H (80.0-100.0) fL MCHC 31.9 L (32.0-36.0) g/dL RDW Std Deviation 59.7 H (36.4-46.3) fL RDW Coeff of Jolene 16.3 H (11.5-14.5) % MPV 8.4 L (9.4-12.4) fL Reticulocyte % (Auto) 3.68 H (0.50-2.00) % Lymph # (Auto) 0.61 L (1.20-3.40) K/uL PT 12.1 H (9.0-12.0) Seconds Potassium 3.2 L (3.5-5.1) mmol/L BUN 35 H (6-23) mg/dl Creatinine 1.91 H (0.6-1.4) mg/dl Glucose 128 H (70-99(Fasting)) mg/dl Calcium 8.5 L (8.6-10.3) mg/dl TIBC 247 L (250-450) mcg/dl AST 12 L (13-39) U/L Alkaline Phosphatase 135 H (34-104) U/L B-Natriuretic Peptide 1321 H (0-100) pg/ml Albumin 3.3 L (3.4-5.0) gm/dl Diagnostic Findings XR chest 1V portable CLINICAL HISTORY: Chest pain, nonspecific COMPARISON STUDY: Chest radiograph March 25, 2024. Chest CT October 30, 2023. FINDINGS: Lucency under the right hemidiaphragm was shown on prior exam and likely reflects gas within bowel loops. There are median sternotomy wires, mediastinal surgical clips and a left atrial appendage occluder device. Radiodensities projecting of the mitral valve are unchanged. Mild interstitial thickening persists. There are persistent patchy bibasilar opacities. No pneumothorax or pleural effusion. IMPRESSION: 1. Cardiomegaly with mild interstitial pulmonary edema. 2. Patchy bibasilar opacities which favor atelectasis. Pneumonia could appear similar. Medications Administered ER medications given: Pantoprazole 80 mg IV ECG Rate (beats per minute): 61 Rhythm: normal sinus Findings: + 1st degree AV block and + LAFB Comparison ECG Date: from (March 25, 2024) Change: the following changes noted (Left anterior fascicular block now present) Code Status & VTE Plan Code Status No intervention in the setting of a cardiac arrest. All of the treatment including intubation and ventilation outside of the cardiac arrest. VTE Prophylaxis Plan VTE Prophylaxis will be ordered: Yes PG Care Time/CCT Total # of Minutes Spent Total Time Spent with Patient: Total time spent is greater than 50% in coordination of care (as documented) at patient's floor/unit and/or counseling patient: Coding Level of Care Code 69840 INT INP/OBS CARE 3/75MIN Diagnoses Gastrointestinal hemorrhage, unspecified gastrointestinal hemorrhage type K92.2 GI bleed type/associated pathology: unspecified gastrointestinal hemorrhage type Blood loss anemia D50.0 PAF (paroxysmal atrial fibrillation) I48.0 S/P Maze operation for atrial fibrillation Z98.890; Z86.79 (1) Gastrointestinal bleed GI bleed type/associated pathology: unspecified gastrointestinal hemorrhage type Qualified Code(s): K92.2 - Gastrointestinal hemorrhage, unspecified
[2024-06-11 12:00] LABS: Reticulocyte % 3.68 % (0.50-2.00)
[2024-06-11] MEDS: PANTOprazole 80 MG in DEXTROSE 5% 100 ML IV STA (12:02)
[2024-06-11 12:25] LABS: Ferritin 72.5 ng/ml (8-388)
[2024-06-11 12:43] LABS: Folate (Folic Acid),Ser orPlas 10.25 ng/ml (>5.38)
--- OUTSIDE RECORDS SUMMARY | 2024-06-11 14:22 | External Medical Summary | Continuity of Care Document ---
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 Name Role Phone Jess Montgomery Primary Care Physicia n [phone] [id number] Date(s): 05/25/24 - 05/25/24 [facility] [address] [facility] 207 [facility] [address] [place] [phone] Encounter Diagnosis Atrial fibrillation(Discharge Diagnosis) - 05/25/24 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)(Discharge Diagnosis) - 05/25/24 Hypertension with heart disease(Discharge Diagnosis) - 05/25/24 Anemia(Discharge Diagnosis) - 05/26/24 Stage 3b chronic kidney disease (CKD)(Discharge Diagnosis) - 05/25/24 Pleural effusion(Discharge Diagnosis) - 05/26/24 Chronic obstructive pulmonary disease, unspecified(Discharge Diagnosis) - 05/26/24 Hypokalemia(Discharge Diagnosis) - 05/25/24 Osteoporosis(Discharge Diagnosis) - 05/25/24 Hyperplasia of prostate with lower urinary tract symptoms (LUTS)(Discharge Diagnosis) - 05/26/24 Weakness(Discharge Diagnosis) - 05/26/24 Mixed hyperlipidemia(Discharge Diagnosis) - 05/25/24 S/P CABG x 3(Discharge Diagnosis) - 05/25/24 Body mass index [BMI] 24.0-24.9, adult(Discharge Diagnosis) - 05/25/24 Discharge Disposition: Home or Self Care Attending Physician: DO Montgomery Gretchen Elizabeth Allergies, Adverse Reactions, Alerts No Known Allergies Assessment and Plan Extracted from: Title:FCM chronic f/u Author:DO Montgomery Gretche n Elizabeth Date:05/25/24 1.Weakness Chronic, active, diffuse and multifactorial, patient with worseningkidney functionandcomplex cardiac and pulmonarydisease. We discussed his decreased appetite andresultant weight loss.Patient also haspoor sleep quality.Patient is awarethathis health is declining, he remainsliving at home with his Michela.Will continue to address quality of life and goals of care. 2.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) 3.Atrial fibrillation 4.Hypertension with heart disease 5.Mixed hyperlipidemia 6.S/P CABG x 3 Chronic, active, patientreports stability of weights, continues to have chronic dyspnea, he is status postMitraClipwhichhas improved his function. At present, patient remains on Eliquistherapy,he isaware of increased bleeding risk and we discussed avoidingfalls at length. Currently, patient onamiodarone 200 mg daily,Entresto 97-23 mg twice daily, bumetanide 2 mg daily, androsuvastatin 20mg daily. Patient has been suffering with intermittent hypotension, at present blood [id number] over 62 mmHg,discussedslow positional changes and use of cane. 7.Anemia 8.Stage 3b chronic kidney disease (CKD) Chronic, active, worsening kidney functionon Entresto,last creatinine 2.55 with a GFR 22, last hemoglobin9.79/4patient following closely with nephrology 9.Hypokalemia Acute, patient hadpotassium of 2.3 on 05/19,increasedto 40miEqtwice dailyover weekend, repeat labthis morning 3.1, patient has follow-up to discuss further with nephrology tomorrow. 10.Osteoporosis Discussed concern formineral bone disorder in setting of worsening kidney function. We reviewed increased risk of fracture, patient hadpathologicalL4 fracturefollowing chiropractic visit. 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 12.Pleural effusion Per review of last CTabdomen pelvis,bilateral opacities lower lobeswithsmall left pleural effusion,last thoracocentesisconfirmed etiologycardiac. 13.Hyperplasia of prostate with lower urinary tract symptoms (LUTS) Active, patient remains on tamsulosin0.4 mg daily Immunizations Given and Recorded Vaccine Date Status Refusal Reason zoster vaccine, inactivated 10/15/22 Recorded zoster vaccine, inactivated 05/08/22 Recorded SARS-CoV-2 mRNA (Pfizer 12+) bivalent 07/05/22 Rec orded influenza virus vaccine, inactivated 1, 2 06/26/22 Given influenza virus vaccine, inactivated 06/06/21 Kaiden rded influenza virus vaccine, inactivated 06/08/20 Kaiden rded influenza virus vaccine, inactivated 06/07/15 Give n influenza virus vaccine, inactivated 08/09/13 Give n SARS-CoV-2 (COVID-19) mRNA-1273 vaccine 12/31/21 R ecorded SARS-CoV-2 (COVID-19) mRNA-1273 vaccine 3 07/21/21 Recorded [...] albuterol 0.083% for nebulization Start: 10/03/23 8:55:00 AM EST, 3 mL, inhaled, q6h, Disp# 30 each, Refills: 3, PRN: shortness of breath, Pharmacy: [id number] Start Date: 10/03/23 Status: Ordered amiodarone 200 mg oral tablet Start: 03/22/24 11:26:00 AM EDT, See Instructions, Disp# 90 tab, Refills: 3, 1 tab PO Daily, Pharmacy: [id number] Start Date: 03/22/24 Status: Ordered amoxicillin 500 mg oral capsule Start: 12/11/23 3:05:00 PM EDT, 4 cap, PO, As indicated, Disp# 12 cap, Refills: 3, one hour before dental and other procedures as directed, Pharmacy: [id number] Start Date: 12/11/23 Status: Ordered ascorbic acid 500 mg oral capsule Start: 04/16/24 9:50:00 AM EDT, 1 cap, PO, Daily Start Date: 04/16/24 Status: Ordered aspirin 81 mg oral delayed release tablet Start: 03/04/23 1:13:00 PM EDT, 1 tab, PO, Daily, Disp# 30 tab, Refills: 3, Pharmacy: [facility] Start Date: 03/04/23 Stop Date: 07/02/23 Status: Ordered Bumex 2 mg oral tablet Start: 12/13/23 4:25:00 PM EDT, See Instructions, Disp# 90 tab, Refills: 0, 1 tab am,, Pharmacy: [facility] Start Date: 12/13/23 Status: Ordered Eliquis 2.5 mg oral tablet Start: 12/22/23 8:47:00 AM EDT, 1 tab, PO, bid, Disp# 180 tab, Refills: 3, Pharmacy: [id number] Start Date: 12/22/23 Status: Ordered Entresto 97 mg-103 mg oral tablet Start: 01/19/24 1:38:00 PM EDT, 1 tab, PO, bid, Disp# 60 tab, Refills: 11, Pharmacy: [id number] Start Date: 01/19/24 Status: Ordered ferrous sulfate 325 mg (65 mg elemental iron) oral delayed release tablet Start: 04/16/24 9:50:00 AM EDT, 1 tab, PO, Daily Start Date: 04/16/24 Status: Ordered Flonase 50 mcg/inh nasal spray Start: 02/10/24 9:32:00 AM EDT, 1 spray, each nostril, Daily Start Date: 02/10/24 Status: Ordered Mucinex 600 mg oral tablet, extended release Start: 11/04/23 1:47:00 PM EST, 2 tab, PO, Daily Start Date: 11/04/23 Status: Ordered omeprazole 40 mg oral delayed release capsule Start: 04/16/24 10:45:00 AM EDT, 1 cap, PO, Daily, Disp# 90 cap, Refills: 3, Pharmacy: [id number] Start Date: 04/16/24 Status: Ordered potassium chloride 20 mEq/15 mL oral liquid Start: 04/16/24 9:46:00 AM EDT, 15 mL, PO, bid Start Date: 04/16/24 Status: Ordered Prolia 60 mg/mL subcutaneous solution Start: 05/27/24 1:05:00 PM EDT, 60 mg =, subQ, ONCE, Disp# 1 applicator, Refills: 1, other Start Date: 05/27/24 Status: Ordered rosuvastatin 20 mg oral tablet Start: 09/12/23 11:44:00 AM EST, 1 tab, PO, Daily, Disp# 90 tab, Refills: 3, Pharmacy: [id number] Start Date: 09/12/23 Status: Ordered Stiolto Respimat 10 ACT 2.5 mcg-2.5 mcg/inh inhalation aerosol Start: 03/10/24 8:13:00 AM EDT, 2 inh, inhaled, Daily, Disp# 4 g, Refills: 7, other Start Date: 03/10/24 Stop Date: 11/05/24 Status: Ordered tamsulosin 0.4 mg oral capsule Start: 02/10/24 9:31:00 AM EDT, 1 cap, PO, Daily Start Date: 02/10/24 Status: Ordered Toprol-XL 50 mg oral tablet, extended release Start: 08/14/23 1:57:00 PM EST, 2 tab, PO, Daily, Disp# 180 tab, Refills: 3, Pharmacy: [id number] Start Date: 08/14/23 Status: Ordered Vitamin B12 Start: 05/05/23 2:47:00 PM EDT Start Date: 05/05/23 Status: Ordered Vitamin D3 1000 intl units oral capsule Start: 02/16/18 10:09:00 AM EDT, 1 cap, PO, Daily Start Date: 02/16/18 Status: Ordered Mental Status 05/25/24 Barriers to Learning one year None evide nt Mandatory Health Literacy Documentation Yes Health Literacy Communication Barriers N ever Primary Language Persian Problem List Condition Confirmation Course Effective Dates Status H ealth Status Informant Anemia Confirmed Active Atrial fibrillation Confirmed Active Stage 3b chronic kidney disease (CKD) Confirmed Active Chronic obstructive pulmonary disease, unspecified Confirmed Active Coronary artery disease involving havasupai heart Confirmed Active SOB (shortness of breath) on exertion Confirmed Active Hypertension with heart disease Confirmed Active 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) Confirmed Active S/P CABG x 3 Confirmed Active H/O maze procedure Confirmed Active H/O maze procedure Confirmed Active History of myocardial infarction Confirmed Active Impaired fasting glucose Confirmed Active Mitral valve regurgitation Confirmed Active Mixed hyperlipidemia Confirmed Active Peripheral vascular disease Confirmed Active Kidney mass 1, 2 Confirmed Active Thyroid nodule 3, 4 Confirmed Active Tobacco user Confirmed Active 1renal US on 04/23/2016: bilateral renal cysts, largest in right 16mm, largest in left 32mm. 2chest CT in 04/2016: A 1.7 cm exophytic hypodense lesion within the upper pole of the left kidney This is incompletely characterized on this noncontrast study. 3thyroid US in 10/2016: Impression: multiple tiny hypoechoic thyroid nodules up to 0.3cm which may refelct colloid cysts. Note of these nodules meet criteria for biopsy. 4chest CT in 04/2016: 6mm nodule in left thyroid Diagnosis Diagnosis Type Effective Dates Health Status Clinical Service Informant Atrial fibrillation Discharge Diagnosis 05/25/24 Non-Specified Hypokalemia Discharge Diagnosis 05/25/24 Non-Specified 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) Discharge Diagnosis 05/25/24 Non-Specified Hypertension with heart disease Discharge Diagnosis 05/25/24 Non-Specified Mixed hyperlipidemia Discharge Diagnosis 05/25/24 Non-Specified S/P CABG x 3 Discharge Diagnosis 05/25/24 Non-Specified Stage 3b chronic kidney disease (CKD) Discharge Diagnosis 05/25/24 Non-Specified Body mass index [BMI] 24.0-24.9, adult Discharge Diagnosis 05/25/24 Non-Specified Osteoporosis Discharge Diagnosis 05/25/24 Non-Specified Pleural effusion Discharge Diagnosis 05/26/24 Non-Specified Hyperplasia of prostate with lower urinary tract symptoms (LUTS) Discharge Diagnosis 05/26/24 Non-Specified Anemia Discharge Diagnosis 05/26/24 Non-Specified Weakness Discharge Diagnosis 05/26/24 Non-Specified Chronic obstructive pulmonary disease, unspecified Discharge Diagnosis 05/26/24 Non-Specified Procedures Procedure Date Related Diagnosis Body Site Status Procedure 1 12/10/23 Completed Chest X-ray 2 03/09/23 Completed Doppler ultrasonography of v enous structure of limb 3 03/09/23 Completed Surgery 4 02/24/23 Completed Cataract 5 03/12/22 Completed Cataract 02/25/22 Completed Mohs' micrographic surgery 04/09/21 Completed Shave biopsy of skin 03/20/21 Comp leted Shave biopsy of skin 01/10/21 Comp leted Shave biopsy 06/08/19 Completed Ultrasound Thyroid 6 10/21/16 Comp leted Ultrasound scan renal 7 04/23/16 C ompleted Low does CT lung screening 8 04/16/16 Completed Bilateral inguinal hernia repair 9 Completed Cardiac catheter Complete d Colonoscopy Completed Eye surgery 10 Completed Rotator cuff repair 11 Co mpleted 1stents in heart 2IMPRESSION: 1. Cardiomegaly with mild pulmonary vascular congestion. 2. Left larger than right pleural effusions with dependent atelectasis. 3IMPRESSION: 1. There is no sonographic evidence of deep venous thrombosis identified in the left lower extremity. 2. There is abnormality along the course of the greater saphenous veins extending to the proximal plate of the calf. This could represent thrombosis of the vessel versus postsurgical change from harvesting of the vessel. Clinical correlation will be essential. 4Triple bypass 5left cataract 6Impression: multiple tiny hypoechoic thyroid nodules which may refelct colloid cysts. Note of thesenodules meet criteria for biopsy. 71. Bilateral renal cysts 2. No solid renal masses identified 3. Renal cortical thinning 4. No evidence of hydronephrosis. 8Impression: no suspicious pulmonary nodules A 1.7 cm exophytic hypodense lesion within the upper pole of the left kidney This is incompletely characterized on this noncontrast study. Mild emphysema A 6 mm hypodense nodule within the left thyroid lobe. [id number] [facility]-Both [facility], 2006 Vital Signs Most recent to oldest [Reference Range]: 1 Height 173.3 cm (05/25/24 11:21 AM) Patient Weight 72.1 kg (05/25/24 11:21 AM) Body Mass Index 24.01 kg/m2 (05/25/24 11:21 AM) Temperature [36.5-37.9 DegC] 36.9 DegC (05/25/24 11:21 AM) Heart Rate 64 bpm (05/25/24 11:21 AM) Respiratory Rate 22 br/min (05/25/24 11:21 AM) Blood Pressure 138/62mmHg (05/25/24 11:21 AM) Cuff Pulse Pressure 76 mmHg (05/25/24 11:21 AM) Social History Social History Type Response Tobacco Current every day sm oker, Cigarettes Smoking Status Former Smoker, quit > 1 yr Sex Male Sex Representation Male (finding) FCM Outpt Note * DO Montgomery Gretchen Elizabeth: PERFORM, MODIFY Event Display: FCM Outpt Note Authored Date: [id number] Chief Complaint follow up- discuss potassium, weakness, dexa scan History of Present Illness Feeling ok today, still short of breath but stable No appetite, everything taste salty, eats vegetables and fruits Lost over 10 lbs since March Potassium 2.3 05/19/24, increased K 40 mEq BID over weekend Had palliative care encounterper chart review, telehealth visit,attemptedclarification code status, report refused POLST -patient does not have recollection of this conversation Bone scan, had endplate fracture with loss of height Feeling fatigued Sleep poor Had some diarrhea over weekend, had severe pains in abdomen, then threw up, for 2 days [place] weak and still feels weak isn't sick, she is doing okay Review of Systems Pertinent positives and negatives as stated in history of present illness. Physical Exam Vitals & Measurements T:36.9C HR:64(Monitored) RR:22 BP:138/62 SpO2:95% HT:173.3cm WT:72.1kg WT:72.100kg(Dosing) BMI:24.01 PHQ2 Data(Data Documented on:05/25/2024 11:19) Emotional health assessment NEGATIVE General:Alert and oriented, no acute distress, ambulating with cane, diffuse bruisesbilateralupper extremities HEENT:Normocephalic,atraumatic, conjunctiva clear Cardiovascular:Normal rate, regular rhythm,no gallop, bilateral traceLEedema Respiratory:Bilateral lower lobes with decreased breath sounds, respirations non-labored, breath sounds equal, no rhonchi, no wheeze Gastrointestinal: Normal bowel sounds Psych:Mood and affect congruent. Assessment/Plan 1.Weakness Chronic, active, diffuse and multifactorial, patient with worseningkidney functionandcomplex cardiac and pulmonarydisease. We discussed his decreased appetite andresultant weight loss.Patient also haspoor sleep quality.Patient is awarethathis health is declining, he remainsliving at home with his Michela.Will continue to address quality of life and goals of care. 2.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) 3.Atrial fibrillation 4.Hypertension with heart disease 5.Mixed hyperlipidemia 6.S/P CABG x 3 Chronic, active, patientreports stability of weights, continues to have chronic dyspnea, he is status postMitraClipwhichhas improved his function. At present, patient remains on Eliquistherapy,he isaware of increased bleeding risk and we discussed avoidingfalls at length. Currently, patient onamiodarone 200 mg daily,Entresto 97-23 mg twice daily, bumetanide 2 mg daily, androsuvastatin 20mg daily. Patient has been suffering with intermittent hypotension, at present blood [id number] over 62 mmHg,discussedslow positional changes and use of cane. 7.Anemia 8.Stage 3b chronic kidney disease (CKD) Chronic, active, worsening kidney functionon Entresto,last creatinine 2.55 with a GFR 22, last hemoglobin9.79/4patient following closely with nephrology 9.Hypokalemia Acute, patient hadpotassium of 2.3 on 05/19,increasedto 40miEqtwice dailyover weekend, repeat labthis morning 3.1, patient has follow-up to discuss further with nephrology tomorrow. 10.Osteoporosis Discussed concern formineral bone disorder in setting of worsening kidney function. We reviewed increased risk of fracture, patient hadpathologicalL4 fracturefollowing chiropractic visit.Due to renal function, and after discussion with patient's firearms instructor, recommending patient startprolia injections. 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 12.Pleural effusion Per review of last CTabdomen pelvis,bilateral opacities lower lobeswithsmall left pleuraleffusion,last thoracocentesisconfirmed etiologycardiac. 13.Hyperplasia of prostate with lower urinary tract symptoms (LUTS) Active, patient remains on tamsulosin0.4 mg daily Attestation Total physician time spent on day of encounter with patient including pre-visit planning, chart review, gakq-yl-awut discussion, education, care coordination,and documentation:65 minutes Problem List/Past Medical History Ongoing Anemia Atrial fibrillation Chronic obstructive pulmonary disease, unspecified Coronary artery disease involving havasupai heart H/O maze procedure H/O maze procedure 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) History of myocardial infarction Hypertension with heart disease Impaired fasting glucose Kidney mass Mitral valve regurgitation Mixed hyperlipidemia Peripheral vascular disease S/P CABG x 3 SOB (shortness of breath) on exertion Stage 3b chronic kidney disease (CKD) Thyroid nodule Tobacco user Resolved Myocardial infarction Pneumonia Procedure/Surgical History Procedure| Service Date: 4Doppler ultrasonography of venous structure of limb| Service Date: 03/09/2023hest X-ray| Service Date: 03/09/2023Surgery| Service Date: 3Cataract| Service Date: 03/12/2022ataract| Service Date: 02/25/2022Mohs' micrographic surgery| S ervice Date: 04/09/2021have biopsy of skin| Service Date: 03/20/2021have biopsy of skin| Service Date: 01/10/2021have biopsy| Service Date: 06/08/2019Ultrasound Thyroid| Service Date: 10/21/2016Ultrasound scan renal| Service Date: 04/23/2016Low does CT lung screening| Service Date: 04/16/2016Bilateral inguinal hernia repairRotator cuff repairEye surgeryColonoscopyCardiac catheter Medications albuterol(albuterol 0.083% for nebulization), 2.5 mg= 3 mL, inhaled, q6h, PRN, 3 refills amiodarone(amiodarone 200 mg oral tablet), See Instructions, 3 refills amoxicillin(amoxicillin 500 mg oral capsule), 2000 mg= 4 cap, PO, As indicated, 3 refills apixaban(Eliquis 2.5 mg oral tablet), 2.5 mg= 1 tab, PO, bid, 3 refills ascorbic acid(ascorbic acid 500 mg oral capsule), 500 mg= 1 cap, PO, Daily aspirin(aspirin 81 mg oral delayed release tablet), 81 mg= 1 tab, PO, Daily, 3 refills bumetanide(Bumex 2 mg oral tablet), See Instructions cholecalciferol(Vitamin D3 1000 intl units oral capsule), 1000 Int_Unit= 1 cap, PO, Daily cyanocobalamin(Vitamin B12) denosumab(Prolia 60 mg/mL subcutaneous solution), 60 mg, subQ, ONCE, 1 refills ferrous sulfate(ferrous sulfate 325 mg (65 mg elemental iron) oral delayed release tablet), 325 mg=1 tab, PO, Daily fluticasone nasal(Flonase 50 mcg/inh nasal spray), 1 spray, each nostril, Daily guaiFENesin(Mucinex 600 mg oral tablet, extended release), 1200 mg= 2 tab, PO, Daily metoprolol(Toprol-XL 50 mg oral tablet, extended release), 100 mg= 2 tab, PO, Daily, 3 refills olodaterol-tiotropium(Stiolto Respimat 10 ACT 2.5 mcg-2.5 mcg/inh inhalation aerosol), 2 inh, inhaled, Daily, 7 refills omeprazole(omeprazole 40 mg oral delayed release capsule), 40 mg= 1 cap, PO, Daily, 3 refills potassium chloride(potassium chloride 20 mEq/15 mL oral liquid), 20 mEq= 15 mL, PO, bid rosuvastatin(rosuvastatin 20 mg oral tablet), 20 mg= 1 tab, PO, Daily, 3 refills sacubitril-valsartan(Entresto 97 mg-103 mg oral tablet), 1 tab, PO, bid, 11 refills tamsulosin(tamsulosin 0.4 mg oral capsule), 0.4 mg= 1 cap, PO, Daily Allergies NKA No Known Medication Allergies Social History Smoking Status Former Smoker, quit > 1 yr Tobacco Use:Current every day smoker Type:Cigarettes Family History Heart attack: Mother. Hypertension: Mother and Father. Health Status Family Member(s) Immunizations Vaccine Date Status zoster vaccine, inactivated 10/15/2022 Recorded SARS-CoV-2 mRNA (Pfizer 12+) bivalent 07/05/2022 Recorded influenza virus vaccine, inactivated 06/26/2022 Given Comments : Early/Late Reason: Accommodate D/C nora fall cma zoster vaccine, inactivated 05/08/2022 Recorded SARS-CoV-2 (COVID-19) mRNA-1273 vaccine 12/31/2021 Recorded SARS-CoV-2 (COVID-19) mRNA-1273 vaccine 07/21/2021 Recorded Comments : 2021-12-26: Historical information-source unspecified tetanus/diphtheria/pertuss, acel (Tdap) 06/20/2021 Given Comments : alex jensen. rn influenza virus vaccine, inactivated 06/06/2021 Recorded SARS-CoV-2 (COVID-19) mRNA-1273 vaccine 10/29/2020 Recorded Comments : 2021-12-26: Historical information-source unspecified SARS-CoV-2 (COVID-19) mRNA-1273 vaccine 10/01/2020 Recorded Comments : 2021-12-26: Historical information-source unspecified influenza virus vaccine, inactivated 06/2020 Recorded pneumococcal 23-valent vaccine 06/15/2018 Given influenza virus vaccine, inactivated 06/07/2015 Given zoster vaccine live 04/12/2015 Recorded pneumococcal 13-valent vaccine 04/10/2015 Given influenza virus vaccine, inactivated 08/09/2013 Given tetanus toxoids-diphtheria, Td (Adult) 04/08/2008 Recorded pneumococcal 23-valent vaccine 04/10/1999 Recorded Recommendations Health Maintenance Pending(in the next year) OverDue Diabetic Eye Exam due03/05/23and every 366day Medicare Annual Wellness Visit due06/26/23and every 1year Diabetes Management A1c due02/11/24and every 366day Adult Influenza Vaccine due03/07/24and every 1year Due Adult COVID-19 Vaccination due05/27/24Unknown Frequency Falls Plan of Care due05/27/24Unknown Frequency Due In Future Adult Social Determinants of Health Screening not due until12/11/24and every 366day Body Mass Index not due until05/26/25and every 366day Satisfied(in the past 1 year) Satisfied Body Mass Index on05/25/24.Satisfied by ÓSCAR Brody [place] Electronic Signature on File Electronically Reviewed/Signed by: Jess Montgomery D.O. Author Signature Dt/Tm:05/27/2024 01:13 PM Department of Family Medicine Electronically Reviewed/Signed by: Nery Gold Signature Dt/Tm: 05/27/2024 01:17 PM Department of Family Medicine [facility] Patient Care team information Care Team Personnel Name: Saba Doyle Erika Joy Position: Pharmacist Member Role: Pharmacy - Lifetime Name: DO Montgomery Gretchen Elizabeth Position: Physician - Family Med Member Role: Primary Care Provider Address: [address] [place] [address] Care Team Related Persons Name: RICHY FONSECA"
--- OUTSIDE RECORDS SUMMARY | 2024-06-11 14:22 | External Medical Summary | Continuity of Care Document ---
Author Name Unknown Organization [facility] [address] 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 Name Role Phone Jess Montgomery Primary Care Physicia n [phone] Encounter [facility] [id number] Date(s): 06/07/24 - 06/07/24 [facility] [address], [address] [place] [address] [phone] Encounter Diagnosis 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)(Discharge Diagnosis) - 06/07/24 Hypertension with heart disease(Discharge Diagnosis) - 06/07/24 S/P CABG x 3(Discharge Diagnosis) - 06/07/24 Atrial fibrillation(Discharge Diagnosis) - 06/07/24 Mitral valve regurgitation(Discharge Diagnosis) - 06/07/24 Stage 3b chronic kidney disease (CKD)(Discharge Diagnosis) - 06/07/24 Discharge Disposition: Home or Self Care Attending Physician: DO Puente Jason D Allergies, Adverse Reactions, Alerts No Known Allergies Assessment and Plan Extracted from: Title:Cardiology Office Visit Note Author:DO Puente Jason D Date:06/07/24 1.Atrial fibrillation 2.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) 3.Hypertension with heart disease 4.Mitral valve regurgitation 5.S/P CABG x 3 6.Stage 3b chronic kidney disease (CKD) He has been followed closely by nephrology as well as the primary care service given his recent hypokalemia. His renal function is in the 2.2-2.5 range. He actually looks significantly better compared to when I last saw him. We did discuss the importance of increasing his caloric intake. We reviewed that he wants to get the most bang for his block and as he is not a diabetic that includes ice cream, chocolate milk, unsalted nuts, protein powder and fruit smoothies. We also discussed this represents a combination of high caloric intake and increased fat and protein which is what he needs. He is not having any anginal symptoms. Given the potential that amiodarone is impacting his taste and appetite we will reduce it from 200 mg a day to 100 mg a day. He remains on anticoagulation. We know he has severe pulmonary hypertension based on his echo of the spring 2023. It my guess is his right heart cannot get enough blood out to his left heart and then out to his body and that is why he has weakness in his legs. It is possible it is related to claudication and therefore we will try Pletal 50 mg twice daily with low normal LV function he can be on Pletal. We did discuss side effects such as diarrhea. Otherwise he is on appropriate medical regiment the only thing he is not on his Jardiance. Given the fact he looks dry I am a little reluctant to consider it. He will see Tamera in 3 months with a complete metabolic profile, TSH and free T4 on amiodarone. I will see him in 6 months. Immunizations Given and Recorded Vaccine Date Status [...] Refills: 3, PRN: shortness of breath, Pharmacy: [id number] Start Date: 10/03/23 Status: Ordered amiodarone 200 mg oral tablet Start: 06/07/24 11:46:00 AM EDT, See Instructions, Disp# 90 tab, Refills: 3, 1/2 tab PO Daily, other Start Date: 06/07/24 Status: Ordered amoxicillin 500 mg oral capsule Start: 12/11/23 3:05:00 PM EDT, 4 cap, PO, As indicated, Disp# 12 cap, Refills: 3, one hour before dental and other procedures as directed, Pharmacy: [id number] Start Date: 12/11/23 Status: Ordered ascorbic acid 500 mg oral capsule Start: 04/16/24 9:50:00 AM EDT, 1 cap, PO, Daily Start Date: 04/16/24 Status: Ordered aspirin 81 mg oral delayed release tablet Start: 03/04/23 1:13:00 PM EDT, 1 tab, PO, Daily, Disp# 30 tab, Refills: 3, Pharmacy: [facility] Start Date: 03/04/23 Stop Date: 07/02/23 Status: Ordered Bumex 2 mg oral tablet Start: 12/13/23 4:25:00 PM EDT, See Instructions, Disp# 90 tab, Refills: 0, 1 tab am,, Pharmacy: [facility] Start Date: 12/13/23 Status: Ordered Eliquis 2.5 mg oral tablet Start: 12/22/23 8:47:00 AM EDT, 1 tab, PO, bid, Disp# 180 tab, Refills: 3, Pharmacy: [id number] Start Date: 12/22/23 Status: Ordered Entresto 97 mg-103 mg oral tablet Start: 01/19/24 1:38:00 PM EDT, 1 tab, PO, bid, Disp# 60 tab, Refills: 11, Pharmacy: [id number] Start Date: 01/19/24 Status: Ordered [...] Daily, Disp# 90 cap, Refills: 3, Pharmacy: [id number] Start Date: 04/16/24 Status: Ordered Pletal 50 mg oral tablet Start: 06/07/24 11:44:00 AM EDT, 1 tab, PO, bid, Disp# 180 tab, Refills: 3, Pharmacy: [id number] Start Date: 06/07/24 Status: Ordered potassium chloride 20 mEq/15 mL [...] Daily, Disp# 90 tab, Refills: 3, Pharmacy: [id number] Start Date: 09/12/23 Status: Ordered [...] Daily, Disp# 180 tab, Refills: 3, Pharmacy: [id number] Start Date: 08/14/23 Status: Ordered Vitamin B12 Start: 05/05/23 2:47:00 PM EDT Start Date: 05/05/23 Status: Ordered Vitamin D3 1000 intl units oral capsule Start: 02/16/18 10:09:00 AM EDT, 1 cap, PO, Daily Start Date: 02/16/18 Status: Ordered Mental Status 06/07/24 Barriers to Learning one year None evide nt Mandatory Health Literacy Documentation Yes Health Literacy Communication Barriers N ever Primary Language Colombian Problem List Condition Confirmation Course Effective Dates Status H ealth Status Informant Anemia Confirmed Active Atrial fibrillation Confirmed Active Stage 3b chronic kidney disease (CKD) Confirmed Active Chronic obstructive pulmonary disease, unspecified Confirmed Active Coronary artery disease involving [place] heart Confirmed Active SOB (shortness of breath) [...] Effective Dates Health Status Clinical Service Informant S/P CABG x 3 Discharge Diagnosis 06/07/24 Mitral valve regurgitation Discharge Diagnosis 06/07/24 Hypertension with heart disease Discharge Diagnosis 06/07/24 Stage 3b chronic kidney disease (CKD) Discharge Diagnosis 06/07/24 Atrial fibrillation Discharge Diagnosis 06/07/24 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) Discharge Diagnosis 06/07/24 Procedures Procedure Date Related Diagnosis Body Site [...] hypodense nodule within the left thyroid lobe. [facility], 2012 112-Both 2004, 2006 Vital Signs Most recent to oldest [Reference Range]: 1 Patient Weight 71.4 kg (06/07/24 11:34 AM) Heart Rate 74 bpm (06/07/24 11:34 AM) Blood Pressure 140/64mmHg (06/07/24 11:34 AM) BP Location # 1 Right Arm (06/07/24 11:34 AM) Social History Social History Type Response Tobacco Current every day sm oker, Cigarettes Smoking Status Former Smoker, quit > 1 yr Sex Male Sex Representation Male (finding) Cardiology Outpatient Note * DO Puente Jason D: PERFORM Event Display: Cardiology Outpt Note Authored Date: [id number] Primary Care Provider DO Montgomery Gretchen Elizabeth Chief Complaint 2 mon f/u CABG CHF COPD HTN CKD History of Present Illness He looks less short of breath. Unfortunately he is lost about 10 kg in the last year. He does have some mild to moderate edema around his sock line to his mid tibia. He is unaware of any palpitations or fluttering. He notes his appetite is so- so. certain foods are appealing. He notes that red meat taste very salty to him as well as deli meat. He also notes that he just does not enjoy food as much. He denies any PND orthopnea. He describes being able to walk downhill to the mailbox and is pokedwhen he gets there. Coming back up the hill he has to stop 2-3 times and that is more related to weakness in his legs rather than shortness of breath or chest discomfort. He has not smoked. He denies any palpitations or fluttering. [place] any presyncope or syncope. He denies any orthostatic symptoms. Review of Systems PMHX: 1A. CAD s/pCABG x 3 CHEEK-LAD, SVG-OM, PDA, [facility] MAZE procedure and LAAL 02/2023 1B. 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 PREOP CATH: 100% BEHAVIOR CLINICIAN Prox RCA with L to R collaterals from the CX; 95% heavily calcified mid LAD; 70% Prox Cx 1D.. Hypertension 2. Prior myocardial infarction in 1997 involving the basal and mid- inferolateral wall and basal inferior wall. 2a. NSTEMI 10/2022 Secondary to atrial fibrillation with a rapid ventricular response; 3.Echocardiogram12/2023 withmild left ventricular systolic function, inferolateral and inferior HK, LVEF 45%; mild to moderate MR with 8mm/hg gradient S/P clip. severe TR and Severe Pulm HTN 4. Hypercholesterolemia. 5. Chronic kidney disease ACETYLENE TORCH OPERATOR 2.1 6. History of hypokalemia, likely secondary to HCTZ. 7. Longstanding tobacco abuse. 8. Admission for pneumonia October 2022 leading to atrial fibrillation 9. History of claudication, resolved with Pletal. 10. 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 11. S/P Left thoracentesis 05/2023 of 700 cc and again 02/2024 12. S/p MitraClip 12/10/2023 at [facility] Physical Exam Vitals & Measurements HR:74(Monitored) BP:140/64 SpO2:95% WT:71.400kg(Dosing) WT:71.4kg Patient is awake alert and oriented x3and in no acute distress HEENT:1+ carotid upstrokes, no evidence of carotid bruits LUNGS:Improved BS no r/r/w HEART:Regular rate and rhythmno appreciable murmurs rubs or gallops ABDOMEN:Soft nontender mildly distended positive bowel sounds EXTREMITIES:Mild to moderate Lower ext edema PSYCHIATRIC:Patient's affect appeared appropriate Assessment/Plan 1.Atrial fibrillation 2.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) 3.Hypertension with heart disease 4.Mitral valve regurgitation 5.S/P CABG x 3 6.Stage 3b chronic kidney disease (CKD) He has been followed closely by nephrology as well as the primary care service given his recent hypokalemia. His renal function is in the 2.2-2.5 range. He actually looks significantly better compared to when I last saw him. We did discuss the importance of increasing his caloric intake. We reviewed that he wants to get the most bang for his block and as he is not a diabetic that includes ice cream, chocolate milk, unsalted nuts, protein powderand fruit smoothies. We also discussed this represents a combination of high caloric intake and increased fat and protein which is what he needs. He is not having any anginal symptoms. Given the potential that amiodarone is impacting his taste and appetite we will reduce it from 200 mg a day to 100 mg a day. He remains on anticoagulation. We know he has severe pulmonary hypertension based on his echo of the spring 2023. It my guess ishis right heart cannot get enough blood out to his left heart and then out to his body and that is why he has weakness in his legs. It is possible it is related to claudication and therefore we will try Pletal 50 mg twice daily with low normal LV function he can be on Pletal. We did discuss side effects such as diarrhea. Otherwise he is on appropriate medical regiment the only thing he is not on his Jardiance. Given the fact he looks dry I am a little reluctant to consider it. He will see Tamera in 3 months with a complete metabolic profile, TSH and free T4 on amiodarone. I will see him in 6 months. Problem List/Past Medical History Ongoing Anemia Atrial fibrillation Chronic obstructive pulmonary disease, unspecified Coronary artery disease involving [place] heart H/O maze procedure H/O maze procedure [...] 03/09/2023hest X-ray| Service Date: 03/09/2023Surgery| Service Date: 02/24/2023ataract| Service Date: 03/12/2022ataract| Service Date: 02/25/2022Mohs' micrographic [...] on File CC: Jess Montgomery D.O. 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, [address] [place] [address] JDF Patient Care team information Care Team Personnel Name: Saba Doyle Erika Joy Position: Pharmacist Member Role: Pharmacy - Lifetime Name: DO Montgomery Gretchen Elizabeth Position: Physician - Family Med Member Role: Primary Care Provider Address: [address] [place] [id number] [place] Care Team Related Persons Name: RICHY FONSECA"
[2024-06-11] MEDS ORDERED: ACETAMINOPHEN 325 MG TAB PO PRN (14:33)
--- NOTE | 2024-06-11 14:53 | Gastrointestinal Consultation ---
Date of Consultation June 11, 2024 Assessment & Plan (1) Anemia: 84 year old male w/ history of CKD, COPD, afib s/p maze procedure, mitral regurg, CAD s/p CABG in 2022, NSTEMI and others admitted w/ abnormal labs showing acute on chronic anemia, GI was asked to evaluate as he was found to be heme positive w/ acute on chronic anemia, family history of colon cancer in his father. - Hold ASA, Eliquis - No evidence of acute GI bleeding - Low residue diet over the - Clear liquid diet Friday - Golytely prep Friday - EGD/Colonoscopy Friday - Trend H&H - Monitor and document GI output - Transfuse PRN per primary service - OK for PO PPI We appreciate assistance in the management of any serological abnormality and corrections to include: hemoglobin >7, INR <2, platelets >50,000, potassium levels >3.5 but <5.3, and sodium levels within 5 points of the reference range prior to endoscopic evaluation. Thank you for allowing us to participate in the care of this patient. Please call with any acute changes, questions or concerns. Please see addendum below with additional recommendation from my supervising physician. I spent a total of 60 minutes on the date of service in review of patient's record, and previously obtained information in person and appropriate medical visit, discussion and education of plan, with patient and/or caregiver, placing orders for tests/referral/procedures as medically necessary and documentation of pertinent clinical information in patient's medical records for their visit today. History of Present Illness Reason for Consultation: FOB +ve, suspected GI bleed, anemia Requesting Physician: Khanh Polk MD Attending Physician: Khanh Polk MD History of Present Illness 84 year old male with history of CKD, COPD, afib s/p maze procedure, mitral regurg, CAD s/p CABG in 2022, NSTEMI and others below who presented to the ED for abnormal labs showing acute on chronic anemia, GI was asked to evaluate for FOB +ve, suspected GI bleed, anemia. Pt was seen and evaluated, chart reviewed. Notes that he has been in his regular state of health. Denies abd pain. He does have intermittent issues with heartburn despite PPI therapy. Endorses pills dysphagia over the last 1-2 years. Has converted some of his pills over to solutions which has helped. Does not recall issues with solids food or liquids dysphagia. Tells me he has had DANIA for about a year or two. He does not recall this being worked up in the past. He has been maintained on oral iron therapy. Suggests since starting oral iron supplementation his stool has been dark brown/occasionally black. Typically has a BM daily or every other day. Denies melena or BRBPR. No fever, chills, CP, SOB. Anticoagulated on ASA and Eliquis. 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 GI imaging: none EGD: none Colonoscopy 06/11/2004: diverticular disease Family history of GI malignancy: father with colon cancer around age 70 Allergies Allergy/AdvReac Type Severity Reaction Status Date / Time No Known Allergies Allergy Verified 03/26/24 00:05 Home Medications Medication Instructions Recorded Confirmed Type acetaminophen 500 mg capsule 1,000 mg PO Q6H PRN Pain 03/20/23 06/11/24 History rosuvastatin 20 mg tablet 20 mg PO DAILY 03/20/23 06/11/24 History omeprazole 40 mg capsule,delayed 40 mg PO DAILY 09/29/23 06/11/24 History release albuterol sulfate 2.5 mg/3 mL 2.5 mg continuous nebulization Q6H 10/30/23 06/11/24 History (0.083 %) solution for nebulization PRN Shortness Of Breath Or Wheezing guaifenesin 600 mg tablet, 600 mg PO BID PRN Congestion 10/30/23 06/11/24 History extended release 12 hr (Mucinex) Flutter Valve #1 ea 01/05/24 06/03/24 Rx albuterol sulfate 90 mcg/actuation 2 inh inhalation Q6H PRN shortness 01/05/24 06/11/24 Rx aerosol inhaler (Ventolin HFA) of breath or wheezing or cough #8.5 grams aspirin 81 mg tablet,delayed 81 mg PO DAILY 02/03/24 06/11/24 History release (Adult Low Dose Aspirin) sacubitril 97 mg-valsartan 103 mg 1 tab PO BID 02/03/24 06/11/24 History tablet (Entresto) tamsulosin 0.4 mg capsule (Flomax) 0.4 mg PO DAILY #90 caps 02/03/24 06/11/24 Rx Flutter Valve #1 ea 02/09/24 06/03/24 Rx ascorbic acid (vitamin C) 500 mg 500 mg PO DAILY 02/09/24 06/11/24 History capsule cholecalciferol (vitamin D3) 25 25 mcg PO QAM 02/09/24 06/11/24 History mcg (1,000 unit) capsule fluticasone furoate 27.5 1 spray intranasal DAILY PRN 02/09/24 06/11/24 History mcg/actuation nasal ALLERGIES spray,suspension (Flonase Sensimist) tiotropium 2.5 mcg-olodaterol 2.5 2 puff inhalation DAILY #4 grams 02/09/24 06/11/24 Rx mcg/actuation mist for inhalation (Stiolto Respimat) ferrous sulfate 325 mg (65 mg 325 mg PO DAILY 03/18/24 06/11/24 History iron) tablet apixaban 2.5 mg tablet (Eliquis) 2.5 mg PO BID 05/26/24 06/11/24 History bumetanide 1 mg tablet 2 mg PO DAILY 05/26/24 06/11/24 History calcitriol 0.25 mcg capsule 0.25 mcg PO .COMPLEX #36 caps 05/26/24 06/11/24 Rx amiodarone 100 mg tablet 100 mg PO DAILY 06/11/24 06/11/24 History cilostazol 50 mg tablet 50 mg PO BID 06/11/24 06/11/24 History metoprolol succinate 50 mg 50 mg PO BID 06/11/24 06/11/24 History tablet,extended release 24 hr potassium chloride 20 mEq/15 mL 20 meq PO BID 06/11/24 06/11/24 History oral liquid trazodone 50 mg tablet 50 mg PO DAILY 06/11/24 06/11/24 History Patient History Medical History Hyperlipidemia Hypertension TILA (acute kidney injury) Dysphagia Insomnia Right heart failure with reduced right ventricular function Acute exacerbation of chronic obstructive pulmonary disease PAF (paroxysmal atrial fibrillation) Acute respiratory failure with hypoxia Ex-smoker Pleural effusion Pneumonia Chronic diastolic CHF (congestive heart failure) Current smoker CAD (coronary artery disease) Myocardial infarct 1997 - heavy chest, left arm pain - Went to [facility] - flown to [facility] - blockage of "back of heart" - heart cath - no stent placement - Follows Dr. Puente Hypertension Surgical History History of coronary artery bypass graft S/P CABG (coronary artery bypass graft) 3 vessel - [facility], 02/2023. Hx of cataract extraction Rt. Hx of cardiac cath 1997 d/t to [place] - no stents placed - Follows Dr. Puente History of colonoscopy Hx of inguinal hernia repair Hx of repair of left rotator cuff x2 Family History Father Family history of diabetes mellitus CHF (congestive heart failure) Black lung disease Mother , had CABG Family history of diabetes mellitus Coronary heart disease Myocardial infarction Dementia Social History Smoking Status: Former smoker Tobacco Type: Cigarettes Age Started Using Tobacco: 22; Age Quit Using Tobacco: 83; packs per day: 2; Cigarettes Per Day: 2 packs; Second Hand Exposure: No; Do You Dip or Chew Tobacco: No; Tobacco Cessation Education Requested by Patient: No Hx Alcohol Use: Yes Alcohol type: beer Hx Substance Use: No Preferred Language: Croatian Communication Ability: Effective Visual Impairment: Limited Hearing Ability: Use of Hearing Aid 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 Required: No Beliefs That Will Affect Care: None marital status: Current Living Situation: Spouse Current Living Situation Comment: From home with current occupational status: retired current occupation: Retired How many Children do You have: 2 Other Information That Helps Us Care for You: No other: 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 Physical Exam Constitutional: WD/WN, vitals as above Respiratory: normal respiratory effort, lungs clear to auscultation Cardiovascular: Rate/Rhythm: regular rate and regular rhythm Gastrointestinal (Abdomen): normal bowel sounds, soft, nontender, no hepatosplenomegaly Skin: no rashes, warm and dry Results & Data Vital Signs (Past 12 Hours) Vital Signs Temp Pulse Pulse Resp BP BP Pulse Ox 06/11/24 14:37 36.3 C L 59 L 16 140/60 93 06/11/24 12:03 60 20 138/63 95 06/11/24 11:06 68 15 143/61 H 98 06/11/24 10:27 58 L 06/11/24 10:05 98 06/11/24 10:05 60 13 132/71 98 06/11/24 09:18 36.3 C L 63 20 135/74 98 O2 Del Method 06/11/24 14:37 Room Air 06/11/24 12:03 Room Air 06/11/24 11:06 Room Air 06/11/24 10:27 06/11/24 10:05 Room Air 06/11/24 10:05 Room Air 06/11/24 09:18 Room Air Laboratory Results 06/11/24 06/11/24 Range/Units 11:55 09:52 WBC 7.03 (4.8-10.8) K/ul RBC 2.26 L (4.70-6.10) M/uL Hgb 7.3 L (14.0-18.0) g/dl Hct 22.9 L (42.0-52.0) % MCV 101.3 H (80.0-100.0) fL MCH 32.3 (25.0-34.0) pg MCHC 31.9 L (32.0-36.0) g/dL RDW Std Deviation 59.7 H (36.4-46.3) fL RDW Coeff of Jolene 16.3 H (11.5-14.5) % Plt Count 254 (130-400) K/uL MPV 8.4 L (9.4-12.4) fL Immature Gran % (Auto) 0.4 % Neut % (Auto) 82.6 % Lymph % (Auto) 8.7 % [place] % (Auto) 6.0 % Eos % (Auto) 2.0 % Baso % (Auto) 0.3 % Reticulocyte % (Auto) 3.68 H (0.50-2.00) % Neut # (Auto) 5.81 (1.40-6.50) K/uL Lymph # (Auto) 0.61 L (1.20-3.40) K/uL [place] # (Auto) 0.42 (0.11-0.59) K/uL Eos # (Auto) 0.14 (0.00-0.50) K/uL Baso # (Auto) 0.02 (0.00-0.20) K/uL Reticulocyte # 0.080 (0.020-0.100) 10^6/uL Immature Gran # (Auto) 0.03 (0.01-0.20) K/uL Polychromasia 1+ Ovalocytes 1+ Acanthocytes (Spur) 1+ PT 12.1 H (9.0-12.0) Seconds INR 1.1 (0.9-1.1) APTT 30 (21-31) Seconds PTT Ratio 1.1 Sodium 139 (136-145) mmol/L Potassium 3.2 L (3.5-5.1) mmol/L Chloride 103 (98-107) mmol/L Carbon Dioxide 30 (21-32) mmol/L Anion Gap 6 (3-11) BUN 35 H (6-23) mg/dl Creatinine 1.91 H (0.6-1.4) mg/dl Est Cr Clr Drug Dosing 29.0 ml/min eGFR 34.35 BUN/Creatinine Ratio 18.3 (10-20) Glucose 128 H (70-99(Fasting)) mg/dl Calcium 8.5 L (8.6-10.3) mg/dl Iron 86 (35-175) mcg/dl TIBC 247 L (250-450) mcg/dl Unsaturated IBC 161 (155-355) mcg/dl Transferrin % Sat 35 (20-50) % Ferritin 72.5 (8-388) ng/ml Total Bilirubin 0.7 (0.2-1.0) mg/dl AST 12 L (13-39) U/L ALT 15 (7-52) U/L Alkaline Phosphatase 135 H (34-104) U/L Lactate Dehydrogenase 157 (86-244) U/L Troponin I High Sens 17.1 (0-20) pg/ml B-Natriuretic Peptide 1321 H (0-100) pg/ml Total Protein 6.0 (6.0-8.3) gm/dl Albumin 3.3 L (3.4-5.0) gm/dl Globulin 2.7 (2.5-4.0) gm/dl Albumin/Globulin Ratio 1.2 (0.9-2) Lipase 21 (11-82) U/L Vitamin B12 1255 H (180-914) pg/ml Folate 10.25 (>5.38) ng/ml Blood Type AB Negative Blood Type Recheck AB Negative Antibody Screen NEGATIVE Crossmatch See Detail PG Care Time/CCT Total # of Minutes Spent Total Time Spent with Patient: Total time spent is greater than 50% in coordination of care (as documented) at patient's floor/unit and/or counseling patient: Coding Level of Care Code 30405 INT INP/OBS CARE 2MIN Diagnoses Anemia D64.9 Anemia type: unspecified type (1) Anemia Anemia type: unspecified type Qualified Code(s): D64.9 - Anemia, unspecified
[2024-06-11 16:44] LABS: Hematocrit (blood only) 20.3 % (42.0-52.0); Hemoglobin 6.5 g/dl (14.0-18.0)
[2024-06-11] MEDS: POTASSIUM CHLORIDE CRTAB 20 MEQ TABCR PO STA (17:37)
--- NOTE | 2024-06-11 18:39 | Electrocardiogram Report ---
Test Reason : Blood Pressure : */* mmHG Vent. Rate : 61 BPM Atrial Rate : 61 BPM P-R Int : 230 ms QRS Dur : 164 ms QT Int : 514 ms P-R-T Axes : 94 -49 9 degrees QTcB Int : 517 ms Sinus rhythm with 1st degree A-V block Right bundle branch block Left anterior fascicular block Bifascicular block Abnormal ECG When compared with ECG of 25-Mar-2024 22:05, Left anterior fascicular block is now Present QT has shortened Confirmed by Robert Jimenez ([id number]) on 06/11/2024 6:39:11 PM Referred By: REFERRED SELF Confirmed By: Robert Jimenez
[2024-06-11] MEDS: VALSARTAN/SACUBITRIL 103/97MG TAB PO SCH (20:37)
[2024-06-11] MEDS: METOPROLOL SUCC 50MG EXT REL TAB PO SCH (20:37)
[2024-06-11] MEDS: POTASSIUM CHLORIDE CRTAB 20 MEQ TABCR PO SCH (20:39)
[2024-06-11] MEDS: PANTOprazole 40 MG in SYRINGE 0 ML IV SCH (21:38)
[2024-06-11 23:34] LABS: Hematocrit (blood only) 22.3 % (42.0-52.0); Hemoglobin 7.2 g/dl (14.0-18.0)
[2024-06-12 06:58] LABS: Basophils # (auto) 0.02 K/uL (0.00-0.20); Basophils % (auto) 0.3 %; Eosinophils # (auto) 0.14 K/uL (0.00-0.50); Eosinophils % (auto) 2.2 %; Hematocrit (blood only) 23.3 % (42.0-52.0); Hemoglobin 7.4 g/dl (14.0-18.0); Immature Granulocytes # (auto) 0.03 K/uL (0.01-0.20); Immature Granulocytes % (auto) 0.5 %; Mean Corpuscular Hgb Conc 31.8 g/dL (32.0-36.0); Mean Corpuscular Volume 97.5 fL (80.0-100.0); Mean Platelet Volume 8.4 fL (9.4-12.4); Monocytes # (auto) 0.44 K/uL (0.11-0.59); Monocytes % (auto) 6.9 %; Neutrophils # (auto) 5.01 K/uL (1.40-6.50); Neutrophils % (auto) 79.1 %; Platelet Count 225 K/uL (130-400); RDW Coefficient of Variation 18.2 % (11.5-14.5); RDW Standard Deviation 63.9 fL (36.4-46.3); Red Blood Count 2.39 M/uL (4.70-6.10); White Blood Count 6.34 K/ul (4.8-10.8)
[2024-06-12 07:15] LABS: BUN Creatinine Ratio 17.2 (10-20); Calcium 7.8 mg/dl (8.6-10.3); Creatinine Clr Calc Pharmacy 32.2 ml/min; Potassium 3.7 mmol/L (3.5-5.1)
[2024-06-12 07:31] LABS: Acanthocytes 1+; Ovalocytes 1+; Polychromasia 1+; Tear Drop Cells 1+
[2024-06-12] MEDS: BUMETANIDE 1 MG TAB PO SCH (08:16)
[2024-06-12] MEDS: AMIODARONE 200 MG TAB PO SCH (08:16)
--- NOTE | 2024-06-12 09:39 | Gastroenterology Progress Note ---
Date of Service June 12, 2024 Assessment & Plan (1) Blood loss anemia: Plan: EGD and colonoscopy next week and pending results may need SB Video Capsule endoscopy. Subjective Patient feels well. Review of Systems Review of Systems: Denies abdominal pain, N/V or melena/hematochezia. Physical Exam Physical Exam: WD WN WM NAD Respiratory: Clear anteriorly Cardiovascular: RRR Gastrointestinal (Abdomen): NL BS, soft, nontender Musculoskeletal: Neg CCE Results & Data Results & Data Vital Signs (Past 12 Hours) Vital Signs Temp Pulse Pulse Resp BP Pulse Ox O2 Del Method 06/12/24 07:31 36.7 C 76 18 137/70 97 Room Air 06/12/24 02:38 36.6 C 59 L 16 133/62 95 Room Air 06/11/24 22:17 59 L Diagnostic Findings Notable for anemia but stable Hgb at 7.4 PG Care Time/CCT Total # of Minutes Spent Total Time Spent with Patient: Total time spent is greater than 50% in coordination of care (as documented) at patient's floor/unit and/or counseling patient: Coding Level of Care Code 45359 SUB INP/OBS CARE 1/25MIN Diagnoses Blood loss anemia D50.0
[2024-06-12 11:27] LABS: Hematocrit (blood only) 23.4 % (42.0-52.0); Hemoglobin 7.5 g/dl (14.0-18.0)
--- NOTE | 2024-06-12 12:21 | Hospitalist Progress Note ---
Date of Service June 12, 2024 Assessment & Plan (1) Gastrointestinal bleed: Plan: Suspected upper GI bleed with presence of melena. He is now on Protonix therapy. Appreciate gastroenterology consultation and recommendations. EGD and colonoscopy will be done early this coming week. Pletal, aspirin and Eliquis are on hold. (2) Blood loss anemia: Plan: He has received 1 unit packed red blood cells for hemoglobin 6.5. Hemoglobin now 7.4. Will repeat H&H again this afternoon and monitor daily. Will transfuse again if hemoglobin drops below 7. Iron level is normal (3) PAF (paroxysmal atrial fibrillation): Plan: Currently in normal sinus rhythm. Eliquis is on hold. Telemetry . Continue amiodarone and metoprolol (4) S/P Maze operation for atrial fibrillation: Plan: Currently in normal sinus rhythm Plan Hopeful discharge to home sometime this coming week once stable Admission and Anticipated Discharge Date Admission Date: June 11, 2024 Subjective Alert and oriented. No acute problems. He received 1 unit packed red blood cells on admission for hemoglobin 6.5. Hemoglobin now 7.4. Will repeat again this afternoon and monitor daily. Gastroenterology consultation appreciated. Pletal has been discontinued. He will undergo colonoscopy and endoscopy early next week. He is on IV Protonix every 12 hours. Full liquid diet for now. Eliquis is currently on hold Review of Systems 2 Review of Systems: Constitutionalno fever or chills ENTno blurred vision, no double vision, no epistaxis, no sore throat Respiratoryno cough, no wheezing, no shortness of breath Cardiacno palpitations, no chest pain, no syncope Nickie nausea, vomiting, diarrhea.he has developed melena. No overt hematochezia Uro-no urinary retention, no urinary incontinence, no dysuria, no hematuria Musculoskeletalno joint pain, no muscle tenderness Skinno bruising, no rashes, no pruritus Neurono isolated weakness, no paresthesia, no weakness Psychno depression, no anxiety Physical Exam 2 Physical Exam: General-alert and oriented x3, no fever, no chills HEENT-head atraumatic and normocephalic, pupils equal and reactive to light, extraocular muscles intact Neck-no lymphadenopathy or thyromegaly, trachea midline Chest-clear to auscultation. No rales, wheezing or rhonchi Cardiac-regular rate and rhythm, normal S1 and S2 Abdomen-normal bowel sounds, no hepatosplenomegaly Extremities-no cyanosis, clubbing, or edema Neuro-cranial nerves II through XII intact, motor and sensory function within normal limits, strength symmetrical, no focal deficits Psych-normal affect, normal mood Results & Data Results & Data Vital Signs (Past 12 Hours) Vital Signs Temp Pulse Pulse Resp BP Pulse Ox O2 Del Method 06/12/24 11:31 36.7 C 89 18 162/69 H 95 Room Air 06/12/24 10:52 60 06/12/24 07:31 36.7 C 76 18 137/70 97 Room Air 06/12/24 02:38 36.6 C 59 L 16 133/62 95 Room Air Laboratory Results 06/12/24 10:57 06/12/24 06:16 PG Care Time/CCT Total # of Minutes Spent Total Time Spent with Patient: Total time spent is greater than 50% in coordination of care (as documented) at patient's floor/unit and/or counseling patient: Coding Level of Care Code 31698 SUB INP/OBS CARE 3/50MIN Diagnoses Gastrointestinal hemorrhage, unspecified gastrointestinal hemorrhage type K92.2 GI bleed type/associated pathology: unspecified gastrointestinal hemorrhage type Blood loss anemia D50.0 PAF (paroxysmal atrial fibrillation) I48.0 S/P Maze operation for atrial fibrillation Z98.890; Z86.79 (1) Gastrointestinal bleed GI bleed type/associated pathology: unspecified gastrointestinal hemorrhage type Qualified Code(s): K92.2 - Gastrointestinal hemorrhage, unspecified
[2024-06-12 16:49] LABS: Hematocrit (blood only) 23.2 % (42.0-52.0); Hemoglobin 7.4 g/dl (14.0-18.0)
[2024-06-12] MEDS: PSYLLIUM or GUAR GUM FIBER 4GM PACKET PO SCH (20:29)
[2024-06-12 22:47] LABS: Hematocrit (blood only) 22.6 % (42.0-52.0); Hemoglobin 7.5 g/dl (14.0-18.0)
[2024-06-13 06:01] LABS: Basophils # (auto) 0.03 K/uL (0.00-0.20); Basophils % (auto) 0.5 %; Eosinophils # (auto) 0.14 K/uL (0.00-0.50); Eosinophils % (auto) 2.4 %; Hemoglobin 7.6 g/dl (14.0-18.0); Immature Granulocytes # (auto) 0.03 K/uL (0.01-0.20); Immature Granulocytes % (auto) 0.5 %; Lymphocytes # (auto) 0.83 K/uL (1.20-3.40); Lymphocytes % (auto) 14.1 %; Mean Corpuscular Hemoglobin 31.4 pg (25.0-34.0); Mean Platelet Volume 8.6 fL (9.4-12.4); Monocytes # (auto) 0.47 K/uL (0.11-0.59); Neutrophils # (auto) 4.37 K/uL (1.40-6.50); Neutrophils % (auto) 74.5 %; Platelet Count 233 K/uL (130-400); RDW Coefficient of Variation 17.9 % (11.5-14.5); RDW Standard Deviation 61.2 fL (36.4-46.3); Red Blood Count 2.42 M/uL (4.70-6.10); White Blood Count 5.87 K/ul (4.8-10.8)
[2024-06-13 06:23] LABS: Poikilocytosis Present; Polychromasia 1+
[2024-06-13 06:38] LABS: BUN Creatinine Ratio 14.5 (10-20); Calcium 8.6 mg/dl (8.6-10.3); Creatinine Clr Calc Pharmacy 33.9 ml/min; Potassium 3.6 mmol/L (3.5-5.1)
--- NOTE | 2024-06-13 09:59 | Gastroenterology Progress Note ---
Date of Service June 13, 2024 Assessment & Plan (1) Blood loss anemia: Plan: EGD and colonoscopy on Friday. These procedures, the alternatives including no work up or treatment, risks and benefits were discussed. Among the risks discussed included cardiorespiratory suppression, aspiration, bleeding, failure to diagnose cancer or other pathology and perforation requiring surgery. In addition we discussed that if specimens are obtained it may be deemed beneficial to send these for genetic/DNA testing. The patient claimed to understand all that was discussed, consented to all and all of his questions were answered. Admission and Anticipated Discharge Date Admission Date: June 11, 2024 Subjective Patient doing OK. Review of Systems Gastrointestinal: No abdominal pain, vomiting, melena or hematochezia Physical Exam Physical Exam: WD WN WM NAD Afebrile VSS Respiratory: Lungs clear Cardiovascular: Seems reg Gastrointestinal (Abdomen): NL BS, soft, nontender Results & Data Results & Data Vital Signs (Past 12 Hours) Vital Signs Temp Pulse Resp BP Pulse Ox O2 Del Method 06/13/24 07:25 37.0 C 54 L 18 152/69 H 93 Room Air 06/13/24 02:15 37.4 C 56 L 16 154/69 H 94 Room Air 06/12/24 22:35 36.8 C 62 18 161/76 H 93 Room Air Laboratory Results Hgb stable PG Care Time/CCT Total # of Minutes Spent Total Time Spent with Patient: Total time spent is greater than 50% in coordination of care (as documented) at patient's floor/unit and/or counseling patient: Coding Level of Care Code 33448 SUB INP/OBS CARE 1/25MIN Diagnoses Blood loss anemia D50.0
--- NOTE | 2024-06-13 11:53 | Hospitalist Progress Note ---
Date of Service June 13, 2024 Assessment & Plan (1) Gastrointestinal bleed: Plan: Suspected upper GI bleed with presence of melena. He is now on Protonix therapy. Appreciate gastroenterology consultation and recommendations. EGD and colonoscopy will be done on June 15. Pletal, aspirin and Eliquis are on hold. (2) Blood loss anemia: Plan: He has received 1 unit packed red blood cells for hemoglobin 6.5. Hemoglobin now stable at 7.6. Will transfuse again if hemoglobin drops below 7. Iron level is normal (3) PAF (paroxysmal atrial fibrillation): Plan: Currently in normal sinus rhythm. Eliquis is on hold. Telemetry . Continue amiodarone and metoprolol (4) S/P Maze operation for atrial fibrillation: Plan: Currently in normal sinus rhythm (5) Acute renal failure superimposed on stage 3 chronic kidney disease: Plan: Improved. Creatinine is now at baseline. Monitor intake and output. Serial labs Plan Hopeful discharge to home sometime this coming week once stable Admission and Anticipated Discharge Date Admission Date: June 11, 2024 Subjective Alert and oriented. Pleasant. Stable overall. He understands why his diet cannot be advanced because he has upcoming endoscopy on June 15. Hemoglobin is now stable at 7.6. Eliquis, Pletal, aspirin are on hold. Creatinine has improved down to 1.6 which appears to be his baseline Review of Systems 2 Review of Systems: Constitutionalno fever or chills ENTno blurred vision, no double vision, no epistaxis, no sore throat Respiratoryno cough, no wheezing, no shortness of breath Cardiacno palpitations, no chest pain, no syncope Nickie nausea, vomiting, diarrhea.he has developed melena. No overt hematochezia Uro-no urinary retention, no urinary incontinence, no dysuria, no hematuria Musculoskeletalno joint pain, no muscle tenderness Skinno bruising, no rashes, no pruritus Neurono isolated weakness, no paresthesia, no weakness Psychno depression, no anxiety Physical Exam 2 Physical Exam: General-alert and oriented x3, no fever, no chills HEENT-head atraumatic and normocephalic, pupils equal and reactive to light, extraocular muscles intact Neck-no lymphadenopathy or thyromegaly, trachea midline Chest-clear to auscultation. No rales, wheezing or rhonchi Cardiac-regular rate and rhythm, normal S1 and S2 Abdomen-normal bowel sounds, no hepatosplenomegaly Extremities-no cyanosis, clubbing, or edema Neuro-cranial nerves II through XII intact, motor and sensory function within normal limits, strength symmetrical, no focal deficits Psych-normal affect, normal mood Results & Data Results & Data Vital Signs (Past 12 Hours) Vital Signs Temp Pulse Pulse Resp BP BP Pulse Ox 06/13/24 11:27 36.7 C 55 L 18 165/73 H 95 06/13/24 11:10 58 L 06/13/24 07:25 37.0 C 54 L 18 152/69 H 93 06/13/24 02:15 37.4 C 56 L 16 154/69 H 94 O2 Del Method 06/13/24 11:27 Room Air 06/13/24 11:10 06/13/24 07:25 Room Air 06/13/24 02:15 Room Air Laboratory Results 06/13/24 05:30 06/13/24 05:30 PG Care Time/CCT Total # of Minutes Spent Total Time Spent with Patient: Total time spent is greater than 50% in coordination of care (as documented) at patient's floor/unit and/or counseling patient: Coding Level of Care Code 45382 SUB INP/OBS CARE 2/35MIN Diagnoses Gastrointestinal hemorrhage, unspecified gastrointestinal hemorrhage type K92.2 GI bleed type/associated pathology: unspecified gastrointestinal hemorrhage type Blood loss anemia D50.0 PAF (paroxysmal atrial fibrillation) I48.0 S/P Maze operation for atrial fibrillation Z98.890; Z86.79 Acute renal failure superimposed on stage 3 chronic kidney disease N17.9; N18.30 (1) Gastrointestinal bleed GI bleed type/associated pathology: unspecified gastrointestinal hemorrhage type Qualified Code(s): K92.2 - Gastrointestinal hemorrhage, unspecified
[2024-06-14] MEDS ORDERED: SIMETHICONE (ENDO) IR PRN (06:40)
[2024-06-14 06:50] LABS: Basophils # (auto) 0.03 K/uL (0.00-0.20); Basophils % (auto) 0.4 %; Eosinophils # (auto) 0.17 K/uL (0.00-0.50); Eosinophils % (auto) 2.5 %; Hematocrit (blood only) 24.7 % (42.0-52.0); Immature Granulocytes # (auto) 0.02 K/uL (0.01-0.20); Immature Granulocytes % (auto) 0.3 %; Lymphocytes # (auto) 0.93 K/uL (1.20-3.40); Lymphocytes % (auto) 13.6 %; Mean Corpuscular Hemoglobin 31.9 pg (25.0-34.0); Mean Corpuscular Hgb Conc 32.4 g/dL (32.0-36.0); Mean Corpuscular Volume 98.4 fL (80.0-100.0); Mean Platelet Volume 8.6 fL (9.4-12.4); Monocytes % (auto) 7.3 %; Neutrophils # (auto) 5.17 K/uL (1.40-6.50); Neutrophils % (auto) 75.9 %; Platelet Count 224 K/uL (130-400); RDW Coefficient of Variation 17.5 % (11.5-14.5); RDW Standard Deviation 62.4 fL (36.4-46.3); Red Blood Count 2.51 M/uL (4.70-6.10); White Blood Count 6.82 K/ul (4.8-10.8)
[2024-06-14 07:07] LABS: BUN Creatinine Ratio 11.6 (10-20); Calcium 8.6 mg/dl (8.6-10.3); Creatinine Clr Calc Pharmacy 34.1 ml/min; Potassium 3.4 mmol/L (3.5-5.1)
--- NOTE | 2024-06-14 07:16 | Gastroenterology Progress Note ---
Date of Service June 14, 2024 Assessment & Plan (1) Blood loss anemia: Plan: For EGD and colonoscopy tomorrow. If no etiology found can consider OP SB Video Capsule Endoscopy. Admission and Anticipated Discharge Date Admission Date: June 11, 2024 Subjective Patient states he is doing well. Review of Systems Gastrointestinal: Denies abdominal pain, N/V, melena or hematochezia Physical Exam Constitutional: WD WN WM NAD Afebrile VSS Respiratory: Lungs: Clear Cardiovascular: Heart: RRR Gastrointestinal (Abdomen): NL BS, soft, nontender Results & Data Results & Data Vital Signs (Past 12 Hours) Vital Signs Temp Pulse Pulse Resp BP BP Pulse Ox 06/14/24 03:24 37.1 C 55 L 18 162/73 H 95 06/13/24 22:10 36.8 C 54 L 16 169/76 H 95 06/13/24 21:51 54 L 06/13/24 21:08 58 L 173/75 H 96 O2 Del Method 06/14/24 03:24 Room Air 06/13/24 22:10 Room Air 06/13/24 21:51 06/13/24 21:08 Room Air Laboratory Results Hgb steady at 8.0 PG Care Time/CCT Total # of Minutes Spent Total Time Spent with Patient: Total time spent is greater than 50% in coordination of care (as documented) at patient's floor/unit and/or counseling patient: Coding Level of Care Code 29308 SUB INP/OBS CARE 1/25MIN Diagnoses Blood loss anemia D50.0
[2024-06-14] MEDS: bisacodyL 5 MG TABEC PO ONE ×2 (08:33→10:33)
[2024-06-14 11:10] LABS: Thyroid Stimulating Hormone 3.416 uIu/ml (0.300-4.500)
--- NOTE | 2024-06-14 17:12 | Hospitalist Progress Note ---
Date of Service June 14, 2024 Assessment & Plan (1) Gastrointestinal bleed: Plan: Suspected upper GI bleed with presence of melena. He is now on Protonix therapy-switch IV to po bid as per GI recommendation. Appreciate gastroenterology consultation and recommendations. EGD and colonoscopy will be done on June 15. Pletal, aspirin and Eliquis are on hold-he is in a NSR on tele Last colonoscopy 20 years ago, has never had EGD; does have a h/o chronic anemia from CKD (2) Blood loss anemia: Plan: Acute blood loss anemia on chronic anemia of CKD Fe studies, B12, folate all normal here. TSH checked today and is also normal MCV normal He has received 1 unit packed red blood cells for hemoglobin 6.5. Hemoglobin now improved to 8.0, no obvious bleeding since admission EGD/colonoscopy tomorrow (3) PAF (paroxysmal atrial fibrillation): Plan: Currently in normal sinus rhythm. Eliquis is on hold Continue amiodarone and metoprolol Can downgrade off tele (4) S/P Maze operation for atrial fibrillation: Plan: Performed at the time of his CABG Currently in normal sinus rhythm Holding ASA (5) Acute renal failure superimposed on stage 3 chronic kidney disease: Plan: Improved. Creatinine is now at baseline 1.6. Monitor intake and output. Serial labs BPH-resume home FLomax COPD-resume home maintenance LAMA inhaler and prn albuterol INH HFmEF-not volume overloaded-hold Bumex for tomorrow AM due to receiving bowel prep. COntinue Entresto, Toprol XL, potassium for hypokalemia Plan DVT proph- SCDs Dispo-continued stay, downgrade to med/surg, possible dc to home tomorrow after scopes if remains stable Admission and Anticipated Discharge Date Admission Date: June 11, 2024 Subjective Pt had bisacodyl 20mg this AM and has already had 12 BMs today. Reports stool is no longer black in color. No abd pain, no heartburn, no N/V. No CP or SOB Tele with SR 1st degree AVB, rates 50-60s Physical Exam Constitutional: WD/WN, vitals as above Respiratory: normal respiratory effort, lungs clear to auscultation Cardiovascular: RRR, no murmur, no edema Gastrointestinal (Abdomen): normal bowel sounds, soft, nontender, no hepatosplenomegaly Psychiatric: A+Ox3, euthymic affect Results & Data Results & Data Vital Signs (Past 12 Hours) Vital Signs Temp Pulse Pulse Resp BP BP Pulse Ox 06/14/24 15:57 36.4 C L 59 L 18 176/81 H 97 06/14/24 14:31 64 06/14/24 11:21 36.7 C 68 18 178/74 H 97 06/14/24 07:30 36.7 C 54 L 18 164/69 H 91 06/14/24 07:19 57 L O2 Del Method 06/14/24 15:57 Room Air 06/14/24 14:31 06/14/24 11:21 Room Air 06/14/24 07:30 Room Air 06/14/24 07:19 Laboratory Results CBC, BMP, TSH reviewed PG Care Time/CCT Total # of Minutes Spent Total Time Spent with Patient: Total time spent is greater than 50% in coordination of care (as documented) at patient's floor/unit and/or counseling patient: Coding Level of Care Code 15501 SUB INP/OBS CARE 2/35MIN Diagnoses Gastrointestinal hemorrhage, unspecified gastrointestinal hemorrhage type K92.2 GI bleed type/associated pathology: unspecified gastrointestinal hemorrhage type Blood loss anemia D50.0 PAF (paroxysmal atrial fibrillation) I48.0 S/P Maze operation for atrial fibrillation Z98.890; Z86.79 Acute renal failure superimposed on stage 3 chronic kidney disease N17.9; N18.30 (1) Gastrointestinal bleed GI bleed type/associated pathology: unspecified gastrointestinal hemorrhage type Qualified Code(s): K92.2 - Gastrointestinal hemorrhage, unspecified
[2024-06-14] MEDS ORDERED: ALBUTEROL HFA 8 GM INHALER INH PRN (17:49)
[2024-06-14] MEDS: LAVAGE SOLUTION 4000ML PO SCH (18:01)
[2024-06-14] MEDS: TAMSULOSIN HCL 0.4 MG CAP PO SCH (18:33)
[2024-06-14] MEDS: PANTOprazole 40 MG TAB PO SCH (20:08)
[2024-06-15 06:10] LABS: Basophils # (auto) 0.02 K/uL (0.00-0.20); Basophils % (auto) 0.4 %; Eosinophils # (auto) 0.11 K/uL (0.00-0.50); Eosinophils % (auto) 2.1 %; Hemoglobin 7.5 g/dl (14.0-18.0); Immature Granulocytes # (auto) 0.01 K/uL (0.01-0.20); Immature Granulocytes % (auto) 0.2 %; Lymphocytes # (auto) 0.83 K/uL (1.20-3.40); Lymphocytes % (auto) 15.6 %; Mean Corpuscular Hemoglobin 31.6 pg (25.0-34.0); Mean Corpuscular Hgb Conc 32.6 g/dL (32.0-36.0); Mean Platelet Volume 8.5 fL (9.4-12.4); Monocytes # (auto) 0.47 K/uL (0.11-0.59); Monocytes % (auto) 8.9 %; Neutrophils # (auto) 3.87 K/uL (1.40-6.50); Neutrophils % (auto) 72.8 %; Platelet Count 186 K/uL (130-400); RDW Coefficient of Variation 17.3 % (11.5-14.5); RDW Standard Deviation 61.8 fL (36.4-46.3); Red Blood Count 2.37 M/uL (4.70-6.10); White Blood Count 5.31 K/ul (4.8-10.8)
[2024-06-15 06:20] LABS: BUN Creatinine Ratio 9.4 (10-20); Calcium 8.5 mg/dl (8.6-10.3); Creatinine Clr Calc Pharmacy 32.7 ml/min; Magnesium 1.7 mg/dl (1.7-2.4); Potassium 2.9 mmol/L (3.5-5.1)
[2024-06-15 06:33] LABS: Poikilocytosis Present; Polychromasia 1+
[2024-06-15] MEDS: POTASSIUM CHLORIDE / WTR 10 MEQ/100 ML PLCT IV SCH (06:46)
[2024-06-15] MEDS: CHOLECALCIFEROL 25 MCG (1000 UNITS) TAB PO SCH (08:05)
[2024-06-15] MEDS: ROSUVASTATIN CALCIUM 20 MG TAB PO SCH (08:05)
[2024-06-15] MEDS: UMECLIDINIUM/VILANTEROL 62.5/25MCG 7 PUFFS/INHALER INH SCH (08:05)
[2024-06-15] MEDS: MAGNESIUM SULFATE / D5W 1 GM/100 ML BAG IV ONE (08:53)
--- NOTE | 2024-06-15 09:15 | Gastroenterology Progress Note ---
Date of Service June 15, 2024 Assessment & Plan (1) Anemia: Plan: 84 year old male w/ history of CKD, COPD, afib s/p maze procedure, mitral regurg, CAD s/p CABG in 2022, NSTEMI and others admitted w/ abnormal labs showing acute on chronic anemia, GI was asked to evaluate as he was found to be heme positive w/ acute on chronic anemia, family history of colon cancer in his father. Maintain NPO status for EGD/Colonoscopy We appreciate assistance in the management of any serological abnormality and corrections to include: hemoglobin >7, INR <2, platelets >50,000, potassium levels >3.5 but <5.3, and sodium levels within 5 points of the reference range prior to endoscopic evaluation. Thank you for allowing us to participate in the care of this patient. Please call with any acute changes, questions or concerns. Please see addendum below with additional recommendation from my supervising physician. Admission and Anticipated Discharge Date Admission Date: June 11, 2024 Subjective Pt was seen and evaluated, chart reviewed. Completed bowel prep. Stools are liquid, yellow. No black or bloody stools with prep noted. Review of Systems Review of Systems: All other findings negative except as noted in HPI. Physical Exam Constitutional: WD/WN, vitals as above Respiratory: normal respiratory effort, lungs clear to auscultation Cardiovascular: Rate/Rhythm: regular rate and regular rhythm Gastrointestinal (Abdomen): normal bowel sounds, soft, nontender, no hepatosplenomegaly Skin: no rashes, warm and dry Results & Data Results & Data Vital Signs (Past 12 Hours) Vital Signs Temp Pulse Resp BP Pulse Ox O2 Del Method 06/15/24 07:18 36.3 C L 61 16 172/75 H 94 Room Air 06/15/24 07:05 Room Air 06/14/24 21:54 Room Air Laboratory Results 06/15/24 06/14/24 Range/Units 05:37 06:06 WBC 5.31 (4.8-10.8) K/ul RBC 2.37 L (4.70-6.10) M/uL Hgb 7.5 L (14.0-18.0) g/dl Hct 23.0 L (42.0-52.0) % MCV 97.0 (80.0-100.0) fL MCH 31.6 (25.0-34.0) pg MCHC 32.6 (32.0-36.0) g/dL RDW Std Deviation 61.8 H (36.4-46.3) fL RDW Coeff of Jolene 17.3 H (11.5-14.5) % Plt Count 186 (130-400) K/uL MPV 8.5 L (9.4-12.4) fL Immature Gran % (Auto) 0.2 % Neut % (Auto) 72.8 % Lymph % (Auto) 15.6 % Sherman % (Auto) 8.9 % Eos % (Auto) 2.1 % Baso % (Auto) 0.4 % Neut # (Auto) 3.87 (1.40-6.50) K/uL Lymph # (Auto) 0.83 L (1.20-3.40) K/uL Sherman # (Auto) 0.47 (0.11-0.59) K/uL Eos # (Auto) 0.11 (0.00-0.50) K/uL Baso # (Auto) 0.02 (0.00-0.20) K/uL Immature Gran # (Auto) 0.01 (0.01-0.20) K/uL Polychromasia 1+ Poikilocytosis Present Sodium 141 (136-145) mmol/L Potassium 2.9 L (3.5-5.1) mmol/L Chloride 101 (98-107) mmol/L Carbon Dioxide 33 H (21-32) mmol/L Anion Gap 7 (3-11) BUN 16 (6-23) mg/dl Creatinine 1.71 H (0.6-1.4) mg/dl Est Cr Clr Drug Dosing 32.7 ml/min eGFR 39.23 BUN/Creatinine Ratio 9.4 L (10-20) Glucose 82 (70-99(Fasting)) mg/dl Calcium 8.5 L (8.6-10.3) mg/dl Magnesium 1.7 (1.7-2.4) mg/dl TSH 3.416 (0.300-4.500) uIu/ml PG Care Time/CCT Total # of Minutes Spent Total Time Spent with Patient: Total time spent is greater than 50% in coordination of care (as documented) at patient's floor/unit and/or counseling patient: Coding Level of Care Code None Diagnoses Anemia D50.9 Anemia type: iron deficiency Iron deficiency anemia type: unspecified iron deficiency (1) Anemia Anemia type: iron deficiency Iron deficiency anemia type: unspecified iron deficiency Qualified Code(s): D50.9 - Iron deficiency anemia, unspecified
[2024-06-15] MEDS: SODIUM CHLORIDE 0.9% 500 ML IV SCH (12:39)
--- NOTE | 2024-06-15 13:18 | Anesthesiology Consultation ---
Date of Service June 15, 2024 Assessment & Plan ASA ASA4 Proposed Anesthesia Anesthesia Type: MAC Risk / Benefits Reviewed With: PT / POA / Parent / Guardian, Accepts Plan and Informed Consent Obtained History Surgery Operation Date: 06/15/24 16:30 Proposed Procedures p Colonoscopy EGD Mao - Franky Cavanaugh MD Height/Weight Height: 5 ft 9 in Weight: 72.4 kg Allergies Allergy/AdvReac Type Severity Reaction Status Date / Time No Known Allergies Allergy Verified 03/26/24 00:05 Medications Home Medications Medication Instructions Recorded Confirmed Last Taken acetaminophen 500 mg capsule 1,000 mg PO Q6H PRN Pain 03/20/23 06/11/24 Unknown rosuvastatin 20 mg tablet 20 mg PO DAILY 03/20/23 06/11/24 10/30/23 omeprazole 40 mg capsule,delayed 40 mg PO DAILY 09/29/23 06/11/24 10/30/23 release albuterol sulfate 2.5 mg/3 mL 2.5 mg continuous nebulization Q6H 10/30/23 06/11/24 Unknown (0.083 %) solution for nebulization PRN Shortness Of Breath Or Wheezing guaifenesin 600 mg tablet, 600 mg PO BID PRN Congestion 10/30/23 06/11/24 10/30/23 extended release 12 hr (Mucinex) Flutter Valve #1 ea 01/05/24 06/03/24 Unknown albuterol sulfate 90 mcg/actuation 2 inh inhalation Q6H PRN shortness 01/05/24 06/11/24 Unknown aerosol inhaler (Ventolin HFA) of breath or wheezing or cough #8.5 grams aspirin 81 mg tablet,delayed 81 mg PO DAILY 02/03/24 06/11/24 Unknown release (Adult Low Dose Aspirin) sacubitril 97 mg-valsartan 103 mg 1 tab PO BID 02/03/24 06/11/24 Unknown tablet (Entresto) tamsulosin 0.4 mg capsule (Flomax) 0.4 mg PO DAILY #90 caps 02/03/24 06/11/24 Unknown Flutter Valve #1 ea 02/09/24 06/03/24 Unknown ascorbic acid (vitamin C) 500 mg 500 mg PO DAILY 02/09/24 06/11/24 Unknown capsule cholecalciferol (vitamin D3) 25 25 mcg PO QAM 02/09/24 06/11/24 Unknown mcg (1,000 unit) capsule fluticasone furoate 27.5 1 spray intranasal DAILY PRN 02/09/24 06/11/24 Unknown mcg/actuation nasal ALLERGIES spray,suspension (Flonase Sensimist) tiotropium 2.5 mcg-olodaterol 2.5 2 puff inhalation DAILY #4 grams 02/09/24 06/11/24 Unknown mcg/actuation mist for inhalation (Stiolto Respimat) ferrous sulfate 325 mg (65 mg 325 mg PO DAILY 03/18/24 06/11/24 Unknown iron) tablet apixaban 2.5 mg tablet (Eliquis) 2.5 mg PO BID 05/26/24 06/11/24 Unknown bumetanide 1 mg tablet 2 mg PO DAILY 05/26/24 06/11/24 Unknown calcitriol 0.25 mcg capsule 0.25 mcg PO .COMPLEX #36 caps 05/26/24 06/11/24 Unknown amiodarone 100 mg tablet 100 mg PO DAILY 06/11/24 06/11/24 Unknown cilostazol 50 mg tablet 50 mg PO BID 06/11/24 06/11/24 Unknown metoprolol succinate 50 mg 50 mg PO BID 06/11/24 06/11/24 Unknown tablet,extended release 24 hr potassium chloride 20 mEq/15 mL 20 meq PO BID 06/11/24 06/11/24 Unknown oral liquid trazodone 50 mg tablet 50 mg PO DAILY 06/11/24 06/11/24 Unknown Active Medications Generic Name Dose Route Start Last Admin Trade Name Freq PRN Reason Stop Dose Admin Amiodarone HCl 100 mg 06/12/24 09:00 06/15/24 08:05 Amiodarone 200 Mg Tab PO 07/12/24 08:59 100 mg DAILY AMRIT Administration Bumetanide 2 mg 06/12/24 09:00 06/14/24 08:34 Bumetanide 1 Mg Tab PO 07/12/24 08:59 2 mg DAILY AMRIT Administration Sodium Chloride 500 mls @ 15 mls/hr 06/15/24 07:30 06/15/24 12:39 Nss IV 06/16/24 07:29 Infused .Q24H AMRIT Infusion Metoprolol Succinate 50 mg 06/11/24 21:00 06/15/24 08:05 Metoprolol Succ 50mg Ext Rel Tab PO 07/11/24 20:59 50 mg BID AMRIT Administration Pantoprazole Sodium 40 mg 06/14/24 21:00 06/15/24 08:05 Pantoprazole 40 Mg Tab PO 07/14/24 20:59 40 mg BID AMRIT Administration Potassium Chloride 20 meq 06/11/24 21:00 06/15/24 08:09 Potassium Chloride Crtab 20 Meq Tabcr PO 07/11/24 20:59 20 meq BID AMRIT Administration Rosuvastatin Calcium 20 mg 06/15/24 09:00 06/15/24 08:05 Rosuvastatin Calcium 20 Mg Tab PO 07/15/24 08:59 20 mg DAILY AMRIT Administration Sacubitril/Valsartan 1 tab 06/11/24 21:00 06/15/24 08:05 Valsartan/Sacubitril 103/97mg Tab PO 07/11/24 20:59 1 tab BID AMRIT Administration Tamsulosin HCl 0.4 mg 06/14/24 17:49 06/15/24 08:05 Tamsulosin Hcl 0.4 Mg Cap PO 07/14/24 17:48 0.4 mg DAILY AMRIT Administration Umeclidinium/Vilanterol 1 puffs 06/15/24 09:00 06/15/24 08:05 Umeclidinium/Vilanterol 62.5/25mcg 7 Puffs/Inhaler INH 07/15/24 08:59 1 puffs DAILY AMRIT Administration Vitamin D 25 mcg 06/15/24 09:00 06/15/24 08:05 Cholecalciferol 25 Mcg (1000 Units) Tab PO 07/15/24 08:59 25 mcg QAM AMRIT Administration NPO Date Last Intake of Fluids: 06/15/24 Time Last Intake of Fluids: 07:30 Date Last Intake of Solids: 06/10/24 Time Last Intake of Solids: 23:59 Past Medical History Medical History NSTEMI (non-ST elevated myocardial infarction) Hyperlipidemia Hypertension TILA (acute kidney injury) Dysphagia Insomnia Right heart failure with reduced right ventricular function Acute exacerbation of chronic obstructive pulmonary disease PAF (paroxysmal atrial fibrillation) Acute respiratory failure with hypoxia Ex-smoker Pleural effusion Pneumonia Chronic diastolic CHF (congestive heart failure) Current smoker CAD (coronary artery disease) Myocardial infarct 1997 - heavy chest, left arm pain - Went to [facility] - flown to [facility] - blockage of "back of heart" - heart cath - no stent placement - Follows Dr. Puente Hypertension Exercise / Class Metabolic Activity II 4-5 Yardwork/Stairs/Walk up hill Past Family History Family History Father Family history of diabetes mellitus CHF (congestive heart failure) Black lung disease Mother , had CABG Family history of diabetes mellitus Coronary heart disease Myocardial infarction Dementia Past Surgical History Surgical History History of coronary artery bypass graft S/P CABG (coronary artery bypass graft) 3 vessel - [facility], 02/2023. Hx of cataract extraction Rt. Hx of cardiac cath 1997 d/t to CT - no stents placed - Follows Dr. Puente History of colonoscopy Hx of inguinal hernia repair Hx of repair of left rotator cuff x2 Past Anesthesia History No Hx of Anesthesia Complications and No Family Hx of Anesthesia Complications History of PONV No Hx of PONV and No Hx of Motion Sickness Social History Smoking Status: Former smoker tobacco type: cigarettes Smoking cigarettes per day: 2 packs Do You Dip or Chew Tobacco: No Hx Alcohol Use: Yes Alcohol type: beer alcohol intake frequency: holidays/special occasions only Hx Substance Use: No substance use type: does not use Physical Exam Vital Signs Last Vital Signs Temp 36.2 C L 06/15/24 12:35 Pulse 55 L 06/15/24 12:35 Resp 16 06/15/24 12:35 BP 168/84 H 06/15/24 12:35 Pulse Ox 97 06/15/24 12:35 O2 Del Method Room Air 06/15/24 12:35 Constitutional no acute distress ENMT Mouth: + dentition abnormality (multiple missing teeth; none loose) Thyromental Distance: > or= 3.5 Finger Breadths Mallampati Class: III Neck normal visual inspection Respiratory normal respiratory effort; no respiratory distress Auscultation: lungs clear to auscultation bilaterally Cardiovascular Rate/Rhythm: regular rate and regular rhythm Heart Sounds: no murmur Musculoskeletal Spine: normal cervical ROM Psychiatric Orientation: alert and oriented x 3 Testing Laboratory Results 06/15/24 05:37 06/15/24 05:37 PT 12.1 Seconds (9.0-12.0) H 06/11/24 09:52 INR 1.1 (0.9-1.1) 06/11/24 09:52 APTT 30 Seconds (21-31) 06/11/24 09:52 Blood Type AB Negative 06/11/24 09:52 Antibody Screen NEGATIVE 06/11/24 09:52 Day of Procedure Evaluation. Date of Surgery June 15, 2024 Height/Weight Height: 5 ft 9 in Weight: 72.4 kg Vital Signs Last Vital Signs Temp 36.2 C L 06/15/24 12:35 Pulse 55 L 06/15/24 12:35 Resp 16 06/15/24 12:35 BP 168/84 H 06/15/24 12:35 Pulse Ox 97 06/15/24 12:35 O2 Del Method Room Air 06/15/24 12:35 Allergies Allergy/AdvReac Type Severity Reaction Status Date / Time No Known Allergies Allergy Verified 03/26/24 00:05 Medications Home Medications Medication Instructions Recorded Confirmed Last Taken acetaminophen 500 mg capsule 1,000 mg PO Q6H PRN Pain 03/20/23 06/11/24 Unknown rosuvastatin 20 mg tablet 20 mg PO DAILY 03/20/23 06/11/24 10/30/23 omeprazole 40 mg capsule,delayed 40 mg PO DAILY 09/29/23 06/11/24 10/30/23 release albuterol sulfate 2.5 mg/3 mL 2.5 mg continuous nebulization Q6H 10/30/23 06/11/24 Unknown (0.083 %) solution for nebulization PRN Shortness Of Breath Or Wheezing guaifenesin 600 mg tablet, 600 mg PO BID PRN Congestion 10/30/23 06/11/24 10/30/23 extended release 12 hr (Mucinex) Flutter Valve #1 ea 01/05/24 06/03/24 Unknown albuterol sulfate 90 mcg/actuation 2 inh inhalation Q6H PRN shortness 01/05/24 06/11/24 Unknown aerosol inhaler (Ventolin HFA) of breath or wheezing or cough #8.5 grams aspirin 81 mg tablet,delayed 81 mg PO DAILY 02/03/24 06/11/24 Unknown release (Adult Low Dose Aspirin) sacubitril 97 mg-valsartan 103 mg 1 tab PO BID 02/03/24 06/11/24 Unknown tablet (Entresto) tamsulosin 0.4 mg capsule (Flomax) 0.4 mg PO DAILY #90 caps 02/03/24 06/11/24 Unknown Flutter Valve #1 ea 02/09/24 06/03/24 Unknown ascorbic acid (vitamin C) 500 mg 500 mg PO DAILY 02/09/24 06/11/24 Unknown capsule cholecalciferol (vitamin D3) 25 25 mcg PO QAM 02/09/24 06/11/24 Unknown mcg (1,000 unit) capsule fluticasone furoate 27.5 1 spray intranasal DAILY PRN 02/09/24 06/11/24 Unknown mcg/actuation nasal ALLERGIES spray,suspension (Flonase Sensimist) tiotropium 2.5 mcg-olodaterol 2.5 2 puff inhalation DAILY #4 grams 02/09/24 06/11/24 Unknown mcg/actuation mist for inhalation (Stiolto Respimat) ferrous sulfate 325 mg (65 mg 325 mg PO DAILY 03/18/24 06/11/24 Unknown iron) tablet apixaban 2.5 mg tablet (Eliquis) 2.5 mg PO BID 05/26/24 06/11/24 Unknown bumetanide 1 mg tablet 2 mg PO DAILY 05/26/24 06/11/24 Unknown calcitriol 0.25 mcg capsule 0.25 mcg PO .COMPLEX #36 caps 05/26/24 06/11/24 Unknown amiodarone 100 mg tablet 100 mg PO DAILY 06/11/24 06/11/24 Unknown cilostazol 50 mg tablet 50 mg PO BID 06/11/24 06/11/24 Unknown metoprolol succinate 50 mg 50 mg PO BID 06/11/24 06/11/24 Unknown tablet,extended release 24 hr potassium chloride 20 mEq/15 mL 20 meq PO BID 06/11/24 06/11/24 Unknown oral liquid trazodone 50 mg tablet 50 mg PO DAILY 06/11/24 06/11/24 Unknown Active Medications Generic Name Dose Route Start Last Admin Trade Name Freq PRN Reason Stop Dose Admin Amiodarone HCl 100 mg 06/12/24 09:00 06/15/24 08:05 Amiodarone 200 Mg Tab PO 07/12/24 08:59 100 mg DAILY AMRIT Administration Bumetanide 2 mg 06/12/24 09:00 06/14/24 08:34 Bumetanide 1 Mg Tab PO 07/12/24 08:59 2 mg DAILY AMRIT Administration Sodium Chloride 500 mls @ 15 mls/hr 06/15/24 07:30 06/15/24 12:39 Nss IV 06/16/24 07:29 Infused .Q24H AMRIT Infusion Metoprolol Succinate 50 mg 06/11/24 21:00 06/15/24 08:05 Metoprolol Succ 50mg Ext Rel Tab PO 07/11/24 20:59 50 mg BID AMRIT Administration Pantoprazole Sodium 40 mg 06/14/24 21:00 06/15/24 08:05 Pantoprazole 40 Mg Tab PO 07/14/24 20:59 40 mg BID AMRIT Administration Potassium Chloride 20 meq 06/11/24 21:00 06/15/24 08:09 Potassium Chloride Crtab 20 Meq Tabcr PO 07/11/24 20:59 20 meq BID AMRIT Administration Rosuvastatin Calcium 20 mg 06/15/24 09:00 06/15/24 08:05 Rosuvastatin Calcium 20 Mg Tab PO 07/15/24 08:59 20 mg DAILY AMRIT Administration Sacubitril/Valsartan 1 tab 06/11/24 21:00 06/15/24 08:05 Valsartan/Sacubitril 103/97mg Tab PO 07/11/24 20:59 1 tab BID AMRIT Administration Tamsulosin HCl 0.4 mg 06/14/24 17:49 06/15/24 08:05 Tamsulosin Hcl 0.4 Mg Cap PO 07/14/24 17:48 0.4 mg DAILY AMRIT Administration Umeclidinium/Vilanterol 1 puffs 06/15/24 09:00 06/15/24 08:05 Umeclidinium/Vilanterol 62.5/25mcg 7 Puffs/Inhaler INH 07/15/24 08:59 1 puffs DAILY AMRIT Administration Vitamin D 25 mcg 06/15/24 09:00 06/15/24 08:05 Cholecalciferol 25 Mcg (1000 Units) Tab PO 07/15/24 08:59 25 mcg QAM AMRIT Administration Past Anesthesia History No Hx of Anesthesia Complications and No Family Hx of Anesthesia Complications History of PONV No Hx of PONV and No Hx of Motion Sickness NPO Date Last Intake of Fluids: 06/15/24 Time Last Intake of Fluids: 07:30 Date Last Intake of Solids: 06/10/24 Time Last Intake of Solids: 23:59 Home Medications Home Medications Medication Instructions Recorded Confirmed Last Taken acetaminophen 500 mg capsule 1,000 mg PO Q6H PRN Pain 03/20/23 06/11/24 Unknown rosuvastatin 20 mg tablet 20 mg PO DAILY 03/20/23 06/11/24 10/30/23 omeprazole 40 mg capsule,delayed 40 mg PO DAILY 09/29/23 06/11/24 10/30/23 release albuterol sulfate 2.5 mg/3 mL 2.5 mg continuous nebulization Q6H 10/30/23 06/11/24 Unknown (0.083 %) solution for nebulization PRN Shortness Of Breath Or Wheezing guaifenesin 600 mg tablet, 600 mg PO BID PRN Congestion 10/30/23 06/11/24 10/30/23 extended release 12 hr (Mucinex) Flutter Valve #1 ea 01/05/24 06/03/24 Unknown albuterol sulfate 90 mcg/actuation 2 inh inhalation Q6H PRN shortness 01/05/24 06/11/24 Unknown aerosol inhaler (Ventolin HFA) of breath or wheezing or cough #8.5 grams aspirin 81 mg tablet,delayed 81 mg PO DAILY 02/03/24 06/11/24 Unknown release (Adult Low Dose Aspirin) sacubitril 97 mg-valsartan 103 mg 1 tab PO BID 02/03/24 06/11/24 Unknown tablet (Entresto) tamsulosin 0.4 mg capsule (Flomax) 0.4 mg PO DAILY #90 caps 02/03/24 06/11/24 Unknown Flutter Valve #1 ea 02/09/24 06/03/24 Unknown ascorbic acid (vitamin C) 500 mg 500 mg PO DAILY 02/09/24 06/11/24 Unknown capsule cholecalciferol (vitamin D3) 25 25 mcg PO QAM 02/09/24 06/11/24 Unknown mcg (1,000 unit) capsule fluticasone furoate 27.5 1 spray intranasal DAILY PRN 02/09/24 06/11/24 Unknown mcg/actuation nasal ALLERGIES spray,suspension (Flonase Sensimist) tiotropium 2.5 mcg-olodaterol 2.5 2 puff inhalation DAILY #4 grams 02/09/24 06/11/24 Unknown mcg/actuation mist for inhalation (Stiolto Respimat) ferrous sulfate 325 mg (65 mg 325 mg PO DAILY 03/18/24 06/11/24 Unknown iron) tablet apixaban 2.5 mg tablet (Eliquis) 2.5 mg PO BID 05/26/24 06/11/24 Unknown bumetanide 1 mg tablet 2 mg PO DAILY 05/26/24 06/11/24 Unknown calcitriol 0.25 mcg capsule 0.25 mcg PO .COMPLEX #36 caps 05/26/24 06/11/24 Unknown amiodarone 100 mg tablet 100 mg PO DAILY 06/11/24 06/11/24 Unknown cilostazol 50 mg tablet 50 mg PO BID 06/11/24 06/11/24 Unknown metoprolol succinate 50 mg 50 mg PO BID 06/11/24 06/11/24 Unknown tablet,extended release 24 hr potassium chloride 20 mEq/15 mL 20 meq PO BID 06/11/24 06/11/24 Unknown oral liquid trazodone 50 mg tablet 50 mg PO DAILY 06/11/24 06/11/24 Unknown Active Medications Generic Name Dose Route Start Last Admin Trade Name Freq PRN Reason Stop Dose Admin Amiodarone HCl 100 mg 06/12/24 09:00 06/15/24 08:05 Amiodarone 200 Mg Tab PO 07/12/24 08:59 100 mg DAILY AMRIT Administration Bumetanide 2 mg 06/12/24 09:00 06/14/24 08:34 Bumetanide 1 Mg Tab PO 07/12/24 08:59 2 mg DAILY AMRIT Administration Sodium Chloride 500 mls @ 15 mls/hr 06/15/24 07:30 06/15/24 12:39 Nss IV 06/16/24 07:29 Infused .Q24H AMRIT Infusion Metoprolol Succinate 50 mg 06/11/24 21:00 06/15/24 08:05 Metoprolol Succ 50mg Ext Rel Tab PO 07/11/24 20:59 50 mg BID AMRIT Administration Pantoprazole Sodium 40 mg 06/14/24 21:00 06/15/24 08:05 Pantoprazole 40 Mg Tab PO 07/14/24 20:59 40 mg BID AMRIT Administration Potassium Chloride 20 meq 06/11/24 21:00 06/15/24 08:09 Potassium Chloride Crtab 20 Meq Tabcr PO 07/11/24 20:59 20 meq BID AMRIT Administration Rosuvastatin Calcium 20 mg 06/15/24 09:00 06/15/24 08:05 Rosuvastatin Calcium 20 Mg Tab PO 07/15/24 08:59 20 mg DAILY AMRIT Administration Sacubitril/Valsartan 1 tab 06/11/24 21:00 06/15/24 08:05 Valsartan/Sacubitril 103/97mg Tab PO 07/11/24 20:59 1 tab BID AMRIT Administration Tamsulosin HCl 0.4 mg 06/14/24 17:49 06/15/24 08:05 Tamsulosin Hcl 0.4 Mg Cap PO 07/14/24 17:48 0.4 mg DAILY AMRIT Administration Umeclidinium/Vilanterol 1 puffs 06/15/24 09:00 06/15/24 08:05 Umeclidinium/Vilanterol 62.5/25mcg 7 Puffs/Inhaler INH 07/15/24 08:59 1 puffs DAILY AMRIT Administration Vitamin D 25 mcg 06/15/24 09:00 06/15/24 08:05 Cholecalciferol 25 Mcg (1000 Units) Tab PO 07/15/24 08:59 25 mcg QAM AMRIT Administration Exercise / Class Metabolic Activity Metabolic Activity: II 4-5 Yardwork/Stairs/Walk up hill Physical Exam Constitutional: no acute distress Mouth: + dentition abnormality (multiple missing teeth; none loose) Thyromental Distance: > or= 3.5 Finger Breadths Mallampati Class: III Neck: + visual inspection normal Respiratory: + respiratory effort normal and + clear to auscultation bilaterally; no respiratory distress Cardiovascular: + regular rate and + regular rhythm; no murmur Musculoskeletal: no limited cervical ROM Psychiatric: + alert and + oriented x 3 ASA ASA4 Proposed Anesthesia Proposed Anesthesia: MAC Risk / Benefits Reviewed With: PT / POA / Parent / Guardian, Accepts Plan and Informed Consent Obtained
--- NOTE | 2024-06-15 13:49 | GI REPORT ---
[facility] Patient: JOEL FONSECA : 1940 Sex at : Male Age: 84 Years Procedure: Colonoscopy Date: 06/15/2024 Attending Physician: Franky Cavanaugh MD Referring MD: Referred Self Indications: - Iron deficiency anemia Medications: - Monitored Anesthesia Care - See the Anesthesia note for documentation of the administered medications Complications: - No immediate complications. Estimated Blood Loss: - Estimated blood loss was minimal. Procedure: - ASA Grade Assessment: IV - A patient with severe systemic disease that is a constant threat to life. - The adult colonoscope was introduced through the anus and advanced to the cecum, identified by appendiceal orifice and ileocecal valve. - The colonoscopy was somewhat difficult due to a tortuous colon. - The patient tolerated the procedure well. - The quality of the bowel preparation was adequate. Findings: - Many medium-mouthed and small-mouthed diverticula were found in the entire colon. - Three sessile polyps were found in the recto-sigmoid colon. The polyps were small (4-6 mm) in size. These polyps were removed with a cold snare. Resection and retrieval were complete. Impression: - Diverticulosis in the entire examined colon. - Three small (4-6 mm) polyps at the recto-sigmoid colon, removed with a cold snare. Resected and retrieved. Recommendation: - Await pathology results. 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 - Repeat colonoscopy in 7-10 years for surveillance based on pathology results. Procedure Code(s): - 01877, Colonoscopy, flexible; with removal of tumor(s), polyp(s), or other lesion(s) by snare technique Diagnosis Code(s): - D50.9, Iron deficiency anemia, unspecified - D12.7, Benign neoplasm of rectosigmoid junction - K57.30, Diverticulosis of large intestine without perforation or abscess without bleeding CPT(R) - 2023 copyright [employer]. All Rights Reserved. The CPT codes, CCI edits and ICD codes generated are intended as suggestions and were generated based on input data. These codes are preliminary and upon project development engineer review may be revised to meet current compliance and payer requirements. The provider is responsible for the final determination of appropriate codes, and modifiers. Franky Cavanaugh MD This document has been electronically signed. Note Initiated:06/15/2024 Note Completed:06/15/2024 1:48 PM [email or web address]\[id number]
--- NOTE | 2024-06-15 13:52 | GI REPORT ---
[facility] Patient: JOEL FONSECA : 1940 Sex at : Male Age: 84 Years Procedure: Upper GI endoscopy Date: 06/15/2024 Attending Physician: Franky Cavanaugh MD Referring MD: Referred Self Indications: - Iron deficiency anemia Medications: - Monitored Anesthesia Care Complications: - No immediate complications. Estimated Blood Loss: - Estimated blood loss: None. Procedure: - ASA Grade Assessment: IV - A patient with severe systemic disease that is a constant threat to life. - The egd scope was introduced through the mouth and advanced to the second part of the duodenum. - The upper GI endoscopy was accomplished without difficulty. - The patient tolerated the procedure well. Findings: - The examined esophagus was normal. - A 5 cm hiatal hernia was present. - The entire examined stomach was otherwise normal including a retroflexed view. - The examined duodenum was normal. Impression: - Normal esophagus. - 5 cm hiatal hernia. - Normal stomach. - Normal examined duodenum. - No specimens collected. Recommendation: Procedure Code(s): - 28350, Esophagogastroduodenoscopy, flexible, transoral; diagnostic, including collection of specimen(s) by brushing or washing, when performed (separate procedure) Diagnosis Code(s): - D50.9, Iron deficiency anemia, unspecified - K44.9, Diaphragmatic hernia without obstruction or gangrene CPT(R) - 2023 copyright [employer]. All Rights Reserved. The CPT codes, CCI edits and ICD codes generated are intended as suggestions and were generated based on input data. These codes are preliminary and upon information coder review may be revised to meet current compliance and payer requirements. The provider is responsible for the final determination of appropriate codes, and modifiers. Franky Cavanaugh MD This document has been electronically signed. Note Initiated:06/15/2024 Note Completed:06/15/2024 1:50 PM [email or web address]\[id number]
--- NOTE | 2024-06-15 13:53 | Communication Note ---
Date of Service: June 15, 2024 POST PROCEDURE NOTES See Provation notes for complete reports. Summary: Colonoscopy: 3 small polyps of rectosigmoid Diffuse diverticulosis - more heavily concentrated in left colon EGD: Hiatal hernia No fresh or old blood seen. Rec: Iron supplements OP SB Video Capsule Endoscopy If bleeds acutely - CTA or nuclear medicine bleeding scan If anticoagulation needed - from GI standpoint given polypectomies would hold for 24 hrs. IP GI Service will sign off.
--- NOTE | 2024-06-15 14:03 | Anesthesiology Progress Note ---
Date of Service June 15, 2024 Anesthesia Post Procedure Vital Signs Vital Signs: Temp Pulse Pulse Resp BP BP Pulse Ox 06/15/24 13:53 52 L 12 106/49 L 98 06/15/24 12:35 36.2 C L 55 L 16 168/84 H 97 06/15/24 11:49 55 L 172/71 H 06/15/24 07:18 36.3 C L 61 16 172/75 H 94 06/15/24 07:05 06/14/24 21:54 06/14/24 19:53 36.5 C 72 18 160/80 H 96 06/14/24 15:57 36.4 C L 59 L 18 176/81 H 97 06/14/24 14:31 64 O2 Del Method 06/15/24 13:53 Room Air 06/15/24 12:35 Room Air 06/15/24 11:49 06/15/24 07:18 Room Air 06/15/24 07:05 Room Air 06/14/24 21:54 Room Air 06/14/24 19:53 Room Air 06/14/24 15:57 Room Air 06/14/24 14:31 Transfer of Care Handoff Completed per policy Notes Mental Status: alert / awake / arousable and participated in evaluation Nausea / Vomiting: adequately controlled Pain: adequately controlled Airway Patency, RR, SpO2: stable & adequate BP & HR: stable & adequate Hydration State: stable & adequate Anesthetic Complications: no major complications apparent and Pt Satisfied with anesthetic care
[2024-06-15 14:19] VITALS: O2SAT 97
[2024-06-15 14:50] VITALS: BP 174/82; PULSE 51; RESP 18; TEMP 97.3
[2024-06-15] MEDS: LIDOCAINE 2% 2 ML VIAL/AMP(20MG/ML) INFIL ONE (16:11)
[2024-06-15] MEDS: PROPOFOL IV EMULSION 10 MG/ML 20 ML VIAL IV ONE (16:11)
--- NOTE | 2024-06-15 17:12 | Discharge Summary ---
Discharge Summary Date of Service June 15, 2024 Principal Dx & Hospital Course #1 = Principal Diagnosis (1) Gastrointestinal bleed: Suspected upper GI bleed with presence of melena, however EGD only showed hiatal hernia. He was initially treated with IV Protonix but this will be converted back to his home omeprazole p.o. once daily Colonoscopy with 3 polyps removed but no active bleeding and no obvious source of bleeding Appreciate gastroenterology consultation and recommendations. Should have a small bowel video capsule endoscopy performed as an outpatient-I have asked GI to arrange this Pletal, aspirin and Eliquis are on hold-remained in NSR on tele throughout his stay He can resume the aspirin on discharge due to his history of CABG, but should continue to hold Eliquis and cilostazol (2) Blood loss anemia: Acute blood loss anemia on chronic anemia of CKD Fe studies, B12, folate all normal here. TSH checked and is also normal MCV normal He received 1 unit packed red blood cells for hemoglobin 6.5. Hemoglobin now improved to 7.5 and stable, no obvious bleeding since admission and no bleeding or melena with his bowel prep for colonoscopy EGD/colonoscopy results as above-polyp biopsies pending, no obvious bleeding Recommend checking CBC once weekly with PCP after discharge Increase ferrous sulfate to 325 mg p.o. twice daily on discharge Await small bowel video capsule endoscopy as an outpatient before resuming anticoagulation (3) PAF (paroxysmal atrial fibrillation): Remained in normal sinus rhythm. Eliquis is on hold as above Continue amiodarone and metoprolol (4) S/P Maze operation for atrial fibrillation: Performed at the time of his CABG Remained in normal sinus rhythm Holding ASA but can resume given history of CABG (5) Acute renal failure superimposed on stage 3 chronic kidney disease: Improved. Creatinine is now at baseline 1.6-1.7 Hypokalemia-replaced orally and through IV along with IV magnesium after having colonoscopy prep BPH-continue home FLomax COPD-no acute issues, continue home maintenance LAMA inhaler and prn albuterol INH HFmEF-not volume overloaded-continue Bumex, Entresto, Toprol XL, potassium Plan DVT proph- SCDs Dispo-stable for discharge to home Notes For Next Care Provider Needs once weekly CBC on discharge Needs outpatient small bowel video capsule endoscopy-to be arranged by GI Medication Changes From Visit Increased ferrous sulfate 325 mg p.o. twice daily Hold Eliquis Hold cilostazol Admission HPI Per Admitting Provider Serge Perez is an 84 year old male how presents to the ER due to low hemoglobin on outpatient labs. The patient reports feeling his normal self with no chest pain, dizziness, shortness of breath. His stools are black but no different than usual on his iron supplementation. He was noted to have heme positive stools in the emergency room. He denies any NSAID use but does notes he was recently started on cilostazol for pains in his legs over the last 2 days. He denies current reflux but reports a history of this which is under control on omeprazole daily which she has taken for the last 7 to 8 months. He has never had an endoscopy. He thinks he had a colonoscopy 20 years ago with unknown results at that time. Discharge Exam Constitutional WD/WN, vitals as above Respiratory normal respiratory effort, lungs clear to auscultation Cardiovascular RRR, no murmur, no edema Gastrointestinal (Abdomen) normal bowel sounds, soft, nontender, no hepatosplenomegaly Psychiatric A+Ox3, euthymic affect Discharge Plan Discharge Items Patient Disposition: Home - Self-Care Reason For Visit: GASTROINTESTINAL BLEED, ANEMIA Discharge Diagnosis: Acute on chronic blood loss anemia Gastrointestinal bleeding Activity: As commented below Lifting: Gradually increase as tolerated Bathing: No limitations Exercise/Sports: As tolerated Non-emergency contact: Primary Care Provider and Real Property Appraiser Call non-emergency contact if: you have any medication questions and your symptoms worsen Follow-up/Referrals: Jess Montgomery, [Primary Care Provider] - (Follow-up within 1 to 2 weeks) Diet: Heart Healthy Add Attending Provider Instructions: You were admitted with severe anemia likely from bleeding from your gastrointestinal tract. You had an EGD and colonoscopy which unfortunately did not show the source of bleeding. You did have 3 polyps removed from your colon and the biopsies were pending at the time of discharge. You will need a video capsule endoscopy and this will be arranged by [facility] gastro[facility]. They should reach out to you with your appointment date and time for this. This will help to look for source of bleeding. In the meantime, given that you have a history of heart disease, you should resume your aspirin 81 mg daily, but continue to not take your Eliquis or your cilostazol until after the workup for your anemia is completed. Please continue on the oral iron pills. I would recommend that your primary care physician check your complete blood count once a week for the next several weeks to ensure that it does not drop too low again. Pending Studies at Discharge: Yes (Colon polyp biopsies) Stand-Alone Forms: My [facility], Smoking Cessation Medications and DC Order Prescriptions: Continued omeprazole 40 mg capsule,delayed release(DR/EC) 40 mg PO DAILY acetaminophen 500 mg capsule 1,000 mg PO Q6H PRN (Reason: Pain) rosuvastatin 20 mg tablet 20 mg PO DAILY albuterol sulfate [Ventolin HFA] 90 mcg/actuation HFA aerosol inhaler 2 inh inhalation Q6H PRN (Reason: shortness of breath or wheezing or cough) Qty: 8.5 4RF Rx Instructions: use with spacer device (DME) Flutter Valve Device See Rx Instructions .MEDSUPPLY Qty: 1 0RF Rx Instructions: Use it every 6 hours when awake. Entresto 97-103 mg tablet 1 tab PO BID tamsulosin [Flomax] 0.4 mg capsule 0.4 mg PO DAILY Qty: 90 3RF calcitriol 0.25 mcg capsule 0.25 mcg PO .COMPLEX Qty: 36 2RF Rx Instructions: 0.25 mcg orally friday, friday, and friday; Stiolto Respimat 2.5-2.5 mcg/actuation mist 2 puff inhalation DAILY Qty: 4 5RF cholecalciferol (vitamin D3) 25 mcg (1,000 unit) capsule 25 mcg PO QAM ascorbic acid (vitamin C) 500 mg capsule 500 mg PO DAILY Flonase Sensimist 27.5 mcg/actuation spray,suspension 1 spray intranasal DAILY PRN (Reason: ALLERGIES) Rx Instructions: into each nostril (DME) Flutter Valve Device See Rx Instructions .MEDSUPPLY Qty: 1 0RF Rx Instructions: Use it every 6 hours when awake. bumetanide 1 mg tablet 2 mg PO DAILY albuterol sulfate 2.5 mg /3 mL (0.083 %) solution for nebulization 2.5 mg continuous nebulization Q6H PRN (Reason: Shortness Of Breath Or Wheezing) guaifenesin [Mucinex] 600 mg Tablet Extended Release 12hr 600 mg PO BID PRN (Reason: Congestion) metoprolol succinate 50 mg tablet extended release 24 hr 50 mg PO BID potassium chloride 20 mEq/15 mL Liquid 20 meq PO BID amiodarone 100 mg Tablet 100 mg PO DAILY Changed ferrous sulfate 325 mg (65 mg iron) tablet 325 mg PO BID Qty: 60 0RF trazodone 50 mg tablet 50 mg PO HS Qty: 30 0RF Rx Instructions: PT PICKED UP RX ON 05/26 BUT STATES THEY DON'T TAKE IT Held aspirin [Adult Low Dose Aspirin] 81 mg tablet,delayed release (DR/EC) 81 mg PO DAILY Hold Instructions: Resume on 06/17/24. You may restart this on 06/17 Eliquis 2.5 mg tablet 2.5 mg PO BID Hold Instructions: Resume on 07/06/24. Hold until after you have your video capsule endoscopy cilostazol 50 mg tablet 50 mg PO BID Hold Instructions: Resume on 07/06/24. Hold until after you have your video capsule endoscopy Rx Instructions: PT PICKED UP RX 05/27 BUT DOESN'T THINK THEY TAKE IT Discharge Orders: Discharge Order (Routine); Ordered 06/15/24 Ordered By: Carmel Davis Admission Data Admit Date/Time: 06/11/24 12:08 Attending Provider: Carmel Davis Admit Provider: Khanh Polk Primary Care Provider: Jess Montgomery Other Providers: [facility]; Khanh Polk; Amol Medina Hospital Stay Data Consultations 06/11/24 11:21 ED Decision to Admit Stat 06/11/24 14:33 Consult Gastroenterology Routine Procedures Performed Operation Date: 06/15/24 16:30 Actual Procedures p Colonoscopy Polypectomy - Franky Cavanaugh MD s Esophagogastroduodenoscopy - Franky Cavanaugh MD Pending Results Patient Have Any Pending Studies at Discharge: Yes (Colon polyp biopsies) Discharge Instructions Given to Patient (Per Discharging Provider) You were admitted with severe anemia likely from bleeding from your g astrointestinal tract. You had an EGD and colonoscopy which unfortunately did not show the source of bleeding. You did have 3 polyps removed from your colon and the biopsies were pending at the time of discharge. You will need a video capsule endoscopy and this will be arranged by [facility] gastro[facility]. They should reach out to you with your appointment date and time for this. This will help to look for source of bleeding. In the meantime, given that you have a history of heart disease, you should resume your aspirin 81 mg daily, but continue to not take your Eliquis or your cilostazol until after the workup for your anemia is completed. Please continue on the oral iron pills. I would recommend that your primary care physician check your complete blood count once a week for the next several weeks to ensure that it does not drop too low again. Total Time Total Time Spent Total Time Spent (In Minutes): 40 minutes Total Time Includes: Examination of the Patient, Discharge Planning and Medication Reconciliation Coding Level of Care Code 94108 INP/OBS DISCH >30 MIN Diagnoses Gastrointestinal hemorrhage, unspecified gastrointestinal hemorrhage type K92.2 GI bleed type/associated pathology: unspecified gastrointestinal hemorrhage type Blood loss anemia D50.0 PAF (paroxysmal atrial fibrillation) I48.0 S/P Maze operation for atrial fibrillation Z98.890; Z86.79 Acute renal failure superimposed on stage 3 chronic kidney disease N17.9; N18.30
[2024-06-16] MEDS ORDERED: CALCITRIOL 0.25 MCG CAPSULE PO SCH (09:00)
== END 2024-06-15 18:31 | disposition home or self-care (01) | DRG 392 ==
LOC: ED 09:03 → SUATTDRO 12:08 → 2N 12:08

== ENCOUNTER 2024-08-21 08:39 | Inpatient (IN) ==
[2024-08-21] MEDS ORDERED: SODIUM CHLORIDE 0.9% 100 ML IV PRN ×2 (08:50→09:31)
[2024-08-21] MEDS ORDERED: SODIUM CHLORIDE 0.9% 50 ML IV PRN ×2 (08:50→09:31)
--- NOTE | 2024-08-21 09:11 | Emergency Department Note ---
Impression & Plan Acute GI bleeding, Anemia, Heme positive stool, Hypocalcemia, CHF (congestive heart failure), Elevated troponin, TILA (acute kidney injury) ED Provider Note NAME: JOEL FONSECA AGE: 84 SEX: M : 1940 ARRIVES VIA: Ambulance INFORMANT: [Patient][ems] ED PROVIDER(S): [Petros Morel MD] CHIEF COMPLAINT: Abnormal laboratories HISTORY OF PRESENT ILLNESS: The patient is an 86-year-old male who was in our hospital 2 months ago for a GI bleed requiring red blood cell transfusions. No source for the bleeding was found by endoscopy, colonoscopy or camera. He has noticed ongoing black stools however, he is on iron. He has had persistent diarrhea. No abdominal pain. No fever. He had outpatient laboratory work done and was called and told to report to the hospital as his hemoglobin was around 6. Of note, patient had been holding his aspirin and Eliquis however, once the camera study returned negative, he resumed these meds. PMHx/PSHx/Social Hx: See Below PHYSICAL EXAM: GENERAL: Patient is in no acute distress. HEENT: No acute trauma, normocephalic atraumatic, mucous membranes moist, no nasal congestion. NECK: No stridor, no adenopathy, no meningismus, trachea is midline. LUNGS: Crackles at both bases, especially the left. No wheezing or respiratory distress. HEART: Without murmurs gallops or rubs, regular rate and rhythm. ABDOMEN: Soft, nontender, no peritonitis. EXTREMITIES: No cyanosis, full range of motion of all the joints without pain or difficulty. Moderate bilateral pedal edema. NEUROLOGIC: Oriented x 3, no acute motor or sensory deficits, no focal weakness. SKIN: No jaundice, no diaphoresis. Pale. Rectal: Very dark stool, heme positive. DIFFERENTIAL DIAGNOSIS: GI bleeding, coagulopathy, anemia, pneumonia, CHF, among others. EMERGENCY DEPARTMENT PROCEDURES: MEDICAL DECISION MAKING: There is no leukocytosis. Hemoglobin is low in the area of 6. There was a normal platelet count. No coagulopathy. There was some evidence for acute kidney injury with a creatinine of 2.32. Calcium is low at 7.5. Lactic acid level was not elevated making sepsis less likely. No concerning liver enzyme elevation. ECG shows a sinus rhythm without any obvious acute ischemia. Cardiac enzyme testing x 1 is slightly elevated. This troponin elevation may be secondary to mismatch or potentially, cardiac injury. Chest x-ray does show some heart failure. BNP is high consistent with fluid overload/CHF. On exam, the patient did have heme positive stool. The patient received IV Protonix for the presumed upper GI bleeding. He was given IV calcium for the low calcium value. Blood was ordered for transfusion, 1 unit was ordered to be transfused in the ED. The appropriate paperwork for the transfusion was completed and signed. The patient has been through this same issue before. He presents today with anemia and appears to have GI bleeding as a cause for the anemia. Hospitalization is indicated. Given this is his second bout of GI bleeding, he may need to avoid further Eliquis use on a permanent basis. I spoke with the patient and case management, the on-call hospitalist was consulted. Prior/Outside records/notes reviewed: Today's EMS notes describing his presentation and transport to this hospital. ECG per my interpretation: Indication was GI bleeding shows what appears to be sinus rhythm with a first-degree AV block. There is a right bundle branch block. There is no acute ST, no PVCs. The QTc is 515 Continuous Cardiac Monitoring per my interpretation: An order was placed for continuous cardiac monitoring. The monitor shows a rate of 78 with sinus rhythm with a first-degree AV block. Imaging/x-ray results per my interpretation: Chest x-ray shows a left pleural effusion with some mild heart failure. No pneumothorax. Chronic Medical/Social conditions affecting care: Advanced age, Eliquis use. Care/Management discussed with: Case management, on-call hospitalist. Level of care consideration(s): After review of the information above and other included data: --I believe the patient requires escalation of care to admission Critical Care Note: I have personally spent 51 minutes of critical care time in the direct management of this patient. This includes bedside care, interpretation of diagnostic studies, and testing, discussion with consultants, patient, and family members, and other required patient management activities. This 51 minutes is in excess of all separately billable procedures. DISPOSITION: Admission Past Med/Surg History Problem List TILA (acute kidney injury) (Acute) Elevated troponin (Acute) CHF (congestive heart failure) (Acute) Hypocalcemia (Acute) Heme positive stool (Acute) Anemia (Acute) Acute GI bleeding (Acute) Hypocalcemia Heart failure with mildly reduced ejection fraction (HFmrEF) Diarrhea Anemia requiring transfusions Chronic renal insufficiency (Acute) CHF (congestive heart failure) (Acute) History of atrial fibrillation (Acute) Current use of exterminator helper anticoagulation (Acute) Anemia (Acute) Blood loss anemia Gastrointestinal bleed Osteoporosis Dizziness (Acute) Enlarged prostate Elevated troponin (Acute) Pedal edema (Acute) SOB (shortness of breath) (Acute) Hypoxia (Acute) CKD (chronic kidney disease), stage III [address] Morley Exertional shortness of breath Acute respiratory failure with hypoxia Pulmonary hypertension S/P Maze operation for atrial fibrillation [facility] - 02/2023. Atrial fibrillation with rapid ventricular response (Acute) 10/2022 COPD with emphysema Medical History Acute GI bleeding NSTEMI (non-ST elevated myocardial infarction) Hyperlipidemia Hypertension TILA (acute kidney injury) Dysphagia Insomnia Right heart failure with reduced right ventricular function Acute exacerbation of chronic obstructive pulmonary disease Acute respiratory failure with hypoxia Ex-smoker Pleural effusion Pneumonia Chronic diastolic CHF (congestive heart failure) Current smoker CAD (coronary artery disease) Myocardial infarct 1997 - heavy chest, left arm pain - Went to [facility] - flown to [facility] - blockage of "back of heart" - heart cath - no stent placement - Follows Dr. Puente Hypertension Surgical History History of coronary artery bypass graft S/P CABG (coronary artery bypass graft) 3 vessel - [facility], 02/2023. Hx of cataract extraction Rt. Hx of cardiac cath 1997 d/t to [place] - no stents placed - Follows Dr. Puente History of colonoscopy Hx of inguinal hernia repair Hx of repair of left rotator cuff x2 Family History Father Family history of diabetes mellitus CHF (congestive heart failure) Black lung disease Mother , had CABG Family history of diabetes mellitus Coronary heart disease Myocardial infarction Dementia Social History Smoking Status: Former smoker Tobacco Type: Cigarettes Age Started Using Tobacco: 22; Age Quit Using Tobacco: 83; packs per day: 2; Cigarettes Per Day: 2 packs; Second Hand Exposure: No; Do You Dip or Chew Tobacco: No; Hx Alcohol Use: Yes Alcohol type: beer Hx Substance Use: No Preferred Language: Egyptian Communication Ability: Effective Visual Impairment: Limited Hearing Ability: Use of Hearing Aid Pasting Machine Offbearer Required: No Beliefs That Will Affect Care: None marital status: Current Living Situation: Spouse Current Living Situation Comment: From home with current occupational status: retired current occupation: Retired How many Children do You have: 2 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; 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 Feels Safe at Home: Yes Diet: regular caffeine: Yes (1 soda daily) Physical Activity Frequency: Does not Exercise Do you think of yourself as: straight/heterosexual Gender Identity: Male Assistive Devices: Cane Allergies Allergies Allergy/AdvReac Type Severity Reaction Status Date / Time No Known Allergies Allergy Verified 08/21/24 10:05 Home Meds Home Medications Medication Instructions Recorded Confirmed acetaminophen 500 mg capsule 1,000 mg PO Q6H PRN Pain 03/20/23 08/21/24 rosuvastatin 20 mg tablet 20 mg PO DAILY 03/20/23 08/21/24 omeprazole 40 mg capsule,delayed 40 mg PO DAILY 09/29/23 08/21/24 release albuterol sulfate 2.5 mg/3 mL 2.5 mg continuous nebulization Q6H 10/30/23 08/21/24 (0.083 %) solution for nebulization PRN Shortness Of Breath Or Wheezing aspirin 81 mg tablet,delayed 81 mg PO DAILY 02/03/24 08/21/24 release (Adult Low Dose Aspirin) sacubitril 97 mg-valsartan 103 mg 1 tab PO BID 02/03/24 08/21/24 tablet (Entresto) ascorbic acid (vitamin C) 500 mg 500 mg PO DAILY 02/09/24 08/21/24 capsule cholecalciferol (vitamin D3) 25 25 mcg PO QAM 02/09/24 08/21/24 mcg (1,000 unit) capsule fluticasone furoate 27.5 1 spray intranasal DAILY PRN 02/09/24 08/21/24 mcg/actuation nasal ALLERGIES spray,suspension (Flonase Sensimist) apixaban 2.5 mg tablet (Eliquis) 2.5 mg PO BID 05/26/24 08/21/24 bumetanide 1 mg tablet 1 - 2 mg PO DAILY 05/26/24 08/21/24 amiodarone 100 mg tablet 0 mg PO BID 06/11/24 08/21/24 metoprolol succinate 50 mg 50 mg PO BID 06/11/24 08/21/24 tablet,extended release 24 hr calcitriol 0.25 mcg capsule 0.25 mcg PO DAILY 08/21/24 08/21/24 calcium carbonate (Calcium 600) 600 mg PO BID 08/21/24 08/21/24 guaifenesin 1,200 mg tablet, 1,200 mg PO BID 08/21/24 08/21/24 extended release 12 hr (Mucinex) potassium chloride 20 mEq 60 meq PO UD 08/21/24 08/21/24 tablet,extended release(part/cryst) Previous Rx's Medication Instructions Recorded Flutter Valve #1 ea 01/05/24 albuterol sulfate 90 mcg/actuation 2 inh inhalation Q6H PRN shortness 01/05/24 aerosol inhaler (Ventolin HFA) of breath or wheezing or cough #8.5 grams tamsulosin 0.4 mg capsule (Flomax) 0.4 mg PO DAILY #90 caps 02/03/24 Flutter Valve #1 ea 02/09/24 trazodone 50 mg tablet 50 mg PO HS #30 tabs 06/15/24 tiotropium 2.5 mcg-olodaterol 2.5 2 puff inhalation DAILY #4 grams 07/07/24 mcg/actuation mist for inhalation (Stiolto Respimat) Results & Data (ED) Vital Signs Vital Signs - 24 hr 08/21/24 08:50 08/21/24 08:51 08/21/24 08:54 Temperature 37.4 C Temperature Source Oral Pulse Rate 75 78 Pulse Rate [Apical] Respiratory Rate 20 20 Respiratory Effort / Characteristics Non-Labored Non-Labored Respiratory Depth Normal Normal Blood Pressure 142/82 H Blood Pressure [Right Arm] Blood Pressure Mean 102 Blood Pressure Mean [Right Arm] Pulse Oximetry 97 Oxygen Delivery Method Room Air Sepsis Recent Fever Within 48 Hours No Sepsis New/Unexplained Change in Mental Status No Sepsis Action Taken by Nursing No Action Required 08/21/24 08:54 08/21/24 10:29 08/21/24 10:38 Temperature 36.6 C Temperature Source Oral Pulse Rate 73 Pulse Rate [Apical] 70 Respiratory Rate 12 15 Respiratory Effort / Characteristics Respiratory Depth Blood Pressure 151/102 H Blood Pressure [Right Arm] 151/102 H Blood Pressure Mean 118 Blood Pressure Mean [Right Arm] 118 Pulse Oximetry 96 93 Oxygen Delivery Method Room Air Room Air Sepsis Recent Fever Within 48 Hours Sepsis New/Unexplained Change in Mental Status Sepsis Action Taken by Group Home Medications Current Medication List: was personally reviewed by me Laboratory Data Attestation: I reviewed the patient's lab results. 08/21/24 14:56 08/21/24 08:54 Lab Results 08/21/24 08/21/24 08/21/24 Range/Units 08:50 08:54 09:01 WBC 7.02 (4.8-10.8) K/ul RBC 1.98 L (4.70-6.10) M/uL Hgb 6.4 L* (14.0-18.0) g/dl Hct 19.7 L* (42.0-52.0) % MCV 99.5 (80.0-100.0) fL MCH 32.3 (25.0-34.0) pg MCHC 32.5 (32.0-36.0) g/dL RDW Std Deviation 61.0 H (36.4-46.3) fL RDW Coeff of Jolene 17.5 H (11.5-14.5) % Plt Count 184 (130-400) K/uL MPV 8.8 L (9.4-12.4) fL Immature Gran % (Auto) 0.3 % Neut % (Auto) 77.4 % Lymph % (Auto) 11.7 % [place] % (Auto) 8.3 % Eos % (Auto) 2.0 % Baso % (Auto) 0.3 % Neut # (Auto) 5.44 (1.40-6.50) K/uL Lymph # (Auto) 0.82 L (1.20-3.40) K/uL [place] # (Auto) 0.58 (0.11-0.59) K/uL Eos # (Auto) 0.14 (0.00-0.50) K/uL Baso # (Auto) 0.02 (0.00-0.20) K/uL Immature Gran # (Auto) 0.02 (0.01-0.20) K/uL Anisocytosis Present Ovalocytes 1+ PT 12.0 (9.0-12.0) Seconds INR 1.1 (0.9-1.1) APTT 29 (21-31) Seconds PTT Ratio 1.1 Sodium 139 (136-145) mmol/L Potassium 4.0 (3.5-5.1) mmol/L Chloride 104 (98-107) mmol/L Carbon Dioxide 30 (21-32) mmol/L Anion Gap 5 (3-11) BUN 30 H (6-23) mg/dl Creatinine 2.32 H (0.6-1.4) mg/dl Est Cr Clr Drug Dosing 26.4 ml/min eGFR 27.20 BUN/Creatinine Ratio 12.9 (10-20) Glucose 113 H (70-99(Fasting)) mg/dl Lactate 0.9 (0.4-2.0) mmol/L Calcium 7.5 L (8.6-10.3) mg/dl Magnesium 1.9 (1.7-2.4) mg/dl Total Bilirubin 0.5 (0.2-1.0) mg/dl AST 9 L (13-39) U/L ALT 8 (7-52) U/L Alkaline Phosphatase 91 (34-104) U/L Troponin I High Sens 26.1 H (0-20) pg/ml Total Protein 5.6 L (6.0-8.3) gm/dl Albumin 3.0 L (3.4-5.0) gm/dl Globulin 2.6 (2.5-4.0) gm/dl Albumin/Globulin Ratio 1.2 (0.9-2) Adenovirus (PCR) Not Detected (NotDetected) B. pertussis DNA (PCR) Not Detected (NotDetected) B.parapertussis DNA PCR Not Detected (NotDetected) C. pneumoniae DNA (PCR) Not Detected (NotDetected) Coronavirus OC43 (PCR) Not Detected (NotDetected) Coronavirus HKU1 (PCR) Not Detected (NotDetected) Coronavirus 229E (PCR) Not Detected (NotDetected) SARS-CoV-2 (PCR) Not Detected (NotDetected) Coronavirus NL63 (PCR) Not Detected (NotDetected) Human Metapneumovir PCR Not Detected (NotDetected) Influenza Type A (PCR) Not Detected (NotDetected) Influenza Type B (PCR) Not Detected (NotDetected) M. pneumoniae (PCR) Not Detected (NotDetected) Parainfluenza 1 (PCR) Not Detected (NotDetected) Parainfluenza 2 (PCR) Not Detected (NotDetected) Parainfluenza 3 (PCR) Not Detected (NotDetected) Parainfluenza 4 (PCR) Not Detected (NotDetected) RSV (PCR) Not Detected (NotDetected) Entero/Rhino (PCR) Not Detected (NotDetected) Blood Type AB Negative Antibody Screen NEGATIVE Crossmatch See Detail Administered Medications Discontinued Medications Pantoprazole Sodium 80 mg/ (Dextrose) 120 mls @ 400 mls/hr IV NOW ONE Stop: 08/21/24 09:09 Last Infusion: 08/21/24 09:54 Dose: Infused Documented By: Admin: 08/21/24 09:20 Dose: 400 mls/hr Documented By: MASOUD Calcium Gluconate () 1,000 mg in 60 mls @ 240 mls/hr IV NOW STA Stop: 08/21/24 10:01 Last Infusion: 08/21/24 10:43 Dose: Infused Documented By: Admin: 08/21/24 10:21 Dose: 240 mls/hr Documented By: MASOUD Imaging Data Radiologist's Impression: Chest X-Ray 08/21/24 08:51 XR chest 1V portable CLINICAL HISTORY: weakness COMPARISON STUDY: Chest radiograph July 05, 2024. Chest CT October 30, 2023. FINDINGS: There is no pneumothorax. Small left pleural effusion associated left basilar opacity is similar to prior exam. Lucency under the right hemidiaphragm represents bowel gas. There are median sternotomy wires and a left atrial appendage occluder device. Interstitial thickening is present. No pneumothorax. IMPRESSION: 1. Cardiomegaly with interstitial pulmonary edema. 2. Small left pleural effusion with left basilar opacity, similar to prior exam. This may reflect pneumonia or atelectasis. Radiographic follow-up to ensure resolution is recommended. ACT 112: Negative or not required by law. Electronically signed by: Ildefonso Ng M.D. 08/21/2024 9:46 AM Discharge Plan Visit Data Chief Complaint: GI Assessment ED Provider: Feese,Petros J Discharge Problem: Acute GI bleeding, Anemia, Heme positive stool, Hypocalcemia, CHF (congestive heart failure), Elevated troponin, TILA (acute kidney injury) Patient Disposition: Admitted As Inpatient Condition: Serious Discharge Instructions Interventions: ED Discharge Assessment Last Done: 08/21/24 13:52 Discharge Problem: Anemia Qualifiers: Anemia type: unspecified type Qualified Code(s): D64.9 - Anemia, unspecified CHF (congestive heart failure) Qualifiers: Heart failure type: unspecified Heart failure chronicity: acute Qualified Code(s): I50.9 - Heart failure, unspecified
[2024-08-21] MEDS: PANTOprazole 80 MG in DEXTROSE 5% 100 ML IV ONE (09:20)
[2024-08-21 09:32] LABS: Hematocrit (blood only) 19.7 % (42.0-52.0); Hemoglobin 6.4 g/dl (14.0-18.0); Mean Corpuscular Hemoglobin 32.3 pg (25.0-34.0); Mean Corpuscular Hgb Conc 32.5 g/dL (32.0-36.0); Mean Corpuscular Volume 99.5 fL (80.0-100.0); Mean Platelet Volume 8.8 fL (9.4-12.4); Platelet Count 184 K/uL (130-400); RDW Coefficient of Variation 17.5 % (11.5-14.5); Red Blood Count 1.98 M/uL (4.70-6.10); White Blood Count 7.02 K/ul (4.8-10.8)
[2024-08-21 09:35] LABS: Albumin Globulin Ratio 1.2 (0.9-2); BUN Creatinine Ratio 12.9 (10-20); Bilirubin,Total 0.5 mg/dl (0.2-1.0); Calcium 7.5 mg/dl (8.6-10.3); Creatinine Clr Calc Pharmacy 26.4 ml/min; Globulin 2.6 gm/dl (2.5-4.0); Magnesium 1.9 mg/dl (1.7-2.4); Total Protein 5.6 gm/dl (6.0-8.3)
[2024-08-21 09:38] LABS: Anisocytosis Present; Basophils # (auto) 0.02 K/uL (0.00-0.20); Basophils % (auto) 0.3 %; Eosinophils # (auto) 0.14 K/uL (0.00-0.50); Immature Granulocytes # (auto) 0.02 K/uL (0.01-0.20); Immature Granulocytes % (auto) 0.3 %; Lymphocytes # (auto) 0.82 K/uL (1.20-3.40); Lymphocytes % (auto) 11.7 %; Monocytes # (auto) 0.58 K/uL (0.11-0.59); Monocytes % (auto) 8.3 %; Neutrophils # (auto) 5.44 K/uL (1.40-6.50); Neutrophils % (auto) 77.4 %; Ovalocytes 1+
[2024-08-21 09:40] LABS: Troponin I High Sensitivity 26.1 pg/ml (0-20)
[2024-08-21 09:45] LABS: INR 1.1 (0.9-1.1); Partial Thromboplastin Ratio 1.1; Partial Thromboplastin Time 29 Seconds (21-31)
--- NOTE | 2024-08-21 09:49 | XRay Report ---
XR chest 1V portable CLINICAL HISTORY: weakness COMPARISON STUDY: Chest radiograph July 05, 2024. Chest CT October 30, 2023. FINDINGS: There is no pneumothorax. Small left pleural effusion associated left basilar opacity is si milar to prior exam. Lucency under the right hemidiaphragm represents bowel gas. There are median carley rnotomy wires and a left atrial appendage occluder device. Interstitial thickening is present. No pne umothorax. IMPRESSION: 1. Cardiomegaly with interstitial pulmonary edema. 2. Small left pleural effusion with left basilar opacity, similar to prior exam. This may reflect pne umonia or atelectasis. Radiographic follow-up to ensure resolution is recommended. ACT 112: Negative or not required by law. Electronically signed by: Ildefonso Ng M.D. 08/21/2024 9:46 AM
[2024-08-21] MEDS: CALCIUM GLUCONATE 1,000 MG/60 ML BAG IV STA (10:21)
[2024-08-21 10:31] LABS: Adenovirus PCR Not Detected (NotDetected); Bordetella parapertussis PCR Not Detected (NotDetected); Bordetella pertussis PCR Not Detected (NotDetected); Chlamydia pneumoniae PCR Not Detected (NotDetected); Coronavirus 229E PCR Not Detected (NotDetected); Coronavirus CoV-2 (COVID19)PCR Not Detected (NotDetected); Coronavirus HKU1 PCR Not Detected (NotDetected); Coronavirus NL63 PCR Not Detected (NotDetected); Coronavirus OC43PCR Not Detected (NotDetected); Human Metapneumovirus PCR Not Detected (NotDetected); Influenza A PCR Not Detected (NotDetected); Influenza B PCR Not Detected (NotDetected); Mycoplasma pneumoniae PCR Not Detected (NotDetected); Parainfluenza Virus 1 PCR Not Detected (NotDetected); Parainfluenza Virus 2 PCR Not Detected (NotDetected); Parainfluenza Virus 3 PCR Not Detected (NotDetected); Parainfluenza Virus 4 PCR Not Detected (NotDetected); Respiratory Syncytial VirusPCR Not Detected (NotDetected); Rhinovirus/Enterovirus PCR Not Detected (NotDetected)
--- NOTE | 2024-08-21 10:47 | History & Physical Report ---
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 constipation in association w/ blood loss causing diarrhea symptoms - No recent abx use - WBC WNL; CMP w/ TILA likely result of #1 - Stool biofire pending, C.diff studies pending - ALTHOUGH unlikely to be positive - diarrhea most likely from bleeding vs less likely but still possible from chronic constipation (and if biofire negative, and diarrhea persists after stopping blood thinners at this time, would look at most likely as a chronic constipation problem) (3) Elevated troponin: Plan: Pt w/ h/o CAD, HFmrEF, Afib; no current chest pain, palpitations, SOB - Troponin 26.1, 30.4, pending repeat q6hr until peak - EKG without ischemic changes - Current TILA + CKD, ? contributing to elevated troponin (4) TILA (acute kidney injury): Plan: Likely secondary to renal hypoperfusion from blood loss / anemia - Cr increased to 2.32 (baseline ~ 2.0) , BUN elevated to 30 - UA pending - Bladder scan prn - Continue to promote oral hydration - BMP am (5) Hypocalcemia: Plan: Asymptomatic currently, w/ h/o CKD; received calcium gluconate in ED - Ca 7.5; Corrected Ca 8.3 - Can continue tums for replacement - BMP am (6) CKD (chronic kidney disease), stage III: Plan: H/o CKD stage III, baseline Cr ~ 2, follows w/ Dr. 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 - Stable, on RA - No O2 at baseline - No evidence of exacerbation today - Continue home meds - FV + IC - Mucinex prn (8) Heart failure with mildly reduced ejection fraction (HFmrEF): Plan: H/o, per most recent cardiology note (07/14) + PCP (06/28); Recently stopped bumetanide, per patient - Echo 12/2023- mild LV systolic function, inferior lateral and inferior HK, B EF 45%, mild to moderate MR, severe TR, severe pulmonary HTN - Complaining of significant BLE edema; recently discontinued from bumetanide, per patient - Daily weights + I&O's - BMP 4603--> Clinically, pt not appearing volume overloaded w/ exception of BLE edema + h/o CKD stage III; no diuresis at this time, will reevaluate - CXR - interstitial pulmonary edema, small L pleural effusion w/ L basilar opacity, similar to prior exam - Believe BLE edema more suggestive of venous stasis --> SCDs, promote leg elevation Plan HLD- rosuvastatin BPH- tamsulosin Insomnia- trazodone GERD- omeprazole A-fib/CAD- S/p Maze procedure (02/2023) + CABG (3 vessels; 02/2023) Dispo: Admit Diet: Heart healthy VTE Prophylaxis: Eliquis at home- HOLD; SCDs for now Code: DNR/DNI Admission and Anticipated Discharge Date Admission Date: 08/21/2024 History of Present Illness Chief Complaint: Anemia, Diarrhea Primary Care Provider: Monika Hubbard DO 84-year-old male presenting via EMS from home, referred by PCP low H&H; 3 to 4 weeks dark loose stool, on aspirin Eliquis daily. ED course CBC RBC 1.98, H&H 6.4/19.7, RDW 61, MPV 8.8, lymphocytes 0.82; PT/INR WNL; CMP BUN 30, creatinine 2.32, glucose 113, calcium 7.5, AST 9, total protein 5.6, albumin 3.0; troponin 26.1; BioFire pending; CXR cardiomegaly interstitial pulmonary edema, small pleural effusion with left basilar opacity similar to prior exam, PNA or atelectasis; EKG wide QRS (152), RBBB, left anterior fascicular block, rate around 75 bpm per my read, QT/QTc 468/515; provided with NSS, pantoprazole, calcium gluconate in ED. Patient is a 84-year-old male PMHx HTN, HLD, COPD, CAD, CKD stage III, CHF, and A-fib (anticoagulated) presenting for 3 to 4 weeks of dark, loose stool. Noted the PCP identified low H&H on outpatient labs, recommend patient be evaluated in ED. Colonoscopy and endoscopy procedure recently performed w/o source of bleeding identified. Patient's current complaint is that he has been having diarrhea x 6 weeks, maximum 10-12 stools per day, very loose. Patient states he to have stool studies completed, but has not had these completed. Patient states he is not having abdominal pain, fever/chills, or N/V. Also reports that he has been having ongoing cough that occurs every winter, producing clear phlegm. Not having shortness of breath or orthopnea. 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 Overall denying chest pain, palpitations, shortness of breath, abdominal pain, N/V/C, numbness/tingling, or LUTS. Patient has not been around anyone else with similar symptoms of diarrhea. Has had an episode of anemia requiring transfusions prior, resulting in admission (06/11 - 06/15). Patient did not take a.m. medications. Please see Dr. Arevalo's attestation for adjustments/additions to treatment plan. Allergies Allergy/AdvReac Type Severity Reaction Status Date / Time No Known Allergies Allergy Verified 08/21/24 10:05 Home Medications Medication Instructions Recorded Confirmed Type acetaminophen 500 mg capsule 1,000 mg PO Q6H PRN Pain 03/20/23 08/21/24 History rosuvastatin 20 mg tablet 20 mg PO DAILY 03/20/23 08/21/24 History omeprazole 40 mg capsule,delayed 40 mg PO DAILY 09/29/23 08/21/24 History release albuterol sulfate 2.5 mg/3 mL 2.5 mg continuous nebulization Q6H 10/30/23 08/21/24 History (0.083 %) solution for nebulization PRN Shortness Of Breath Or Wheezing Flutter Valve #1 ea 01/05/24 07/08/24 Rx albuterol sulfate 90 mcg/actuation 2 inh inhalation Q6H PRN shortness 01/05/24 08/21/24 Rx aerosol inhaler (Ventolin HFA) of breath or wheezing or cough #8.5 grams aspirin 81 mg tablet,delayed 81 mg PO DAILY 02/03/24 08/21/24 History release (Adult Low Dose Aspirin) sacubitril 97 mg-valsartan 103 mg 1 tab PO BID 02/03/24 08/21/24 History tablet (Entresto) tamsulosin 0.4 mg capsule (Flomax) 0.4 mg PO DAILY #90 caps 02/03/24 08/21/24 Rx Flutter Valve #1 ea 02/09/24 07/08/24 Rx ascorbic acid (vitamin C) 500 mg 500 mg PO DAILY 02/09/24 08/21/24 History capsule cholecalciferol (vitamin D3) 25 25 mcg PO QAM 02/09/24 08/21/24 History mcg (1,000 unit) capsule fluticasone furoate 27.5 1 spray intranasal DAILY PRN 02/09/24 08/21/24 History mcg/actuation nasal ALLERGIES spray,suspension (Flonase Sensimist) apixaban 2.5 mg tablet (Eliquis) 2.5 mg PO BID 05/26/24 08/21/24 History bumetanide 1 mg tablet 1 - 2 mg PO DAILY 05/26/24 08/21/24 History amiodarone 100 mg tablet 0 mg PO BID 06/11/24 08/21/24 History metoprolol succinate 50 mg 50 mg PO BID 06/11/24 08/21/24 History tablet,extended release 24 hr trazodone 50 mg tablet 50 mg PO HS #30 tabs 06/15/24 08/21/24 Rx tiotropium 2.5 mcg-olodaterol 2.5 2 puff inhalation DAILY #4 grams 07/07/24 08/21/24 Rx mcg/actuation mist for inhalation (Stiolto Respimat) calcitriol 0.25 mcg capsule 0.25 mcg PO DAILY 08/21/24 08/21/24 History calcium carbonate (Calcium 600) 600 mg PO BID 08/21/24 08/21/24 History guaifenesin 1,200 mg tablet, 1,200 mg PO BID 08/21/24 08/21/24 History extended release 12 hr (Mucinex) potassium chloride 20 mEq 60 meq PO UD 08/21/24 08/21/24 History tablet,extended release(part/cryst) Past Med/Surg History Problem List (Updated 08/21/24 @ 12:00 by Quirino Holland PA-C) Hypocalcemia Heart failure with mildly reduced ejection fraction (HFmrEF) Diarrhea Anemia requiring transfusions Chronic renal insufficiency (Acute) CHF (congestive heart failure) (Acute) History of atrial fibrillation (Acute) Current use of halfway anticoagulation (Acute) Anemia (Acute) Blood loss anemia Gastrointestinal bleed Osteoporosis Dizziness (Acute) Enlarged prostate Elevated troponin (Acute) Pedal edema (Acute) SOB (shortness of breath) (Acute) Hypoxia (Acute) CKD (chronic kidney disease), stage III [address] Morley Exertional shortness of breath Acute respiratory failure with hypoxia Pulmonary hypertension S/P Maze operation for atrial fibrillation [facility] - 02/2023. Atrial fibrillation with rapid ventricular response (Acute) 10/2022 COPD with emphysema Medical History Acute GI bleeding NSTEMI (non-ST elevated myocardial infarction) Hyperlipidemia Hypertension TILA (acute kidney injury) Dysphagia Insomnia Right heart failure with reduced right ventricular function Acute exacerbation of chronic obstructive pulmonary disease Acute respiratory failure with hypoxia Ex-smoker Pleural effusion Pneumonia Chronic diastolic CHF (congestive heart failure) Current smoker CAD (coronary artery disease) Myocardial infarct 1997 - heavy chest, left arm pain - Went to [facility] - flown to [facility] - blockage of "back of heart" - heart cath - no stent placement - Follows Dr. Puente Hypertension Surgical History History of coronary artery bypass graft S/P CABG (coronary artery bypass graft) 3 vessel - [facility], 02/2023. Hx of cataract extraction Rt. Hx of cardiac cath 1997 d/t to [place] - no stents placed - Follows Dr. Puente History of colonoscopy Hx of inguinal hernia repair Hx of repair of left rotator cuff x2 Family History Father Family history of diabetes mellitus CHF (congestive heart failure) Black lung disease Mother , had CABG Family history of diabetes mellitus Coronary heart disease Myocardial infarction Dementia Social History Smoking Status: Former smoker Tobacco Type: Cigarettes Age Started Using Tobacco: 22; Age Quit Using Tobacco: 83; packs per day: 2; Cigarettes Per Day: 2 packs; Second Hand Exposure: No; Do You Dip or Chew Tobacco: No; Hx Alcohol Use: Yes Alcohol type: beer Hx Substance Use: No Preferred Language: Somali Communication Ability: Effective Visual Impairment: Limited Hearing Ability: Use of Hearing Aid 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 Beliefs That Will Affect Care: None marital status: Current Living Situation: Spouse Current Living Situation Comment: From home with current occupational status: retired current occupation: Retired How many Children do You have: 2 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; 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 Feels Safe at Home: Yes Diet: regular caffeine: Yes (1 soda daily) Physical Activity Frequency: Does not Exercise Do you think of yourself as: straight/heterosexual Gender Identity: Male Assistive Devices: Cane Review of Systems Review of Systems: All systems reviewed & are unremarkable except as noted in Subjective Physical Exam Physical Exam: General: No acute distress Skin: Warm and dry, multiple bruises across bilateral upper extremities, no rash Head: Normocephalic, atraumatic Eyes: PERRL, conjunctivae clear, sclera non-icteric; EOM intact; wearing glasses ENT: External ear and ear canal without swelling; nose atraumatic; good dentition, tongue normal appearance, oropharynx slightly dry Neck: Supple, no LAD; no JVD Cardio: RRR, no M/G/R, S1 and S2 normal Resp: No respiratory distress, Lungs CTA in all lobes bilaterally, no wheezes, rales, or rhonchi; ? Slightly diminished BS Abdomen: Soft, symmetric, nontender; No masses or hepatosplenomegaly; Bowel sounds normoactive MSK: No deformities, full ROM throughout; pulses palpable and equal; 3+ pitting edema BLE, level of knee. Neuro: Awake, alert; Muscle strength 5/5 bilaterally in UE/LE; Sensation intact bilaterally; CN intact Psych: Appropriate mood and affect; good judgement and insight. 2 family members present in room at time of visit, nurse present in room at time of visit. Results & Data Results & Data Vital Signs (Past 12 Hours) Vital Signs Temp Pulse Pulse Resp BP BP Pulse Ox 08/21/24 10:38 70 15 151/102 H 93 08/21/24 10:29 36.6 C 73 12 151/102 H 96 08/21/24 08:54 08/21/24 08:54 20 08/21/24 08:51 78 08/21/24 08:50 37.4 C 75 20 142/82 H 97 O2 Del Method 08/21/24 10:38 Room Air 08/21/24 10:29 08/21/24 08:54 Room Air 08/21/24 08:54 08/21/24 08:51 08/21/24 08:50 Room Air Laboratory Results 08/21/24 09:08 Aerobic Blood Culture - Pending Blood Anaerobic Blood Culture - Pending 08/21/24 08:54 Aerobic Blood Culture - Pending Blood Anaerobic Blood Culture - Pending 08/21/24 08/21/24 08/21/24 09:01 08:54 08:50 WBC 7.02 RBC 1.98 L Hgb 6.4 L* Hct 19.7 L* MCV 99.5 MCH 32.3 MCHC 32.5 RDW Std Deviation 61.0 H RDW Coeff of Jolene 17.5 H Plt Count 184 MPV 8.8 L Immature Gran % (Auto) 0.3 Neut % (Auto) 77.4 Lymph % (Auto) 11.7 Churchill % (Auto) 8.3 Eos % (Auto) 2.0 Baso % (Auto) 0.3 Neut # (Auto) 5.44 Lymph # (Auto) 0.82 L Churchill # (Auto) 0.58 Eos # (Auto) 0.14 Baso # (Auto) 0.02 Immature Gran # (Auto) 0.02 Anisocytosis Present Ovalocytes 1+ PT 12.0 INR 1.1 APTT 29 PTT Ratio 1.1 Sodium 139 Potassium 4.0 Chloride 104 Carbon Dioxide 30 Anion Gap 5 BUN 30 H Creatinine 2.32 H Est Cr Clr Drug Dosing 26.4 eGFR 27.20 BUN/Creatinine Ratio 12.9 Glucose 113 H Lactate 0.9 Calcium 7.5 L Magnesium 1.9 Total Bilirubin 0.5 AST 9 L ALT 8 Alkaline Phosphatase 91 Troponin I High Sens 26.1 H Total Protein 5.6 L Albumin 3.0 L Globulin 2.6 Albumin/Globulin Ratio 1.2 Adenovirus (PCR) Not Detected B. pertussis DNA (PCR) Not Detected B.parapertussis DNA PCR Not Detected C. pneumoniae DNA (PCR) Not Detected Coronavirus OC43 (PCR) Not Detected Coronavirus HKU1 (PCR) Not Detected Coronavirus 229E (PCR) Not Detected SARS-CoV-2 (PCR) Not Detected Coronavirus NL63 (PCR) Not Detected Human Metapneumovir PCR Not Detected Influenza Type A (PCR) Not Detected Influenza Type B (PCR) Not Detected M. pneumoniae (PCR) Not Detected Parainfluenza 1 (PCR) Not Detected Parainfluenza 2 (PCR) Not Detected Parainfluenza 3 (PCR) Not Detected Parainfluenza 4 (PCR) Not Detected RSV (PCR) Not Detected Entero/Rhino (PCR) Not Detected Blood Type AB Negative Antibody Screen NEGATIVE Crossmatch See Detail Diagnostic Findings Chest X-Ray 08/21/24 08:51 XR chest 1V portable CLINICAL HISTORY: weakness COMPARISON STUDY: Chest radiograph July 05, 2024. Chest CT October 30, 2023. FINDINGS: There is no pneumothorax. Small left pleural effusion associated left basilar opacity is similar to prior exam. Lucency under the right hemidiaphragm represents bowel gas. There are median sternotomy wires and a left atrial appendage occluder device. Interstitial thickening is present. No pneumothorax. IMPRESSION: 1. Cardiomegaly with interstitial pulmonary edema. 2. Small left pleural effusion with left basilar opacity, similar to prior exam. This may reflect pneumonia or atelectasis. Radiographic follow-up to ensure resolution is recommended. ACT 112: Negative or not required by law. Electronically signed by: Ildefonso Ng M.D. 08/21/2024 9:46 AM Medications Administered Pantoprazole sodium 80 mg IV dextrose 120 mL at 400 mL/h Calcium gluconate 1000 mg IV at 60 mL at 240 mL/h NSS ECG Additional Comments: Wide QRS rhythm, RBBB, left anterior fascicular block Rate approximately 75 bpm QRS 152, QT/QTc 460/515, PRT */-46/13 Code Status & VTE Plan Code Status DNR/DNI VTE Prophylaxis Plan VTE Prophylaxis will be ordered: Yes Supervising Physician Co-Signing Physician Notes I personally examined the patient and verified all jacob points of history and exam, discussed case, and agree with decision making with Emiliano Holland PA-C Feels fine. Sent to the hospital due to anemia on lab work. Notes black stools and diarrhea for about the last 6 weeks. No lightheadedness no weakness no dizziness does admit to a little bit of fatigue but seems nonspecific. No upper abdominal symptoms no unexplained weight loss no food intolerance, etc. Vitals noted, in general he is awake and alert pleasant no distress. HEENT normocephalic atraumatic mucous membranes moist. Breathing unlabored no accessory muscle use good effort. Abdomen is soft nondistended nontender no masses organomegaly no guarding rebound or rigidity. Skin without rashes pallor or icterus (blood is transfusing this time I see him). Anemiaseems to be related to blood lossmost likely GI; had extensive and quite appropriate workup after last GI bleedingand by process of illumination, his age and CKD makes angioectasia of the small bowel that was simply not visualized on capsule endoscopy are most likely culprit here. In the short-term, holding aspirin and Eliquis, transfusing, and following into tomorrow; as long as his hemoglobin improves appropriately this would be stable for ongoing outpatient follow-up (see below under coronary disease/A-fib). Seems unlikely to be hypoproliferative, given that pretty much everything points towards blood loss, at the same time if this seems to be an ongoing problem without clear explanation, then would consider reticulocyte count/peripheral smear (was already getting blood by the time we saw him) and possibly hematology eval TILA on CKDlikely from hypoperfusion from anemia. Anticipate improvement with transfusion Coronary artery disease/atrial fibrillationdiscussed risk and benefit of aspirin and anticoagulation and risk of bleeding. Discussed approaches of holding antiplatelet and/or anticoagulant versus continuing and following blood counts closely. Discussed high probability of needing transfusions in the future, but if identified before critical lows, possibly transfusions could be arranged as an outpatient; conversely discussed having much lower risk of bleeding/transfusion but risk of [place] or CVAobviously this will be a "moving target" and a bit of a "work in progress" with ongoing discussions of our team, patient, family, and PCP. PG Care Time/CCT Total # of Minutes Spent Total Time Spent with Patient: Total time spent is greater than 50% in coordination of care (as documented) at patient's floor/unit and/or counseling patient: Coding Level of Care Code 15163 INT INP/OBS CARE 3/75MIN Diagnoses Anemia requiring transfusions D64.9 Diarrhea R19.7 Elevated troponin R79.89 TILA (acute kidney injury) N17.9 Hypocalcemia E83.51 CKD (chronic kidney disease), stage III N18.3 COPD with emphysema J43.9 Heart failure with mildly reduced ejection fraction (HFmrEF) I50.22 Time Spent (min) 60
[2024-08-21 12:50] LABS: Iron 51 mcg/dl (35-175); Total Iron Binding Cap Calc 205 mcg/dl (250-450); Transferrin 154 mg/dl (200-360); Transferrin (FE) Percent Satur 25 % (20-50); Unsaturated Iron Binding Cap 154 mcg/dl (155-355)
[2024-08-21] MEDS ORDERED: ALBUTEROL HFA 8 GM INHALER INH PRN (14:32)
[2024-08-21] MEDS ORDERED: ALBUTEROL 0.083% NEBU SOLN 3 ML VIAL NEB PRN (14:32)
[2024-08-21 15:24] LABS: Hematocrit (blood only) 24.8 % (42.0-52.0); Hemoglobin 8.2 g/dl (14.0-18.0)
[2024-08-21 18:40] LABS: Appearance Urine Clear (Clear); Bacteria Urine Automated None Seen (None Seen); Bilirubin Urine Negative (Negative); Blood Urine Negative (Negative); Color Urine Yellow; Epithelial Cell Urine Auto 0-2 /hpf (0-2); Glucose Urine UA Negative (Negative); Ketones Urine Negative (Negative); Leukocyte Esterase Urine Negative (Negative); Nitrite Urine Negative (Negative); Protein Urine 1+ (Negative); RBC Urine Automated 0-2 /hpf (0-2); Specific Gravity Urine 1.016 (1.000-1.030); Urobilinogen Urine Negative (Negative); WBC Urine Automated 0-5 /hpf (0-5); pH Urine 5.5 (4.5-7.5)
[2024-08-21 20:08] LABS: Cdiff Antigen Positive; Cdiff Toxin B Gene (2yr or >) Positive Cdiff Gene (Neg)
[2024-08-21 20:09] LABS: Adenovirus F 40/41 PCR Not Detected (NotDetected); Astrovirus PCR Not Detected (NotDetected); Campylobacter PCR Not Detected (NotDetected); Cryptosporidium PCR Not Detected (NotDetected); Cyclospora cayetanensis PCR Not Detected (NotDetected); Entamoeba histolytica PCR Not Detected (NotDetected); Enteroaggregative E.coli(EAEC) Not Detected (NotDetected); Enteropathogenic E.coli (EPEC) Not Detected (NotDetected); Enterotoxigenic E.coli (ETEC) Not Detected (NotDetected); Giardia lamblia PCR Not Detected (NotDetected); Norovirus GI/GII PCR Not Detected (NotDetected); Plesiomonas shigelloides PCR Not Detected (NotDetected); Rotavirus A PCR Not Detected (NotDetected); Salmonella PCR Not Detected (NotDetected); Sapovirus PCR Not Detected (NotDetected); Shiga-like Toxin E.coli (STEC) Not Detected (NotDetected); Shigella/Enteroinvasive E.coli Not Detected (NotDetected); Vibrio cholerae PCR Not Detected (NotDetected); Vibrio species PCR Not Detected (NotDetected); Yersinia enterocolitica PCR Not Detected (NotDetected)
[2024-08-21 20:19] LABS: Cdiff Toxin A+B Positive Cdiff Toxin (Negative)
[2024-08-21] MEDS: POTASSIUM CHLORIDE CRTAB 20 MEQ TABCR PO SCH (20:32)
[2024-08-21] MEDS: METOPROLOL SUCC 50MG EXT REL TAB PO SCH (20:32)
[2024-08-21] MEDS: guaiFENesin 600 MG TABCR PO SCH (20:33)
[2024-08-21] MEDS: AMIODARONE 200 MG TAB PO SCH (20:33)
[2024-08-21] MEDS: CALCIUM CARBONATE 1250MG TAB PO SCH (20:34)
[2024-08-21] MEDS ORDERED: traZODone HCL 50 MG TAB PO SCH (21:00)
--- NOTE | 2024-08-21 22:46 | Communication Note ---
Date of Service: August 21, 2024 Received message from nursing that patient went into A-fib. EKG was taken and showed showed Bifasicular block, left anterior fasciular block, wide QRS, and right BBB. 5 mg Lopressor was given which improved heart rate to normal sinus rhythm. Patient is asymptomatic. Patient also had a critical lab of C. difficile gene and toxin. Patient was put on oral vancomycin. This should be monitored closely as patient currently has an TILA on CKD and adjustments to medications may be needed. Will move patient to PCU/telemetry due to worsening condition.
[2024-08-22] MEDS ORDERED: MELATONIN 3 MG TAB PO PRN (01:31)
[2024-08-22] MEDS: CHERRY SYRUP 5 ML UDP PO SCH (01:31)
[2024-08-22] MEDS: VANCOMYCIN HCL 125 MG/2.5ML SOLN PO SCH (01:31)
[2024-08-22] MEDS: METOPROLOL TARTRATE 1 MG/ML VIAL IV STA ×2 (02:43→04:01)
[2024-08-22 03:05] LABS: Hematocrit (blood only) 23.2 % (42.0-52.0); Hemoglobin 7.7 g/dl (14.0-18.0); Mean Corpuscular Hemoglobin 31.8 pg (25.0-34.0); Mean Corpuscular Hgb Conc 33.2 g/dL (32.0-36.0); Mean Corpuscular Volume 95.9 fL (80.0-100.0); Mean Platelet Volume 8.9 fL (9.4-12.4); Platelet Count 161 K/uL (130-400); RDW Coefficient of Variation 19.1 % (11.5-14.5); RDW Standard Deviation 62.8 fL (36.4-46.3); Red Blood Count 2.42 M/uL (4.70-6.10); White Blood Count 8.49 K/ul (4.8-10.8)
[2024-08-22 03:21] LABS: BUN Creatinine Ratio 15.2 (10-20); Calcium 7.5 mg/dl (8.6-10.3); Creatinine Clr Calc Pharmacy 30.1 ml/min; Magnesium 1.8 mg/dl (1.7-2.4); Potassium 3.9 mmol/L (3.5-5.1)
[2024-08-22 03:27] LABS: Troponin I High Sensitivity 35.8 pg/ml (0-20)
--- NOTE | 2024-08-22 06:30 | Electrocardiogram Report ---
Test Reason : Blood Pressure : */* mmHG Vent. Rate : 73 BPM Atrial Rate : * BPM P-R Int : 216 ms QRS Dur : 152 ms QT Int : 468 ms P-R-T Axes : * -46 13 degrees QTcB Int : 515 ms Sinus rhythm with 1st degree A-V block Right bundle branch block Left anterior fascicular block Bifascicular block Abnormal ECG When compared with ECG of 11-Jun-2024 10:00, No significant change Confirmed by Hernandez Cunningham ([id number]) on 08/22/2024 6:30:19 AM Referred By: REFERRED SELF Confirmed By: Hernandez Cunningham
[2024-08-22] MEDS: ROSUVASTATIN CALCIUM 20 MG TAB PO SCH (08:08)
[2024-08-22] MEDS: CALCITRIOL 0.25 MCG CAPSULE PO SCH (08:08)
[2024-08-22] MEDS: TAMSULOSIN HCL 0.4 MG CAP PO SCH (08:09)
[2024-08-22] MEDS: PANTOprazole 40 MG TAB PO SCH (08:10)
[2024-08-22] MEDS: UMECLIDINIUM/VILANTEROL 62.5/25MCG 7 PUFFS/INHALER INH SCH (08:10)
--- OUTSIDE RECORDS SUMMARY | 2024-08-22 09:12 | External Medical Summary | Continuity of Care Document ---
Author Name Unknown Organization [facility] [address] Address 303 [facility] [place] [id number] Care Team Providers Care Windows Architect Name Role Phone Valentina Jess Ely Primary Care Physicia n [phone] Encounter [facility] FINNBR [id number] Date(s): 08/16/24 - 08/16/24 [facility] [address] 1 [facility] [address], [facility] 1 [place], [place] [phone] Encounter Diagnosis Unspecified systolic (congestive) heart failure(Final) - Discharge Disposition: Home or Self Care Attending Physician: SRINIVAS Vieira Sarah A Referring Physician: SRINIVAS Vieira Sarah A Allergies, Adverse Reactions, Alerts No Known Allergies Immunizations Given and Recorded Vaccine Date Status [...] (Tdap) 6 06/20/21 Given pneumococcal 23-valent vaccine 10/8/18 Given pneumococcal 23-valent vaccine 04/10/99 Recorded zoster [...] Refills: 3, PRN: shortness of breath, Pharmacy: [id number] Start Date: 10/03/23 Status: [...] dental and other procedures as directed, Pharmacy: [id number] Start Date: 12/11/23 Status: Ordered ascorbic acid 500 mg oral capsule Start: 04/16/24 9:50:00 AM EDT, 1 cap, PO, Daily Start Date: 04/16/24 Status: Ordered aspirin 81 mg oral delayed release tablet Start: 03/04/23 1:13:00 PM EDT, 1 tab, PO, Daily, Disp# 30 tab, Refills: 3, Pharmacy: [facility] Start Date: 03/04/23 Stop Date: 07/02/23 Status: Ordered Bumex 2 mg oral tablet Start: 12/13/23 4:25:00 PM EDT, See Instructions, Disp# 90 tab, Refills: 0, 1 tab am,, Pharmacy: [facility] Start Date: 12/13/23 Status: Ordered Eliquis 2.5 mg oral tablet Start: 12/22/23 8:47:00 AM EDT, 1 tab, PO, bid, Disp# 180 tab, Refills: 3, Pharmacy: [id number] Start Date: 12/22/23 Status: Ordered Entresto 97 mg-103 mg oral tablet Start: 01/19/24 1:38:00 PM EDT, 1 tab, PO, bid, Disp# 60 tab, Refills: 11, Pharmacy: [id number] Start Date: 01/19/24 Status: [...] Daily, Disp# 90 cap, Refills: 3, Pharmacy: [facility] Start Date: 04/16/24 Status: Ordered Pletal 50 mg oral tablet Start: 06/07/24 11:44:00 AM EDT, 1 tab, PO, bid, Disp# 180 tab, Refills: 3, Pharmacy: [facility] Start Date: 06/07/24 Status: Ordered Potassium Chloride (Bkw-Mips-Fqa M20) 20 mEq oral tablet, extended release Start: 08/17/24 2:33:00 PM EST, 1 tab, PO, bid, Disp# 180 tab, Refills: 3, Pharmacy: [facility] Start Date: 08/17/24 Status: Ordered Prolia 60 mg/mL subcutaneous solution Start: 05/27/24 1:05:00 PM EDT, 60 mg =, subQ, ONCE, Disp# 1 applicator, Refills: 1, other Start Date: 05/27/24 Status: Ordered rosuvastatin 20 mg oral tablet Start: 09/12/23 11:44:00 AM EST, 1 tab, PO, Daily, Disp# 90 tab, Refills: 3, Pharmacy: [facility] Start Date: 09/12/23 Status: [...] Daily, Disp# 180 tab, Refills: 3, Pharmacy: [facility] Start Date: 08/14/23 Status: Ordered traZODone 50 mg oral tablet Start: 07/14/24 1:22:00 PM EST, 1 tab, PO, qhs Start Date: 07/14/24 Status: Ordered Vitamin B12 Start: 05/05/23 2:47:00 PM EDT Start Date: 05/05/23 Status: Ordered Vitamin D3 1000 intl units oral capsule Start: 02/16/18 10:09:00 AM EDT, 1 cap, PO, Daily Start Date: 02/16/18 Status: Ordered Problem List Condition Confirmation Course Effective Dates Status H ealth Status Informant Anemia Confirmed Active Anemia in chronic kidney disease 1 Confirmed 06/28/24 Active Atrial fibrillation Confirmed Active Stage 3b chronic kidney disease (CKD) Confirmed Active Chronic obstructive pulmonary disease, unspecified Confirmed Active Unspecified systolic (congestive) heart failure 2 Confirmed 05/25/24 Active Coronary artery disease involving [place] heart Confirmed Active SOB (shortness of breath) on exertion Confirmed Active 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) Confirmed Active S/P CABG x 3 Confirmed Active H/O maze procedure Confirmed Active H/O maze procedure Confirmed Active History of myocardial infarction Confirmed Active Hypertensive heart and chronic kidney disease with heart failure and stage 1 through stage 4 chronic kidney disease, or unspecified chronic kidney disease 3 Confirmed 05/25/24 Active Impaired fasting glucose Confirmed Active Mitral valve regurgitation Confirmed Active Mixed hyperlipidemia Confirmed Active Peripheral vascular disease Confirmed Active Kidney mass 4, 5 Confirmed Active Thyroid nodule 6, 7 Confirmed Active Cigarette nicotine dependence without complication 8 Confirmed 05/25/24 Active Tobacco user Confirmed Active 1Added per Manufacturing Analyst Fzizcc-XO-79/6/24 2Added per Manufacturing Analyst Review--05/28/24 3Added per Manufacturing Analyst Review-05/28/24 4renal US on 04/23/2016: bilateral renal cysts, largest in right 16mm, largest in left 32mm. 5chest CT in 04/2016: A 1.7 cm exophytic hypodense lesion within the upper pole of the left kidney This is incompletely characterized on this noncontrast study. 6thyroid US in 10/2016: Impression: multiple tiny hypoechoic thyroid nodules up to 0.3cm which may refelct colloid cysts. Note of these nodules meet criteria for biopsy. 7chest CT in 04/2016: 6mm nodule in left thyroid 8Added per Manufacturing Analyst Review-05/28/24 Procedures Procedure Date Related Diagnosis Body Site Status Capsule endoscopy 1 07/13/24 Compl eted DEXA - dual energy X-ray abs orptiometry 2 04/28/24 Completed Procedure 3 12/10/23 Completed Chest X-ray 4 03/09/23 Completed Doppler ultrasonography of v enous structure of limb 5 03/09/23 Completed Surgery 6 02/24/23 Completed Cataract 7 03/12/22 Completed Cataract 02/25/22 Completed Mohs' micrographic surgery 04/09/21 Completed Shave biopsy of skin 03/20/21 Comp leted Shave biopsy of skin 01/10/21 Comp leted Shave biopsy 06/08/19 Completed Ultrasound Thyroid 8 10/21/16 Comp leted Ultrasound scan renal 9 04/23/16 C ompleted Low does CT lung screening 10 04/16/16 Completed Bilateral inguinal hernia repair 11 Completed Cardiac catheter Complete d Colonoscopy Completed Eye surgery 12 Completed Rotator cuff repair 13 Co mpleted 1The small bowel preparation was fair. A small intestional lymphagniectasia was noted. F/U with referring provider. 2AP Spine- Date: 04/28/2024 T-Score: -2.3 DualFemur- Date: 04/28/2024 T-Score: -2.6 10-year Probability Fracture Major Osteoporotic: 37.0% 10-year Probability Fracture Hip: 32.2% 3stents in heart 4IMPRESSION: 1. Cardiomegaly with mild pulmonary vascular congestion. 2. Left larger than right pleural effusions with dependent atelectasis. 5IMPRESSION: 1. There is no sonographic evidence of deep venous thrombosis identified in the left lower extremity. 2. There is abnormality along the course of the greater saphenous veins extending to the proximal plate of the calf. This could represent thrombosis of the vessel versus postsurgical change from harvesting of the vessel. Clinical correlation will be essential. 6Triple bypass 7left cataract 8Impression: multiple tiny hypoechoic thyroid nodules which may refelct colloid cysts. Note of thesenodules meet criteria for biopsy. 91. Bilateral renal cysts 2. No solid renal masses identified 3. Renal cortical thinning 4. No evidence of hydronephrosis. 10Impression: no suspicious pulmonary nodules A 1.7 cm exophytic hypodense lesion within the upper pole of the left kidney This is incompletely characterized on this noncontrast study. Mild emphysema A 6 mm hypodense nodule within the left thyroid lobe. 849703 Bo2012 132-Both 2004, 2006 Results Laboratory List Name Date Albumin Level (ALBUMIN) 08/16/24 Basic Metabolic Panel (BASIC METAB PANEL ) 08/16/24 NT-Pro BNP 08/16/24 Most recent to oldest [Reference Range]: 1 eGFR CKD-EPI [>60 mL/min/1.73 m2] 31 mL/ min/1.73 m2 1 *LOW* (08/16/24 9:10 AM) BNP, NT-Pro [<450 pg/mL] 64544 pg/mL *HI* (08/16/24 9:10 AM) Estimated CrCl 25.98 mL/min (08/16/24 9:52 AM) Anion Gap [5-14 mmol/L] 6 mmol/L (08/16/24 9:10 AM) Alb [3.5-5.0 g/dL] 3.0 g/dL 2 *LOW* (08/16/24 9:10 AM) BUN [7-20 mg/dL] 31 mg/dL *HI* (08/16/24 9:10 AM) Ca [8.4-10.2 mg/dL] 7.2 mg/dL *LOW* (08/16/24 9:10 AM) Cl- [96-107 mmol/L] 103 mmol/L (08/16/24 9:10 AM) HCO3 [22-30 mmol/L] 28 mmol/L (08/16/24 9:10 AM) Cret [0.70-1.30 mg/dL] 2.10 mg/dL *HI* (08/16/24 9:10 AM) Glu [74-106 mg/dL] 127 mg/dL *HI* (08/16/24 9:10 AM) K [3.5-5.1 mmol/L] 3.7 mmol/L (08/16/24 9:10 AM) Na [137-145 mmol/L] 137 mmol/L (08/16/24 9:10 AM) 1Result Comment: Testing Performed By: Dept of Pathology [facility] [address], [address] [place] [address] 2Result Comment: Testing Performed By: Dept of Pathology [facility] [address], [address] [place] [address] Social History Social History Type Response Tobacco Current every day sm oker, Cigarettes Smoking Status Never smoked cigaret gordon Sex Male Sex Representation Male (finding) Patient Care team information Care Team Personnel Name: Saba Doyle Erika Joy Position: Pharmacist Member Role: Pharmacy - Lifetime Name: DO Montgomery Gretchen Elizabeth Position: Physician - Family Med Member Role: Primary Care Provider Address: [address] [place] [address] [address] [place] [address] [place] Care Team Related Persons Name: RICHY FONSECA Name: RICHY FONSECA
--- OUTSIDE RECORDS SUMMARY | 2024-08-22 09:12 | External Medical Summary | Continuity of Care Document ---
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 Name Role Phone Valentina Jess Ely Primary Care Physicia n [phone] Encounter [facility] FINNBR [id number] Date(s): 08/16/24 - 08/16/24 [facility] [address] 1 [facility] [address], [facility] 1 [place], [place] [phone] Encounter Diagnosis Unspecified systolic (congestive) heart failure(Final) [...] Refills: 3, PRN: shortness of breath, Pharmacy: [id number] Start Date: 10/03/23 [...] dental and other procedures as directed, Pharmacy: [facility] Start Date: 12/11/23 Status: Ordered ascorbic acid 500 mg oral capsule Start: 04/16/24 9:50:00 AM EDT, 1 cap, PO, Daily Start Date: 04/16/24 Status: Ordered aspirin 81 mg oral delayed release tablet Start: 03/04/23 1:13:00 PM EDT, 1 tab, PO, Daily, Disp# 30 tab, Refills: 3, Pharmacy: [facility] Start Date: 03/04/23 Stop Date: 07/02/23 Status: Ordered Bumex 2 mg oral tablet Start: 12/13/23 4:25:00 PM EDT, See Instructions, Disp# 90 tab, Refills: 0, 1 tab am,, Pharmacy: [facility] Start Date: 12/13/23 Status: Ordered Eliquis 2.5 mg oral tablet Start: 12/22/23 8:47:00 AM EDT, 1 tab, PO, bid, Disp# 180 tab, Refills: 3, Pharmacy: [facility] Start Date: 12/22/23 Status: Ordered Entresto 97 mg-103 mg oral tablet Start: 01/19/24 1:38:00 PM EDT, 1 tab, PO, bid, Disp# 60 tab, Refills: 11, Pharmacy: [facility] Start Date: 01/19/24 [...] Daily, Disp# 90 cap, Refills: 3, Pharmacy: [facility] Start Date: 04/16/24 Status: Ordered Pletal 50 mg oral tablet Start: 06/07/24 11:44:00 AM EDT, 1 tab, PO, bid, Disp# 180 tab, Refills: 3, Pharmacy: [facility] Start Date: 06/07/24 Status: Ordered Potassium Chloride (Urs-Vajw-Dcp M20) 20 mEq oral tablet, extended release Start: 08/17/24 2:33:00 PM EST, 1 tab, PO, bid, Disp# 180 tab, Refills: 3, Pharmacy: [facility] Start Date: 08/17/24 Status: Ordered Prolia 60 mg/mL subcutaneous solution Start: 05/27/24 1:05:00 PM EDT, 60 mg =, subQ, ONCE, Disp# 1 applicator, Refills: 1, other Start Date: 05/27/24 Status: Ordered rosuvastatin 20 mg oral tablet Start: 09/12/23 11:44:00 AM EST, 1 tab, PO, Daily, Disp# 90 tab, Refills: 3, Pharmacy: [facility] Start Date: 09/12/23 [...] Daily, Disp# 180 tab, Refills: 3, Pharmacy: [facility] Start Date: 08/14/23 Status: [...] Confirmed 05/25/24 Active Coronary artery disease involving [place] heart Confirmed Active SOB (shortness of breath) [...] Active Tobacco user Confirmed Active 1Added per Packer Denture Pybiyk-EG-00/6/24 2Added per Packer Denture Review--05/28/24 3Added per Packer Denture Review-05/28/24 4renal US on 04/23/2016: bilateral renal [...] 6mm nodule in left thyroid 8Added per Packer Denture Review-05/28/24 Procedures Procedure Date Related Diagnosis Body [...] hypodense nodule within the left thyroid lobe. 377752 Bo2012 132-Both 2004, 2006 Results Laboratory List Name Date Albumin Level (ALBUMIN) 08/16/24 Basic Metabolic Panel (BASIC METAB PANEL ) 08/16/24 NT-Pro BNP 08/16/24 Most recent to oldest [Reference Range]: 1 eGFR CKD-EPI [>60 mL/min/1.73 m2] 31 mL/ min/1.73 m2 1 *LOW* (08/16/24 9:10 AM) BNP, NT-Pro [<450 pg/mL] 22922 pg/mL *HI* (08/16/24 9:10 AM) Estimated CrCl [...] Comment: Testing Performed By: Dept of Pathology [facility] [address], [address] [place] [address] 2Result Comment: Testing Performed By: Dept of Pathology [facility] [address], [address] [place] [address] Social History Social History Type Response Tobacco Current every day sm oker, Cigarettes Smoking Status Never smoked cigaret gordon Sex Male Sex Representation Male (finding) Patient Care team information Care Team Personnel Name: Saba Doyle Erika Joy Position: Pharmacist Member Role: Pharmacy - Lifetime Name: DO Montgomery Gretchen Elizabeth Position: Physician - Family Med Member Role: Primary Care Provider Address: [address] [place] [address] [address] [place] [address] [place] Care Team Related Persons Name: RICHY FONSECA Name: RICHY FONSECA
--- OUTSIDE RECORDS SUMMARY | 2024-08-22 09:12 | External Medical Summary | Continuity of Care Document ---
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 Name Role Phone Jess Montgomery Primary Care Physicia n [phone] Encounter [facility] [id number] Date(s): 07/28/24 - 07/28/24 [facility] [address] [facility] 2 [address] [facility] 2 [place], [place] [id number] Encounter Diagnosis History of basal cell carcinoma of skin(Discharge Diagnosis) - 07/28/24 Seborrheic keratoses(Discharge Diagnosis) - 07/28/24 Solar purpura(Discharge Diagnosis) - 07/28/24 Discharge Disposition: Home or Self Care Attending Physician: MD Barfield Thomas A Allergies, Adverse Reactions, Alerts No Known Allergies Assessment and Plan Extracted from: Title:Clinical Document Author:MD Barfield T homas A Date:07/28/24 OUTPATIENT NOTE Name: JOEL PEREZ Patient Number:1 [id number] : 1940 Date of Service: 07/28/2024 _ Joel Perez returns for reevaluation. Mohs surgery site left helix of the ear appears clear of recurrence. Scar has softened and is no longer hypertrophic. Some persistent erythema and scale. Continue to monitor. Review of systems medications allergies as noted on the chart. The patient is in stable health, but feeling very weak post surgery 1-1/2 years ago. Examination reveals pleasant well-nourished white male type II skin was alert and oriented x 3 with no mood and affect. Examination of the head, neck, back, chest, arms, hands, fingers, abdominal area reveals solar purpura on the extensor forearms, few scattered seborrheic keratoses on the trunk requiring no further treatment and is otherwise unremarkable. The patient will return in 6 months for reevaluation of the treatment site on the left ear. Immunizations Given and Recorded Vaccine Date Status Refusal Reason zoster vaccine, inactivated 10/15/22 Recorded zoster vaccine, inactivated 05/08/22 Recorded SARS-CoV-2 mRNA (Pfizer 12+) bivalent 07/05/22 Rec orded influenza virus vaccine, inactivated 1, 2 06/26/22 Given influenza virus vaccine, inactivated 06/06/21 Akiden rded influenza virus vaccine, inactivated 06/08/20 Kaiden [...] Refills: 3, PRN: shortness of breath, Pharmacy: [facility] Start Date: 10/03/23 Status: [...] dental and other procedures as directed, Pharmacy: [facility] Start Date: 12/11/23 Status: Ordered ascorbic acid 500 mg oral capsule Start: 04/16/24 9:50:00 AM EDT, 1 cap, PO, Daily Start Date: 04/16/24 Status: Ordered aspirin 81 mg oral delayed release tablet Start: 03/04/23 1:13:00 PM EDT, 1 tab, PO, Daily, Disp# 30 tab, Refills: 3, Pharmacy: [facility] Start Date: 03/04/23 Stop Date: 07/02/23 Status: Ordered Bumex 2 mg oral tablet Start: 12/13/23 4:25:00 PM EDT, See Instructions, Disp# 90 tab, Refills: 0, 1 tab am,, Pharmacy: [facility] Start Date: 12/13/23 Status: Ordered Eliquis 2.5 mg oral tablet Start: 12/22/23 8:47:00 AM EDT, 1 tab, PO, bid, Disp# 180 tab, Refills: 3, Pharmacy: [facility] Start Date: 12/22/23 Status: Ordered Entresto 97 mg-103 mg oral tablet Start: 01/19/24 1:38:00 PM EDT, 1 tab, PO, bid, Disp# 60 tab, Refills: 11, Pharmacy: [facility] Start Date: 01/19/24 Status: [...] Daily, Disp# 90 cap, Refills: 3, Pharmacy: [facility] Start Date: 04/16/24 Status: Ordered Pletal 50 mg oral tablet Start: 06/07/24 11:44:00 AM EDT, 1 tab, PO, bid, Disp# 180 tab, Refills: 3, Pharmacy: [facility] Start Date: 06/07/24 Status: Ordered potassium chloride 20 mEq/15 mL oral liquid Start: 04/16/24 9:46:00 AM EDT, 15 mL, PO, tid Start Date: 04/16/24 Status: Ordered Prolia 60 mg/mL subcutaneous solution Start: 05/27/24 1:05:00 PM EDT, 60 mg =, subQ, ONCE, Disp# 1 applicator, Refills: 1, other Start Date: 05/27/24 Status: Ordered rosuvastatin 20 mg oral tablet Start: 09/12/23 11:44:00 AM EST, 1 tab, PO, Daily, Disp# 90 tab, Refills: 3, Pharmacy: [facility] Start Date: 09/12/23 Status: [...] Daily, Disp# 180 tab, Refills: 3, Pharmacy: [facility] Start Date: 08/14/23 Status: Ordered traZODone 50 mg oral tablet Start: 07/14/24 1:22:00 PM EST, 1 tab, PO, qhs Start Date: 07/14/24 Status: Ordered Vitamin B12 Start: 05/05/23 2:47:00 PM EDT Start Date: 05/05/23 Status: Ordered Vitamin D3 1000 intl units oral capsule Start: 02/16/18 10:09:00 AM EDT, 1 cap, PO, Daily Start Date: 02/16/18 Status: Ordered Mental Status 07/28/24 Barriers to Learning one year None evide [...] Confirmed 05/25/24 Active Coronary artery disease involving [place] heart Confirmed Active SOB (shortness of breath) [...] Active Tobacco user Confirmed Active 1Added per Medical Assistant Per Diem Aynsau-EZ-36/6/24 2Added per Medical Assistant Per Diem Review-05/28/24 3Added per Medical Assistant Per Diem Review-05/28/24 4renal US on 04/23/2016: bilateral renal [...] 6mm nodule in left thyroid 8Added per Medical Assistant Per Diem Review-05/28/24 Diagnosis Diagnosis Type Effective Dates Health Status Clinical Service Informant History of basal cell carcinoma of skin Discharge Diagnosis 07/28/24 Seborrheic keratoses Discharge Diagnosis 07/28/24 Solar purpura Discharge Diagnosis 07/28/24 Procedures Procedure Date Related Diagnosis Body Site [...] hypodense nodule within the left thyroid lobe. [id number] 2012 132-Both 2004, 2006 Social History Social History Type Response Tobacco Current every day sm oker, Cigarettes Smoking Status Never smoked cigaret gordon Sex Male Sex Representation Male (finding) Outpatient Note * MD Carolyne, Hieu Fenton: PERFORM Event Display: .Outpt Note Authored Date: [id number] OUTPATIENT NOTE Name: JOEL PEREZ Patient Number:1 [id number] : 1940 Date of Service: 07/28/2024 _ Joel Perez returns for reevaluation. Mohs surgery site left helix of the ear appears clear of recurrence. Scar has softened and is no longer hypertrophic. Some persistent erythema and scale. Continue to monitor. Review of systems medications allergies as noted on the chart. The patient is in stable health, butfeeling very weak post surgery 1-1/2 years ago. Examination reveals pleasant well-nourished white male type II skin was alert and oriented x 3 withno mood and affect. Examination of the head, neck, back, chest, arms, hands, fingers, abdominal area reveals solar purpura on the extensor forearms, few scattered seborrheic keratoses on the trunk requiring no further treatment and is otherwise unremarkable. The patient will return in 6 months for reevaluation of the treatment site on the left ear. Electronic Signature on File Electronically Reviewed/Signed by: Hieu Barfield MD Author Signature Dt/Tm:07/28/2024 10:53 AM Department of Dermatology [facility] Patient Care team information Care Team Personnel Name: Saba Doyle Erika Joy Position: Pharmacist Member Role: Pharmacy - Lifetime Name: DO Montgomery Gretchen Elizabeth Position: Physician - Family Med Member Role: Primary Care Provider Address: [facility] [address] [place] Care Team Related Persons Name: RICHY PEREZ Name: RICHY PEREZ
--- OUTSIDE RECORDS SUMMARY | 2024-08-22 09:12 | External Medical Summary | Continuity of Care Document ---
Author Name Unknown Organization [facility] [address] [facility] Address [address] [place], [place] [id number] Care Team Providers Care Flat Bed Operator Name Role Phone Jess [place] Primary Care Physicia n [phone] Encounter [facility] FINNBR [id number] Date(s): 07/14/24 - 07/14/24 [facility] [address], [address] [place] [address] [phone] Encounter Diagnosis Anticoagulated(Discharge Diagnosis) - 07/14/24 Afib(Discharge Diagnosis) - 07/14/24 Systolic CHF(Discharge Diagnosis) - 07/14/24 Hypokalemia(Discharge Diagnosis) - 07/14/24 Discharge Disposition: Home or Self Care Attending Physician: SRINIVAS Vieira Sarah A Referring Physician: DO [place] Gretchen Elizabeth Allergies, Adverse Reactions, Alerts No Known Allergies Assessment and Plan Extracted from: Title:Cardiology Office Visit Note Author:SRINIVAS Worrell rd, Sarah A Date:07/14/24 Impression: 1A. CAD s/pCABG x 3 CHEEK-LAD, SVG-OM, PDA, [facility] MAZE procedure and LAAL 02/2023 1B. 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 PREOP CATH: 100% CUSTOMER SALES ADVISOR Prox RCA with L to R collaterals [...] HTN 4. Hypercholesterolemia. 5. 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 History of hypokalemia, likely secondary to HCTZ. 7. Longstanding tobacco abuse. 8. Admission for pneumonia October 2022 leading to atrial fibrillation 9. History of claudication, resolved with Pletal. 10. 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 11. S/P Left thoracentesis 05/2023 of 700 cc and again 02/2024 12. S/p MitraClip 12/10/2023 at [facility] 13. Acuteblood loss anemia from GI bleedingin the setting of aspirin, cilostazol, and Eliquis. He has resumed his Eliquis and aspirin following the capsule endoscopy. [place] had [place] work yesterday [place]the [place] which I will request. I recommended he stop the Pletal as it is really has not given him much relief and and could have beenwhat tipped him over the edge on the GI bleeding. He continues on Eliquis for stroke prevention. He is also on amiodarone. His QT was stable on his hospitalEKG. Hiskidney function showeda lowpotassium, again [facility]. He continues to take potassium 3 times a day. He has aslightly increased lower extremity edema but this is probably from holding hisBumexfor a few days surrounding his capsule endoscopy. He has resumed. He asked if he could continue to use an extra dose as needed which he may but I would asked that he let us know if it is more than a couple days in a row so that we can closely watch his kidney function. He also hasa BMP and CBC fornephrology in another week or 2. He will return to the clinic in 2 months Immunizations Given and Recorded Vaccine Date [...] Refills: 3, PRN: shortness of breath, Pharmacy: [id number] Start Date: 10/03/23 [...] dental and other procedures as directed, Pharmacy: [id number] Start Date: 12/11/23 Status: Ordered ascorbic acid 500 mg oral capsule Start: 04/16/24 9:50:00 AM EDT, 1 cap, PO, Daily Start Date: 04/16/24 Status: Ordered aspirin 81 mg oral delayed release tablet Start: 03/04/23 1:13:00 PM EDT, 1 tab, PO, Daily, Disp# 30 tab, Refills: 3, Pharmacy: [facility] Start Date: 03/04/23 Stop Date: 07/02/23 Status: Ordered Bumex 2 mg oral tablet Start: 12/13/23 4:25:00 PM EDT, See Instructions, Disp# 90 tab, Refills: 0, 1 tab am,, Pharmacy: [facility] Start Date: 12/13/23 Status: Ordered Eliquis 2.5 mg oral tablet Start: 12/22/23 8:47:00 AM EDT, 1 tab, PO, bid, Disp# 180 tab, Refills: 3, Pharmacy: [id number] Start Date: 12/22/23 Status: Ordered Entresto 97 mg-103 mg oral tablet Start: 01/19/24 1:38:00 PM EDT, 1 tab, PO, bid, Disp# 60 tab, Refills: 11, Pharmacy: [id number] Start Date: 01/19/24 [...] Daily, Disp# 90 cap, Refills: 3, Pharmacy: [id number] Start Date: 04/16/24 Status: Ordered Pletal 50 mg oral tablet Start: 06/07/24 11:44:00 AM EDT, 1 tab, PO, bid, Disp# 180 tab, Refills: 3, Pharmacy: [id number] Start Date: 06/07/24 [...] Daily, Disp# 90 tab, Refills: 3, Pharmacy: [id number] Start Date: 09/12/23 [...] Daily, Disp# 180 tab, Refills: 3, Pharmacy: [id number] Start Date: 08/14/23 Status: Ordered traZODone 50 mg oral tablet Start: 07/14/24 1:22:00 PM EST, 1 tab, PO, qhs Start Date: 07/14/24 Status: Ordered Vitamin B12 Start: 05/05/23 2:47:00 PM EDT Start Date: 05/05/23 Status: Ordered Vitamin D3 1000 intl units oral capsule Start: 02/16/18 10:09:00 AM EDT, 1 cap, PO, Daily Start Date: 02/16/18 Status: Ordered Mental Status 07/14/24 Barriers to Learning one year None evide nt Mandatory Health Literacy Documentation Yes Health Literacy Communication Barriers N ever Primary Language Hebrew Problem List Condition Confirmation Course Effective Dates Status H ealth Status Informant Anemia Confirmed Active Atrial fibrillation Confirmed Active Stage 3b chronic kidney disease (CKD) Confirmed Active Chronic obstructive pulmonary disease, unspecified Confirmed Active Unspecified systolic (congestive) heart failure 1 Confirmed 05/25/24 Active Coronary artery disease involving ekwok heart Confirmed Active SOB (shortness of breath) [...] kidney disease, or unspecified chronic kidney disease 2 Confirmed 05/25/24 Active Impaired fasting glucose Confirmed Active Mitral valve regurgitation Confirmed Active Mixed hyperlipidemia Confirmed Active Peripheral vascular disease Confirmed Active Kidney mass 3, 4 Confirmed Active Thyroid nodule 5, 6 Confirmed Active Cigarette nicotine dependence without complication 7 Confirmed 05/25/24 Active Tobacco user Confirmed Active 1Added per Aircraft Systems Technician Review-05/28/24 2Added per Aircraft Systems Technician Review-05/28/24 3renal US on 04/23/2016: bilateral renal cysts, largest in right 16mm, largest in left 32mm. 4chest CT in 04/2016: A 1.7 cm exophytic hypodense lesion within the upper pole of the left kidney This is incompletely characterized on this noncontrast study. 5thyroid US in 10/2016: Impression: multiple tiny hypoechoic thyroid nodules up to 0.3cm which may refelct colloid cysts. Note of these nodules meet criteria for biopsy. 6chest CT in 04/2016: 6mm nodule in left thyroid 7Added per Aircraft Systems Technician Review-05/28/24 Diagnosis Diagnosis Type Effective Dates Health Status Cl inical Service Informant Afib Discharge Diagnosis 07/14/24 Non-Specified Systolic CHF Discharge Diagnosis 07/14/24 Non-Specified Anticoagulated Discharge Diagnosis 07/14/24 Non-Specified Hypokalemia Discharge Diagnosis 07/14/24 Non-Specified Procedures Procedure Date Related Diagnosis Body [...] hypodense nodule within the left thyroid lobe. 337118 2012 132-Both 2004, 2006 Vital Signs Most recent to oldest [Reference Range]: 1 Patient Weight 72.7 kg (07/14/24 1:27 PM) Heart Rate 64 bpm (07/14/24 1:27 PM) Blood Pressure 130/64mmHg (07/14/24 1:27 PM) Cuff Pulse Pressure 66 mmHg (07/14/24 1:27 PM) Social History Social History Type Response Tobacco Current every day sm oker, Cigarettes Smoking Status Former Smoker, quit > 1 yr Sex Male Sex Representation Male (finding) Cardiology Outpatient Note * SRINIVAS Vieira Sarah A: MODIFY, PERFORM Event Display: Cardiology Outpt Note Authored Date: [id number] Primary Care Provider DO [place] Gretchen Elizabeth Referring Provider DO [place] Gretchen Elizabeth [facility]. had pill cam.yesterday. restarted eliquis last night and platel. Swelling ble slightly more than normal. Breathing at baseline History of Present Illness Mr. Perez presents for hospital follow up. He was admitted to [facility] on June 11 and was discharged on June 15 for gastrointestinal bleeding and acute blood loss anemia. EGD did not find any source for his bleeding. His Pletal, aspirin, and Eliquis were held but aspirin was quickly resumed. He did require 1 unit of PRBCs for hemoglobin of 6.5. He completed a capsule endoscopy yesterday and has restarted his Eliquis. He also restarted his cilostazol. He continues to have poor appetite. He feels that his breathing is baseline. His edema is a little worse but he stopped his Bumex for couple of days surrounding the endoscopy. Review of Systems All other systems reviewed and negative except as discussed in the HPI Physical Exam Vitals & Measurements HR:64(Monitored) BP:130/64 SpO2:95% WT:72.700kg(Dosing) WT:72.7kg Physical Examination General: Alert and oriented, No acute distress. Neck: No jugular venous distention. Respiratory: Lungs are clear to auscultation, Respirations are non-labored. Cardiovascular: Normal rate, Regular rhythm, No murmur, No edema. Integumentary: Warm, Dry, Cyril Neurologic: Alert, Oriented. Cognition and Speech: Speech clear and coherent. Psychiatric: Cooperative, Appropriate mood & affect. Assessment/Plan Impression: 1A. CAD s/pCABG x 3 CHEEK-LAD, SVG-OM, PDA, [facility] MAZE procedure and LAAL 02/2023 1B. 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 PREOP CATH: 100% CUSTOMER SALES ADVISOR Prox RCA with L to R collaterals [...] HTN 4. Hypercholesterolemia. 5. 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 History of hypokalemia, likely secondary to HCTZ. 7. Longstanding tobacco abuse. 8. Admission for pneumonia October 2022 leading to atrial fibrillation 9. History of claudication, resolved with Pletal. 10. 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 11. S/P Left thoracentesis 05/2023 of 700 cc and again 02/2024 12. S/p MitraClip 12/10/2023 at [facility] 13. Acuteblood loss anemia from GI bleedingin the setting of aspirin, cilostazol, and Eliquis. He has resumed his Eliquis and aspirin following the capsule endoscopy. [facility]. I recommended he stop the Pletal as it is really has not given him much relief and and could have beenwhat tipped him over the edge on the GI bleeding. He continues on Eliquis for stroke prevention. He is also on amiodarone. His QT was stable on his hospitalEKG. Hiskidney function showeda lowpotassium, again I [facility]. He continues to take potassium 3 times a day. He has aslightly increased lower extremity edema but this is probably from holding hisBumexfor a few days surrounding his capsule endoscopy. He has resumed. He asked if he could continue touse an extra dose as needed which he may but I would asked that he let us know if it is more than acouple days in a row so that we can closely watch his kidney function. He also hasa BMP and CBC fornephrology in another week or 2. He will return to the clinic in 2 months Problem List/Past Medical History Ongoing Anemia Atrial fibrillation Chronic obstructive pulmonary disease, unspecified Cigarette nicotine dependence without complication Coronary artery disease involving ekwok heart H/O maze procedure H/O maze procedure 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) History of myocardial infarction Hypertensive heart and chronic kidney disease with heart failure and stage 1 through stage 4 chronic kidney disease, or unspecified chronic kidney disease Impaired fasting glucose Kidney mass Mitral valve regurgitation Mixed hyperlipidemia Peripheral vascular disease S/P CABG x 3 SOB (shortness of breath) on exertion Stage 3b chronic kidney disease (CKD) Thyroid nodule Tobacco user Unspecified systolic (congestive) heart failure Resolved Myocardial infarction Pneumonia Procedure/Surgical History DEXA - dual energy X-ray absorptiometry| Service Date: 4Procedure| Service Date: 4Doppler ultrasonography of venous structure of limb| Service Date: 03/09/2023hest X-ray| Service Date: 03/09/2023Surgery| Service Date: 3Cataract| Service Date: 03/12/2022ataract| Service Date: 02/25/2022Mohs' micrographic surgery| Service Date: 04/09/2021havebiopsy of skin| Service Date: 03/20/2021have biopsy of skin| Service Date: 01/10/2021have biopsy| Service Date: 06/08/2019Ultrasound Thyroid| Service Date: 10/21/2016Ultrasound scan alfonzo l| Service Date: 04/23/2016Low does CT lung screening| [...] capsule), 1000 Int_Unit= 1 cap, PO, Daily cilostazol(Pletal 50 mg oral tablet), 50 mg= 1 tab, PO, bid, 3 refills cyanocobalamin(Vitamin B12) denosumab(Prolia 60 mg/mL subcutaneous solution), [...] oral liquid), 20 mEq= 15 mL, PO, tid rosuvastatin(rosuvastatin 20 mg oral tablet), 20 mg= 1 tab, PO, Daily, 3 refills sacubitril-valsartan(Entresto 97 mg-103 mg oral tablet), 1 tab, PO, bid, 11 refills tamsulosin(tamsulosin 0.4 mg oral capsule), 0.4 mg= 1 cap, PO, Daily traZODone(traZODone 50 mg oral tablet), 50 mg= 1 tab, PO, qhs Allergies NKA No Known Medication Allergies Social History Smoking Status Former Smoker, quit > 1 yr Tobacco Use:Current every day smoker Type:Cigarettes Family History Heart attack: Mother. Hypertension: Mother and Father. Health Status Family Member(s) Electronic Signature on File CC: Jess Montgomery D.O. [address] [place] [id number] Electronically Reviewed/Signed by: SRINIVAS Bhatia Author Signature Dt/Tm:07/14/2024 04:37 PM [facility] Patient Care team information Care Team Personnel Name: Saba Doyle Erika Joy Position: Pharmacist Member Role: Pharmacy - Lifetime Name: DO [place] Gretchen Elizabeth Position: Physician - Family Med Member Role: Primary Care Provider Address: [address] [place] [id number] [place] Care Team Related Persons Name: RICHY PEREZ Name: RICHY PEREZ"
--- OUTSIDE RECORDS SUMMARY | 2024-08-22 09:12 | External Medical Summary | Continuity of Care Document ---
Author Name Unknown Organization [address] Address [address] [place] [id number] Care Team Providers Care Chief Information Security Officer Name Role Phone Valentina Jess Ely Primary Care Physicia n [phone] Encounter [facility] FINNBR [id number] Date(s): 07/13/24 - 07/13/[address] [address] [phone] Encounter Diagnosis Anemia(Discharge Diagnosis) - 07/13/24 Discharge Disposition: Home or Self Care Attending Physician: MD Laura, Marlo Barr Referring Physician: DO Castaneda Franklin J Allergies, Adverse Reactions, Alerts No Known Allergies [...] Refills: 3, PRN: shortness of breath, Pharmacy: [id number] Start Date: 10/03/23 Status: [...] dental and other procedures as directed, Pharmacy: [id number] Start Date: 12/11/23 Status: Ordered ascorbic acid 500 mg oral capsule Start: 04/16/24 9:50:00 AM EDT, 1 cap, PO, Daily Start Date: 04/16/24 Status: Ordered aspirin 81 mg oral delayed release tablet Start: 03/04/23 1:13:00 PM EDT, 1 tab, PO, Daily, Disp# 30 tab, Refills: 3, Pharmacy: [facility] Start Date: 03/04/23 Stop Date: 07/02/23 Status: Ordered Bumex 2 mg oral tablet Start: 12/13/23 4:25:00 PM EDT, See Instructions, Disp# 90 tab, Refills: 0, 1 tab am,, Pharmacy: [facility] Start Date: 12/13/23 Status: Ordered Eliquis 2.5 mg oral tablet Start: 12/22/23 8:47:00 AM EDT, 1 tab, PO, bid, Disp# 180 tab, Refills: 3, Pharmacy: [id number] Start Date: 12/22/23 Status: Ordered Entresto 97 mg-103 mg oral tablet Start: 01/19/24 1:38:00 PM EDT, 1 tab, PO, bid, Disp# 60 tab, Refills: 11, Pharmacy: [id number] Start Date: 01/19/24 Status: [...] Daily, Disp# 90 cap, Refills: 3, Pharmacy: [id number] Start Date: 04/16/24 Status: Ordered Pletal 50 mg oral tablet Start: 06/07/24 11:44:00 AM EDT, 1 tab, PO, bid, Disp# 180 tab, Refills: 3, Pharmacy: [facility] Start Date: 06/07/24 Status: Ordered [...] Daily, Disp# 90 tab, Refills: 3, Pharmacy: [facility] Start Date: 09/12/23 Status: [...] Daily, Disp# 180 tab, Refills: 3, Pharmacy: [facility] Start Date: 08/14/23 Status: Ordered traZODone [...] Confirmed 05/25/24 Active Coronary artery disease involving sleetmute heart Confirmed Active SOB (shortness of breath) [...] Active Tobacco user Confirmed Active 1Added per Plastics Fabricator And Assembler Review-05/28/24 2Added per Plastics Fabricator And Assembler Review-05/28/24 3renal US on 04/23/2016: bilateral renal [...] 6mm nodule in left thyroid 7Added per Plastics Fabricator And Assembler Review-05/28/24 Diagnosis Diagnosis Type Effective Dates Health Status Clini carey Service Informant Anemia Discharge Diagnosis 07/13/24 Non-Specified Procedures Procedure Date Related Diagnosis Body [...] hypodense nodule within the left thyroid lobe. [id number] 132-Both 2004, 2006 Social History Social History Type Response Tobacco Current every day sm oker, Cigarettes Smoking Status Former Smoker, quit > 1 yr Sex Male Sex Representation Male (finding) Patient Care team information Care Team Personnel Name: Saba Doyle Erika Joy Position: Pharmacist Member Role: Pharmacy - Lifetime Name: DO [place] Gretchen Elizabeth Position: Physician - Family Med Member Role: Primary Care Provider Address: [address] [place] [id number] [place] Care Team Related Persons Name: RICHY FONSECA Name: RICHY FONSECA
[2024-08-22] MEDS: MAGNESIUM SULFATE / D5W 1 GM/100 ML BAG IV SCH (09:30)
[2024-08-22] MEDS: POTASSIUM CHLORIDE CRTAB 20 MEQ TABCR PO SCH (09:30)
[2024-08-22] MEDS ORDERED: SODIUM CHLORIDE 0.9% 50 ML IV PRN (10:54)
[2024-08-22] MEDS ORDERED: SODIUM CHLORIDE 0.9% 100 ML IV PRN (10:54)
--- NOTE | 2024-08-22 10:54 | Hospitalist Progress Note ---
Date of Service August 22, 2024 Assessment & Plan (1) Acute GI bleeding: (2) C. difficile colitis: (3) ABLA (acute blood loss anemia): (4) Heart failure with mildly reduced ejection fraction (HFmrEF): (5) CKD (chronic kidney disease), stage III: (6) S/P Maze operation for atrial fibrillation: (7) CAD (coronary artery disease): (8) Right heart failure with reduced right ventricular function: (9) Atrial fibrillation: (10) COPD with emphysema: (11) Hypertension: (12) Hyperlipidemia: Plan 84-year-old male with past medical history of atrial fibrillation on apixaban, coronary artery disease status post CABG, CKD stage III, congestive heart failure, COPD, hypertension, hyperlipidemia, mitral regurgitation status post mitral clip at [facility], history of recent GI bleed requiring blood transfusion status post EGD, colonoscopy and outpatient capsule endoscopy presents to the ED after complaining of worsening diarrhea for the past 6 weeks with dark stools and outpatient blood test showing hemoglobin less than 7 #GI bleed #C. difficile colitis #Acute blood loss anemia likely secondary to GI bleed in the setting of chronic iron deficiency anemia/anemia of chronic kidney disease Fecal occult blood is positive EGD from June 15, 2024 showed normal esophagus, 5 cm hiatal hernia, normal stomach Colonoscopy from June 15, 2024 showed diverticulosis in the entire colon, 3 small polyps at the rectal sigmoid colon which were removed with cold snare Capsule endoscopy from 07/13/2024 shows small intestinal lymphangiectasia ordered through GI Dr. Marlo Sanchez Hold aspirin and apixaban for now Treat C. difficile colitis with vancomycin 125 mg p.o. 4 times daily (day 1) Status post 1 unit PRBC with some improvement in hemoglobin which is still below 8 Transfuse 1 more unit of PRBC with IV Bumex after transfusion Continue PPI Monitor H&H Patient is on oral iron supplementations: Iron is 51, TIBC is 205, transferrin is 154 #Coronary disease status post CABG (3 vessels in February 2023) #Mitral regurgitation status post mitral clip #Paroxysmal atrial fibrillation status post maze procedure #Chronic congestive heart failure with moderately reduced ejection fraction of 50% #Chronic right-sided heart failure #Elevated troponin, likely demand ischemia secondary to acute blood loss anemia in setting of CHF/TILA Patient follows up with [facility] cardiology Tamera Vieira NP and Dr. Puente Continue amiodarone 100 mg p.o. twice daily Continue Toprol-XL 50 mg p.o. twice daily Aspirin and apixaban held secondary to GI bleed Entresto was held on admission secondary to TILA: Renal function is at baseline Resume Entresto at lower dose As per patient, Bumex 2 mg daily held by PCP for worsening renal function Will give Bumex 1 mg IV after transfusion Continue rosuvastatin I/O monitoring Daily weights #TILA on CKD stage III Outpatient escrow closer Dr. 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 Cancino Continue inhalers and nebulizers as needed Incentive spirometry #BPH Continue Flomax PT/OT consult for discharge disposition CODE STATUS: DNR/DNI DVT prophylaxis: Bilateral SCDs, avoid chemical prophylaxis due to acute blood loss anemia Care plan discussed with patient, nursing staff Admission and Anticipated Discharge Date Admission Date: August 21, 2024 Subjective Patient seen and examined H&P reviewed Labs reviewed Radiology reviewed Telemetry reviewed Resting comfortably, denies any chest pain, shortness of breath, nausea, vomiting, abdominal pain. Patient states diarrhea has improved and stool is 70 formed and has had 3 episodes so far. Patient states he has a chronic cough with no change in sputum color or production Patient tells me Bumex was stopped by PCP few days ago because of worsening kidney function. He has noticed his legs have gotten progressively swollen since stopping Bumex Social history: He lives at home with his . Ambulates with a cane Physical Exam Physical Exam: General: No acute distress Psych: Awake and alert, oriented x 3 HEENT: Anicteric sclera, moist oral mucosa CVS: Regular rate and rhythm Lungs: Bilateral air entry with decreased breath sounds at bases, no wheezing n oted Abdomen: Soft, nontender, no rebound, no guarding Ext: Lower extremity 2+ pitting edema, no calf tenderness Neuro: No focal motor deficits noted Results & Data Results & Data Vital Signs (Past 12 Hours) Vital Signs Temp Pulse Pulse Pulse Resp BP BP 08/22/24 07:06 36.6 C 89 18 149/74 H 08/22/24 04:55 08/22/24 04:53 36.7 C 75 20 156/76 H 08/22/24 04:01 76 156/76 H 08/22/24 03:27 76 18 156/76 H 08/22/24 03:03 08/22/24 03:00 08/22/24 02:58 115 H 134/79 08/22/24 02:43 119 H 137/89 08/22/24 02:24 36.9 C 119 H 18 137/89 08/21/24 23:50 08/21/24 23:28 36.4 C 72 18 154/74 H Pulse Ox O2 Del Method O2 Flow Rate 08/22/24 07:06 96 Room Air 08/22/24 04:55 Nasal Cannula 1 08/22/24 04:53 92 Room Air 08/22/24 04:01 08/22/24 03:27 95 Nasal Cannula 1 08/22/24 03:03 94 Nasal Cannula 1 08/22/24 03:00 85 L Room Air 08/22/24 02:58 08/22/24 02:43 08/22/24 02:24 90 Room Air 08/21/24 23:50 Room Air 08/21/24 23:28 90 Room Air Laboratory Results Laboratory Results - last 24 hr 08/21/24 08/21/24 08/21/24 08:50 10:58 14:56 WBC RBC Hgb 8.2 L Hct 24.8 L MCV MCH MCHC RDW Std Deviation RDW Coeff of Jolene Plt Count MPV Sodium Potassium Chloride Carbon Dioxide Anion Gap BUN Creatinine Est Cr Clr Drug Dosing eGFR BUN/Creatinine Ratio Glucose Calcium Magnesium Iron 51 TIBC 205 L Unsaturated IBC 154 L Transferrin 154 L Transferrin % Sat 25 Troponin I High Sens 30.4 H B-Natriuretic Peptide 4603 H Urine Color Urine Appearance Urine pH Ur Specific [place] Urine Protein Urine Glucose (UA) Urine Ketones Urine Blood Urine Nitrite Urine Bilirubin Urine Urobilinogen Ur Leukocyte Esterase Urine WBC (Auto) Urine RBC (Auto) U Hyaline Cast (Auto) U Epithel Cells (Auto) Urine Bacteria (Auto) Stl C. cayetanensis PCR Stool Rotavirus A PCR Stl Adenov F 40/41 PCR Stool Astrovirus (PCR) Stool Campylobacter PCR Stl C. diff Tox B Gene Stl C.difficile Tox A&B Stool Cryptosporidium PCR Stl E.coli Shiga Tox PCR Stl Enterotoxigenic E PCR Stool EPEC (PCR) Stool EAEC (PCR) Stl E. histolytica PCR Stool Giardia Lamblia PCR Stool Salmonella PCR Stool Sapovirus (PCR) Stl P. shigelloides PCR Stl Shigella/EIEC PCR St Y.enterocolitica PCR Stool Vibrio (PCR) Stl Vibrio cholerae PCR Stl Norovirus GI/GII PCR Crossmatch See Detail 08/21/24 08/21/24 08/21/24 18:30 18:33 18:40 WBC RBC Hgb Hct MCV MCH MCHC RDW Std Deviation RDW Coeff of Jolene Plt Count MPV Sodium Potassium Chloride Carbon Dioxide Anion Gap BUN Creatinine Est Cr Clr Drug Dosing eGFR BUN/Creatinine Ratio Glucose Calcium Magnesium Iron TIBC Unsaturated IBC Transferrin Transferrin % Sat Troponin I High Sens 31.1 H B-Natriuretic Peptide Urine Color Yellow Urine Appearance Clear Urine pH 5.5 Ur Specific [place] 1.016 Urine Protein 1+ H Urine Glucose (UA) Negative Urine Ketones Negative Urine Blood Negative Urine Nitrite Negative Urine Bilirubin Negative Urine Urobilinogen Negative Ur Leukocyte Esterase Negative Urine WBC (Auto) 0-5 Urine RBC (Auto) 0-2 U Hyaline Cast (Auto) 3-5 H U Epithel Cells (Auto) 0-2 Urine Bacteria (Auto) None Seen Stl C. cayetanensis PCR Not Detected Stool Rotavirus A PCR Not Detected Stl Adenov F 40/41 PCR Not Detected Stool Astrovirus (PCR) Not Detected Stool Campylobacter PCR Not Detected Stl C. diff Tox B Gene Positive Cdiff Gene H Stl C.difficile Tox A&B Positive Cdiff Toxin A* Stool Cryptosporidium PCR Not Detected Stl E.coli Shiga Tox PCR Not Detected Stl Enterotoxigenic E PCR Not Detected Stool EPEC (PCR) Not Detected Stool EAEC (PCR) Not Detected Stl E. histolytica PCR Not Detected Stool Giardia Lamblia PCR Not Detected Stool Salmonella PCR Not Detected Stool Sapovirus (PCR) Not Detected Stl P. shigelloides PCR Not Detected Stl Shigella/EIEC PCR Not Detected St Y.enterocolitica PCR Not Detected Stool Vibrio (PCR) Not Detected Stl Vibrio cholerae PCR Not Detected Stl Norovirus GI/GII PCR Not Detected Crossmatch 08/21/24 08/22/24 08/22/24 20:12 02:53 04:39 WBC 8.49 RBC 2.42 L Hgb 7.7 L Hct 23.2 L MCV 95.9 MCH 31.8 MCHC 33.2 RDW Std Deviation 62.8 H RDW Coeff of Jolene 19.1 H Plt Count 161 MPV 8.9 L Sodium 137 Potassium 3.9 Chloride 104 Carbon Dioxide 27 Anion Gap 6 BUN 31 H Creatinine 2.04 H Est Cr Clr Drug Dosing 30.1 eGFR 31.74 BUN/Creatinine Ratio 15.2 Glucose 116 H Calcium 7.5 L Magnesium 1.8 Iron TIBC Unsaturated IBC Transferrin Transferrin % Sat Troponin I High Sens 31.9 H 35.8 H 37.7 H B-Natriuretic Peptide Urine Color Urine Appearance Urine pH Ur Specific [place] Urine Protein Urine Glucose (UA) Urine Ketones Urine Blood Urine Nitrite Urine Bilirubin Urine Urobilinogen Ur Leukocyte Esterase Urine WBC (Auto) Urine RBC (Auto) U Hyaline Cast (Auto) U Epithel Cells (Auto) Urine Bacteria (Auto) Stl C. cayetanensis PCR Stool Rotavirus A PCR Stl Adenov F 40/41 PCR Stool Astrovirus (PCR) Stool Campylobacter PCR Stl C. diff Tox B Gene Stl C.difficile Tox A&B Stool Cryptosporidium PCR Stl E.coli Shiga Tox PCR Stl Enterotoxigenic E PCR Stool EPEC (PCR) Stool EAEC (PCR) Stl E. histolytica PCR Stool Giardia Lamblia PCR Stool Salmonella PCR Stool Sapovirus (PCR) Stl P. shigelloides PCR Stl Shigella/EIEC PCR St Y.enterocolitica PCR Stool Vibrio (PCR) Stl Vibrio cholerae PCR Stl Norovirus GI/GII PCR Crossmatch Diagnostic Findings Chest X-Ray 08/21/24 08:51 XR chest 1V portable CLINICAL HISTORY: weakness COMPARISON STUDY: Chest radiograph July 05, 2024. Chest CT October 30, 2023. FINDINGS: There is no pneumothorax. Small left pleural effusion associated left basilar opacity is similar to prior exam. Lucency under the right hemidiaphragm represents bowel gas. There are median sternotomy wires and a left atrial appendage occluder device. Interstitial thickening is present. No pneumothorax. IMPRESSION: 1. Cardiomegaly with interstitial pulmonary edema. 2. Small left pleural effusion with left basilar opacity, similar to prior exam. This may reflect pneumonia or atelectasis. Radiographic follow-up to ensure resolution is recommended. ACT 112: Negative or not required by law. Electronically signed by: Ildefonso Ng M.D. 08/21/2024 9:46 AM PG Care Time/CCT Total # of Minutes Spent Total Time Spent with Patient: Total time spent is greater than 50% in coordination of care (as documented) at patient's floor/unit and/or counseling patient: Coding Level of Care Code 94892 SUB INP/OBS CARE 3/50MIN Diagnoses Acute GI bleeding K92.2 C. difficile colitis A04.72 ABLA (acute blood loss anemia) D62 Heart failure with mildly reduced ejection fraction (HFmrEF) I50.22 CKD (chronic kidney disease), stage III N18.3 S/P Maze operation for atrial fibrillation Z98.890; Z86.79 CAD (coronary artery disease) I25.10 Right heart failure with reduced right ventricular function I50.810 Atrial fibrillation I48.91 COPD with emphysema J43.9 Hypertension I10 Hyperlipidemia E78.5
[2024-08-22] MEDS: BUMETANIDE 1 MG in SYRINGE 0 ML IV ONE (15:32)
[2024-08-22] MEDS: VALSARTAN/SACUBITRIL 26/24MG TAB PO SCH (19:26)
--- NOTE | 2024-08-23 06:24 | Electrocardiogram Report ---
Test Reason : Blood Pressure : */* mmHG Vent. Rate : 117 BPM Atrial Rate : 115 BPM P-R Int : * ms QRS Dur : 160 ms QT Int : 418 ms P-R-T Axes : * -57 2 degrees QTcB Int : 583 ms Possible Accelerated Junctional rhythm Right bundle branch block Left anterior fascicular block Bifascicular block Inferior infarct , age undetermined Abnormal ECG When compared with ECG of 21-Aug-2024 08:59, Vent. rate has increased by 44 bpm Confirmed by Hernandez Cunningham ([id number]) on 08/23/2024 6:23:36 AM Referred By: REFERRED SELF Confirmed By: Hernandez Cunningham
[2024-08-23 08:35] LABS: Basophils # (auto) 0.02 K/uL (0.00-0.20); Basophils % (auto) 0.2 %; Eosinophils # (auto) 0.05 K/uL (0.00-0.50); Eosinophils % (auto) 0.6 %; Hematocrit (blood only) 25.8 % (42.0-52.0); Hemoglobin 8.6 g/dl (14.0-18.0); Immature Granulocytes # (auto) 0.02 K/uL (0.01-0.20); Immature Granulocytes % (auto) 0.2 %; Lymphocytes # (auto) 0.47 K/uL (1.20-3.40); Lymphocytes % (auto) 5.6 %; Mean Corpuscular Hemoglobin 31.5 pg (25.0-34.0); Mean Corpuscular Hgb Conc 33.3 g/dL (32.0-36.0); Mean Corpuscular Volume 94.5 fL (80.0-100.0); Monocytes # (auto) 0.74 K/uL (0.11-0.59); Monocytes % (auto) 8.8 %; Neutrophils # (auto) 7.14 K/uL (1.40-6.50); Neutrophils % (auto) 84.6 %; Platelet Count 151 K/uL (130-400); RDW Coefficient of Variation 18.6 % (11.5-14.5); Red Blood Count 2.73 M/uL (4.70-6.10); White Blood Count 8.44 K/ul (4.8-10.8)
[2024-08-23 08:54] LABS: BUN Creatinine Ratio 15.4 (10-20); Calcium 7.8 mg/dl (8.6-10.3); Creatinine Clr Calc Pharmacy 28.1 ml/min; Magnesium 2.2 mg/dl (1.7-2.4); Potassium 4.9 mmol/L (3.5-5.1)
--- NOTE | 2024-08-23 10:46 | Hospitalist Progress Note ---
Date of Service August 23, 2024 Assessment & Plan (1) Acute GI bleeding: (2) C. difficile colitis: (3) ABLA (acute blood loss anemia): (4) Heart failure with mildly reduced ejection fraction (HFmrEF): (5) CKD (chronic kidney disease), stage III: (6) S/P Maze operation for atrial fibrillation: (7) CAD (coronary artery disease): (8) Right heart failure with reduced right ventricular function: (9) Atrial fibrillation: (10) COPD with emphysema: (11) Hypertension: (12) Hyperlipidemia: Plan 84-year-old male with past medical history of atrial fibrillation on apixaban, coronary artery disease status post CABG, CKD stage III, congestive heart failure, COPD, hypertension, hyperlipidemia, mitral regurgitation status post mitral clip at [facility], history of recent GI bleed requiring blood transfusion status post EGD, colonoscopy and outpatient capsule endoscopy presents to the ED after complaining of worsening diarrhea for the past 6 weeks with dark stools and outpatient blood test showing hemoglobin less than 7 #GI bleed #C. difficile colitis #Acute blood loss anemia likely secondary to GI bleed in the setting of chronic iron deficiency anemia/anemia of chronic kidney disease Fecal occult blood is positive EGD from June 15, 2024 showed normal esophagus, 5 cm hiatal hernia, normal stomach Colonoscopy from June 15, 2024 showed diverticulosis in the entire colon, 3 small polyps at the rectal sigmoid colon which were removed with cold snare Capsule endoscopy from 07/13/2024 shows small intestinal lymphangiectasia ordered through GI Dr. Marlo aSnchez Hold aspirin and apixaban for now Treat C. difficile colitis with vancomycin 125 mg p.o. 4 times daily (day 1) Status post 2 units PRBC so far with improvement in H&H Continue PPI Monitor H&H Patient is on oral iron supplementations: Iron is 51, TIBC is 205, transferrin is 154 GI consulted regarding GI bleed and recommendations regarding resuming aspirin and anticoagulation #Coronary disease status post CABG (3 vessels in February 2023) #Mitral regurgitation status post mitral clip #Paroxysmal atrial fibrillation status post maze procedure #Chronic congestive heart failure with moderately reduced ejection fraction of 50% #Chronic right-sided heart failure #Elevated troponin, likely demand ischemia secondary to acute blood loss anemia in setting of CHF/TILA Patient follows up with [facility] cardiology Tamera Vieira NP and Dr. Puente Continue amiodarone 100 mg p.o. twice daily Continue Toprol-XL 50 mg p.o. 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 Pj Morley Baseline creatinine is around 2 Renal function has improved and is close to baseline Continue Entresto at lower dose Resume Bumex 2 mg daily Monitor renal function and electrolytes Replace electrolytes as needed Avoid nephrotoxic agents including NSAIDs #COPD with emphysema and chronic bronchitis #History of tobacco use disorder, quit tobacco in October 2022 Gold class B Outpatient well control instructor Dr. Juarez Continue inhalers and nebulizers as needed Incentive spirometry #BPH Continue Flomax CODE STATUS: DNR/DNI DVT prophylaxis: Bilateral SCDs, avoid chemical prophylaxis due to acute blood loss anemia Discharge planning based on clinical improvement, GI recommendations Care plan discussed with patient, nursing staff Admission and Anticipated Discharge Date Admission Date: August 21, 2024 Subjective Patient seen and examined Labs reviewed Patient denies any diarrhea today. Denies any nausea, vomiting or abdominal pain Denies any fever or chills Patient tells me his Bumex has been cut down from 2 mg twice daily to 2 mg once daily Overall feels better Physical Exam Physical Exam: General: No acute distress Psych: Awake and alert, oriented x 3 HEENT: Anicteric sclera, moist oral mucosa CVS: Regular rate and rhythm Lungs: Bilateral air entry with decreased breath sounds at bases, no wheezing noted Abdomen: Soft, nontender, no rebound, no guarding Ext: Lower extremity improving pitting edema, no calf tenderness Neuro: No focal motor deficits noted Results & Data Results & Data Vital Signs (Past 12 Hours) Vital Signs Temp Pulse Pulse Resp BP Pulse Ox O2 Del Method 08/23/24 07:13 36.8 C 79 16 149/74 H 94 Room Air 08/23/24 02:43 36.9 C 65 18 150/83 H 93 Room Air 08/22/24 23:17 71 08/22/24 22:51 36.6 C 65 18 140/76 94 Room Air Laboratory Results Laboratory Results - last 24 hr 12/14/24 12/16/24 08:50 08:14 WBC 8.44 RBC 2.73 L Hgb 8.6 L Hct 25.8 L MCV 94.5 MCH 31.5 MCHC 33.3 RDW Std Deviation 59.0 H RDW Coeff of Jolene 18.6 H Plt Count 151 MPV 9.0 L Immature Gran % (Auto) 0.2 Neut % (Auto) 84.6 Lymph % (Auto) 5.6 [place] % (Auto) 8.8 Eos % (Auto) 0.6 Baso % (Auto) 0.2 Neut # (Auto) 7.14 H Lymph # (Auto) 0.47 L [place] # (Auto) 0.74 H Eos # (Auto) 0.05 Baso # (Auto) 0.02 Immature Gran # (Auto) 0.02 Sodium 137 Potassium 4.9 D Chloride 105 Carbon Dioxide 26 Anion Gap 6 BUN 33 H Creatinine 2.14 H Est Cr Clr Drug Dosing 28.1 eGFR 29.97 BUN/Creatinine Ratio 15.4 Glucose 159 H Calcium 7.8 L Magnesium 2.2 Blood Type AB Negative Antibody Screen NEGATIVE Crossmatch See Detail PG Care Time/CCT Total # of Minutes Spent Total Time Spent with Patient: Total time spent is greater than 50% in coordination of care (as documented) at patient's floor/unit and/or counseling patient: Coding Level of Care Code 31425 SUB INP/OBS CARE 3/50MIN Diagnoses Acute GI bleeding K92.2 C. difficile colitis A04.72 ABLA (acute blood loss anemia) D62 Heart failure with mildly reduced ejection fraction (HFmrEF) I50.22 CKD (chronic kidney disease), stage III N18.3 S/P Maze operation for atrial fibrillation Z98.890; Z86.79 CAD (coronary artery disease) I25.10 Right heart failure with reduced right ventricular function I50.810 Atrial fibrillation I48.91 COPD with emphysema J43.9 Hypertension I10 Hyperlipidemia E78.5
--- NOTE | 2024-08-23 11:25 | Gastrointestinal Consultation ---
Date of Consultation August 23, 2024 Assessment & Plan (1) C. difficile colitis: (2) Anemia: Plan Patient is an 84 year old male who is admitted for worsening anemia and diarrhea. He has tested positive for c diff and has seen improvements with starting vanco. - continue with vanco 125mg QID for c diff. - he is being set up for an outpatient balloon enteroscopy to further evaluate small bowel. - continue to follow hgb/hct. transfuse as needed. - will discuss case further with Dr. Herrera, further recommendations to follow. Supervising Physician Co-Signing Physician Notes I personally saw and examined the patient. I have reviewed the chart and agree with the documentation provided by the MEASUREMENT SPECIALIST including discussion about the assessment, treatment and plan. Briefly, 84 year old male with a past medical history of HTN, HLD, COPD, CAD, CKD stage III, CHF, and A-fib (on eliquis) who presented the the ED on 08/21 after being told to do so from PCP due to low hgb - 6. He tells me that he has had a few weeks dark, loose stool but didn' think anything of this because he was taking oral iron. He admits to having 10-12 bowel movements daily. no brbpr. He undewent a colonoscopy and EGD in 06/2024 showing hiatal hernia, diverticulosis, and colon polyps. He underwent a capsule endoscopy on 07/13 showing a small lymphangiectasia and was recommended to consider a balloon enteroscopy. Found to have cdiff and being treated. on vanco, diarrhea has already improved. Suggest IV iron to get ahead of his losses and will also allow us to know when bleeding (less possible on oral iron). While lymphangiectasias do no typically lead to bleeding - they have been reported to, I suspect his bleeding is from AVMs +/- lymphangectasia in small bowel. He is already getting setup for balloon enteroscopy outpt. History of Present Illness Reason for Consultation: GIB, C diff. Requesting Physician: Nick Cook MD Attending Physician: Nick Cook MD History of Present Illness Patient is an 84 year old male with a past medical history of HTN, HLD, COPD, CAD, CKD stage III, CHF, and A-fib (on eliquis) who presented the the ED on 08/21 after being told to do so from PCP due to low hgb. Outpatient hgb was reportedly 6. He tells me that he has had a few weeks dark, loose stool but didn' think anything of this because he was taking oral iron. He admits to having 10-12 bowel movements daily. no brbpr. He undewent a colonoscopy and EGD in 06/2024 showing hiatal hernia, diverticulosis, and colon polyps. He underwent a capsule endoscopy on 07/13 showing a small lymphangiectasia and was recommended to consider a balloon enteroscopy. He is awaiting scheduling of the balloon enteroscopy with [facility] but has not done so yet. Since admitted, he has been found to have c diff and was started on oral vanco which he tells me seems to be improving diarrhea. Patient denies any current issues with nausea, vomiting, dysphagia, heartburn, abdominal pain, unintentional weight loss, or bright red blood per rectum. 08/21 hgb 8.2 08/22 hgb 7.7 08/23 hgb 8.6 Allergies Allergy/AdvReac Type Severity Reaction Status Date / Time No Known Allergies Allergy Verified 08/21/24 10:05 Home Medications Medication Instructions Recorded Confirmed Type acetaminophen 500 mg capsule 1,000 mg PO Q6H PRN Pain 03/20/23 08/21/24 History rosuvastatin 20 mg tablet 20 mg PO DAILY 03/20/23 08/21/24 History omeprazole 40 mg capsule,delayed 40 mg PO DAILY 09/29/23 08/21/24 History release albuterol sulfate 2.5 mg/3 mL 2.5 mg continuous nebulization Q6H 10/30/23 08/21/24 History (0.083 %) solution for nebulization PRN Shortness Of Breath Or Wheezing Flutter Valve #1 ea 01/05/24 07/08/24 Rx albuterol sulfate 90 mcg/actuation 2 inh inhalation Q6H PRN shortness 01/05/24 08/21/24 Rx aerosol inhaler (Ventolin HFA) of breath or wheezing or cough #8.5 grams aspirin 81 mg tablet,delayed 81 mg PO DAILY 02/03/24 08/21/24 History release (Adult Low Dose Aspirin) sacubitril 97 mg-valsartan 103 mg 1 tab PO BID 02/03/24 08/21/24 History tablet (Entresto) tamsulosin 0.4 mg capsule (Flomax) 0.4 mg PO DAILY #90 caps 02/03/24 08/21/24 Rx Flutter Valve #1 ea 02/09/24 07/08/24 Rx ascorbic acid (vitamin C) 500 mg 500 mg PO DAILY 02/09/24 08/21/24 History capsule cholecalciferol (vitamin D3) 25 25 mcg PO QAM 02/09/24 08/21/24 History mcg (1,000 unit) capsule fluticasone furoate 27.5 1 spray intranasal DAILY PRN 02/09/24 08/21/24 History mcg/actuation nasal ALLERGIES spray,suspension (Flonase Sensimist) apixaban 2.5 mg tablet (Eliquis) 2.5 mg PO BID 05/26/24 08/21/24 History bumetanide 1 mg tablet 1 - 2 mg PO DAILY 05/26/24 08/21/24 History amiodarone 100 mg tablet 0 mg PO BID 06/11/24 08/21/24 History metoprolol succinate 50 mg 50 mg PO BID 06/11/24 08/21/24 History tablet,extended release 24 hr trazodone 50 mg tablet 50 mg PO HS #30 tabs 06/15/24 08/21/24 Rx tiotropium 2.5 mcg-olodaterol 2.5 2 puff inhalation DAILY #4 grams 07/07/24 08/21/24 Rx mcg/actuation mist for inhalation (Stiolto Respimat) calcitriol 0.25 mcg capsule 0.25 mcg PO DAILY 08/21/24 08/21/24 History calcium carbonate (Calcium 600) 600 mg PO BID 08/21/24 08/21/24 History guaifenesin 1,200 mg tablet, 1,200 mg PO BID 08/21/24 08/21/24 History extended release 12 hr (Mucinex) potassium chloride 20 mEq 60 meq PO UD 08/21/24 08/21/24 History tablet,extended release(part/cryst) Patient History Medical History Acute GI bleeding NSTEMI (non-ST elevated myocardial infarction) Hyperlipidemia Hypertension TILA (acute kidney injury) Dysphagia Insomnia Right heart failure with reduced right ventricular function Acute exacerbation of chronic obstructive pulmonary disease Acute respiratory failure with hypoxia Ex-smoker Pleural effusion Pneumonia Chronic diastolic CHF (congestive heart failure) Current smoker CAD (coronary artery disease) Myocardial infarct 1997 - heavy chest, left arm pain - Went to [facility] - flown to [facility] - blockage of "back of heart" - heart cath - no stent placement - Follows Dr. Puente Hypertension Surgical History History of coronary artery bypass graft S/P CABG (coronary artery bypass graft) 3 vessel - [facility], 02/2023. Hx of cataract extraction Rt. Hx of cardiac cath 1997 d/t [facility] - no stents placed - Follows Dr. Puente History of colonoscopy Hx of inguinal hernia repair Hx of repair of left rotator cuff x2 Family History Father Family history of diabetes mellitus CHF (congestive heart failure) Black lung disease Mother , had CABG Family history of diabetes mellitus Coronary heart disease Myocardial infarction Dementia Social History Smoking Status: Former smoker Tobacco Type: Cigarettes Age Started Using Tobacco: 22; Age Quit Using Tobacco: 83; packs per day: 2; Cigarettes Per Day: 2 packs; Second Hand Exposure: No; Do You Dip or Chew Tobacco: No; Tobacco Cessation Education Requested by Patient: No Hx Alcohol Use: No Hx Substance Use: No Preferred Language: Cypriot Communication Ability: Effective Visual Impairment: Limited Hearing Ability: Use of Hearing Aid 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: No Beliefs That Will Affect Care: None marital status: Current Living Situation: Spouse Current Living Situation Comment: From home with current occupational status: retired current occupation: Retired How many Children do You have: 2 Other Information That Helps Us Care for You: No 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; 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 Feels Safe at Home: Yes Safety Concerns: Feels Safe At This Time Diet: regular caffeine: Yes (1 soda daily) Physical Activity Frequency: Does not Exercise Do you think of yourself as: straight/heterosexual Gender Identity: Male Assistive Devices: Cane Review of Systems Review of Systems: All systems reviewed & are unremarkable except as noted in HPI & below Physical Exam Constitutional: WD/WN, vitals as above Respiratory: normal respiratory effort, lungs clear to auscultation Cardiovascular: Rate/Rhythm: regular rate and regular rhythm Gastrointestinal (Abdomen): normal bowel sounds, soft, nontender, no hepatosplenomegaly Psychiatric: Orientation: alert and oriented x 3 Affect: euthymic affect Results & Data Vital Signs (Past 12 Hours) Vital Signs Temp Pulse Resp BP Pulse Ox O2 Del Method 08/23/24 07:13 98.2 F 79 16 149/74 H 94 Room Air 08/23/24 02:43 98.4 F 65 18 150/83 H 93 Room Air Coding Level of Care Code 42978 INT INP/OBS CARE 255MIN Diagnoses C. difficile colitis A04.72 Anemia D64.9 Anemia type: unspecified type (2) Anemia Anemia type: unspecified type Qualified Code(s): D64.9 - Anemia, unspecified
[2024-08-23] MEDS: ACETAMINOPHEN 500 MG TAB PO PRN (13:56)
[2024-08-23] MEDS: IRON SUCROSE 200 MG in SODIUM CHLORIDE 0.9% 100 ML IV ONE (16:50)
[2024-08-24] MEDS: CHERRY SYRUP 5 ML UDP PO SCH (05:41)
[2024-08-24 06:48] LABS: Hemoglobin 8.2 g/dl (14.0-18.0); Mean Corpuscular Hemoglobin 31.5 pg (25.0-34.0); Mean Corpuscular Hgb Conc 32.8 g/dL (32.0-36.0); Mean Corpuscular Volume 96.2 fL (80.0-100.0); Mean Platelet Volume 9.2 fL (9.4-12.4); Platelet Count 145 K/uL (130-400); RDW Coefficient of Variation 18.9 % (11.5-14.5); RDW Standard Deviation 62.2 fL (36.4-46.3); White Blood Count 6.34 K/ul (4.8-10.8)
[2024-08-24 07:06] LABS: BUN Creatinine Ratio 16.5 (10-20); Calcium 7.7 mg/dl (8.6-10.3); Creatinine Clr Calc Pharmacy 32.2 ml/min; Magnesium 2.2 mg/dl (1.7-2.4); Potassium 4.4 mmol/L (3.5-5.1)
[2024-08-24] MEDS: BUMETANIDE 1 MG TAB PO SCH (08:29)
[2024-08-24] MEDS: ASPIRIN 81 MG ECTAB PO SCH (08:29)
[2024-08-24] MEDS: APIXABAN 2.5 MG TAB PO SCH (08:29)
--- NOTE | 2024-08-24 10:23 | Hospitalist Progress Note ---
Date of Service August 24, 2024 Assessment & Plan (1) Acute GI bleeding: (2) C. difficile colitis: (3) ABLA (acute blood loss anemia): (4) Heart failure with mildly reduced ejection fraction (HFmrEF): (5) CKD (chronic kidney disease), stage III: (6) S/P Maze operation for atrial fibrillation: (7) CAD (coronary artery disease): (8) Right heart failure with reduced right ventricular function: (9) Atrial fibrillation: (10) COPD with emphysema: (11) Hypertension: (12) Hyperlipidemia: Plan 84-year-old male with past medical history of atrial fibrillation on apixaban, coronary artery disease status post CABG, CKD stage III, congestive heart failure, COPD, hypertension, hyperlipidemia, mitral regurgitation status post mitral clip at [facility], history of recent GI bleed requiring blood transfusion status post EGD, colonoscopy and outpatient capsule endoscopy presents to the ED after complaining of worsening diarrhea for the past 6 weeks with dark stools and outpatient blood test showing hemoglobin less than 7 #GI bleed #C. difficile colitis #Acute blood loss anemia likely secondary to GI bleed in the setting of chronic iron deficiency anemia/anemia of chronic kidney disease Fecal occult blood is positive EGD from June 15, 2024 showed normal esophagus, 5 cm hiatal hernia, normal stomach Colonoscopy from June 15, 2024 showed diverticulosis in the entire colon, 3 small polyps at the rectal sigmoid colon which were removed with cold snare Capsule endoscopy from 07/13/2024 shows small intestinal lymphangiectasia ordered through GI Dr. Marlo Sanchez Hold aspirin and apixaban for now Treat C. difficile colitis with vancomycin 125 mg p.o. 4 times daily (day 3) Status post 2 units PRBC so far with improvement in H&H Continue PPI Monitor H&H Patient is on oral iron supplementations: Iron is 51, TIBC is 205, transferrin is 154: Started on IV Venofer per GI recommendations (day 2) GI saw the patient in consultation: GI is recommended continuing Vanco 125 mg oral 4 times a day for C. difficile, he is also being set up for outpatient balloon enteroscopy for further evaluation of small bowel which would likely happen at [facility] I spoke with Dr. Herrera satellite installer via secure chat on 08/23/2024: He suspects bleeding is from AVMs plus or minus lymphangiectasia and is being set up for balloon enteroscopy outpatient. As per Dr. Sharon muñoz to resume aspirin and anticoagulation today and monitor H&H #Coronary disease status post CABG (3 vessels in February 2023) #Mitral regurgitation status post mitral clip #Paroxysmal atrial fibrillation status post maze procedure #Chronic congestive heart failure with moderately reduced ejection fraction of 50% #Chronic right-sided heart failure #Elevated troponin, likely demand ischemia secondary to acute blood loss anemia in setting of CHF/TILA Patient follows up with [facility] cardiology Tamera Vieira NP and Dr. Puente Continue amiodarone 100 mg p.o. twice daily Continue Toprol-XL 50 mg p.o. 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 Pj Morley Baseline creatinine is around 2 Renal function has improved and is close to baseline Continue Entresto at lower dose and increase dose tomorrow if blood pressure tolerates it and renal function is stable Continue Bumex 2 mg daily Monitor renal function and electrolytes Replace electrolytes as needed Avoid nephrotoxic agents including NSAIDs #COPD with emphysema and chronic bronchitis #History of tobacco use disorder, quit tobacco in October 2022 Gold class B Outpatient public health nurse Dr. Juarez Continue inhalers and nebulizers as needed Incentive spirometry #BPH Continue Flomax CODE STATUS: DNR/DNI DVT prophylaxis: Bilateral SCDs, patient on apixaban Discharge planning likely home on 08/26/2024 if H&H stable and no active bleeding Care plan discussed with patient, nursing staff Admission and Anticipated Discharge Date Admission Date: August 21, 2024 Subjective Patient seen and examined Denies any fever, chills, nausea, vomiting, diarrhea, abdominal pain Denies any bleeding Denies any chest pain or shortness of breath Reports good appetite Physical Exam Physical Exam: General: No acute distress Psych: Awake and alert, oriented x 3 HEENT: Anicteric sclera, moist oral mucosa CVS: Regular rate and rhythm Lungs: Bilateral air entry with decreased breath sounds at bases, no wheezing noted Abdomen: Soft, nontender, no rebound, no guarding Ext: Lower extremity improving pitting edema, no calf tenderness Neuro: No focal motor deficits noted Results & Data Results & Data Vital Signs (Past 12 Hours) Vital Signs Temp Pulse Pulse Resp BP Pulse Ox O2 Del Method 08/24/24 07:22 36.6 C 61 18 160/76 H 92 Room Air 08/24/24 03:09 36.4 C L 102 H 18 161/73 H 95 Room Air 08/24/24 01:37 61 08/23/24 22:47 36.6 C 70 18 157/72 H 94 Room Air Laboratory Results Laboratory Results - last 24 hr 08/24/24 06:30 WBC 6.34 RBC 2.60 L Hgb 8.2 L Hct 25.0 L MCV 96.2 MCH 31.5 MCHC 32.8 RDW Std Deviation 62.2 H RDW Coeff of Jolene 18.9 H Plt Count 145 MPV 9.2 L Sodium 138 Potassium 4.4 Chloride 107 Carbon Dioxide 26 Anion Gap 5 BUN 33 H Creatinine 2.00 H Est Cr Clr Drug Dosing 32.2 eGFR 32.51 BUN/Creatinine Ratio 16.5 Glucose 112 H Calcium 7.7 L Magnesium 2.2 PG Care Time/CCT Total # of Minutes Spent Total Time Spent with Patient: Total time spent is greater than 50% in coordination of care (as documented) at patient's floor/unit and/or counseling patient: Coding Level of Care Code 34755 SUB INP/OBS CARE 2/35MIN Diagnoses Acute GI bleeding K92.2 C. difficile colitis A04.72 ABLA (acute blood loss anemia) D62 Heart failure with mildly reduced ejection fraction (HFmrEF) I50.22 CKD (chronic kidney disease), stage III N18.3 S/P Maze operation for atrial fibrillation Z98.890; Z86.79 CAD (coronary artery disease) I25.10 Right heart failure with reduced right ventricular function I50.810 Atrial fibrillation I48.91 COPD with emphysema J43.9 Hypertension I10 Hyperlipidemia E78.5
[2024-08-24] MEDS: IRON SUCROSE 200 MG in SODIUM CHLORIDE 0.9% 100 ML IV SCH (10:39)
[2024-08-25 07:07] VITALS: RESP 17
[2024-08-25 10:40] VITALS: TEMP 97.7; O2SAT 94
--- NOTE | 2024-08-25 10:59 | Discharge Summary ---
Discharge Summary Date of Service August 25, 2024 Principal Dx & Hospital Course #1 = Principal Diagnosis (1) Acute GI bleeding: (2) C. difficile colitis: (3) ABLA (acute blood loss anemia): (4) Heart failure with mildly reduced ejection fraction (HFmrEF): (5) CKD (chronic kidney disease), stage III: (6) S/P Maze operation for atrial fibrillation: (7) CAD (coronary artery disease): (8) Right heart failure with reduced right ventricular function: (9) Atrial fibrillation: (10) COPD with emphysema: (11) Hypertension: (12) Hyperlipidemia: Plan 84-year-old male with past medical history of atrial fibrillation on apixaban, coronary artery disease status post CABG, CKD stage III, congestive heart failure, COPD, hypertension, hyperlipidemia, mitral regurgitation status post mitral clip at [facility], history of recent GI bleed requiring blood transfusion status post EGD, colonoscopy and outpatient capsule endoscopy presents to the ED after complaining of worsening diarrhea for the past 6 weeks with dark stools and outpatient blood test showing hemoglobin less than 7 #GI bleed #C. difficile colitis #Acute blood loss anemia likely secondary to GI bleed in the setting of chronic iron deficiency anemia/anemia of chronic kidney disease Fecal occult blood is positive EGD from June 15, 2024 showed normal esophagus, 5 cm hiatal hernia, normal stomach Colonoscopy from June 15, 2024 showed diverticulosis in the entire colon, 3 small polyps at the rectal sigmoid colon which were removed with cold snare Capsule endoscopy from 07/13/2024 shows small intestinal lymphangiectasia ordered through GI Dr. Marlo Sanchez Hold aspirin and apixaban for now Treat C. difficile colitis with vancomycin 125 mg p.o. 4 times daily (day 3) Status post 2 units PRBC so far with improvement in H&H Continue PPI Monitor H&H Patient is on oral iron supplementations: Iron is 51, TIBC is 205, transferrin is 154: Started on IV Venofer per GI recommendations (day 2) GI saw the patient in consultation: GI is recommended continuing Vanco 125 mg oral 4 times a day for C. difficile, he is also being set up for outpatient balloon enteroscopy for further evaluation of small bowel which would likely happen at [facility] I spoke with Dr. Herrera scientific writer via secure chat on 08/23/2024: He suspects bleeding is from AVMs plus or minus lymphangiectasia and is being set up for balloon enteroscopy outpatient. As per Dr. Sharon muñoz to resume aspirin and anticoagulation today and monitor H&H #Coronary disease status post CABG (3 vessels in February 2023) #Mitral regurgitation status post mitral clip #Paroxysmal atrial fibrillation status post maze procedure #Chronic congestive heart failure with moderately reduced ejection fraction of 50% #Chronic right-sided heart failure #Elevated troponin, likely demand ischemia secondary to acute blood loss anemia in setting of CHF/TILA Patient follows up with [facility] cardiology Tamera Vieira NP and Dr. Puente Continue amiodarone 100 mg p.o. twice daily Continue Toprol-XL 50 mg p.o. twice daily Aspirin and apixaban held secondary to GI bleed Entresto was held on admission secondary to TILA: Renal function is at baseline Continue Entresto at lower dose: Dose can be increased tomorrow if blood pressure tolerates it and renal function is stable Continue Bumex 2 mg daily Continue rosuvastatin I/O monitoring Daily weights #TILA on CKD stage III [address] 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 Juarez Continue inhalers and nebulizers as needed Incentive spirometry #BPH Continue Flomax CODE STATUS: DNR/DNI DVT prophylaxis: Bilateral SCDs, patient on apixaban Discharge planning likely home on 08/26/2024 if H&H stable and no active bleeding Care plan discussed with patient, nursing staff Admission HPI Per Admitting Provider 84-year-old male presenting via EMS from home, referred by PCP low H&H; 3 to 4 weeks dark loose stool, on aspirin Eliquis daily. ED course CBC RBC 1.98, H&H 6.4/19.7, RDW 61, MPV 8.8, lymphocytes 0.82; PT/INR WNL; CMP BUN 30, creatinine 2.32, glucose 113, calcium 7.5, AST 9, total protein 5.6, albumin 3.0; troponin 26.1; BioFire pending; CXR cardiomegaly interstitial pulmonary edema, small pleural effusion with left basilar opacity similar to prior exam, PNA or atelectasis; EKG wide QRS (152), RBBB, left anterior fascicular block, rate around 75 bpm per my read, QT/QTc 468/515; provided with NSS, pantoprazole, calcium gluconate in ED. Patient is a 84-year-old male PMHx HTN, HLD, COPD, CAD, CKD stage III, CHF, and A-fib (anticoagulated) presenting for 3 to 4 weeks of dark, loose stool. Noted the PCP identified low H&H on outpatient labs, recommend patient be evaluated in ED. Colonoscopy and endoscopy procedure recently performed w/o source of bleeding identified. Patient's current complaint is that he has been having diarrhea x 6 weeks, maximum 10-12 stools per day, very loose. Patient states he to have stool studies completed, but has not had these completed. Patient states he is not having abdominal pain, fever/chills, or N/V. Also reports that he has been having ongoing cough that occurs every winter, producing clear phlegm. Not having shortness of breath or orthopnea. 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 Overall denying chest pain, palpitations, shortness of breath, abdominal pain, N/V/C, numbness/tingling, or LUTS. Patient has not been around anyone else with similar symptoms of diarrh ea. Has had an episode of anemia requiring transfusions prior, resulting in admission (06/11 - 06/15). Patient did not take a.m. medications. Please see Dr. Arevalo's attestation for adjustments/additions to treatment plan. Discharge Exam GENERAL APPEARANCE NAD, activity normal for age, well developed/ well nourished, no cyanosis, pallor, or diaphoresis. EYES lids/conjunctiva normal. EARS/NOSE/THROAT Mucous membranes moist, nares normal, lips/teeth normal uvula midline without oral pharyngeal erythema, exudate or swelling TMs normal bilaterally. No lymphangitis/lymphedema. HEAD/NECK normocephalic atraumatic, no facial trauma, neck is supple. RESPIRATORY respiratory effort normal, speaks in full sentences, no tripod position, no accessory muscle use. Lungs clear to auscultation without rhonchi, wheezes, rales CARDIAC Regular rate and rhythm, no edema. ABDOMINAL Soft, ND/NT. No evidence of fluid wave. No pulsatile masses on exam, rebound tenderness, Haddad sign or pain over Mcburney's point. MUSCLES/EXTREMITIES No abnormal range of motion, no swelling. SKIN Warm, pink and dry. No rashes, dermatoses, petechiae or lesions. NEUROLOGICAL Speech is clear and appropriate. Normal level of consciousness. Gait and coordination are normal. 5/5 strength in all extremities. PSYCH Normal mood and affect. Judgement/competence is appropriate Discharge Plan Discharge Items Patient Disposition: Home - Self-Care Reason For Visit: ANEMIA REQUIRING TRANSFUSIONS Discharge Diagnosis: anemia Condition on Discharge: Serious Activity: Resume your previous activity Non-emergency contact: Primary Care Provider Call non-emergency contact if: you have any medication questions Follow-up/Referrals: Monika Hubbard DO [Primary Care Provider] - Diet: Regular Addtl Attending Provider Instructions: follow up with GI for out patient ballon enteroscopy Pending Studies at Discharge: Yes Stand-Alone Forms: My [facility] [employer], Smoking Cessation Medications and DC Order Prescriptions: New vancomycin 1,000 mg Recon Soln 125 mg PO Q6 Qty: 56 0RF Continued omeprazole 40 mg capsule,delayed release(DR/EC) 40 mg PO DAILY acetaminophen 500 mg capsule 1,000 mg PO Q6H PRN (Reason: Pain) rosuvastatin 20 mg tablet 20 mg PO DAILY albuterol sulfate [Ventolin HFA] 90 mcg/actuation HFA aerosol inhaler 2 inh inhalation Q6H PRN (Reason: shortness of breath or wheezing or cough) Qty: 8.5 4RF Rx Instructions: use with spacer device (DME) Flutter Valve Device See Rx Instructions .MEDSUPPLY Qty: 1 0RF Rx Instructions: Use it every 6 hours when awake. aspirin [Adult Low Dose Aspirin] 81 mg tablet,delayed release (DR/EC) 81 mg PO DAILY Hold Instructions: Resume on 06/17/24. You may restart this on 06/17 Entresto 97-103 mg tablet 1 tab PO BID tamsulosin [Flomax] 0.4 mg capsule 0.4 mg PO DAILY Qty: 90 3RF Eliquis 2.5 mg tablet 2.5 mg PO BID Hold Instructions: Resume on 07/06/24. Hold until after you have your video capsule endoscopy Stiolto Respimat 2.5-2.5 mcg/actuation mist 2 puff inhalation DAILY Qty: 4 12RF cholecalciferol (vitamin D3) 25 mcg (1,000 unit) capsule 25 mcg PO QAM ascorbic acid (vitamin C) 500 mg capsule 500 mg PO DAILY Flonase Sensimist 27.5 mcg/actuation spray,suspension 1 spray intranasal DAILY PRN (Reason: ALLERGIES) Rx Instructions: into each nostril (DME) Flutter Valve Device See Rx Instructions .MEDSUPPLY Qty: 1 0RF Rx Instructions: Use it every 6 hours when awake. bumetanide 1 mg tablet 1 - 2 mg PO DAILY Rx Instructions: Increase up to 2mg if needed. Not reflected on file w/ pharmacy. albuterol sulfate 2.5 mg /3 mL (0.083 %) solution for nebulization 2.5 mg continuous nebulization Q6H PRN (Reason: Shortness Of Breath Or Wheezing) calcium carbonate [Calcium 600] 600 mg calcium (1,500 mg) Tablet 600 mg PO BID potassium chloride 20 mEq tablet,ER particles/crystals 60 meq PO UD Rx Instructions: Take 40meq in the morning and 20meq by mouth in the evening guaifenesin [Mucinex] 1,200 mg Tablet Extended Release 12hr 1,200 mg PO BID calcitriol 0.25 mcg capsule 0.25 mcg PO DAILY metoprolol succinate 50 mg tablet extended release 24 hr 50 mg PO BID amiodarone 100 mg Tablet 0 mg PO BID Rx Instructions: Per pt he takes 50mg by mouth twice daily. This is not reflected w/ m edication list from pharmacy. trazodone 50 mg tablet 50 mg PO HS Qty: 30 0RF Rx Instructions: PT PICKED UP RX ON 05/26 BUT STATES THEY DON'T TAKE IT Discharge Orders: Discharge Order (Routine); Ordered 08/25/24 Ordered By: Carmelo Burt/Other Patient Handouts: Anemia Admission Data Admit Date/Time: 08/21/24 10:43 Attending Provider: Carmelo Garcia Admit Provider: Quirino Holland Primary Care Provider: Monika Hubbard Other Providers: Arcadio Arevalo; [facility]; [facility] Stay Data Consultations 08/21/24 10:05 ED Decision to Admit Stat 08/23/24 10:46 Consult Gastroenterology Routine Pending Results Patient Have Any Pending Studies at Discharge: Yes Discharge Instructions Given to Patient (Per Discharging Provider) follow up with GI for out patient ballon enteroscopy Total Time Total Time Spent Total Time Spent (In Minutes): 50 Coding Level of Care Code 15358 INP/OBS DISCH >30 MIN Diagnoses Acute GI bleeding K92.2 C. difficile colitis A04.72 ABLA (acute blood loss anemia) D62 Heart failure with mildly reduced ejection fraction (HFmrEF) I50.22 CKD (chronic kidney disease), stage III N18.3 S/P Maze operation for atrial fibrillation Z98.890; Z86.79 CAD (coronary artery disease) I25.10 Right heart failure with reduced right ventricular function I50.810 Atrial fibrillation I48.91 COPD with emphysema J43.9 Hypertension I10 Hyperlipidemia E78.5
[2024-08-25 11:19] VITALS: BP 169/70
[2024-08-25 11:21] VITALS: PULSE 119
== END 2024-08-25 12:01 | disposition home or self-care (01) | DRG 378 ==
LOC: ED 08:39 → SUATTDRO 10:43 → 2W 10:43 → 2S 08-22 05:24

== ENCOUNTER 2024-09-10 17:08 | Inpatient (IN) ==
[2024-09-10] MEDS ORDERED: SODIUM CHLORIDE 0.9% 100 ML IV PRN ×2 (17:30→18:45)
[2024-09-10] MEDS ORDERED: SODIUM CHLORIDE 0.9% 50 ML IV PRN ×2 (17:30→18:45)
--- NOTE | 2024-09-10 17:49 | Emergency Department Note ---
Impression & Plan Acute GI bleeding, Pedal edema, Anemia, CHF (congestive heart failure), CRF (chronic renal failure), Anticoagulated, Acute head trauma, Fall ED Provider Note NAME: JOEL FONSECA AGE: 84 SEX: M : 1940 ARRIVES VIA: Walk-In INFORMANT: [Patient][family] ED PROVIDER(S): [Petros Morel MD] CHIEF COMPLAINT: Abnormal laboratories, fall HISTORY OF PRESENT ILLNESS: The patient is an 84-year-old male who has a history of anemia and has in the past required red blood cell transfusions. The patient states that he was told by his doctor outpatient that his hemoglobin was again low in the range of 6 and he needed to come to the hospital. The patient does admit to tripping and falling today, his leg hit the edge of a curb when he fell and struck the left side of his head. No loss of consciousness. He has an abrasion along the left scalp/spiritism as well as his left knee. He has walked since falling. He believes his tetanus is current. He has no headache, no neck pain. No back or rib pain. He does take Eliquis and aspirin. He took his morning Eliquis dose, he has not taken the second dose yet today. The patient has noticed increasing pedal edema. He thinks his leg was heavy and that is why he tripped. He has not been short of breath, no fever, no abdominal pain or chest pain. He has not felt lightheaded. PMHx/PSHx/Social Hx: See Below PHYSICAL EXAM: GENERAL: Patient is in no acute distress. HEENT: No acute trauma, normocephalic atraumatic, mucous membranes moist, no nasal congestion. NECK: No stridor, no adenopathy, no meningismus, trachea is midline. LUNGS: Crackles bilaterally, no respiratory distress. HEART: Without murmurs gallops or rubs, regular rate and rhythm. ABDOMEN: Soft, nontender, no peritonitis. EXTREMITIES: No cyanosis, full range of motion of all the joints without pain or difficulty. Significant bilateral pedal edema. NEUROLOGIC: Oriented x 3, no acute motor or sensory deficits, no focal weakness. SKIN: No jaundice, no diaphoresis. Pale. Rectal:. This exam was performed with a content development specialist. The stool was maroon in color and heme positive. DIFFERENTIAL DIAGNOSIS: GI bleeding, coagulopathy, anemia, intracranial bleeding, C-spine injury, among others. EMERGENCY DEPARTMENT PROCEDURES: MEDICAL DECISION MAKING: There is no leukocytosis. The patient is anemic with a hemoglobin of 7. On rectal exam, his stool was maroon to dark red in color and heme positive. There was a normal platelet count. INR slightly high at 1.2, likely from his Eliquis use. Creatinine was elevated consistent with his history of chronic renal failure. Calcium low at 7.8. No concerning liver enzyme elevation. Cardiac enzyme testing x 1 was very slightly elevated, likely secondary to mismatch from his severe anemia. ECG showed a sinus rhythm with a first AV block. No obvious acute ischemia. Urinalysis did not show findings of infection. Chest x-ray shows some bilateral pleural effusions as well as CHF. On exam, the patient did have crackles in both lower lungs. He had significant bilateral pedal edema. He appeared fluid overloaded. He was not hypotensive or hypoxic. Brain CT showed no acute bleed or mass effect. C-spine CT showed no acute fracture. Patient was given 1 mg of IV Bumex. This was given to aid diuresis. He received IV Kcentra to hopefully help correct his anticoagulation. He was given IV Protonix. The patient was ordered for a unit of packed red blood cells for transfusion. The appropriate paperwork was completed and signed. The patient is in need of a hospital stay. He is fluid overloaded, anemic and suffering from a GI bleed. I did speak with the patient and case management. I did discuss the case with the on-call coagulation oracle database consultant. The on-call hospitalist was consulted. Prior/Outside records/notes reviewed: None ECG per my interpretation: Indication was fall and anemia. The ECG shows a sinus rhythm with a first-degree AV block. There is a right bundle branch block. No obvious ST elevation. There is some baseline artifact. Potential old inferior infarct was noted. No PVCs. QTc was 549. Continuous Cardiac Monitoring per my interpretation: An order was placed for continuous cardiac monitoring. The monitor shows a rate of 85 with normal sinus rhythm. Imaging/x-ray results per my interpretation: Chest x-ray shows some fluid overload and pleural effusions. Chronic Medical/Social conditions affecting care: Advanced age, Eliquis use. Care/Management discussed with: Coagulation oracle database consultant-Dr. Griffin. Case management and the on-call hospitalist Level of care consideration(s): After review of the information above and other included data: --I believe the patient requires escalation of care to admission Critical Care Note: I have personally spent 55 minutes of critical care time in the direct management of this patient. This includes bedside care, interpretation of diagnostic studies, and testing, discussion with consultants, patient, and family members, and other required patient management activities. This 55 minutes is in excess of all separately billable procedures. DISPOSITION: Admission Past Med/Surg History Problem List (Updated 09/10/24 @ 23:32 by Petros Morel MD) Fall (Acute) Acute head trauma (Acute) Anticoagulated (Acute) CRF (chronic renal failure) (Acute) CHF (congestive heart failure) (Acute) Anemia (Acute) Pedal edema (Acute) Acute GI bleeding (Acute) CAD (coronary artery disease) Hyperlipidemia Hypertension Atrial fibrillation ABLA (acute blood loss anemia) C. difficile colitis TILA (acute kidney injury) (Acute) Elevated troponin (Acute) CHF (congestive heart failure) (Acute) Hypocalcemia (Acute) Heme positive stool (Acute) Anemia (Acute) Acute GI bleeding (Acute) Hypocalcemia Heart failure with mildly reduced ejection fraction (HFmrEF) Diarrhea Anemia requiring transfusions Chronic renal insufficiency (Acute) CHF (congestive heart failure) (Acute) History of atrial fibrillation (Acute) Current use of prison anticoagulation (Acute) Anemia (Acute) Blood loss anemia Gastrointestinal bleed Osteoporosis Dizziness (Acute) Enlarged prostate Elevated troponin (Acute) Pedal edema (Acute) SOB (shortness of breath) (Acute) Hypoxia (Acute) CKD (chronic kidney disease), stage III [address] Morley Exertional shortness of breath Acute respiratory failure with hypoxia Pulmonary hypertension S/P Maze operation for atrial fibrillation [facility] - 02/2023. Atrial fibrillation with rapid ventricular response (Acute) 10/2022 COPD with emphysema Medical History Acute GI bleeding NSTEMI (non-ST elevated myocardial infarction) TILA (acute kidney injury) Dysphagia Insomnia Right heart failure with reduced right ventricular function Acute exacerbation of chronic obstructive pulmonary disease Acute respiratory failure with hypoxia Ex-smoker Pleural effusion Pneumonia Chronic diastolic CHF (congestive heart failure) Current smoker Myocardial infarct 1997 - heavy chest, left arm pain - Went to [facility] - flown to - blockage of "back of heart" - heart cath - no stent placement - Follows Dr. Puente Hypertension Surgical History History of coronary artery bypass graft S/P CABG (coronary artery bypass graft) 3 vessel - [facility], 02/2023. Hx of cataract extraction Rt. Hx of cardiac cath 1997 d/t to [place] - no stents placed - Follows Dr. Puente History of colonoscopy Hx of inguinal hernia repair Hx of repair of left rotator cuff x2 Family History Father Family history of diabetes mellitus CHF (congestive heart failure) Black lung disease Mother , had CABG Family history of diabetes mellitus Coronary heart disease Myocardial infarction Dementia Social History Smoking Status: Former smoker Tobacco Type: Cigarettes Age Started Using Tobacco: 22; Age Quit Using Tobacco: 83; packs per day: 2; Cigarettes Per Day: 2 packs; Second Hand Exposure: No; Do You Dip or Chew Tobacco: No; Hx Alcohol Use: No Hx Substance Use: No Preferred Language: Bruneian Communication Ability: Effective Visual Impairment: Limited Hearing Ability: Use of Hearing Aid Resident Services Coordinator Required: No Beliefs That Will Affect Care: None marital status: Current Living Situation: Spouse Current Living Situation Comment: From home with current occupational status: retired current occupation: Retired How many Children do You have: 2 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: 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; 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 Feels Safe at Home: Yes Diet: regular caffeine: Yes (1 soda daily) Physical Activity Frequency: Does not Exercise Do you think of yourself as: straight/heterosexual Gender Identity: Male Assistive Devices: Cane Allergies Allergies Allergy/AdvReac Type Severity Reaction Status Date / Time No Known Allergies Allergy Verified 08/21/24 10:05 Home Meds Home Medications Medication Instructions Recorded Confirmed acetaminophen 500 mg capsule 1,000 mg PO Q6H PRN Pain 03/20/23 09/10/24 rosuvastatin 20 mg tablet 20 mg PO DAILY 03/20/23 09/10/24 omeprazole 40 mg capsule,delayed 40 mg PO DAILY 09/29/23 09/10/24 release albuterol sulfate 2.5 mg/3 mL 2.5 mg continuous nebulization Q6H 10/30/23 09/10/24 (0.083 %) solution for nebulization PRN Shortness Of Breath Or Wheezing aspirin 81 mg tablet,delayed 81 mg PO DAILY 02/03/24 09/10/24 release (Adult Low Dose Aspirin) sacubitril 97 mg-valsartan 103 mg 1 tab PO BID 02/03/24 09/10/24 tablet (Entresto) ascorbic acid (vitamin C) 500 mg 500 mg PO DAILY 02/09/24 09/10/24 capsule cholecalciferol (vitamin D3) 25 25 mcg PO QAM 02/09/24 09/10/24 mcg (1,000 unit) capsule fluticasone furoate 27.5 1 spray intranasal DAILY PRN 02/09/24 09/10/24 mcg/actuation nasal ALLERGIES spray,suspension (Flonase Sensimist) apixaban 2.5 mg tablet (Eliquis) 2.5 mg PO BID 05/26/24 09/10/24 bumetanide 1 mg tablet 1 - 2 mg PO DAILY 05/26/24 09/10/24 amiodarone 100 mg tablet 0 mg PO BID 06/11/24 09/10/24 metoprolol succinate 50 mg 50 mg PO BID 06/11/24 09/10/24 tablet,extended release 24 hr calcitriol 0.25 mcg capsule 0.25 mcg PO DAILY 08/21/24 09/10/24 calcium carbonate (Calcium 600) 600 mg PO BID 08/21/24 09/10/24 guaifenesin 1,200 mg tablet, 1,200 mg PO BID 08/21/24 09/10/24 extended release 12 hr (Mucinex) potassium chloride 20 mEq 60 meq PO UD 08/21/24 09/10/24 tablet,extended release(part/cryst) trazodone 50 mg tablet 50 mg PO HS PRN Sleep 09/10/24 09/10/24 Previous Rx's Medication Instructions Recorded albuterol sulfate 90 mcg/actuation 2 inh inhalation Q6H PRN shortness 01/05/24 aerosol inhaler (Ventolin HFA) of breath or wheezing or cough #8.5 grams tamsulosin 0.4 mg capsule (Flomax) 0.4 mg PO DAILY #90 caps 02/03/24 tiotropium 2.5 mcg-olodaterol 2.5 2 puff inhalation DAILY #4 grams 07/07/24 mcg/actuation mist for inhalation (Stiolto Respimat) Results & Data (ED) Vital Signs Vital Signs - 24 hr 09/10/24 17:14 09/10/24 17:43 09/10/24 19:03 Temperature 36.2 C L 36.5 C Temperature Source Temporal Artery Scan Oral Pulse Rate 85 Pulse Rate [Right Finger] 79 Respiratory Rate 20 19 Respiratory Effort / Characteristics Non-Labored Non-Labored Spontaneous Respiratory Depth Normal Normal Blood Pressure 151/71 H Blood Pressure [Right Arm] 158/83 H Blood Pressure Mean 97 Blood Pressure Mean [Right Arm] 108 Blood Pressure Position Sitting Blood Pressure Position [Right Arm] Sitting Pulse Oximetry 97 96 Oxygen Delivery Method Room Air Room Air Room Air Sepsis Recent Fever Within 48 Hours No Sepsis New/Unexplained Change in Mental Status No Sepsis Action Taken by Nursing No Action Required Home Medications Current Medication List: was personally reviewed by me Laboratory Data Attestation: I reviewed the patient's lab results. 09/10/24 17:42 09/10/24 17:42 Lab Results 09/10/24 09/10/24 Range/Units 17:42 20:05 WBC 6.66 (4.8-10.8) K/ul RBC 2.17 L (4.70-6.10) M/uL Hgb 7.0 L (14.0-18.0) g/dl Hct 22.7 L (42.0-52.0) % MCV 104.6 H (80.0-100.0) fL MCH 32.3 (25.0-34.0) pg MCHC 30.8 L (32.0-36.0) g/dL RDW Std Deviation 75.7 H (36.4-46.3) fL RDW Coeff of Jolene 19.8 H (11.5-14.5) % Plt Count 215 (130-400) K/uL MPV 8.7 L (9.4-12.4) fL Immature Gran % (Auto) 0.5 % Neut % (Auto) 82.9 % Lymph % (Auto) 8.3 % Barber % (Auto) 6.9 % Eos % (Auto) 1.1 % Baso % (Auto) 0.3 % Neut # (Auto) 5.53 (1.40-6.50) K/uL Lymph # (Auto) 0.55 L (1.20-3.40) K/uL Barber # (Auto) 0.46 (0.11-0.59) K/uL Eos # (Auto) 0.07 (0.00-0.50) K/uL Baso # (Auto) 0.02 (0.00-0.20) K/uL Immature Gran # (Auto) 0.03 (0.01-0.20) K/uL Poikilocytosis Present Ovalocytes 1+ PT 12.9 H (9.0-12.0) Seconds INR 1.2 H (0.9-1.1) APTT 32 H (21-31) Seconds PTT Ratio 1.2 Sodium 140 (136-145) mmol/L Potassium 4.3 (3.5-5.1) mmol/L Chloride 102 (98-107) mmol/L Carbon Dioxide 32 (21-32) mmol/L Anion Gap 6 (3-11) BUN 30 H (6-23) mg/dl Creatinine 2.00 H (0.6-1.4) mg/dl Est Cr Clr Drug Dosing 28.0 ml/min eGFR 32.51 BUN/Creatinine Ratio 15.0 (10-20) Glucose 121 H (70-99(Fasting)) mg/dl Calcium 7.8 L (8.6-10.3) mg/dl Magnesium 2.2 (1.7-2.4) mg/dl Total Bilirubin 1.0 (0.2-1.0) mg/dl AST 11 L (13-39) U/L ALT 10 (7-52) U/L Alkaline Phosphatase 108 H (34-104) U/L Troponin I High Sens 20.7 H 19.3 (0-20) pg/ml Total Protein 6.1 (6.0-8.3) gm/dl Albumin 3.4 (3.4-5.0) gm/dl Globulin 2.7 (2.5-4.0) gm/dl Albumin/Globulin Ratio 1.3 (0.9-2) Blood Type AB Negative Antibody Screen NEGATIVE Crossmatch See Detail Administered Medications Discontinued Medications Pantoprazole Sodium 80 mg/ (Dextrose) 120 mls @ 400 mls/hr IV NOW ONE Stop: 09/10/24 17:57 Last Infusion: 09/10/24 20:00 Dose: Infused Documented By: Admin: 09/10/24 18:44 Dose: 400 mls/hr Documented By: KEVIN Prothrombin Complex Concent ( (Human) 2,000 units/ Syringe) 80 mls @ 10 mls/min IV NOW STA; Protocol Stop: 09/10/24 17:52 Last Admin: 09/10/24 18:03 Dose: 10 mls/min Documented By: PHILL Bumetanide 1 mg/ Syringe 4 mls @ 4 mls/min IV NOW STA Stop: 09/10/24 19:28 Last Admin: 09/10/24 20:24 Dose: 4 mls/min Documented By: ASHOK Imaging Data Radiologist's Impression: Cervical Spine CT 09/10/24 17:30 CT cervical spine without IV contrast History: Pain Comparison: None Technique: Using multidetector thin collimation helical acquisition technique, axial, coronal and sagittal CT images through the cervical spine were obtained without intravenous contrast. Dose reduction techniques were achieved by using automatic exposure control and/or adjustment of mA and/or kV according to patient size and/or use of iterative reconstruction technique. Findings: The cervical vertebrae are normally aligned. Normal cervical lordosis. No acute fracture or subluxation. No prevertebral edema. Moderate discogenic degenerative changes seen at C5-6 and C6-7, where there are mild to moderate neuroforaminal stenoses. There is trace, degenerative related anterolisthesis of C7 on T1. The bones are osteopenic. Severe atlantodental degenerative change, with bony remodeling associated at the anterior arch of C1. No abnormality of the paraspinous soft tissues. Severe emphysema seen in the lung apices. A likely moderate left pleural effusion is partially seen. Impression: No acute fracture or traumatic subluxation. Severe emphysema seen in the lung apices. A likely moderate left pleural effusion is partially seen. Electronically signed by Robert Newton 09-10-2024 7:[address] 09/10/24 17:30 CT head without contrast History: Trauma Comparison: None Technique: Using multidetector thin collimation helical acquisition technique, axial, coronal and sagittal CT images from the skull base to the vertex were obtained without intravenous contrast. Dose reduction techniques were achieved by using automatic exposure control and/or adjustment of mA and/or kV according to patient size and/or use of iterative reconstruction technique. Findings: No intracranial hemorrhage, mass-effect, or midline shift. The ventricles are proportionate to the cerebral sulci. The baker to white matter differentiation of the cerebral hemispheres is preserved. The basal cisterns are patent. There is moderate cerebral atrophy. Moderate, patchy low-attenuation changes in the white matter, most suggestive of sequelae of chronic small vessel ischemic disease. Moderate frothy debris in the maxillary sinuses. Mastoid air cells are clear. Impression: No acute intracranial pathology. Electronically signed by Robert Newton 09-10-2024 7:18 PM Chest X-Ray 09/10/24 17:31 Exam(s): XR CXR 1 VIEW EXAM: XR Chest, 1 View CLINICAL HISTORY: Weakness. TECHNIQUE: Frontal view of the chest. COMPARISON: Chest radiograph 08/21/2024 FINDINGS: Lungs: Bilateral airspace opacities may represent pulmonary edema and/or atypical infection. Pleural space: Small bilateral pleural effusions. No pneumothorax. Heart: Cardiomegaly. Mediastinum: Unremarkable. Normal mediastinal contour. Bones/joints: Degenerative changes of the spine are noted. No acute fracture. Tubes, lines and devices: Redemonstrated left atrial appendage closure device. IMPRESSION: 1. Bilateral airspace opacities may represent pulmonary edema and/or atypical infection. 2. Cardiomegaly. 3. Small bilateral pleural effusions. Electronically signed by: Trudi Montenegro MD 09/10/24 22:23 PM Discharge Plan Visit Data Chief Complaint: Abnormal Labs/Diagnostic Testing Stated Complaint: LOW HEMOGLOBIN ED Provider: Petros Morel Discharge Problem: Acute GI bleeding, Pedal edema, Anemia, CHF (congestive heart failure), CRF (chronic renal failure), Anticoagulated, Acute head trauma, Fall Patient Disposition: Admitted As Inpatient Condition: Serious Discharge Instructions Interventions: ED Discharge Assessment Last Done: 09/10/24 22:49 Discharge Problem: Anemia Qualifiers: Anemia type: unspecified type Qualified Code(s): D64.9 - Anemia, unspecified CHF (congestive heart failure) Qualifiers: Heart failure type: unspecified Heart failure chronicity: acute on chronic Q ualified Code(s): I50.9 - Heart failure, unspecified CRF (chronic renal failure) Qualifiers: Chronic kidney disease stage: unspecified stage Qualified Code(s): N18.9 - Chronic kidney disease, unspecified Acute head trauma Qualifiers: Encounter type: initial encounter Qualified Code(s): S09.90XA - Unspecified injury of head, initial encounter Fall Qualifiers: Encounter type: initial encounter Qualified Code(s): W19.XXXA - Unspecified fall, initial encounter
[2024-09-10] MEDS: KCENTRA (1000unit vial) 2000 units IVP IV STA (18:03)
[2024-09-10 18:15] LABS: Basophils # (auto) 0.02 K/uL (0.00-0.20); Basophils % (auto) 0.3 %; Eosinophils # (auto) 0.07 K/uL (0.00-0.50); Eosinophils % (auto) 1.1 %; Hematocrit (blood only) 22.7 % (42.0-52.0); Immature Granulocytes # (auto) 0.03 K/uL (0.01-0.20); Immature Granulocytes % (auto) 0.5 %; Lymphocytes # (auto) 0.55 K/uL (1.20-3.40); Lymphocytes % (auto) 8.3 %; Mean Corpuscular Hemoglobin 32.3 pg (25.0-34.0); Mean Corpuscular Hgb Conc 30.8 g/dL (32.0-36.0); Mean Corpuscular Volume 104.6 fL (80.0-100.0); Mean Platelet Volume 8.7 fL (9.4-12.4); Monocytes # (auto) 0.46 K/uL (0.11-0.59); Monocytes % (auto) 6.9 %; Neutrophils # (auto) 5.53 K/uL (1.40-6.50); Neutrophils % (auto) 82.9 %; Platelet Count 215 K/uL (130-400); RDW Coefficient of Variation 19.8 % (11.5-14.5); RDW Standard Deviation 75.7 fL (36.4-46.3); Red Blood Count 2.17 M/uL (4.70-6.10); White Blood Count 6.66 K/ul (4.8-10.8)
[2024-09-10 18:16] LABS: Albumin Globulin Ratio 1.3 (0.9-2); Albumin Level 3.4 gm/dl (3.4-5.0); Calcium 7.8 mg/dl (8.6-10.3); Globulin 2.7 gm/dl (2.5-4.0); Magnesium 2.2 mg/dl (1.7-2.4); Potassium 4.3 mmol/L (3.5-5.1); Total Protein 6.1 gm/dl (6.0-8.3)
[2024-09-10 18:21] LABS: Troponin I High Sensitivity 20.7 pg/ml (0-20)
[2024-09-10 18:29] LABS: INR 1.2 (0.9-1.1); Partial Thromboplastin Ratio 1.2; Partial Thromboplastin Time 32 Seconds (21-31); Prothrombin Time 12.9 Seconds (9.0-12.0)
[2024-09-10 18:37] LABS: Ovalocytes 1+; Poikilocytosis Present
[2024-09-10] MEDS: PANTOprazole 80 MG in DEXTROSE 5% 100 ML IV ONE (18:44)
[2024-09-10 18:55] LABS: Appearance Urine Clear (Clear); Bilirubin Urine Negative (Negative); Blood Urine Negative (Negative); Color Urine Yellow; Glucose Urine UA Negative (Negative); Ketones Urine Negative (Negative); Leukocyte Esterase Urine Negative (Negative); Nitrite Urine Negative (Negative); Protein Urine Negative (Negative); Specific Gravity Urine 1.009 (1.000-1.030); Urobilinogen Urine Negative (Negative)
--- NOTE | 2024-09-10 19:19 | CT Scan Report ---
CT head without contrast History: Trauma Comparison: None Technique: Using multidetector thin collimation helical acquisition technique, axial, coronal and sagittal CT images from the skull base to the vertex were obtained without intravenous contrast. Dose reduction techniques were achieved by using automatic exposure control and/or adjustment of mA and/or kV according to patient size and/or use of iterative reconstruction technique. Findings: No intracranial hemorrhage, mass-effect, or midline shift. The ventricles are proportionate to the cerebral sulci. The baker to white matter differentiation of the cerebral hemispheres is preserved. The basal cisterns are patent. There is moderate cerebral atrophy. Moderate, patchy low-attenuation changes in the white matter, most suggestive of sequelae of chronic small vessel ischemic disease. Moderate frothy debris in the maxillary sinuses. Mastoid air cells are clear. Impression: No acute intracranial pathology. Electronically signed by Robert Newton 09-10-2024 7:18 PM
--- NOTE | 2024-09-10 19:20 | CT Scan Report ---
CT cervical spine without IV contrast History: Pain Comparison: None Technique: Using multidetector thin collimation helical acquisition technique, axial, coronal and sagittal CT images through the cervical spine were obtained without intravenous contrast. Dose reduction techniques were achieved by using automatic exposure control and/or adjustment of mA and/or kV according to patient size and/or use of iterative reconstruction technique. Findings: The cervical vertebrae are normally aligned. Normal cervical lordosis. No acute fracture or subluxation. No prevertebral edema. Moderate discogenic degenerative changes seen at C5-6 and C6-7, where there are mild to moderate neuroforaminal stenoses. There is trace, degenerative related anterolisthesis of C7 on T1. The bones are osteopenic. Severe atlantodental degenerative change, with bony remodeling associated at the anterior arch of C1. No abnormality of the paraspinous soft tissues. Severe emphysema seen in the lung apices. A likely moderate left pleural effusion is partially seen. Impression: No acute fracture or traumatic subluxation. Severe emphysema seen in the lung apices. A likely moderate left pleural effusion is partially seen. Electronically signed by Robert Newton 09-10-2024 7:18 PM
[2024-09-10] MEDS: BUMETANIDE 1 MG in SYRINGE 0 ML IV STA (20:24)
--- NOTE | 2024-09-10 21:54 | History & Physical Report ---
Date of Service September 10, 2024 Assessment & Plan (1) ABLA (acute blood loss anemia): (2) Atrial fibrillation: (3) Anticoagulated: (4) Heart failure with mildly reduced ejection fraction (HFmrEF): (5) Anemia requiring transfusions: Plan The patient is an 84-year-old male with past medical history including CAD, GI bleeding, hyperlipidemia, hypertension, atrial fibrillation, history of acute blood loss anemia, C. difficile colitis, HFmrEF, chronic renal insufficiency, long-term use of anticoagulation on Eliquis, status post maze operation for atrial fibrillation, pulm hypertension, and COPD. He presents to the emergency department as a referral from the outpatient [place] clinic, where he had routine laboratories today, reported his hemoglobin was low and need to be seen in the ED for possible transfusion. #Acute blood loss anemia- NPO Hemoglobin 7.0 this evening To receive 2 units PRBCs this evening H&H every 6 hours Patient did have EGD and colonoscopy on 06/15/2024, then had capsule endoscopy on 07/13/2024, which were all negative Patient reportedly was going to have additional study performed, to further look at the small bowel It does appear that he has some probable hemorrhoidal bleeding, but likely has some small bowel bleeding as well Kcentra to reverse Eliquis this evening Given pantoprazole 80 mg IV in the ED, then will give 40 mg IV twice daily Consult gastroenterology HFmrEF- Significant lower extremity edema and chest x-ray with mild pulmonary edema He will receive bumetanide 1 mg IV from the ED Bumetanide 1 mg IV twice daily starting in the a.m. Will likely need successive doses just, which can be Rx'd based on blood pressure tolerance C. difficile colitis- Continue vancomycin orally History of Present Illness Chief Complaint: Patient presents to the emergency department as a referral from the [place] outpatient clinic, where he had laboratories done at 1130 this morning and was told that his hemoglobin was low, and needed to come to the ED for assessment. The patient reports that when he wipes, he has noted some bright red blood, otherwise he typically notes that his stools have been dark over the past several weeks, but he also has been taking iron on a regular basis. Primary Care Provider: Monika Hubbard DO The patient is an 84-year-old male with past medical history including CAD, GI bleeding, hyperlipidemia, hypertension, atrial fibrillation, history of acute blood loss anemia, C. difficile colitis, HFmrEF, chronic renal insufficiency, long-term use of anticoagulation on Eliquis, status post maze operation for atrial fibrillation, pulm hypertension, and COPD. He presents to the emergency department as a referral from the outpatient [place] clinic, where he had routine lab oratories today, reported his hemoglobin was low and need to be seen in the ED for possible transfusion. Allergies Allergy/AdvReac Type Severity Reaction Status Date / Time No Known Allergies Allergy Verified 08/21/24 10:05 Home Medications Medication Instructions Recorded Confirmed Type acetaminophen 500 mg capsule 1,000 mg PO Q6H PRN Pain 03/20/23 09/10/24 History rosuvastatin 20 mg tablet 20 mg PO DAILY 03/20/23 09/10/24 History omeprazole 40 mg capsule,delayed 40 mg PO DAILY 09/29/23 09/10/24 History release albuterol sulfate 2.5 mg/3 mL 2.5 mg continuous nebulization Q6H 10/30/23 09/10/24 History (0.083 %) solution for nebulization PRN Shortness Of Breath Or Wheezing albuterol sulfate 90 mcg/actuation 2 inh inhalation Q6H PRN shortness 01/05/24 09/10/24 Rx aerosol inhaler (Ventolin HFA) of breath or wheezing or cough #8.5 grams aspirin 81 mg tablet,delayed 81 mg PO DAILY 02/03/24 09/10/24 History release (Adult Low Dose Aspirin) sacubitril 97 mg-valsartan 103 mg 1 tab PO BID 02/03/24 09/10/24 History tablet (Entresto) tamsulosin 0.4 mg capsule (Flomax) 0.4 mg PO DAILY #90 caps 02/03/24 09/10/24 Rx ascorbic acid (vitamin C) 500 mg 500 mg PO DAILY 02/09/24 09/10/24 History capsule cholecalciferol (vitamin D3) 25 25 mcg PO QAM 02/09/24 09/10/24 History mcg (1,000 unit) capsule fluticasone furoate 27.5 1 spray intranasal DAILY PRN 02/09/24 09/10/24 History mcg/actuation nasal ALLERGIES spray,suspension (Flonase Sensimist) apixaban 2.5 mg tablet (Eliquis) 2.5 mg PO BID 05/26/24 09/10/24 History bumetanide 1 mg tablet 1 - 2 mg PO DAILY 05/26/24 09/10/24 History amiodarone 100 mg tablet 0 mg PO BID 06/11/24 09/10/24 History metoprolol succinate 50 mg 50 mg PO BID 06/11/24 09/10/24 History tablet,extended release 24 hr tiotropium 2.5 mcg-olodaterol 2.5 2 puff inhalation DAILY #4 grams 07/07/24 09/10/24 Rx mcg/actuation mist for inhalation (Stiolto Respimat) calcitriol 0.25 mcg capsule 0.25 mcg PO DAILY 08/21/24 09/10/24 History calcium carbonate (Calcium 600) 600 mg PO BID 08/21/24 09/10/24 History guaifenesin 1,200 mg tablet, 1,200 mg PO BID 08/21/24 09/10/24 History extended release 12 hr (Mucinex) potassium chloride 20 mEq 60 meq PO UD 08/21/24 09/10/24 History tablet,extended release(part/cryst) trazodone 50 mg tablet 50 mg PO HS PRN Sleep 09/10/24 09/10/24 History Past Med/Surg History Problem List (Updated 09/10/24 @ 23:32 by Petros Morel MD) Fall (Acute) Acute head trauma (Acute) Anticoagulated (Acute) CRF (chronic renal failure) (Acute) CHF (congestive heart failure) (Acute) Anemia (Acute) Pedal edema (Acute) Acute GI bleeding (Acute) CAD (coronary artery disease) Hyperlipidemia Hypertension Atrial fibrillation ABLA (acute blood loss anemia) C. 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 Morley Exertional shortness of breath Acute respiratory failure with hypoxia Pulmonary hypertension S/P Maze operation for atrial fibrillation [facility] - 02/2023. Atrial fibrillation with rapid ventricular response (Acute) 10/2022 COPD with emphysema Medical History Acute GI bleeding NSTEMI (non-ST elevated myocardial infarction) TILA (acute kidney injury) Dysphagia Insomnia Right heart failure with reduced right ventricular function Acute exacerbation of chronic obstructive pulmonary disease Acute respiratory failure with hypoxia Ex-smoker Pleural effusion Pneumonia Chronic diastolic CHF (congestive heart failure) Current smoker Myocardial infarct 1997 - heavy chest, left arm pain - Went to [facility] - flown to [facility] - blockage of "back of heart" - heart cath - no stent placement - Follows Dr. Puente Hypertension Surgical History History of coronary artery bypass graft S/P CABG (coronary artery bypass graft) 3 vessel - [facility], 02/2023. Hx of cataract extraction Rt. Hx of cardiac cath 1997 d/t to [place] - no stents placed - Follows Dr. Puente History of colonoscopy Hx of inguinal hernia repair Hx of repair of left rotator cuff x2 Family History Father Family history of diabetes mellitus CHF (congestive heart failure) Black lung disease Mother , had CABG Family history of diabetes mellitus Coronary heart disease Myocardial infarction Dementia Social History Smoking Status: Former smoker Tobacco Type: Cigarettes Age Started Using Tobacco: 22; Age Quit Using Tobacco: 83; packs per day: 2; Cigarettes Per Day: 2 packs; Second Hand Exposure: No; Do You Dip or Chew Tobacco: No; Hx Alcohol Use: No Hx Substance Use: No Preferred Language: Afghan Communication Ability: Effective Visual Impairment: Limited Hearing Ability: Use of Hearing Aid 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 Cutter Operator Required: No Beliefs That Will Affect Care: None marital status: Current Living Situation: Spouse Current Living Situation Comment: From home with current occupational status: retired current occupation: Retired How many Children do You have: 2 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; 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 Feels Safe at Home: Yes Diet: regular caffeine: Yes (1 soda daily) Physical Activity Frequency: Does not Exercise Do you think of yourself as: straight/heterosexual Gender Identity: Male Assistive Devices: Cane Review of Systems Review of Systems: The patient denies chest pain, palpitations, cough, lower extremity swelling, sore throat, fevers, chills, sweats, nausea, vomiting, diarrhea , constipation, abdominal or pelvic pain, blood in urine, dysuria, urinary frequency or urgency, lightheadedness, dizziness, headache, memory loss, loss of consciousness, focal or generalized weakness, numbness or tingling in arms or legs, generalized arthralgias or myalgias, back or neck pain, or night sweats. The review of systems is otherwise negative other than for that already noted above, and at least 10 systems have been reviewed. Physical Exam Physical Exam: The patient is awake, alert and oriented 3, well developed and well nourished, normocephalic and atraumatic, lying in bed and in no acute distress. HEENT--PERRL, EOMI, mucous membranes and oropharynx dry. Neck--supple. No JVD. No bruits. Thyroid normal, trachea midline, no adenopathy. Heart--normal S1 and S2. No murmurs, rubs or gallops. Lungs--clear bilaterally, no respiratory distress, no accessory muscle use. Abdomen--normal bowel sounds and soft. Nontender. Nondistended, no hernias or masses, no organomegaly. Extremities--3+ bilateral pretibial pitting edema Dermatologic--normal skin turgor, normal color, no abnormal lymph nodes, no rash. Neurologic--cranial nerves II through XII grossly intact. Rheumatologic--normal range of motion. Psychiatric--normal affect. Results & Data Results & Data Vital Signs (Past 12 Hours) Vital Signs Temp Pulse Pulse Resp BP BP Pulse Ox 09/10/24 21:20 36.5 C 81 21 167/86 H 94 09/10/24 21:13 36.5 C 80 23 158/78 H 93 09/10/24 21:01 36.7 C 79 21 158/94 H 93 09/10/24 20:58 36.4 C L 79 21 158/80 H 92 09/10/24 20:46 74 18 148/83 H 94 09/10/24 17:43 09/10/24 17:14 36.2 C L 85 20 151/71 H 97 O2 Del Method 09/10/24 21:20 09/10/24 21:13 09/10/24 21:01 09/10/24 20:58 09/10/24 20:46 Room Air 09/10/24 17:43 Room Air 09/10/24 17:14 Room Air Laboratory Results Laboratory Results WBC 7.10 K/ul (4.8-10.8) 09/11/24 02:20 RBC 2.23 M/uL (4.70-6.10) L 09/11/24 02:20 Hgb 7.1 g/dl (14.0-18.0) L 09/11/24 02:20 Hct 22.6 % (42.0-52.0) L 09/11/24 02:20 MCV 101.3 fL (80.0-100.0) H 09/11/24 02:20 MCH 31.8 pg (25.0-34.0) 09/11/24 02:20 MCHC 31.4 g/dL (32.0-36.0) L 09/11/24 02:20 RDW Std Deviation 74.6 fL (36.4-46.3) H 09/11/24 02:20 RDW Coeff of Jolene 20.8 % (11.5-14.5) H 09/11/24 02:20 Plt Count 183 K/uL (130-400) 09/11/24 02:20 MPV 9.1 fL (9.4-12.4) L 09/11/24 02:20 Immature Gran % (Auto) 0.4 % 09/11/24 02:20 Neut % (Auto) 80.6 % 09/11/24 02:20 Lymph % (Auto) 9.7 % 09/11/24 02:20 [place] % (Auto) 7.7 % 09/11/24 02:20 Eos % (Auto) 1.3 % 09/11/24 02:20 Baso % (Auto) 0.3 % 09/11/24 02:20 Neut # (Auto) 5.72 K/uL (1.40-6.50) 09/11/24 02:20 Lymph # (Auto) 0.69 K/uL (1.20-3.40) L 09/11/24 02:20 [place] # (Auto) 0.55 K/uL (0.11-0.59) 09/11/24 02:20 Eos # (Auto) 0.09 K/uL (0.00-0.50) 09/11/24 02:20 Baso # (Auto) 0.02 K/uL (0.00-0.20) 09/11/24 02:20 Immature Gran # (Auto) 0.03 K/uL (0.01-0.20) 09/11/24 02:20 Polychromasia 1+ 09/11/24 02:20 Hypochromasia Present 09/11/24 02:20 Poikilocytosis Present 09/10/24 17:42 Anisocytosis Present 09/11/24 02:20 Ovalocytes 1+ 09/10/24 17:42 PT 12.9 Seconds (9.0-12.0) H 09/10/24 17:42 INR 1.2 (0.9-1.1) H 09/10/24 17:42 APTT 32 Seconds (21-31) H 09/10/24 17:42 PTT Ratio 1.2 09/10/24 17:42 Sodium 140 mmol/L (136-145) 09/11/24 02:20 Potassium 4.0 mmol/L (3.5-5.1) 09/11/24 02:20 Chloride 103 mmol/L (98-107) 09/11/24 02:20 Carbon Dioxide 32 mmol/L (21-32) 09/11/24 02:20 Anion Gap 5 (3-11) 09/11/24 02:20 BUN 30 mg/dl (6-23) H 09/11/24 02:20 Creatinine 1.99 mg/dl (0.6-1.4) H 09/11/24 02:20 Est Cr Clr Drug Dosing 28.1 ml/min 09/11/24 02:20 eGFR 32.70 09/11/24 02:20 BUN/Creatinine Ratio 15.1 (10-20) 09/11/24 02:20 Glucose 109 mg/dl (70-99(Fasting)) H 09/11/24 02:20 Calcium 7.2 mg/dl (8.6-10.3) L 09/11/24 02:20 Magnesium 2.2 mg/dl (1.7-2.4) 09/11/24 02:20 Total Bilirubin 1.3 mg/dl (0.2-1.0) H 09/11/24 02:20 AST 9 U/L (13-39) L 09/11/24 02:20 ALT 8 U/L (7-52) 09/11/24 02:20 Alkaline Phosphatase 76 U/L (34-104) 09/11/24 02:20 Troponin I High Sens 19.3 pg/ml (0-20) 09/10/24 20:05 Total Protein 5.2 gm/dl (6.0-8.3) L 09/11/24 02:20 Albumin 3.0 gm/dl (3.4-5.0) L 09/11/24 02:20 Globulin 2.2 gm/dl (2.5-4.0) L 09/11/24 02:20 Albumin/Globulin Ratio 1.4 (0.9-2) 09/11/24 02:20 Urine Color Yellow 09/10/24 Unknown Urine Appearance Clear (Clear) 09/10/24 Unknown Urine pH 8.0 (4.5-7.5) H 09/10/24 Unknown Ur Specific Lowman 1.009 (1.000-1.030) 09/10/24 Unknown Urine Protein Negative (Negative) 09/10/24 Unknown Urine Glucose (UA) Negative (Negative) 09/10/24 Unknown Urine Ketones Negative (Negative) 09/10/24 Unknown Urine Blood Negative (Negative) 09/10/24 Unknown Urine Nitrite Negative (Negative) 09/10/24 Unknown Urine Bilirubin Negative (Negative) 09/10/24 Unknown Urine Urobilinogen Negative (Negative) 09/10/24 Unknown Ur Leukocyte Esterase Negative (Negative) 09/10/24 Unknown Blood Type AB Negative 09/10/24 17:42 Antibody Screen NEGATIVE 09/10/24 17:42 Crossmatch See Detail 09/10/24 17:[address] 09/10/24 17:30 CT cervical spine without IV contrast History: Pain Comparison: None Technique: Using multidetector thin collimation helical acquisition technique, axial, coronal and sagittal CT images through the cervical spine were obtained without intravenous contrast. Dose reduction techniques were achieved by using automatic exposure control and/or adjustment of mA and/or kV according to patient size and/or use of iterative reconstruction technique. Findings: The cervical vertebrae are normally aligned. Normal cervical lordosis. No acute fracture or subluxation. No prevertebral edema. Moderate discogenic degenerative changes seen at C5-6 and C6-7, where there are mild to moderate neuroforaminal stenoses. There is trace, degenerative related anterolisthesis of C7 on T1. The bones are osteopenic. Severe atlantodental degenerative change, with bony remodeling associated at the anterior arch of C1. No abnormality of the paraspinous soft tissues. Severe emphysema seen in the lung apices. A likely moderate left pleural effusion is partially seen. Impression: No acute fracture or traumatic subluxation. Severe emphysema seen in the lung apices. A likely moderate left pleural effusion is partially seen. Electronically signed by Robert Newton 09-10-2024 7:[address] 09/10/24 17:30 CT head without contrast History: Trauma Comparison: None Technique: Using multidetector thin collimation helical acquisition technique, axial, coronal and sagittal CT images from the skull base to the vertex were obtained without intravenous contrast. Dose reduction techniques were achieved by using automatic exposure control and/or adjustment of mA and/or kV according to patient size and/or use of iterative reconstruction technique. Findings: No intracranial hemorrhage, mass-effect, or midline shift. The ventricles are proportionate to the cerebral sulci. The baker to white matter differentiation of the cerebral hemispheres is preserved. The basal cisterns are patent. There is moderate cerebral atrophy. Moderate, patchy low-attenuation changes in the white matter, most suggestive of sequelae of chronic small vessel ischemic disease. Moderate frothy debris in the maxillary sinuses. Mastoid air cells are clear. Impression: No acute intracranial pathology. Electronically signed by Robert Newton 09-10-2024 7:18 PM Chest X-Ray 09/10/24 17:31 Exam(s): XR CXR 1 VIEW EXAM: XR Chest, 1 View CLINICAL HISTORY: Weakness. TECHNIQUE: Frontal view of the chest. COMPARISON: Chest radiograph 08/21/2024 FINDINGS: Lungs: Bilateral airspace opacities may represent pulmonary edema and/or atypical infection. Pleural space: Small bilateral pleural effusions. No pneumothorax. Heart: Cardiomegaly. Mediastinum: Unremarkable. Normal mediastinal contour. Bones/joints: Degenerative changes of the spine are noted. No acute fracture. Tubes, lines and devices: Redemonstrated left atrial appendage closure device. IMPRESSION: 1. Bilateral airspace opacities may represent pulmonary edema and/or atypical infection. 2. Cardiomegaly. 3. Small bilateral pleural effusions. Electronically signed by: Trudi Montenegro MD 09/10/24 22:23 PM Code Status & VTE Plan Code Status DNR/DNI VTE Prophylaxis Plan VTE Prophylaxis will be ordered: Yes PG Care Time/CCT Total # of Minutes Spent Total Time Spent with Patient: Total time spent is greater than 50% in coordination of care (as documented) at patient's floor/unit and/or counseling patient: Coding Level of Care Code 93182 INT INP/OBS CARE 3/75MIN Diagnoses ABLA (acute blood loss anemia) D62 Atrial fibrillation I48.91 Anticoagulated Z79.01 Heart failure with mildly reduced ejection fraction (HFmrEF) I50.22 Anemia requiring transfusions D64.9
--- NOTE | 2024-09-10 22:24 | XRay Report ---
Exam(s): XR CXR 1 VIEW EXAM: XR Chest, 1 View CLINICAL HISTORY: Weakness. TECHNIQUE: Frontal view of the chest. COMPARISON: Chest radiograph 08/21/2024 FINDINGS: Lungs: Bilateral airspace opacities may represent pulmonary edema and/or atypical infection. Pleural space: Small bilateral pleural effusions. No pneumothorax. Heart: Cardiomegaly. Mediastinum: Unremarkable. Normal mediastinal contour. Bones/joints: Degenerative changes of the spine are noted. No acute fracture. Tubes, lines and devices: Redemonstrated left atrial appendage closure device. IMPRESSION: 1. Bilateral airspace opacities may represent pulmonary edema and/or atypical infection. 2. Cardiomegaly. 3. Small bilateral pleural effusions. Electronically signed by: Trudi Montenegro MD 09/10/24 22:23 PM
[2024-09-10] MEDS ORDERED: ONDANSETRON INJ 2 MG/ML 2 ML VIAL IV PRN (22:49)
[2024-09-10] MEDS ORDERED: VANCOMYCIN CONSULT ACTIVE PRN (22:49)
[2024-09-11] MEDS ORDERED: VANCOMYCIN HCL 1000MG/20ML VIAL PO SCH
--- OUTSIDE RECORDS SUMMARY | 2024-09-11 | External Medical Summary | Continuity of Care Document ---
Author Name Unknown Organization [address] Address [address] [place], [place] [id number] Care Team Providers Care Workers Compensation Attorney Name Role Phone Jess Montgomery Primary Care Physicia n [phone] Encounter [facility] [id number] Date(s): 09/03/24 - 09/03/[address] [facility] [address] [place] [address] [phone] Encounter Diagnosis Acute blood loss anemia(Discharge Diagnosis) - 09/03/24 Acute GI bleeding(Discharge Diagnosis) - 09/03/24 TILA (acute kidney injury)(Discharge Diagnosis) - 09/03/24 Discharge Disposition: Home or Self Care Attending Physician: MD Polk Jesse Referring Physician: MD Polk Jesse Allergies, Adverse Reactions, Alerts No Known Allergies [...] Daily, Disp# 30 tab, Refills: 3, Pharmacy: [facility] Start Date: 03/04/23 Stop Date: 07/02/23 Status: Ordered Bumex 2 mg oral tablet Start: 12/13/23 4:25:00 PM EDT, See Instructions, Disp# 90 tab, Refills: 0, 1 tab am,, Pharmacy: [facility] Start Date: 12/13/23 Status: Ordered Eliquis 2.5 [...] nostril, Daily Start Date: 02/10/24 Status: Ordered metoprolol tartrate 25 mg oral tablet Start: 09/03/24 8:45:00 AM EST, 1 tab, PO, bid Start Date: 09/03/24 Status: Ordered Mucinex 600 mg oral tablet, extended release Start: 11/04/23 1:47:00 PM EST, 2 tab, PO, Daily Start Date: 11/04/23 Status: Ordered omeprazole 40 mg oral delayed release capsule Start: 04/16/24 10:45:00 AM EDT, 1 cap, PO, Daily, Disp# 90 cap, Refills: 3, Pharmacy: [id number] Start Date: 04/16/24 Status: Ordered Potassium Chloride ([id number] M20) 20 mEq oral tablet, extended release Start: 08/17/24 2:33:00 PM EST, 1 tab, PO, bid, Disp# 180 tab, Refills: 3, Pharmacy: [id number] Start Date: 08/17/24 Status: Ordered rosuvastatin 20 mg oral tablet [...] Start Date: 02/16/18 Status: Ordered Mental Status 09/03/24 Barriers to Learning one year None evide nt Mandatory Health Literacy Documentation Yes Health Literacy Communication Barriers N ever Primary Language Yi Problem List Condition Confirmation Course Effective Dates Status H ealth Status Informant Anemia Confirmed Active Anemia in chronic kidney disease 1 Confirmed 06/28/24 Active Atrial fibrillation Confirmed Active Stage 3b chronic kidney disease (CKD) Confirmed Active Chronic obstructive pulmonary disease, unspecified Confirmed Active Unspecified systolic (congestive) heart failure 2 Confirmed 05/25/24 Active Coronary artery disease involving red devil heart Confirmed Active SOB (shortness of breath) [...] Active Tobacco user Confirmed Active 1Added per Senior Report Developer [id number]/6/24 2Added per Senior Report Developer Review-05/28/24 3Added per Senior Report Developer Review-05/28/24 4renal US on 04/23/2016: bilateral renal [...] 6mm nodule in left thyroid 8Added per Senior Report Developer Review-05/28/24 Diagnosis Diagnosis Type Effective Dates Health Status Cl inical Service Informant Acute blood loss anemia Discharge Diagnosis 09/03/24 Non-Specified TILA (acute kidney injury) Discharge Diagnosis 09/03/24 Non-Specified Acute GI bleeding Discharge Diagnosis 09/03/24 Non-Specified Procedures Procedure Date Related Diagnosis Body [...] hypodense nodule within the left thyroid lobe. [id number] 132-Both 2004, 2006 Vital Signs Most recent to oldest [Reference Range]: 1 Patient Weight 80.4 kg (09/03/24 8:47 AM) Temperature [36.5-37.9 DegC] 35.9 DegC *LOW* (09/03/24 8:47 AM) Heart Rate 56 bpm (09/03/24 8:47 AM) Blood Pressure 160/78mmHg (09/03/24 8:47 AM) Cuff Pulse Pressure 82 mmHg (09/03/24 8:47 AM) Social History Social History Type Response Tobacco Current every day sm oker, Cigarettes Smoking Status Former Smoker, quit > 1 yr Sex Male Sex Representation Male (finding) Patient Care team information Care Team Personnel Name: Saba Doyle Erika Joy Position: Pharmacist Member Role: Pharmacy - Lifetime Name: DO Montgomery Gretchen Elizabeth Position: Physician - Family Med Member Role: Primary Care Provider Address: [address] [place] [address] [place] Care Team Related Persons Name: RICHY FONSECA Name: RICHY FONSECA
--- OUTSIDE RECORDS SUMMARY | 2024-09-11 | External Medical Summary | Continuity of Care Document ---
Author Name Unknown Organization [facility] [address] Address [address] [facility] [place] [id number] Care Team Providers Care Coach Operator Name Role Phone Valentina Jess Ely Primary Care Physicia n [phone] Encounter [facility] FINNBR [id number] Date(s): 08/31/24 - 08/31/24 [facility] [address] 1 [facility] [place], [place] [phone] Encounter Diagnosis Anemia, unspecified(Final) - Discharge Disposition: Home or Self Care Attending Physician: MD Mckenna Christopher Referring Physician: MD Mckenna Christopher Allergies, Adverse Reactions, Alerts No Known Allergies [...] Refills: 3, PRN: shortness of breath, Pharmacy: [id number] Start Date: 10/03/23 [...] dental and other procedures as directed, Pharmacy: [id number] Start Date: 12/11/23 Status: Ordered ascorbic acid 500 mg oral capsule Start: 04/16/24 9:50:00 AM EDT, 1 cap, PO, Daily Start Date: 04/16/24 Status: Ordered aspirin 81 mg oral delayed release tablet Start: 03/04/23 1:13:00 PM EDT, 1 tab, PO, Daily, Disp# 30 tab, Refills: 3, Pharmacy: [facility] Start Date: 03/04/23 Stop Date: 07/02/23 Status: Ordered Bumex 2 mg oral tablet Start: 12/13/23 4:25:00 PM EDT, See Instructions, Disp# 90 tab, Refills: 0, 1 tab am,, Pharmacy: [facility] Start Date: 12/13/23 Status: Ordered Eliquis 2.5 mg oral tablet Start: 12/22/23 8:47:00 AM EDT, 1 tab, PO, bid, Disp# 180 tab, Refills: 3, Pharmacy: [facility] Start Date: 12/22/23 Status: Ordered Entresto 97 mg-103 mg oral tablet Start: 01/19/24 1:38:00 PM EDT, 1 tab, PO, bid, Disp# 60 tab, Refills: 11, Pharmacy: [facility] Start Date: 01/19/24 [...] Daily, Disp# 90 cap, Refills: 3, Pharmacy: [facility] Start Date: 04/16/24 Status: Ordered Potassium Chloride (Bit-Gjsq-Bnq M20) 20 mEq oral tablet, extended release Start: 08/17/24 2:33:00 PM EST, 1 tab, PO, bid, Disp# 180 tab, Refills: 3, Pharmacy: [facility] Start Date: 08/17/24 Status: Ordered rosuvastatin 20 mg oral tablet Start: 09/12/23 11:44:00 AM EST, 1 tab, PO, Daily, Disp# 90 tab, Refills: 3, Pharmacy: [facility] Start Date: 09/12/23 [...] Daily, Disp# 180 tab, Refills: 3, Pharmacy: [facility] Start Date: 08/14/23 Status: [...] Confirmed 05/25/24 Active Coronary artery disease involving [place] heart Confirmed Active SOB (shortness of breath) [...] Active Tobacco user Confirmed Active 1Added per Advertising Operations Manager Ugausg-TB-00/6/24 2Added per Advertising Operations Manager Review-05/28/24 3Added per Advertising Operations Manager Review-05/28/24 4renal US on 04/23/2016: bilateral renal [...] 6mm nodule in left thyroid 8Added per Advertising Operations Manager Review-JW-05/28/24 Procedures Procedure Date Related Diagnosis Body Site [...] hypodense nodule within the left thyroid lobe. [id number] 132-Both 2004, 2006 Results Laboratory List Name Date Complete Blood Count w Differential (CBC ,DIFFH) 08/31/24 Most recent to oldest [Reference Range]: 1 MPV [9.0-12.2 fL] 9.2 fL (08/31/24 11:24 AM) Immature Gran% 0.4 % (08/31/24 11:24 AM) Neut% 80.2 % (08/31/24 11:24 AM) Lymph% 9.3 % (08/31/24 11:24 AM) [place]% 7.3 % (08/31/24 11:24 AM) Baso% 0.4 % (08/31/24 11:24 AM) Eos% 2.4 % (08/31/24 11:24 AM) Immat Gran, Abs [0-0.4 K/uL] 0.03 K/uL (08/31/24 11:24 AM) Neut, Abs [2.0-7.7 K/uL] 6.01 K/uL (08/31/24 11:24 AM) Lymph, Abs [1.0-3.4 K/uL] 0.70 K/uL *LOW* (08/31/24 11:24 AM) [place], Abs [0-1.0 K/uL] 0.55 K/uL (08/31/24 11:24 AM) Baso, Abs [0-0.1 K/uL] 0.03 K/uL (08/31/24 11:24 AM) Eos, Abs [0-0.5 K/uL] 0.18 K/uL (08/31/24 11:24 AM) Type of Diff: AUTO *Unknown* (08/31/24 11:24 AM) RDW [11.5-14.2 %] 20.8 % *HI* (08/31/24 11:24 AM) Hct [39-48 %] 25.4 % *LOW* (08/31/24 11:24 AM) Hgb [13.0-17.0 g/dL] 7.7 g/dL *LOW* (08/31/24 11:24 AM) MCH [28-33 pg] 32.6 pg (08/31/24 11:24 AM) MCHC [32-36 g/dL] 30.3 g/dL *LOW* (08/31/24 11:24 AM) MCV [81-96 fL] 107.6 fL *HI* (08/31/24 11:24 AM) Plts [150-350 K/uL] 263 K/uL (08/31/24 11:24 AM) RBC [4.40-5.60 M/uL] 2.36 M/uL *LOW* (08/31/24 11:24 AM) WBC [4.0-10.4 K/uL] 7.50 K/uL (08/31/24 11:24 AM) Social History Social History Type Response Tobacco Current every day sm oker, Cigarettes Smoking Status Never smoked cigaret gordon Sex Male Sex Representation Male (finding) Patient Care team information Care Team Personnel Name: Saba Doyle Erika Joy Position: Pharmacist Member Role: Pharmacy - Lifetime Name: DO Montgomery Gretchen Elizabeth Position: Physician - Family Med Member Role: Primary Care Provider Address: [facility] [address] [address] [place] Care Team Related Persons Name: RICHY FONSECA Name: RICHY FONSECA
--- OUTSIDE RECORDS SUMMARY | 2024-09-11 | External Medical Summary | Continuity of Care Document ---
Author Name Unknown Organization [facility] [address] Address [address] [place], [place] [id number] Care Team Providers Care Acidizer Water Well Name Role Phone Jess Montgomery Primary Care Physicia n [phone] Encounter [facility] FINNBR [id number] Date(s): 08/20/24 - 08/20/24 [facility] [address] [facility] [address] [facility] [place], [place] [phone] Encounter Diagnosis Diarrhea, unspecified(Final) - Hypocalcemia(Final) - Anemia in chronic kidney disease(Final) - Unspecified atrial fibrillation(Final) - Discharge Disposition: Home or Self Care Attending Physician: DO Hubbard Kristen M Referring Physician: DO Hubbard Kristen M Allergies, Adverse Reactions, Alerts No Known Allergies [...] Refills: 3, PRN: shortness of breath, Pharmacy: [facility] Start Date: 10/03/23 Status: [...] dental and other procedures as directed, Pharmacy: [facility] Start Date: 12/11/23 Status: Ordered ascorbic acid 500 mg oral capsule Start: 04/16/24 9:50:00 AM EDT, 1 cap, PO, Daily Start Date: 04/16/24 Status: Ordered aspirin 81 mg oral delayed release tablet Start: 03/04/23 1:13:00 PM EDT, 1 tab, PO, Daily, Disp# 30 tab, Refills: 3, Pharmacy: [facility] Start Date: 03/04/23 Stop Date: 07/02/23 Status: Ordered Bumex 2 mg oral tablet Start: 12/13/23 4:25:00 PM EDT, See Instructions, Disp# 90 tab, Refills: 0, 1 tab am,, Pharmacy: [facility] Start Date: 12/13/23 Status: Ordered Eliquis 2.5 mg oral tablet Start: 12/22/23 8:47:00 AM EDT, 1 tab, PO, bid, Disp# 180 tab, Refills: 3, Pharmacy: [facility] Start Date: 12/22/23 Status: Ordered Entresto 97 mg-103 mg oral tablet Start: 01/19/24 1:38:00 PM EDT, 1 tab, PO, bid, Disp# 60 tab, Refills: 11, Pharmacy: [facility] Start Date: 01/19/24 Status: [...] Daily, Disp# 90 cap, Refills: 3, Pharmacy: [facility] Start Date: 04/16/24 Status: Ordered Potassium Chloride (Qom-Hulc-Zfz M20) 20 mEq oral tablet, extended release Start: 08/17/24 2:33:00 PM EST, 1 tab, PO, bid, Disp# 180 tab, Refills: 3, Pharmacy: [facility] Start Date: 08/17/24 Status: Ordered rosuvastatin 20 mg oral tablet Start: 09/12/23 11:44:00 AM EST, 1 tab, PO, Daily, Disp# 90 tab, Refills: 3, Pharmacy: [facility] Start Date: 09/12/23 Status: [...] Daily, Disp# 180 tab, Refills: 3, Pharmacy: [facility] Start Date: 08/14/23 Status: Ordered [...] Confirmed 05/25/24 Active Coronary artery disease involving [place] heart Confirmed Active SOB (shortness of breath) [...] Active Tobacco user Confirmed Active 1Added per Airplane Dispatcher Qeanos-RX-79/6/24 2Added per Airplane Dispatcher Review--05/28/24 3Added per Airplane Dispatcher Review--05/28/24 4renal US on 04/23/2016: bilateral renal cysts, [...] 6mm nodule in left thyroid 8Added per Airplane Dispatcher Review-JW-05/28/24 Procedures Procedure Date Related Diagnosis Body [...] hypodense nodule within the left thyroid lobe. [id number] 2012 132-Both 2004, 2006 Results Laboratory List Name Date Complete Blood Count w Differential (CBC ,DIFFH) 08/20/24 Comprehensive Metabolic Panel (COMP META B PANEL) 08/20/24 Erythropoietin (ERYTHROPOIETIN) 08/20/24 Ferritin (FERRITIN) 08/20/24 Iron Profile (IRON PROFILE) 08/20/24 Parathyroid Hormone, Intact (PTH, INTACT ) 08/20/24 Vitamin B12 Level (VITAMIN B12) 08/20/24 Vitamin D, 25-Hydroxy Level, Total (25-H YDROXY VITAMIN D) 08/20/24 Most recent to oldest [Reference Range]: 1 eGFR CKD-EPI [>60 mL/min/1.73 m2] 29 mL/ min/1.73 m2 1 *LOW* (08/20/24 1:37 PM) Vitamin D, 25-Hydroxy [30-100 ng/mL] 52 ng/mL 2 (08/20/24 1:37 PM) Estimated CrCl 24.92 mL/min (08/20/24 2:19 PM) MPV [9.0-12.2 fL] 9.2 fL (08/20/24 1:37 PM) Immature Gran% 0.6 % (08/20/24 1:37 PM) Neut% 77.8 % (08/20/24 1:37 PM) Lymph% 11.8 % (08/20/24 1:37 PM) [place]% 7.6 % (08/20/24 1:37 PM) Baso% 0.3 % (08/20/24 1:37 PM) Eos% 1.9 % (08/20/24 1:37 PM) Immat Gran, Abs [0-0.4 K/uL] 0.04 K/uL (08/20/24 1:37 PM) Neut, Abs [2.0-7.7 K/uL] 4.88 K/uL (08/20/24 1:37 PM) Lymph, Abs [1.0-3.4 K/uL] 0.74 K/uL *LOW* (08/20/24 1:37 PM) [place], Abs [0-1.0 K/uL] 0.48 K/uL (08/20/24 1:37 PM) Baso, Abs [0-0.1 K/uL] 0.02 K/uL (08/20/24 1:37 PM) Eos, Abs [0-0.5 K/uL] 0.12 K/uL (08/20/24 1:37 PM) Type of Diff: AUTO *Unknown* (08/20/24 1:37 PM) RDW [11.5-14.2 %] 17.2 % *HI* (08/20/24 1:37 PM) Anion Gap [5-14 mmol/L] 6 mmol/L (08/20/24 1:37 PM) Alb [3.5-5.0 g/dL] 3.1 g/dL *LOW* (08/20/24 1:37 PM) Alk Phos [38-126 unit/L] 137 unit/L *HI* (08/20/24 1:37 PM) ALT [<50 unit/L] 12 unit/L (08/20/24 1:37 PM) AST [15-46 unit/L] 14 unit/L *LOW* (08/20/24 1:37 PM) B12 [211-946 pg/mL] >1800 pg/mL *HI* (08/20/24 1:37 PM) BUN [7-20 mg/dL] 29 mg/dL *HI* (08/20/24 1:37 PM) Ca [8.4-10.2 mg/dL] 7.4 mg/dL *LOW* (08/20/24 1:37 PM) Cl- [96-107 mmol/L] 103 mmol/L (08/20/24 1:37 PM) HCO3 [22-30 mmol/L] 29 mmol/L (08/20/24 1:37 PM) Cret [0.70-1.30 mg/dL] 2.19 mg/dL *HI* (08/20/24 1:37 PM) Epo 111 3 *HI* (08/20/24 1:37 PM) Iron [50-158 ug/dL] 48 ug/dL *LOW* (08/20/24 1:37 PM) Ferritin [17.9-464.0 ng/mL] 144.3 ng/mL 4 (08/20/24 1:37 PM) Glu [74-106 mg/dL] 106 mg/dL (08/20/24 1:37 PM) Hct [39-48 %] 21.3 % *LOW* (08/20/24 1:37 PM) Hgb [13.0-17.0 g/dL] 6.7 g/dL *LOW* (08/20/24 1:37 PM) PTH Intact [15.0-65.0 pg/mL] 243.6 pg/mL *HI* (08/20/24 1:37 PM) K [3.5-5.1 mmol/L] 3.6 mmol/L (08/20/24 1:37 PM) MCH [28-33 pg] 31.9 pg (08/20/24 1:37 PM) MCHC [32-36 g/dL] 31.5 g/dL *LOW* (08/20/24 1:37 PM) MCV [81-96 fL] 101.4 fL *HI* (08/20/24 1:37 PM) Na [137-145 mmol/L] 138 mmol/L (08/20/24 1:37 PM) Plts [150-350 K/uL] 222 K/uL (08/20/24 1:37 PM) RBC [4.40-5.60 M/uL] 2.10 M/uL *LOW* (08/20/24 1:37 PM) Fe Sat [14-50 %] 26 % (08/20/24 1:37 PM) T Bili [0.2-1.3 mg/dL] 0.6 mg/dL (08/20/24 1:37 PM) Total IBC [250-400 ug/dL] 182 ug/dL *LOW* (08/20/24 1:37 PM) Prot [6.3-8.2 g/dL] 6.0 g/dL *LOW* (08/20/24 1:37 PM) Transferrin [200-360 mg/dL] 154 mg/dL *LOW* (08/20/24 1:37 PM) WBC [4.0-10.4 K/uL] 6.28 K/uL (08/20/24 1:37 PM) 1Result Comment: Testing Performed By: Dept of Pathology [facility] Lou [address], [address], [place] [address] 2Result Comment: Deficiency: <20 ng/mL Insufficiency: 21-29 ng/mL Sufficiency: 30-100 ng/mL Potenial Toxicity: >150 ng/mL 3Result Comment: Reference range: 4 to 27 Unit: mU/mL INTERPRETIVE INFORMATION: Erythropoietin Normal serum concentrations of erythropoietin for 95% of individuals with normal hematocrits range from 4-27 mU/mL. As the hematocrit is lowered by iron deficiency, aplastic, or hemolytic anemia, the concentration of erythropoietin increases as shown in the graph below. In the absence of anemia, elevated concentrations are seen in renal tumors, as a manifestation of renal transplant rejection, and in secondary polycythemia. Low values may be observed in hemochromatosis. Expected Erythropoietin Concentrations in Patients with Uncomplicated Anemia Erythropoietin (mU/mL) 100,000 - + + 10,000 - +....... + ....... 1,000 - + ....... + ........ 100 - + ........ + ........ 10 - + ........ +---+---+---+---+---+---+ 10 20 30 40 50 60 70 (Hematocrit %) (Contributions To Nephrology 1988:66:54-62) Decreased erythropoietin concentrations with an elevated hematocrit are observed in patients with polycythemia rubra vera, and with a decreased hematocrit in patients with HIV infection who are receiving AZT. Patients on AZT who have anemia and erythropoietin concentrations of less than or equal to 500 mU/mL may benefit from therapy with recombinant EPO (NEJ [id number],1989). Performed By: [facility] [address] [place] [id number] [employer] Operator: Khanh Pierre MD, PhD CLIA Number: [id number] 4Result Comment: Testing Performed By: Dept of Pathology [facility] Lou [address], [address] [place] [id number] Social History Social History Type Response Tobacco Current every day sm oker, Cigarettes Smoking Status Never smoked cigaret gordon Sex Male Sex Representation Male (finding) Patient Care team information Care Team Personnel Name: Saba Doyle Erika Joy Position: Pharmacist Member Role: Pharmacy - Lifetime Name: DO Montgomery Gretchen Elizabeth Position: Physician - Family Med Member Role: Primary Care Provider Address: [address] [place] [address] [address] [place] [address] [place] Care Team Related Persons Name: RICHY FONSECA Name: RICHY FONSECA
[2024-09-11] MEDS: PANTOprazole 40 MG/10 ML SYR IV SCH (00:16)
[2024-09-11] MEDS: VANCOMYCIN HCL 125 MG/2.5ML SOLN PO SCH (00:21)
[2024-09-11] MEDS: CHERRY SYRUP 5 ML UDP PO SCH (00:21)
[2024-09-11 03:27] LABS: Albumin Globulin Ratio 1.4 (0.9-2); BUN Creatinine Ratio 15.1 (10-20); Bilirubin,Total 1.3 mg/dl (0.2-1.0); Calcium 7.2 mg/dl (8.6-10.3); Creatinine Clr Calc Pharmacy 28.1 ml/min; Globulin 2.2 gm/dl (2.5-4.0); Magnesium 2.2 mg/dl (1.7-2.4); Total Protein 5.2 gm/dl (6.0-8.3)
[2024-09-11 03:35] LABS: Hematocrit (blood only) 22.6 % (42.0-52.0); Hemoglobin 7.1 g/dl (14.0-18.0); Mean Corpuscular Hemoglobin 31.8 pg (25.0-34.0); Mean Corpuscular Hgb Conc 31.4 g/dL (32.0-36.0); Mean Corpuscular Volume 101.3 fL (80.0-100.0); Mean Platelet Volume 9.1 fL (9.4-12.4); Platelet Count 183 K/uL (130-400); RDW Coefficient of Variation 20.8 % (11.5-14.5); RDW Standard Deviation 74.6 fL (36.4-46.3); Red Blood Count 2.23 M/uL (4.70-6.10)
[2024-09-11 03:37] LABS: Anisocytosis Present; Basophils # (auto) 0.02 K/uL (0.00-0.20); Basophils % (auto) 0.3 %; Eosinophils # (auto) 0.09 K/uL (0.00-0.50); Eosinophils % (auto) 1.3 %; Hypochromasia Present; Immature Granulocytes # (auto) 0.03 K/uL (0.01-0.20); Immature Granulocytes % (auto) 0.4 %; Lymphocytes # (auto) 0.69 K/uL (1.20-3.40); Lymphocytes % (auto) 9.7 %; Monocytes # (auto) 0.55 K/uL (0.11-0.59); Monocytes % (auto) 7.7 %; Neutrophils # (auto) 5.72 K/uL (1.40-6.50); Neutrophils % (auto) 80.6 %; Polychromasia 1+
--- NOTE | 2024-09-11 08:02 | Hospitalist Progress Note ---
Date of Service September 11, 2024 Assessment & Plan (1) ABLA (acute blood loss anemia): (2) Atrial fibrillation: (3) Anticoagulated: (4) Heart failure with mildly reduced ejection fraction (HFmrEF): (5) Anemia requiring transfusions: Plan The patient is an 84-year-old male with past medical history including CAD, GI bleeding, hyperlipidemia, hypertension, atrial fibrillation, history of acute blood loss anemia, C. difficile colitis, HFmrEF, chronic renal insufficiency, long-term use of anticoagulation on Eliquis, status post maze operation for atrial fibrillation, pulm hypertension, and COPD. He presents to the emergency department as a referral from the outpatient [place] clinic, where he had routine laboratories today, reported his hemoglobin was low and need to be seen in the ED for possible transfusion. #Acute blood loss anemia - advanced diet to clears - Hemoglobin 7.0 this evening - To receive 2 units PRBCs this evening - H&H every 6 hours - Patient did have EGD and colonoscopy on 06/15/2024, then had capsule endoscopy on 07/13/2024, which were all negative - Patient reportedly was going to have additional study performed, to further look at the small bowel - It does appear that he has some probable hemorrhoidal bleeding, but likely has some small bowel bleeding as well - Kcentra to reverse Eliquis this evening - Given pantoprazole 80 mg IV in the ED, then will give 40 mg IV twice daily - GI recs appreciated: doubt GI cause, recs hematology eval , consult placed HFmrEF - Significant lower extremity edema and chest x-ray with mild pulmonary edema - He will receive bumetanide 1 mg IV from the ED, cont Bumetanide 1 mg IV twice daily starting in the a.m. - resume entresto - monitor daily weights #C. difficile colitis - Continue vancomycin orally #AFib - s/p maze operation - cont amiodarone - resume metoprolol XL 50mg BID - Eliquis on hold #HLD - rosuvastatin 20mg daily on hold #GERD - cont PPI #BPH - flomax on hold Admission and Anticipated Discharge Date Admission Date: September 10, 2024 Subjective No acute events overnight Currently no new complaints Review of Systems Review of Systems: Comprehensive ROS negative Physical Exam Physical Exam: Gen: NAD, lying in bed comfortable HEENT: NC/AT, MMM Lungs: CTAB CVS: s1s2nl, RRR Abd: nl bowel sounds, soft, NT Ext: + b/l LE pitting edema Results & Data Results & Data Vital Signs (Past 12 Hours) Vital Signs Temp Pulse Pulse Resp BP BP Pulse Ox 09/11/24 07:03 73 09/11/24 06:03 36.7 C 72 20 133/67 96 09/11/24 03:30 09/11/24 02:17 70 18 162/82 H 97 09/10/24 23:06 78 09/10/24 22:43 36.7 C 77 22 162/101 H 93 09/10/24 22:19 36.6 C 80 22 157/75 H 92 09/10/24 21:40 36.6 C 83 21 163/80 H 94 09/10/24 21:20 36.5 C 81 21 167/86 H 94 09/10/24 21:13 36.5 C 80 23 158/78 H 93 09/10/24 21:01 36.7 C 79 21 158/94 H 93 09/10/24 20:58 36.4 C L 79 21 158/80 H 92 09/10/24 20:46 74 18 148/83 H 94 Pulse Ox O2 Del Method O2 Del Method O2 Flow Rate O2 Flow Rate 09/11/24 07:03 09/11/24 06:03 Nasal Cannula 3 09/11/24 03:30 98 Nasal Cannula 3 09/11/24 02:17 Nasal Cannula 2 09/10/24 23:06 09/10/24 22:43 09/10/24 22:19 09/10/24 21:40 09/10/24 21:20 09/10/24 21:13 09/10/24 21:01 09/10/24 20:58 09/10/24 20:46 Room Air PG Care Time/CCT Total # of Minutes Spent Total Time Spent with Patient: Total time spent is greater than 50% in coordination of care (as documented) at patient's floor/unit and/or counseling patient: Coding Level of Care Code 15727 SUB INP/OBS CARE 3/50MIN Diagnoses ABLA (acute blood loss anemia) D62 Atrial fibrillation I48.91 Anticoagulated Z79.01 Heart failure with mildly reduced ejection fraction (HFmrEF) I50.22 Anemia requiring transfusions D64.9
--- NOTE | 2024-09-11 10:51 | Gastrointestinal Consultation ---
Date of Consultation September 11, 2024 Assessment & Plan (1) Anemia: Pleasant gentleman with anemia that was a little worse than his usual blood count. He has been labeled as "Iron deficiency anemia" but there is no objective evidence of iron deficiency that I can see on computer with normal iron levels and normal ferritin everytime they are checked. He has had probably a complete GI workup for iron deficiency anemia but is to be scheduled for balloon enteroscopy. I don't think there is anything I need to do for him while he is in the hospital. I would suggest hematology consultation as he has no evidence of GI blood loss and no evidence of iron deficiency as far back as 2022. History of Present Illness Reason for Consultation: anemia Attending Physician: Daisy Nascimento MD History of Present Illness 84 year old man being evaluated for anemia as an outpatient [facility]. He was seen in June with the same issues and had EGD and colonoscopy which did not reveal source of bleeding. He underwent capsule endoscopy which showed one small intestinal "lymphangiectasia" and is now being scheduled for balloon enteroscopy. He has no issues with regards to his GI tract. He does see bright red blood with bowel movement on occasion but only on the toilet tissue. He has had dark stools related to iron. He is on infusions now so stools appear normal to him. Review of his records do not suggest iron deficiency anemia. His iron levels as far back as we have them on the computer (2022) are normal as are his ferritin levels. He tells me he has not seen hematology that he is aware of Allergies Allergy/AdvReac Type Severity Reaction Status Date / Time No Known Allergies Allergy Verified 08/21/24 10:05 Home Medications Medication Instructions Recorded Confirmed Type acetaminophen 500 mg capsule 1,000 mg PO Q6H PRN Pain 03/20/23 09/10/24 History rosuvastatin 20 mg tablet 20 mg PO DAILY 03/20/23 09/10/24 History omeprazole 40 mg capsule,delayed 40 mg PO DAILY 09/29/23 09/10/24 History release albuterol sulfate 2.5 mg/3 mL 2.5 mg continuous nebulization Q6H 10/30/23 09/10/24 History (0.083 %) solution for nebulization PRN Shortness Of Breath Or Wheezing albuterol sulfate 90 mcg/actuation 2 inh inhalation Q6H PRN shortness 01/05/24 09/10/24 Rx aerosol inhaler (Ventolin HFA) of breath or wheezing or cough #8.5 grams aspirin 81 mg tablet,delayed 81 mg PO DAILY 02/03/24 09/10/24 History release (Adult Low Dose Aspirin) sacubitril 97 mg-valsartan 103 mg 1 tab PO BID 02/03/24 09/10/24 History tablet (Entresto) tamsulosin 0.4 mg capsule (Flomax) 0.4 mg PO DAILY #90 caps 02/03/24 09/10/24 Rx ascorbic acid (vitamin C) 500 mg 500 mg PO DAILY 02/09/24 09/10/24 History capsule cholecalciferol (vitamin D3) 25 25 mcg PO QAM 02/09/24 09/10/24 History mcg (1,000 unit) capsule fluticasone furoate 27.5 1 spray intranasal DAILY PRN 02/09/24 09/10/24 History mcg/actuation nasal ALLERGIES spray,suspension (Flonase Sensimist) apixaban 2.5 mg tablet (Eliquis) 2.5 mg PO BID 05/26/24 09/10/24 History bumetanide 1 mg tablet 1 - 2 mg PO DAILY 05/26/24 09/10/24 History amiodarone 100 mg tablet 0 mg PO BID 06/11/24 09/10/24 History metoprolol succinate 50 mg 50 mg PO BID 06/11/24 09/10/24 History tablet,extended release 24 hr tiotropium 2.5 mcg-olodaterol 2.5 2 puff inhalation DAILY #4 grams 07/07/24 09/10/24 Rx mcg/actuation mist for inhalation (Stiolto Respimat) calcitriol 0.25 mcg capsule 0.25 mcg PO DAILY 08/21/24 09/10/24 History calcium carbonate (Calcium 600) 600 mg PO BID 08/21/24 09/10/24 History guaifenesin 1,200 mg tablet, 1,200 mg PO BID 08/21/24 09/10/24 History extended release 12 hr (Mucinex) potassium chloride 20 mEq 60 meq PO UD 08/21/24 09/10/24 History tablet,extended release(part/cryst) trazodone 50 mg tablet 50 mg PO HS PRN Sleep 09/10/24 09/10/24 History Patient History Medical History Acute GI bleeding NSTEMI (non-ST elevated myocardial infarction) TILA (acute kidney injury) Dysphagia Insomnia Right heart failure with reduced right ventricular function Acute exacerbation of chronic obstructive pulmonary disease Acute respiratory failure with hypoxia Ex-smoker Pleural effusion Pneumonia Chronic diastolic CHF (congestive heart failure) Current smoker Myocardial infarct 1997 - heavy chest, left arm pain - Went to [facility] - flown to [facility] - blockage of "back of heart" - heart cath - no stent placement - Follows Dr. Puente Hypertension Surgical History History of coronary artery bypass graft S/P CABG (coronary artery bypass graft) 3 vessel - [facility], 02/2023. Hx of cataract extraction Rt. Hx of cardiac cath 1997 d/t to [place] - no stents placed - Follows Dr. Puente History of colonoscopy Hx of inguinal hernia repair Hx of repair of left rotator cuff x2 Family History Father Family history of diabetes mellitus CHF (congestive heart failure) Black lung disease Mother , had CABG Family history of diabetes mellitus Coronary heart disease Myocardial infarction Dementia Social History Smoking Status: Former smoker Tobacco Type: Cigarettes Age Started Using Tobacco: 22; Age Quit Using Tobacco: 83; packs per day: 2; Cigarettes Per Day: 2 packs; Second Hand Exposure: No; Do You Dip or Chew Tobacco: No; Hx Alcohol Use: No Hx Substance Use: No Preferred Language: Northern Irish Communication Ability: Effective Visual Impairment: Limited Hearing Ability: Use of Hearing Aid Recovery Advocate Required: No Beliefs That Will Affect Care: None marital status: Current Living Situation: Spouse Current Living Situation Comment: From home with current occupational status: retired current occupation: Retired How many Children do You have: 2 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; 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 Feels Safe at Home: Yes Diet: regular caffeine: Yes (1 soda daily) Physical Activity Frequency: Does not Exercise Do you think of yourself as: straight/heterosexual Gender Identity: Male Assistive Devices: Cane Review of Systems Review of Systems: All systems reviewed & are unremarkable except as noted in HPI & below Physical Exam Constitutional: WD/WN, vitals as above Neck: trachea midline, no thyromegaly Respiratory: normal respiratory effort, lungs clear to auscultation Cardiovascular: RRR, no murmur, no edema Gastrointestinal (Abdomen): normal bowel sounds, soft, nontender, no hepatosplenomegaly Musculoskeletal: Extremities: extremities normal to inspection Results & Data Vital Signs (Past 12 Hours) Vital Signs Temp Pulse Pulse Resp BP BP Pulse Ox 09/11/24 08:10 87 20 154/88 H 94 09/11/24 07:03 73 09/11/24 06:03 36.7 C 72 20 133/67 96 09/11/24 03:30 09/11/24 02:17 70 18 162/82 H 97 09/10/24 23:06 78 Pulse Ox O2 Del Method O2 Del Method O2 Flow Rate O2 Flow Rate 09/11/24 08:10 Nasal Cannula 2 09/11/24 07:03 09/11/24 06:03 Nasal Cannula 3 09/11/24 03:30 98 Nasal Cannula 3 09/11/24 02:17 Nasal Cannula 2 09/10/24 23:06 Laboratory Results 09/11/24 09/10/24 09/10/24 Range/Units 02:20 Unknown 20:05 WBC 7.10 (4.8-10.8) K/ul RBC 2.23 L (4.70-6.10) M/uL Hgb 7.1 L (14.0-18.0) g/dl Hct 22.6 L (42.0-52.0) % MCV 101.3 H (80.0-100.0) fL MCH 31.8 (25.0-34.0) pg MCHC 31.4 L (32.0-36.0) g/dL RDW Std Deviation 74.6 H (36.4-46.3) fL RDW Coeff of Jolene 20.8 H (11.5-14.5) % Plt Count 183 (130-400) K/uL MPV 9.1 L (9.4-12.4) fL Immature Gran % (Auto) 0.4 % Neut % (Auto) 80.6 % Lymph % (Auto) 9.7 % [place] % (Auto) 7.7 % Eos % (Auto) 1.3 % Baso % (Auto) 0.3 % Neut # (Auto) 5.72 (1.40-6.50) K/uL Lymph # (Auto) 0.69 L (1.20-3.40) K/uL [place] # (Auto) 0.55 (0.11-0.59) K/uL Eos # (Auto) 0.09 (0.00-0.50) K/uL Baso # (Auto) 0.02 (0.00-0.20) K/uL Immature Gran # (Auto) 0.03 (0.01-0.20) K/uL Polychromasia 1+ Hypochromasia Present Poikilocytosis Anisocytosis Present Ovalocytes PT (9.0-12.0) Seconds INR (0.9-1.1) APTT (21-31) Seconds PTT Ratio Sodium 140 (136-145) mmol/L Potassium 4.0 (3.5-5.1) mmol/L Chloride 103 (98-107) mmol/L Carbon Dioxide 32 (21-32) mmol/L Anion Gap 5 (3-11) BUN 30 H (6-23) mg/dl Creatinine 1.99 H (0.6-1.4) mg/dl Est Cr Clr Drug Dosing 28.1 ml/min eGFR 32.70 BUN/Creatinine Ratio 15.1 (10-20) Glucose 109 H (70-99(Fasting)) mg/dl Calcium 7.2 L (8.6-10.3) mg/dl Magnesium 2.2 (1.7-2.4) mg/dl Total Bilirubin 1.3 H (0.2-1.0) mg/dl AST 9 L (13-39) U/L ALT 8 (7-52) U/L Alkaline Phosphatase 76 (34-104) U/L Troponin I High Sens 19.3 (0-20) pg/ml Total Protein 5.2 L (6.0-8.3) gm/dl Albumin 3.0 L (3.4-5.0) gm/dl Globulin 2.2 L (2.5-4.0) gm/dl Albumin/Globulin Ratio 1.4 (0.9-2) Urine Color Yellow Urine Appearance Clear (Clear) Urine pH 8.0 H (4.5-7.5) Ur Specific [place] 1.009 (1.000-1.030) Urine Protein Negative (Negative) Urine Glucose (UA) Negative (Negative) Urine Ketones Negative (Negative) Urine Blood Negative (Negative) Urine Nitrite Negative (Negative) Urine Bilirubin Negative (Negative) Urine Urobilinogen Negative (Negative) Ur Leukocyte Esterase Negative (Negative) Blood Type Antibody Screen Crossmatch 09/10/24 Range/Units 17:42 WBC 6.66 (4.8-10.8) K/ul RBC 2.17 L (4.70-6.10) M/uL Hgb 7.0 L (14.0-18.0) g/dl Hct 22.7 L (42.0-52.0) % MCV 104.6 H (80.0-100.0) fL MCH 32.3 (25.0-34.0) pg MCHC 30.8 L (32.0-36.0) g/dL RDW Std Deviation 75.7 H (36.4-46.3) fL RDW Coeff of Jolene 19.8 H (11.5-14.5) % Plt Count 215 (130-400) K/uL MPV 8.7 L (9.4-12.4) fL Immature Gran % (Auto) 0.5 % Neut % (Auto) 82.9 % Lymph % (Auto) 8.3 % [place] % (Auto) 6.9 % Eos % (Auto) 1.1 % Baso % (Auto) 0.3 % Neut # (Auto) 5.53 (1.40-6.50) K/uL Lymph # (Auto) 0.55 L (1.20-3.40) K/uL [place] # (Auto) 0.46 (0.11-0.59) K/uL Eos # (Auto) 0.07 (0.00-0.50) K/uL Baso # (Auto) 0.02 (0.00-0.20) K/uL Immature Gran # (Auto) 0.03 (0.01-0.20) K/uL Polychromasia Hypochromasia Poikilocytosis Present Anisocytosis Ovalocytes 1+ PT 12.9 H (9.0-12.0) Seconds INR 1.2 H (0.9-1.1) APTT 32 H (21-31) Seconds PTT Ratio 1.2 Sodium 140 (136-145) mmol/L Potassium 4.3 (3.5-5.1) mmol/L Chloride 102 (98-107) mmol/L Carbon Dioxide 32 (21-32) mmol/L Anion Gap 6 (3-11) BUN 30 H (6-23) mg/dl Creatinine 2.00 H (0.6-1.4) mg/dl Est Cr Clr Drug Dosing 28.0 ml/min eGFR 32.51 BUN/Creatinine Ratio 15.0 (10-20) Glucose 121 H (70-99(Fasting)) mg/dl Calcium 7.8 L (8.6-10.3) mg/dl Magnesium 2.2 (1.7-2.4) mg/dl Total Bilirubin 1.0 (0.2-1.0) mg/dl AST 11 L (13-39) U/L ALT 10 (7-52) U/L Alkaline Phosphatase 108 H (34-104) U/L Troponin I High Sens 20.7 H (0-20) pg/ml Total Protein 6.1 (6.0-8.3) gm/dl Albumin 3.4 (3.4-5.0) gm/dl Globulin 2.7 (2.5-4.0) gm/dl Albumin/Globulin Ratio 1.3 (0.9-2) Urine Color Urine Appearance (Clear) Urine pH (4.5-7.5) Ur Specific [place] (1.000-1.030) Urine Protein (Negative) Urine Glucose (UA) (Negative) Urine Ketones (Negative) Urine Blood (Negative) Urine Nitrite (Negative) Urine Bilirubin (Negative) Urine Urobilinogen (Negative) Ur Leukocyte Esterase (Negative) Blood Type AB Negative Antibody Screen NEGATIVE Crossmatch See Detail Diagnostic Findings Cervical Spine CT 09/10/24 17:30 CT cervical spine without IV contrast History: Pain Comparison: None Technique: Using multidetector thin collimation helical acquisition technique, axial, coronal and sagittal CT images through the cervical spine were obtained without intravenous contrast. Dose reduction techniques were achieved by using automatic exposure control and/or adjustment of mA and/or kV according to patient size and/or use of iterative reconstruction technique. Findings: The cervical vertebrae are normally aligned. Normal cervical lordosis. No acute fracture or subluxation. No prevertebral edema. Moderate discogenic degenerative changes seen at C5-6 and C6-7, where there are mild to moderate neuroforaminal stenoses. There is trace, degenerative related anterolisthesis of C7 on T1. The bones are osteopenic. Severe atlantodental degenerative change, with bony remodeling associated at the anterior arch of C1. No abnormality of the paraspinous soft tissues. Severe emphysema seen in the lung apices. A likely moderate left pleural effusion is partially seen. Impression: No acute fracture or traumatic subluxation. Severe emphysema seen in the lung apices. A likely moderate left pleural effusion is partially seen. Electronically signed by Robert Newton 09-10-2024 7:[address] 09/10/24 17:30 CT head without contrast History: Trauma Comparison: None Technique: Using multidetector thin collimation helical acquisition technique, axial, coronal and sagittal CT images from the skull base to the vertex were obtained without intravenous contrast. Dose reduction techniques were achieved by using automatic exposure control and/or adjustment of mA and/or kV according to patient size and/or use of iterative reconstruction technique. Findings: No intracranial hemorrhage, mass-effect, or midline shift. The ventricles are proportionate to the cerebral sulci. The baker to white matter differentiation of the cerebral hemispheres is preserved. The basal cisterns are patent. There is moderate cerebral atrophy. Moderate, patchy low-attenuation changes in the white matter, most suggestive of sequelae of chronic small vessel ischemic disease. Moderate frothy debris in the maxillary sinuses. Mastoid air cells are clear. Impression: No acute intracranial pathology. Electronically signed by Robert Newton 09-10-2024 7:18 PM Chest X-Ray 09/10/24 17:31 Exam(s): XR CXR 1 VIEW EXAM: XR Chest, 1 View CLINICAL HISTORY: Weakness. TECHNIQUE: Frontal view of the chest. COMPARISON: Chest radiograph 08/21/2024 FINDINGS: Lungs: Bilateral airspace opacities may represent pulmonary edema and/or atypical infection. Pleural space: Small bilateral pleural effusions. No pneumothorax. Heart: Cardiomegaly. Mediastinum: Unremarkable. Normal mediastinal contour. Bones/joints: Degenerative changes of the spine are noted. No acute fracture. Tubes, lines and devices: Redemonstrated left atrial appendage closure device. IMPRESSION: 1. Bilateral airspace opacities may represent pulmonary edema and/or atypical infection. 2. Cardiomegaly. 3. Small bilateral pleural effusions. Electronically signed by: Trudi Montenegro MD 09/10/24 22:23 PM (1) Anemia Anemia type: unspecified type Qualified Code(s): D64.9 - Anemia, unspecified
[2024-09-11] MEDS: AMIODARONE 200 MG TAB PO SCH (11:18)
[2024-09-11] MEDS: BUMETANIDE 1 MG in SYRINGE 0 ML IV SCH (11:18)
[2024-09-11] MEDS: METOPROLOL SUCC 50MG EXT REL TAB PO SCH (13:13)
[2024-09-11] MEDS: VALSARTAN/SACUBITRIL 103/97MG TAB PO SCH (20:32)
[2024-09-12 06:52] LABS: Basophils # (auto) 0.03 K/uL (0.00-0.20); Basophils % (auto) 0.4 %; Eosinophils # (auto) 0.14 K/uL (0.00-0.50); Hematocrit (blood only) 24.2 % (42.0-52.0); Hemoglobin 7.7 g/dl (14.0-18.0); Immature Granulocytes # (auto) 0.02 K/uL (0.01-0.20); Immature Granulocytes % (auto) 0.3 %; Lymphocytes # (auto) 0.53 K/uL (1.20-3.40); Lymphocytes % (auto) 7.5 %; Mean Corpuscular Hemoglobin 32.6 pg (25.0-34.0); Mean Corpuscular Hgb Conc 31.8 g/dL (32.0-36.0); Mean Corpuscular Volume 102.5 fL (80.0-100.0); Mean Platelet Volume 8.8 fL (9.4-12.4); Monocytes % (auto) 8.5 %; Neutrophils # (auto) 5.72 K/uL (1.40-6.50); Neutrophils % (auto) 81.3 %; Platelet Count 173 K/uL (130-400); RDW Standard Deviation 74.3 fL (36.4-46.3); Red Blood Count 2.36 M/uL (4.70-6.10); White Blood Count 7.04 K/ul (4.8-10.8)
[2024-09-12 07:22] LABS: Albumin Globulin Ratio 1.3 (0.9-2); BUN Creatinine Ratio 13.9 (10-20); Bilirubin,Total 1.6 mg/dl (0.2-1.0); Creatinine Clr Calc Pharmacy 31.1 ml/min; Globulin 2.4 gm/dl (2.5-4.0); Magnesium 2.2 mg/dl (1.7-2.4); Potassium 3.2 mmol/L (3.5-5.1); Total Protein 5.4 gm/dl (6.0-8.3)
[2024-09-12 07:32] LABS: Anisocytosis Present; Ovalocytes 1+
[2024-09-12] MEDS: POTASSIUM CHLORIDE CRTAB 20 MEQ TABCR PO STA (08:33)
[2024-09-12] MEDS ORDERED: ALBUT/IPRATROP 3MG/0.5MG NEB 3 ML VIAL NEB PRN (08:38)
--- NOTE | 2024-09-12 08:42 | Hospitalist Progress Note ---
Date of Service September 12, 2024 Assessment & Plan (1) ABLA (acute blood loss anemia): (2) Atrial fibrillation: (3) Anticoagulated: (4) Heart failure with mildly reduced ejection fraction (HFmrEF): (5) Anemia requiring transfusions: Plan The patient is an 84-year-old male with past medical history including CAD, GI bleeding, hyperlipidemia, hypertension, atrial fibrillation, history of acute blood loss anemia, C. difficile colitis, HFmrEF, chronic renal insufficiency, long-term use of anticoagulation on Eliquis, status post maze operation for atrial fibrillation, pulm hypertension, and COPD. He presents to the emergency department as a referral from the outpatient [place] clinic, where he had routine laboratories today, reported his hemoglobin was low and need to be seen in the ED for possible transfusion. #Acute blood loss anemia - advanced diet to clears - Hemoglobin 7.0 this evening - To receive 2 units PRBCs this evening - monitor Hgb - Patient did have EGD and colonoscopy on 06/15/2024, then had capsule endoscopy on 07/13/2024, which were all negative - Patient reportedly was going to have additional study performed, to further look at the small bowel - It does appear that he has some probable hemorrhoidal bleeding, but likely has some small - possible hemorrhoidal bleeding - s/p Kcentra to reverse Eliquis - IV PPI changed to PO - GI recs appreciated: doubt GI cause, recs hematology eval , consult placed HFmrEF - Significant lower extremity edema and chest x-ray with mild pulmonary edema - currently on IV bumex BID, cont as pt still has b/l LE edema, monitor renal fn, currently improving - resume entresto - monitor daily weights #C. difficile colitis - Continue vancomycin orally #AFib - s/p maze operation - cont amiodarone - resume metoprolol XL 50mg BID - cont to Eliquis on hold #HLD - rosuvastatin 20mg daily on hold #GERD - cont PPI #BPH - flomax on hold Admission and Anticipated Discharge Date Admission Date: September 10, 2024 Subjective No acute events overnight Currently no new complaints Attempted to wean off of oxygen and pt was saturating 86% on RA and 92% on 1L Review of Systems Review of Systems: Comprehensive ROS negative Physical Exam Physical Exam: Gen: NAD, lying in bed comfortable HEENT: NC/AT, MMM Lungs: mild scattered expiratory wheezing b/l CVS: s1s2nl, RRR Abd: nl bowel sounds, soft, NT Ext: + b/l LE pitting edema but improved from yesterday Results & Data Results & Data Vital Signs (Past 12 Hours) Vital Signs Temp Pulse Pulse Resp BP Pulse Ox O2 Del Method 09/12/24 08:34 92 Nasal Cannula 09/12/24 08:34 86 L Room Air 09/12/24 08:25 36.8 C 53 L 18 160/67 H 97 Nasal Cannula 09/12/24 08:12 Nasal Cannula 09/12/24 08:12 58 L 09/11/24 23:18 36.6 C 60 14 155/78 H 95 Room Air 09/11/24 21:46 62 O2 Flow Rate 09/12/24 08:34 1 09/12/24 08:34 09/12/24 08:25 2 09/12/24 08:12 2 09/12/24 08:12 09/11/24 23:18 09/11/24 21:46 PG Care Time/CCT Total # of Minutes Spent Total Time Spent with Patient: Total time spent is greater than 50% in coordination of care (as documented) at patient's floor/unit and/or counseling patient: Coding Level of Care Code 44660 SUB INP/OBS CARE 3/50MIN Diagnoses ABLA (acute blood loss anemia) D62 Atrial fibrillation I48.91 Anticoagulated Z79.01 Heart failure with mildly reduced ejection fraction (HFmrEF) I50.22 Anemia requiring transfusions D64.9
[2024-09-12] MEDS: PANTOprazole 40 MG TAB PO SCH (10:29)
[2024-09-12] MEDS: ADVANCED PROBIOTIC 625 MG CAPSULE PO SCH (10:29)
--- NOTE | 2024-09-12 16:55 | Oncology Consultation ---
Date of Consultation September 12, 2024 Assessment & Plan (1) Anemia: reviewed all of the workup done till date, the patient does not need further evaluation hematologically. I noticed that he is predominantly macrocytic anemia. Recommend repeat testing for B12, folic acid, peripheral smear review as well as Kelsea test to rule out identifiable causes for this patient's anemia. I do not see a role for alcohol or cirrhosis to be causing macrocytic anemia. Bilirubin level is elevated very slightly at 1.6. Recommend blood transfusions to maintain hemoglobin greater than 7. if we do not identify B12, folic acid deficiency or positive Kelsea test then it would be prudent to consider bone marrow biopsy given that anemia is predominantly microcytic in nature. However we will leave that to the patient whether he would not want to undergo such a procedure. Plan Hematology will continue to follow the patient make appropriate recommendations. Thank you for this interesting hematological consult. History of Present Illness Reason for Consultation: macrocytic anemia Attending Physician: Daisy Nascimento MD History of Present Illness patient is a very pleasant 84-year-old man who has been chronically anemic since at least earlier this year. He underwent a GI evaluation in June, at that time he had an upper GI endoscopy and colonoscopy which did not reveal any source of bleeding. He also underwent a capsule endoscopy which revealed lymphangiectasia. He is on oral iron supplementation. He presented to the hospital with severe anemia, hemoglobin of 7 g/dL has received 2 units packed red blood cells. GI has been consulted and they are not concerned about GI bleeding as he has had normal iron levels, relatively recent GI workup which was normal. The patient does have macrocytosis. 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 Medical oncology has been consulted to assist in management of this patient with macrocytic anemia. I did not notice any recent hematological workup including B12, folic acid level. When last checked the B12 level was normal, iron indicis were normal. However this was a few weeks ago. CT abdomen pelvis, 03/25/2024: IMPRESSION: 1. No free air. A portion of transverse colon resides above the liver, if the free air was noted on the right side this could account for that finding. 2. Airspace opacities of the lower lobes, greater on the right. This is concerning for atypical infection and/or aspiration. Small left pleural effusion. 3. Prostate gland enlargement with the prostate gland measuring 5.8 x 3. 2 x 4.2 cm, with a volume of 39 cc. 4. Diverticulosis. 5. Cholelithiasis. colonoscopy, 06/11/2024: Impression: - Diverticulosis in the entire examined colon. - Three small (4-6 mm) polyps at the recto-sigmoid colon, removed with a cold snare. Resected and retrieved. EGD, 06/11/2024Impression: - Normal esophagus. - 5 cm hiatal hernia. - Normal stomach. - Normal examined duodenum. - No specimens collected. Allergies Allergy/AdvReac Type Severity Reaction Status Date / Time No Known Allergies Allergy Verified 08/21/24 10:05 Home Medications Medication Instructions Recorded Confirmed Type acetaminophen 500 mg capsule 1,000 mg PO Q6H PRN Pain 03/20/23 09/10/24 History rosuvastatin 20 mg tablet 20 mg PO DAILY 03/20/23 09/10/24 History omeprazole 40 mg capsule,delayed 40 mg PO DAILY 09/29/23 09/10/24 History release albuterol sulfate 2.5 mg/3 mL 2.5 mg continuous nebulization Q6H 10/30/23 09/10/24 History (0.083 %) solution for nebulization PRN Shortness Of Breath Or Wheezing albuterol sulfate 90 mcg/actuation 2 inh inhalation Q6H PRN shortness 01/05/24 09/10/24 Rx aerosol inhaler (Ventolin HFA) of breath or wheezing or cough #8.5 grams aspirin 81 mg tablet,delayed 81 mg PO DAILY 02/03/24 09/10/24 History release (Adult Low Dose Aspirin) sacubitril 97 mg-valsartan 103 mg 1 tab PO BID 02/03/24 09/10/24 History tablet (Entresto) tamsulosin 0.4 mg capsule (Flomax) 0.4 mg PO DAILY #90 caps 02/03/24 09/10/24 Rx ascorbic acid (vitamin C) 500 mg 500 mg PO DAILY 02/09/24 09/10/24 History capsule cholecalciferol (vitamin D3) 25 25 mcg PO QAM 02/09/24 09/10/24 History mcg (1,000 unit) capsule fluticasone furoate 27.5 1 spray intranasal DAILY PRN 02/09/24 09/10/24 History mcg/actuation nasal ALLERGIES spray,suspension (Flonase Sensimist) apixaban 2.5 mg tablet (Eliquis) 2.5 mg PO BID 05/26/24 09/10/24 History bumetanide 1 mg tablet 1 - 2 mg PO DAILY 05/26/24 09/10/24 History amiodarone 100 mg tablet 0 mg PO BID 06/11/24 09/10/24 History metoprolol succinate 50 mg 50 mg PO BID 06/11/24 09/10/24 History tablet,extended release 24 hr tiotropium 2.5 mcg-olodaterol 2.5 2 puff inhalation DAILY #4 grams 07/07/24 09/10/24 Rx mcg/actuation mist for inhalation (Stiolto Respimat) calcitriol 0.25 mcg capsule 0.25 mcg PO DAILY 08/21/24 09/10/24 History calcium carbonate (Calcium 600) 600 mg PO BID 08/21/24 09/10/24 History guaifenesin 1,200 mg tablet, 1,200 mg PO BID 08/21/24 09/10/24 History extended release 12 hr (Mucinex) potassium chloride 20 mEq 60 meq PO UD 08/21/24 09/10/24 History tablet,extended release(part/cryst) trazodone 50 mg tablet 50 mg PO HS PRN Sleep 09/10/24 09/10/24 History Patient History Medical History Acute GI bleeding NSTEMI (non-ST elevated myocardial infarction) TILA (acute kidney injury) Dysphagia Insomnia Right heart failure with reduced right ventricular function Acute exacerbation of chronic obstructive pulmonary disease Acute respiratory failure with hypoxia Ex-smoker Pleural effusion Pneumonia Chronic diastolic CHF (congestive heart failure) Current smoker Myocardial infarct 1997 - heavy chest, left arm pain - Went to [facility] - flown to [facility] - blockage of "back of heart" - heart cath - no stent placement - Follows Dr. Puente Hypertension Surgical History History of coronary artery bypass graft S/P CABG (coronary artery bypass graft) 3 vessel - [facility], 02/2023. Hx of cataract extraction Rt. Hx of cardiac cath 1997 d/t to [place] - no stents placed - Follows Dr. Puente History of colonoscopy Hx of inguinal hernia repair Hx of repair of left rotator cuff x2 Family History Father Family history of diabetes mellitus CHF (congestive heart failure) Black lung disease Mother , had CABG Family history of diabetes mellitus Coronary heart disease Myocardial infarction Dementia Social History Smoking Status: Former smoker Tobacco Type: Cigarettes Age Started Using Tobacco: 22; Age Quit Using Tobacco: 83; packs per day: 2; Cigarettes Per Day: 2 packs; Second Hand Exposure: No; Do You Dip or Chew Tobacco: No; Hx Alcohol Use: No Hx Substance Use: No Preferred Language: Macedonian Communication Ability: Effective Visual Impairment: Limited Hearing Ability: Use of Hearing Aid Fur Examiner Required: No Beliefs That Will Affect Care: None marital status: Current Living Situation: Spouse Current Living Situation Comment: From home with current occupational status: retired current occupation: Retired How many Children do You have: 2 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: 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; 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 Feels Safe at Home: Yes Diet: regular caffeine: Yes (1 soda daily) Physical Activity Frequency: Does not Exercise Do you think of yourself as: straight/heterosexual Gender Identity: Male Assistive Devices: Glasses and Hearing Aid - Bilateral Review of Systems Review of Systems: All systems reviewed & are unremarkable except as noted in HPI & below Constitutional: as per Subjective / HPI Eyes: as per Subjective / HPI Ear, Nose, Mouth, Throat: as per Subjective / HPI Respiratory: as per Subjective / HPI Cardiovascular: as per Subjective / HPI Gastrointestinal: as per Subjective / HPI Genitourinary: + as per Subjective / HPI Musculoskeletal: as per Subjective / HPI Integumentary: as per Subjective / HPI Neurologic: as per Subjective / HPI Psychiatric: as per Subjective / HPI Endocrine: as per Subjective / HPI Hematologic / Lymphatic: as per Subjective / HPI Allergy / Immunological: as per Subjective / HPI Results & Data Vital Signs (Past 12 Hours) Vital Signs Temp Pulse Pulse Resp BP BP Pulse Ox 09/12/24 16:23 83 L 09/12/24 16:15 36.7 C 59 L 18 136/67 96 09/12/24 16:04 59 L 09/12/24 11:22 36.7 C 54 L 18 144/72 H 92 09/12/24 08:34 92 09/12/24 08:34 86 L 09/12/24 08:25 36.8 C 53 L 18 160/67 H 97 09/12/24 08:12 09/12/24 08:12 58 L O2 Del Method O2 Flow Rate 09/12/24 16:23 Room Air 09/12/24 16:15 Nasal Cannula 1 09/12/24 16:04 09/12/24 11:22 Nasal Cannula 1 09/12/24 08:34 Nasal Cannula 1 09/12/24 08:34 Room Air 09/12/24 08:25 Nasal Cannula 2 09/12/24 08:12 Nasal Cannula 2 09/12/24 08:12 (1) Anemia Anemia type: unspecified type Qualified Code(s): D64.9 - Anemia, unspecified
[2024-09-12] MEDS: traZODone HCL 50 MG TAB PO PRN (23:33)
[2024-09-13] MEDS: ACETAMINOPHEN 1000 MG/100 ML IV IV PRN (00:51)
[2024-09-13 07:34] LABS: Basophils # (auto) 0.02 K/uL (0.00-0.20); Basophils % (auto) 0.3 %; Eosinophils # (auto) 0.16 K/uL (0.00-0.50); Eosinophils % (auto) 2.5 %; Hematocrit (blood only) 23.7 % (42.0-52.0); Hemoglobin 7.4 g/dl (14.0-18.0); Immature Granulocytes # (auto) 0.05 K/uL (0.01-0.20); Immature Granulocytes % (auto) 0.8 %; Lymphocytes # (auto) 0.81 K/uL (1.20-3.40); Lymphocytes % (auto) 12.5 %; Mean Corpuscular Hemoglobin 32.3 pg (25.0-34.0); Mean Corpuscular Hgb Conc 31.2 g/dL (32.0-36.0); Mean Corpuscular Volume 103.5 fL (80.0-100.0); Mean Platelet Volume 9.2 fL (9.4-12.4); Monocytes # (auto) 0.59 K/uL (0.11-0.59); Monocytes % (auto) 9.1 %; Neutrophils # (auto) 4.86 K/uL (1.40-6.50); Neutrophils % (auto) 74.8 %; Platelet Count 180 K/uL (130-400); RDW Coefficient of Variation 19.5 % (11.5-14.5); RDW Standard Deviation 73.7 fL (36.4-46.3); Red Blood Count 2.29 M/uL (4.70-6.10); White Blood Count 6.49 K/ul (4.8-10.8)
[2024-09-13 07:42] LABS: Albumin Globulin Ratio 1.2 (0.9-2); Albumin Level 2.9 gm/dl (3.4-5.0); BUN Creatinine Ratio 15.9 (10-20); Globulin 2.5 gm/dl (2.5-4.0); Magnesium 2.3 mg/dl (1.7-2.4); Phosphorus 3.3 mg/dl (2.5-4.9); Potassium 3.9 mmol/L (3.5-5.1); Total Protein 5.4 gm/dl (6.0-8.3)
[2024-09-13 07:51] LABS: Ovalocytes 1+; Polychromasia 1+
--- NOTE | 2024-09-13 08:48 | Electrocardiogram Report ---
Test Reason : Blood Pressure : */* mmHG Vent. Rate : 88 BPM Atrial Rate : 88 BPM P-R Int : 214 ms QRS Dur : 150 ms QT Int : 454 ms P-R-T Axes : 52 260 -36 degrees QTcB Int : 549 ms Sinus rhythm with 1st degree A-V block Right bundle branch block Possible Inferior infarct , age undetermined Abnormal ECG When compared with ECG of 22-Aug-2024 02:25, HR has decreased Confirmed by Angel May ([id number]) on 09/13/2024 8:48:27 AM Referred By: Confirmed By: Angel May
[2024-09-13 11:26] VITALS: BP 154/71; RESP 18; TEMP 97.2; O2SAT 92
--- NOTE | 2024-09-13 12:34 | Discharge Summary ---
Date of Service September 13, 2024 Admission HPI Per Admitting Provider The patient is an 84-year-old male with past medical history including CAD, GI bleeding, hyperlipidemia, hypertension, atrial fibrillation, history of acute blood loss anemia, C. difficile colitis, HFmrEF, chronic renal insufficiency, long-term use of anticoagulation on Eliquis, status post maze operation for atrial fibrillation, pulm hypertension, and COPD. He presents to the emergency department as a referral from the outpatient [facility], where he had routine laboratories today, reported his hemoglobin was low and need to be seen in the ED for possible transfusion. Admission Exam (Per Admitting) Constitutional The patient is awake, alert and oriented 3, well developed and well nourished, normocephalic and atraumatic, lying in bed and in no acute distress. HEENT--PERRL, EOMI, mucous membranes and oropharynx mildly dry Neck--supple. No JVD. No bruits. Thyroid normal, trachea midline, no adenopathy. Heart--normal S1 and S2. No murmurs, rubs or gallops. Lungs--clear bilaterally, no respiratory distress, no accessory muscle use. Abdomen--normal bowel sounds and soft. Extremities--no cyanosis or clubbing. No edema. Dermatologic--normal skin turgor, normal color, no abnormal lymph nodes, no rash. Neurologic--cranial nerves II through XII grossly intact. Rheumatologic--normal range of motion. Psychiatric--normal affect. Discharge Data Consultations 09/10/24 19:28 ED Decision to Admit Stat 09/10/24 22:49 Consult Gastroenterology Routine 09/11/24 11:59 Consult Hematology Routine Hospital Course (1) ABLA (acute blood loss anemia): (2) Atrial fibrillation: (3) Anticoagulated: (4) Heart failure with mildly reduced ejection fraction (HFmrEF): (5) Anemia requiring transfusions: Plan The patient is an 84-year-old male with past medical history including CAD, GI bleeding, hyperlipidemia, hypertension, atrial fibrillation, history of acute blood loss anemia, C. difficile colitis, HFmrEF, chronic renal insufficiency, long-term use of anticoagulation on Eliquis, status post maze operation for atrial fibrillation, pulm hypertension, and COPD. He presents to the emergency department as a referral from the outpatient [facility] clinic, where he had routine laboratories today, reported his hemoglobin was low and need to be seen in the ED for possible transfusion. #Acute blood loss anemia - advanced diet to clears - Hemoglobin 7.0 this evening - To receive 2 units PRBCs this evening - monitor Hgb - Patient did have EGD and colonoscopy on 06/15/2024, then had capsule endoscopy on 07/13/2024, which were all negative - Patient reportedly was going to have additional study performed, to further look at the small bowel - It does appear that he has some probable hemorrhoidal bleeding, but likely has some small - possible hemorrhoidal bleeding - s/p Kcentra to reverse Eliquis - IV PPI changed to PO - GI recs appreciated: doubt GI cause, recs hematology eval , consult placed Evaluated by hematology, recommend outpatient bone marrow biopsy if the patient wants HFmrEF - Significant lower extremity edema and chest x-ray with mild pulmonary edema - currently on IV bumex BID, cont as pt still has b/l LE edema, monitor renal fn, currently improving - resume entresto - monitor daily weights #C. difficile colitis - Continue vancomycin orally #AFib - s/p maze operation - cont amiodarone - resume metoprolol XL 50mg BID - cont to Eliquis on hold #HLD - rosuvastatin 20mg daily on hold #GERD - cont PPI #BPH - flomax on hold Coding Level of Care Code 21762 INP/OBS DISCH >30 MIN Diagnoses ABLA (acute blood loss anemia) D62 Atrial fibrillation I48.91 Anticoagulated Z79.01 Heart failure with mildly reduced ejection fraction (HFmrEF) I50.22 Anemia requiring transfusions D64.9 Time Spent (min) 35
[2024-09-13 14:17] VITALS: PULSE 50
== END 2024-09-13 14:45 | disposition home or self-care (01) | DRG 812 ==
LOC: ED 17:08 → EDINP 20:40 → SUATTDRO 20:40 → 4W 09-11 14:23